=== PATIENT | female | born 1965 | race Caucasian/White ===

== ENCOUNTER → 2021-04-09 02:41 | Outpatient (CLI) | payer MEDICARE, SELFPAY ==
[2021-04-09 18:14] LABS: SARS-CoV-2 RNA PCR Negative
== END ==
PROVIDERS: PCP Family Medicine; Visit Provider Internal Medicine Gastroenterology
DX: Z01.812 Encounter for preprocedural laboratory examination (principal); Z20.822 Contact with and (suspected) exposure to COVID-19
CPT/HCPCS: C9803; U0003; U0005

== ENCOUNTER 2021-04-12 00:54 | Day surgery (SDC) | payer MEDICARE, SELFPAY ==
[2021-04-05 13:34] VITALS: BMI 34.0
[2021-04-12 12:01] VITALS: BP 143/100; PULSE 72; RESP 18; TEMP 36.3; O2SAT 100
[2021-04-12 12:07] LABS: Glucose Point of Care 110 mg/dl (65-105)
[2021-04-12] MEDS: LACTATED RINGERS 1,000 ML 150 ML IV CONT (12:07)
--- NOTE | 2021-04-12 12:46 | WPDANESEPPF ---
Anes - Initial Pre Proc Eval Procedure: Operation Date: 04/12/21 13:30 Proposed Procedures p Esophagogastroduodenoscopy - Danny Hunter MD Date/Time: 04/12/21 12:46 Surgeon: Danny Hunter MD Pre Op Diagnosis: nausea and upper quad pain Patient Data Age: 55 Gender: F Height: 5 ft 4 in Weight: 89 kg Last Vital Signs Temp 97.3 F L 04/12/21 12:01 Pulse 72 04/12/21 12:01 Resp 18 04/12/21 12:01 BP 143/100 H 04/12/21 12:01 Pulse Ox 100 04/12/21 12:01 Allergies Allergy/AdvReac Type Severity Reaction Status Date / Time Sulfa (Sulfonamide Allergy Unknown RASH, Verified 04/12/21 11:59 Antibiotics) NAUSEA ibuprofen Allergy Nausea and Verified 04/12/21 11:59 Vomiting Chocolate Allergy Unknown BAD Uncoded 04/12/21 11:59 MIGRAINES Home Medications Medication Instructions Recorded Confirmed Type atorvastatin 80 mg PO DAILY 04/05/21 04/05/21 History famotidine 40 mg PO DAILY 04/05/21 04/05/21 History hydroxyzine HCl 25 mg PO TID PRN 04/05/21 04/05/21 History lisinopril 2.5 mg PO DAILY 04/05/21 04/05/21 History metformin 1,000 mg PO BID 04/05/21 04/05/21 History propranolol 40 mg PO DAILY 04/05/21 04/05/21 History sertraline 100 mg PO DAILY 04/05/21 04/05/21 History sucralfate 1,000 mg PO QID 04/05/21 04/05/21 History tramadol 50 mg PO Q6H PRN 04/05/21 04/05/21 History Laboratory Tests 04/12/21 12:05 POC Capillary Glucose 110 mg/dl H mg/dl (65-105) Patient hx anesthesia problems: none Family hx anesthesia problems: none PMFSH Past Medical History Medical History (Updated 03/26/21 @ 14:46 by Danny Hunter MD) Nausea Obesity, morbid, BMI 40.0-49.9 Social History Social History Smoking status: Never smoker Living arrangements: with family Spiritual care concerns: No Anes - Eval Final PreProcedure Day of Procedure 04/12/21 12:46 Patient weight: obese Heart: regular rate and rhythm Lungs: clear to auscultation Airway: Mallampati scale class II Neurological: alert and oriented Last oral intake: >/= 8 hours ASA classification: III Emergent: no Anesthetic plan: proceed Anesthesia type and monitoring: general GIVS and standard monitoring Informed Consent: The patient's anesthetic plan and its attendant risks and benefits were discussed with the patient/family/POA. Questions were solicited and answers provided to the satisfaction of the patient/family/POA.
--- NOTE | 2021-04-12 12:59 | WPDHPUPDATE1 ---
History and Physical Update Update Date/Time: 04/12/21 12:59 History and Physical has been reviewed, including an updated exam of the patient. There are NO changes in the patient's condition. Risks, benefits, and alternatives have been discussed and questions answered. Patient agrees to proceed with procedure.
[2021-04-12 13:19] VITALS: BP 144/78; PULSE 73; RESP 21; O2SAT 99
[2021-04-12 13:29] VITALS: BP 146/78; PULSE 81; RESP 14; O2SAT 99
[2021-04-12 13:39] VITALS: BP 142/96; PULSE 76; RESP 22; O2SAT 100
== END 2021-04-12 13:55 | disposition home or self-care (01) ==
PROVIDERS: Visit Provider Internal Medicine Gastroenterology
PROC: 0DJ08ZZ Inspection of Upper Intestinal Tract, Via Natural or Artificial Opening Endoscopic (ICD-10-PCS; CPT 43235; principal; 2021-04-12 13:30)
DX: K29.50 Unspecified chronic gastritis without bleeding (principal); K44.9 Diaphragmatic hernia without obstruction or gangrene; E66.9 Obesity, unspecified; Z68.33 Body mass index [BMI] 33.0-33.9, adult; Z79.84 Long term (current) use of oral hypoglycemic drugs
CPT/HCPCS: 43239; 82948; 88305; 88342; J7120

== ENCOUNTER 2023-01-22 16:00 | Emergency (ER) | payer MEDICARE, SELFPAY ==
--- NOTE | ~2023-01-22 | CT_ITS ---
EXAMINATION: CT abdomen pelvis w con DATE: 01/22/2023 17:39 INDICATION: Epigastric pain with nausea. TECHNIQUE: Computed tomography (CT) of the abdomen and pelvis was performed with 100 cc Omnipaque 350 intravenous contrast. The dose-length product was 1017.60 mGy-cm. Automated exposure control and ite rative reconstruction technique were employed. COMPARISON: None. FINDINGS: There is dependent atelectasis. Cardiomegaly. No significant pleural or pericardial effusio n. Status post cholecystectomy. No significant vascular abnormality. There is mild inguinal lymphaden opathy, likely reactive. Small fat-containing umbilical hernia. There are surgical clips in the lower abdomen and pelvis. There are fluid-filled nondilated small bowel loops throughout the abdomen which may represent ileus or enteritis. No free air or free fluid. No no acute osseous abnormality. There is severe lumbar spondylosis. Mild hepatic steatosis. The spleen, pancreas, adrenal glands are unrema rkable. There is bilateral renal cortical scarring. No hydronephrosis. Status post cholecystectomy. IMPRESSION: 1. Nondilated fluid-filled small bowel loops throughout the abdomen which may represent ileus or ente ritis. Reviewed, dictated and finalized at location A. IMPRESSION: 1. Nondilated fluid-filled small bowel loops throughout the abdomen which may r epresent ileus or enteritis.
[2023-01-22 16:07] VITALS: BP 150/70; PULSE 94; RESP 14; TEMP 36.4; O2SAT 96
--- NOTE | 2023-01-22 16:14 | ED.NAVMDI ---
HPI - Nausea/Vomiting/Diarrhea General Chief complaint: Nausea/Vomiting/Diarrhea Stated complaint: Nausea Time Seen by Provider: 01/22/23 16:08 Source: patient Mode of arrival: ambulatory Limitations: no limitations History of Present Illness HPI Narrative: this is a 57-year-old female with history of diabetes and hypertension has been having off and on abdominal pain for the last month more epigastric in nature with some nausea and few episodes of vomiting. The patient denies any dysuria no shortness of breath no chest pain no fever chills. MD elicited complaint: nausea, vomiting, diarrhea and abdominal pain Onset (ago): month(s) Associated nausea: Yes Associated abdominal pain: Yes Location of pain: epigastric Severity: severe Pain scale (0-10): 10 Quality: aching Related Data Home Medications Medication Instructions Recorded Confirmed atorvastatin 80 mg tablet 80 mg PO DAILY 04/05/21 04/05/21 famotidine 20 mg tablet 40 mg PO DAILY 04/05/21 04/05/21 hydroxyzine HCl 25 mg tablet 25 mg PO TID PRN Itching 04/05/21 04/05/21 lisinopril 2.5 mg tablet 2.5 mg PO DAILY 04/05/21 04/05/21 metformin 500 mg tablet,extended 1,000 mg PO BID 04/05/21 04/05/21 release 24 hr propranolol 40 mg tablet 40 mg PO DAILY 04/05/21 04/05/21 sertraline 100 mg tablet 100 mg PO DAILY 04/05/21 04/05/21 sucralfate 1 gram tablet 1,000 mg PO QID 04/05/21 04/05/21 tramadol 50 mg tablet 50 mg PO Q6H PRN Pain 04/05/21 04/05/21 Allergies Allergy/AdvReac Type Severity Reaction Status Date / Time Sulfa (Sulfonamide Allergy Unknown RASH, Verified 01/22/23 16:12 Antibiotics) NAUSEA ibuprofen Allergy Nausea and Verified 01/22/23 16:12 Vomiting Chocolate Allergy Unknown BAD Uncoded 04/12/21 11:59 MIGRAINES Review of Systems Review of Systems: All systems reviewed & are unremarkable except as noted in HPI and below PMFSH Past Medical History Medical History Nausea Obesity, morbid, BMI 40.0-49.9 Social History Social History Smoking status: Never smoker Living arrangements: with family Spiritual care concerns: No Exam Const: General: healthy appearing Nutritional Appearance: well nourished Orientation/consciousness: patient oriented x3 Limitations: no limitations HENMT: Head: normal to inspection Face/Nose/Sinus: Normal external nose present Face and sinus: normal facial exam Mouth: Yes Normal oral and palatal mucosa present Eyes: Conjunctivae: conjunctivae normal Pupils: Equal, round and reactive pupils present EOM: EOMs intact bilaterally Direct Ophthalmoscopy: no photophobia Chest: Chest palpation & inspection: normal inspection of the chest Resp: Effort & Inspection: normal respiratory effort Cardio: Rate: regular rate Rhythm: regular rhythm GI: GI Palp: Yes Soft to palpation and Yes Tenderness to palpation present (GI) ( Epigastric tenderness) : General: Yes bladder normal to palpation Back/Spine/Pelvis: Back: no CVA tenderness Skin: Rashes: no rashes Wounds: no wounds Neuro: General: patient oriented x3 Cranial nerves: Yes Nystagmus not present Speech: normal speech Gait exam (Neuro): Normal gait present Extrem: General: normal to inspection Psych: Mental Status: mental status grossly normal Affect: normal affect Attitude: cooperative Course Course Emergency Course: patient had EKG performed which shows normal sinus rhythm labs reviewed with patient shows a normal liver function test did have an elevated alk with negative troponins. CT scan of abdomen pelvis performed reviewed with patient, patient did receive a dose of morphine and a dose of IV Protonix. Vital Signs Vital signs: Vital Signs Temperature 36.4 C 01/22/23 16:07 Pulse Rate 94 01/22/23 16:07 Respiratory Rate 14 01/22/23 16:07 Blood Pressure 150/70 H 01/22/23 16:07 Pulse Oximetry 96 01/22/23 1
[2023-01-22 16:15] LABS: Glucose Point of Care 105 mg/dl (65-105)
--- NOTE | 2023-01-22 16:18 | ECG_ITS ---
Measurements Intervals [place] Rate: 72 P: 23 LA: 155 QRS: 37 QRSD: 88 T: 31 QT: 374 QTc: 412 Interpretive Statements SINUS RHYTHM NONSPECIFIC T-WAVE ABNORMALITY- INF/HIGH LAT LEADS BORDERLINE ECG NO PREVIOUS ECG AVAILABLE FOR COMPARISON Electronically Signed On 01-22-2023 21:28:11 CDT by Jose Jha D.O.
[2023-01-22 16:37] LABS: Basophils Absolute Auto 0.06 K/mm3 (0.00-0.10); Basophils Percent Auto 0.7 % (0.0-1.0); Eosinophils Absolute Auto 0.15 K/mm3 (0.02-0.50); Eosinophils Percent Auto 1.7 % (1.0-6.0); Hematocrit 38.6 % (35.0-49.0); Hemoglobin 12.1 g/dL (12.0-15.0); Immature Granulocyte Absolute 0.04 K/mm3 (0.00-0.00); Immature Granulocyte Percent A 0.4 % (0.0-0.0); Mean Corpuscular HGB Conc 31.3 g/dL (32.0-36.0); Mean Corpuscular Hemoglobin 27.3 pg (27.0-31.0); Mean Corpuscular Volume 87.1 fL (78.0-102.0); Mean Platelet Volume 10.4 fl (9.2-11.8); Monocytes Absolute Auto 0.41 K/mm3 (0.10-0.90); Monocytes Percent Auto 4.5 % (2.0-11.0); Neutrophils Absolute Auto 6.4 K/mm3 (1.7-7.2); Neutrophils Percent Auto 70.7 % (50.0-70.0); Platelet Count Result 283 K/mm3 (150-420); Red Blood Count 4.43 M/mm3 (4.20-5.40); Red Cell Distribution Width 13.8 % (11.6-14.4); White Blood Count 9.1 K/mm3 (4.8-10.8)
[2023-01-22] MEDS: ONDANSETRON INJ 4 MG/2 ML VIAL IV PUSH (16:37)
[2023-01-22] MEDS: SODIUM CHLORIDE 0.9% IV 1,000 ML 999 ML IV CONT (16:37)
[2023-01-22 16:38] LABS: Bilirubin Urine Negative (Negative); Blood Urine 1+ (Negative); Color Urine Yellow (Yellow); Glucose Urine UA Negative (Negative); Ketones Urine Negative (Negative); Leukocyte Esterase Ur Trace LEU/UL (Negative); Nitrate Urine Negative (Negative); Protein Urine Trace (Negative); Specific Grav Ur >= 1.030 (1.010-1.020); Urobilinogen Urine 0.2 mg/dL (0.2-1.0)
[2023-01-22] MEDS: MORPHINE SULFATE (*CRX) 4 MG/ML INJ 2 MG IV PUSH (16:38)
[2023-01-22] MEDS: PANTOPRAZOLE SODIUM IV 40 MG VIAL IV PUSH (16:39)
[2023-01-22 16:46] LABS: Add Urine Microscopic? YES; Amorphous Sediment Urine Moderate; Appearance Urine Cloudy (Clear); Bacteria Urine 1+ /hpf; Squamous Epithelial Cell Urine Few /hpf (Few); WBC Urine 0-3 /hpf (0-3)
[2023-01-22 16:53] LABS: Alanine Aminotransferase 34 U/L (14-59); Albumin Level 3.9 g/dL (3.4-5.0); Alkaline Phosphatase 196 U/L (46-116); Anion Gap 13 mmol/L (8-16); Aspartate Amino Transferase 26 U/L (15-37); Bilirubin,Total 1.3 mg/dL (0.00-1.00); Blood Urea Nitrogen 18 mg/dL (7-18); Calcium 9.1 mg/dL (8.5-10.1); Carbon Dioxide 24 mmol/L (21-32); Chloride 102 mmol/L (98-108); Estimated CRCL calculation 57 ml/min; Estimated Glomerular Filt Rate 57; Glucose 118 mg/dL (70-99); Lipase 50 U/L (16-77); Osmolality Calculated 290 mOsm/kg (285-295); Partial Thromboplastin Time 27.3 SEC (23.90-30.70); Potassium 3.5 mmol/L (3.5-5.1); Prothrombin Time 11.4 Seconds (9.50-12.10); Sodium 139 mmol/L (136-145); Total Protein 8.4 g/dL (6.4-8.2)
[2023-01-22 16:57] LABS: CRP < 0.5 mg/dL (0.0-0.9)
[2023-01-22 16:58] LABS: Lactic Acid Reflex 0.9 mmol/L (0.4-2.0)
[2023-01-22 17:14] VITALS: BP 135/70; PULSE 74; RESP 16; TEMP 36.6; O2SAT 99
[2023-01-22 18:12] VITALS: BP 126/76; PULSE 88; RESP 16; TEMP 36.6; O2SAT 98
== END 2023-01-22 18:16 | disposition home or self-care (01) ==
PROVIDERS: Emergency Provider Emergency Medicine
DX: K52.9 Noninfective gastroenteritis and colitis, unspecified (principal); E11.9 Type 2 diabetes mellitus without complications; I10 Essential (primary) hypertension; Z79.84 Long term (current) use of oral hypoglycemic drugs
CPT/HCPCS: 36415; 74177; 80053; 81001; 82948; 83605; 83690; 85025; 85610; 85730; 86140; 93005; 96361; 96374; 96375; 99284; C9113; J2270; J2405; J7030; Q9967

== ENCOUNTER 2023-03-20 10:08 | Outpatient (CLI) | payer MEDICARE, SELFPAY ==
--- NOTE | ~2023-03-20 | US_ITS ---
EXAMINATION: US soft tissue UE RT DATE: 03/20/2023 10:34 INDICATION: Subcutaneous mass at the volar aspect of the right wrist TECHNIQUE: Multiple grayscale and Doppler ultrasound images of the region of concern at the volar asp ect of the right wrist were obtained. COMPARISON: 05/26/2011 FINDINGS: At the site of the palpable abnormality is a volar projecting portion of echogenic and posterior shad owing bone which given the location of scanning as described by the correspondent likely represents the distal pole of the scaphoid. No abnormal masses or fluid collections identified. IMPRESSION: 1. Palpable abnormality of concern appears to correspond to a enriquez projection of a portion of bone which given the described location likely represents the distal pole of the scaphoid. Given significa nt. Given the provided history of interval surgery in the long interval since the prior radiographs, if clinically indicated could consider obtaining repeat radiographs to provide a more current correla tion with the bones and exclude interval development of a heterotopic ossicle or degenerative loose b benigno. No abnormal masses or fluid collections identified. Reviewed, dictated and finalized at location A. IMPRESSION: 1. Palpable abnormality of concern appears to correspond to a enriquez projection of a portion of bone which given the described location likely represents the distal pole of the scaphoid. Given significant. Given the provided history of i nterval surgery in the long interval since the prior radiographs, if clinically indicated could consider obtaining repeat radiographs to provide a more curren t correlation with the bones and exclude interval development of a heterotopic ossicle or degenerative loose body. No abnormal masses or fluid collections alvarado ntified.
== END 2023-03-20 10:09 | disposition home or self-care (01) ==
LOC: CHSIMG 10:09
PROVIDERS: PCP Plastic Surgery; Visit Provider Plastic Surgery
DX: R22.31 Localized swelling, mass and lump, right upper limb (principal)
CPT/HCPCS: 76882

== ENCOUNTER 2023-04-17 10:35 | Outpatient (CLI) | payer MEDICARE, SELFPAY ==
[2023-04-17 11:21] LABS: Alanine Aminotransferase 32 U/L (14-59); Albumin Level 3.6 g/dL (3.4-5.0); Alkaline Phosphatase 169 U/L (46-116); Aspartate Amino Transferase 20 U/L (15-37); Bilirubin Direct 0.2 mg/dL (0-0.2); Bilirubin,Total 1.3 mg/dL (0.00-1.00); Total Protein 7.2 g/dL (6.4-8.2)
== END 2023-04-17 10:36 | disposition home or self-care (01) ==
LOC: CHSLAB 10:39
PROVIDERS: PCP Physician Assistant
DX: R74.8 Abnormal levels of other serum enzymes (principal)
CPT/HCPCS: 36415; 80076

== ENCOUNTER 2023-05-17 15:49 | Emergency (ER) | payer MEDICARE, SELFPAY ==
[2023-05-17 15:52] VITALS: BP 142/76; PULSE 88; RESP 20; TEMP 36.7; O2SAT 99
--- NOTE | 2023-05-17 17:41 | ED.GENADULT ---
HPI - General Adult General Chief complaint: Extremity Problem,Nontraumatic Stated complaint: Leg pain Time Seen by Provider: 05/17/23 17:41 Source: patient Mode of arrival: ambulatory Limitations: no limitations History of Present Illness HPI narrative: patient complains of bilateral copeland pain and calf pain for the past several years. Pain is not changed at all in years she is visiting her mother in the hospital and so stopped the emergency department for evaluation. She said Dr. Nuñez told her that she had lymphedema in 2020. Is worse when she moves around or walks. Does not take any medicine for the pain denies diabetic neuropathy. Denies any trauma . Past medical history Alesia is her primary care provider she saw her on April the Vi did want to do anything about it. She has a history of diabetes migraines hypertension and chronic leg pain . She says she can not take ibuprofen or Tylenol as it hurts her stomach. . Denies any problems eating or drinking voiding or stooling cough sore throat runny nose fever lumps or bumps or swelling rash or itching bleeding or bruising or any other complaints. Related Data Home Medications Medication Instructions Recorded Confirmed lisinopril 2.5 mg tablet 2.5 mg PO DAILY 04/05/21 05/17/23 sertraline 100 mg tablet 100 mg PO DAILY 04/05/21 05/17/23 aripiprazole 20 mg tablet 20 mg PO DAILY 05/17/23 05/17/23 cholecalciferol (vitamin D3) 50 2,000 unit PO DAILY 05/17/23 05/17/23 mcg (2,000 unit) capsule cholestyramine-aspartame 4 gram 1 ea PO TID 05/17/23 05/17/23 oral powder (Cholestyramine Light) cyclobenzaprine 5 mg tablet 5 mg PO BID 05/17/23 05/17/23 ergocalciferol (vitamin D2) 1,250 50,000 unit PO WEEKLY 05/17/23 05/17/23 mcg (50,000 unit) capsule gabapentin 300 mg capsule 300 mg PO TID 05/17/23 05/17/23 glipizide 10 mg tablet, extended 20 mg PO DAILY 05/17/23 05/17/23 release 24 hr glucose 4 gram chewable tablet 4 g PO DAILY PRN low blood sugar 05/17/23 05/17/23 propranolol 120 mg capsule,24 120 mg PO DAILY 05/17/23 05/17/23 hr,extended release sumatriptan succinate 100 mg 100 mg PO DAILY 05/17/23 05/17/23 tablet (Imitrex) Allergies Allergy/AdvReac Type Severity Reaction Status Date / Time Sulfa (Sulfonamide Allergy Unknown RASH, Verified 05/17/23 17:03 Antibiotics) NAUSEA ibuprofen Allergy Nausea and Verified 05/17/23 17:03 Vomiting Chocolate Allergy Unknown BAD Uncoded 05/17/23 17:03 MIGRAINES Review of Systems Review of Systems: All systems reviewed & are unremarkable except as noted in HPI and below PMFSH Past Medical History Medical History Nausea Obesity, morbid, BMI 40.0-49.9 Social History Social History Smoking status: Never smoker Living arrangements: with family Spiritual care concerns: No Exam Narrative: White female no apparent distress.? Head normocephalic, atraumatic.? Eyes conjunctiva pink sclera nonicteric.? Extraocular movements are intact.? Ears externally normal.? Oropharynx is clear with moist mucous membranes without exudates.? Neck is supple nontender no lymphadenopathy.? Back is nontender.? Lungs are clear.? Heart is regular rate and rhythm without murmurs gallops or rubs.? Chest wall is nontender.? Abdomen is soft and nontender no hepatosplenomegaly or masses no CVA tenderness no abdominal bruits.? Extremities no cyanosis clubbing or edema . DP and PT pulses are +2 equal bilateral. There is no calf tenderness or swelling both knees are normal. There is no copeland tenderness either.? Skin is warm and dry without rashes or lesions.? Neurological patient is alert and oriented x4.? Motor and sensory grossly intact.? Gait is normal. Course Vital Signs Vital signs: Vital Signs Temperature 36.7 C 05/17/23 15:52 Pulse Rate 88 05/17/23 15:52 Respiratory Rate 20 05/17/23 15:52 Blood Pre
[2023-05-17 18:17] VITALS: BP 138/68; PULSE 81; RESP 20; TEMP 37; O2SAT 99
[2023-05-17] MEDS: traMADol HCL (*CRX) 50 MG TABLET PO (18:34)
== END 2023-05-17 19:00 | disposition home or self-care (01) ==
LOC: CHSED 18:35
PROVIDERS: Emergency Provider Emergency Medicine; PCP Physician Assistant
DX: M79.662 Pain in left lower leg (principal); M79.661 Pain in right lower leg; G89.29 Other chronic pain; E11.9 Type 2 diabetes mellitus without complications; I10 Essential (primary) hypertension; Z79.899 Other long term (current) drug therapy
CPT/HCPCS: 99283; A9270

== ENCOUNTER 2023-05-21 13:15 | Emergency (ER) | payer MEDICARE, SELFPAY ==
[2023-05-21 13:25] VITALS: BP 146/75; PULSE 71; RESP 20; TEMP 36.6; O2SAT 97
[2023-05-21] MEDS: ONDANSETRON HCL ODT 4 MG TABLET PO (13:55)
[2023-05-21 13:57] LABS: Basophils Absolute Auto 0.04 K/mm3 (0.00-0.10); Basophils Percent Auto 0.7 % (0.0-1.0); Eosinophils Absolute Auto 0.14 K/mm3 (0.02-0.50); Eosinophils Percent Auto 2.4 % (1.0-6.0); Hematocrit 35.8 % (35.0-49.0); Hemoglobin 11.1 g/dL (12.0-15.0); Immature Granulocyte Absolute 0.03 K/mm3 (0.00-0.00); Immature Granulocyte Percent A 0.5 % (0.0-0.0); Lymphocytes Absolute Auto 1.57 K/mm3 (1.10-4.50); Lymphocytes Percent Auto 26.4 % (18.0-42.0); Mean Corpuscular Hemoglobin 28.7 pg (27.0-31.0); Mean Corpuscular Volume 92.5 fL (78.0-102.0); Mean Platelet Volume 10.6 fl (9.2-11.8); Monocytes Absolute Auto 0.24 K/mm3 (0.10-0.90); Neutrophils Absolute Auto 3.9 K/mm3 (1.7-7.2); Platelet Count Result 215 K/mm3 (150-420); Red Blood Count 3.87 M/mm3 (4.20-5.40); Red Cell Distribution Width 14.4 % (11.6-14.4); White Blood Count 5.9 K/mm3 (4.8-10.8)
[2023-05-21 14:11] LABS: Alanine Aminotransferase 23 U/L (14-59); Albumin Level 3.3 g/dL (3.4-5.0); Alkaline Phosphatase 177 U/L (46-116); Anion Gap 9 mmol/L (8-16); Aspartate Amino Transferase 26 U/L (15-37); Bilirubin,Total 0.8 mg/dL (0.00-1.00); Blood Urea Nitrogen 16 mg/dL (7-18); Calcium 8.9 mg/dL (8.5-10.1); Carbon Dioxide 26 mmol/L (21-32); Chloride 105 mmol/L (98-108); Estimated CRCL calculation 64 ml/min; Estimated Glomerular Filt Rate 60; Glucose 107 mg/dL (70-99); Lipase 48 U/L (16-77); Osmolality Calculated 291 mOsm/kg (285-295); Potassium 4.1 mmol/L (3.5-5.1); Sodium 140 mmol/L (136-145); Total Protein 7.2 g/dL (6.4-8.2)
--- NOTE | 2023-05-21 14:31 | ED.ABDPAIN ---
HPI - Abdominal Pain General Chief Complaint: Abdominal Pain Stated Complaint: stomach pain Time Seen by Provider: 05/21/23 13:23 Source: patient Mode of arrival: ambulatory Limitations: no limitations History of Present Illness HPI narrative: This is a 57-year-old female that presents with abdominal pain she states has been going on for the last 3 months did have a CT scan performed which showed that she had a enteritis, currently she states that her abdominal pain has resolved but feels a little nauseated there is no dysuria no fever chills no flank pain no hematuria no chest pain or shortness of breath. MD elicited complaint: abdominal pain Onset (ago): month(s) Pain Consistency: now resolved Location: diffuse Severity: mild Related Data Home Medications Medication Instructions Recorded Confirmed lisinopril 2.5 mg tablet 2.5 mg PO DAILY 04/05/21 05/21/23 sertraline 100 mg tablet 100 mg PO DAILY 04/05/21 05/21/23 aripiprazole 20 mg tablet 20 mg PO DAILY 05/17/23 05/21/23 cholecalciferol (vitamin D3) 50 2,000 unit PO DAILY 05/17/23 05/21/23 mcg (2,000 unit) capsule cholestyramine-aspartame 4 gram 1 ea PO TID 05/17/23 05/21/23 oral powder (Cholestyramine Light) cyclobenzaprine 5 mg tablet 5 mg PO BID 05/17/23 05/21/23 ergocalciferol (vitamin D2) 1,250 50,000 unit PO WEEKLY 05/17/23 05/21/23 mcg (50,000 unit) capsule gabapentin 300 mg capsule 300 mg PO TID 05/17/23 05/21/23 glipizide 10 mg tablet, extended 20 mg PO DAILY 05/17/23 05/21/23 release 24 hr glucose 4 gram chewable tablet 4 g PO DAILY PRN low blood sugar 05/17/23 05/21/23 propranolol 120 mg capsule,24 120 mg PO DAILY 05/17/23 05/21/23 hr,extended release sumatriptan succinate 100 mg 100 mg PO DAILY 05/17/23 05/21/23 tablet (Imitrex) Allergies Allergy/AdvReac Type Severity Reaction Status Date / Time Sulfa (Sulfonamide Allergy Unknown RASH, Verified 05/21/23 13:35 Antibiotics) NAUSEA ibuprofen Allergy Nausea and Verified 05/21/23 13:35 Vomiting Chocolate Allergy Unknown BAD Uncoded 05/21/23 13:35 MIGRAINES Review of Systems Review of Systems: All systems reviewed & are unremarkable except as noted in HPI and below PMFSH Past Medical History Medical History Nausea Obesity, morbid, BMI 40.0-49.9 Social History Social History Smoking status: Never smoker Living arrangements: with family Spiritual care concerns: No Exam Const: General: healthy appearing Nutritional Appearance: well nourished Orientation/consciousness: patient oriented x3 Limitations: no limitations Neck: Neck: normal visual inspection Chest: Chest palpation & inspection: normal inspection of the chest Resp: Effort & Inspection: normal respiratory effort Auscultation: clear to auscultation bilaterally Cardio: Rate: regular rate Rhythm: regular rhythm GI: GI Palp: Yes Soft to palpation Auscultation: normal bowel sounds : General: Yes bladder normal to palpation Urinary Catheter: Urinary Catheter: patent and draining Skin: General skin exam: normal color Rashes: no rashes Wounds: no wounds Neuro: General: patient oriented x3 Extrem: General: normal to inspection Psych: Mental Status: mental status grossly normal Affect: normal affect Course Course Emergency Course: Patient received Zofran which caused her nausea to improve and labs were reviewed with patient advised to follow with primary care physician. Vital Signs Vital signs: Vital Signs Temperature 36.6 C 05/21/23 13:25 Pulse Rate 71 05/21/23 13:25 Respiratory Rate 05/21/23 13:25 Blood Pressure 146/75 H 05/21/23 13:25 Pulse Oximetry 97 05/21/23 13:25 Oxygen Delivery Room Air 05/21/23 13:25 Temperature 36.6 C 05/21/23 13:25 Pulse Rate 71 05/21/23 13:25 Respiratory Rate 20 05/21/23 13:25 Blood Pressure 146/75 H
[2023-05-21 14:52] VITALS: BP 101/89; PULSE 66; RESP 20; TEMP 36.5; O2SAT 98
== END 2023-05-21 14:59 | disposition home or self-care (01) ==
PROVIDERS: Emergency Provider Emergency Medicine; PCP Family Medicine
DX: R11.0 Nausea (principal)
CPT/HCPCS: 36415; 80053; 83690; 85025; 99283; A9270

== ENCOUNTER 2023-06-09 14:11 | Outpatient (CLI) | payer MEDICARE, SELFPAY ==
[2023-06-09 14:47] LABS: Creatinine Urine 106.35 mg/dL (40-278); MALB Creatinine Ratio 12.2 mg/g (0-30); Microalbumin Urine Random < 13.0 mg/L
[2023-06-09 14:49] LABS: Hemoglobin A1C 6.3 % (<5.7)
[2023-06-09 15:01] LABS: Alanine Aminotransferase 27 U/L (14-59); Albumin Level 3.6 g/dL (3.4-5.0); Alkaline Phosphatase 183 U/L (46-116); Anion Gap 11 mmol/L (8-16); Aspartate Amino Transferase < 10 U/L (15-37); Bilirubin,Total 0.8 mg/dL (0.00-1.00); Blood Urea Nitrogen 22 mg/dL (7-18); Calcium 8.8 mg/dL (8.5-10.1); Carbon Dioxide 25 mmol/L (21-32); Chloride 106 mmol/L (98-108); Cholesterol 161 mg/dL (0-200); Estimated Glomerular Filt Rate 57; Glucose 104 mg/dL (70-99); HDL Direct 69 mg/dL (40-60); LDL Cholesterol Calculated 83 mg/dL (<130); Osmolality Calculated 297 mOsm/kg (285-295); Potassium 3.7 mmol/L (3.5-5.1); Sodium 142 mmol/L (136-145); Total Protein 7.3 g/dL (6.4-8.2); Triglycerides 44 mg/dL (0-150)
== END 2023-06-09 14:12 | disposition home or self-care (01) ==
LOC: CHSLAB 14:13
PROVIDERS: PCP Family Medicine; Visit Provider Family Medicine
DX: E11.9 Type 2 diabetes mellitus without complications (principal)
CPT/HCPCS: 36415; 80053; 80061; 82043; 83036

== ENCOUNTER 2023-06-19 13:41 | Outpatient (CLI) | payer MEDICARE, SELFPAY ==
--- NOTE | ~2023-06-19 | MM_ITS ---
EXAMINATION: MM screening [facility] BI w raquel HISTORY: Screening mammogram TECHNIQUE: Craniocaudal and mediolateral oblique 3-D tomosynthesis images were obtained and synthetic 2-D images were generated. CAD analysis was submitted and interpreted. COMPARISON: 04/19/2020, 06/03/2022 BREAST PARENCHYMAL COMPOSITION: The breasts are heterogeneously dense, which may obscure small masses . FINDINGS: Scattered benign-appearing calcifications are present. No suspicious mass, calcification, o r architectural distortion are identified in either breast to suggest malignancy. There has been no s uspicious interval change. IMPRESSION: 1. No mammographic evidence of malignancy. 2. Recommend routine screening mammography in one year. BI-RADS Category 2: Benign finding(s). Reviewed, dictated and finalized at location A.
== END 2023-06-19 13:42 | disposition home or self-care (01) ==
LOC: CHSIMG 13:42
PROVIDERS: PCP Physician Assistant; Visit Provider Physician Assistant
DX: Z12.31 Encounter for screening mammogram for malignant neoplasm of breast (principal)
CPT/HCPCS: 77063; 77067

== ENCOUNTER 2023-06-29 14:19 | Outpatient (CLI) | payer MEDICARE, SELFPAY ==
--- NOTE | ~2023-06-29 | XR_ITS ---
EXAMINATION: XR hand RT min 3V DATE: 06/29/2023 15:07 INDICATION: Right wrist pain TECHNIQUE: Posteroanterior, oblique and lateral views of the right hand were obtained. COMPARISON: 04/14/2023 FINDINGS: Again seen is mild ulnar positive variance. Alignment is otherwise normal. Suture anchors at the dors al aspect of the scaphoid. No fractures. Polyarticular osteoarthritis, mild to moderate severity at t he third metacarpophalangeal, first interphalangeal and at the distal interphalangeal joints and mild at the wrist, triscaphe, first carpometacarpal and remaining metacarpophalangeal and interphalangeal joints. No erosions. Soft tissues are unremarkable. IMPRESSION: 1. 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 No acute osseous abnormality. Reviewed, dictated and finalized at location A. IMPRESSION: 1. 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 No acute os seous abnormality.
== END 2023-06-29 14:20 | disposition home or self-care (01) ==
PROVIDERS: PCP Family Medicine; Visit Provider Plastic Surgery
DX: G56.01 Carpal tunnel syndrome, right upper limb (principal); M19.041 Primary osteoarthritis, right hand
CPT/HCPCS: 73130

== ENCOUNTER 2023-07-11 12:21 | Outpatient (CLI) | payer MEDICARE, SELFPAY ==
--- NOTE | ~2023-07-11 | MR_ITS ---
MRI of the right wrist CLINICAL HISTORY: Neuroma, tenosynovitis TECHNIQUE: Axial proton-density, proton-density fat-sat, and T1 fat-sat images, coronal T1-weighted a nd proton-density fat-sat, and sagittal proton-density and proton-density fat-sat images were perform ed. Following intravenous administration of 19 cc MultiHance gadolinium, T1-weighted fat-sat imaging was performed in the axial, coronal, and sagittal planes. FINDINGS: Focal areas of susceptibility artifact about the scaphoid, which could reflect postoperativ e or posttraumatic change. No acute fracture or dislocation seen. Scapholunate interval is mildly wid ened to 5.5 mm. There is probable tearing of the dorsal band of the scapholunate ligament. Lunotriquetral ligament is intact. Central articular disc of the TFCC is intact. There are mild degen erative changes at the STT articulations. Flexor tendons are intact. There is apparent prior release or laxity of the extensor retinaculum at t he carpal tunnel, with bulging of especially the median nerve superficially. No definite neuroma evid ent. Extensor tendons are intact. IMPRESSION: Suspected tearing of the dorsal band of the scapholunate ligament, with mild widening of the scapholu tracy interval to 5.5 mm. Suspected prior surgery or posttraumatic change involving the scaphoid bone. Correlate with clinical history. No acute fracture seen. Suspected prior release or laxity of the extensor retinacula the carpal tunnel, as detailed above. Reviewed, dictated and finalized at [facility]. IMPRESSION: Suspected tearing of the dorsal band of the scapholunate ligament, with mild wi dening of the scapholunate interval to 5.5 mm. Suspected prior surgery or posttraumatic change involving the scaphoid bone. Co rrelate with clinical history. No acute fracture seen. Suspected prior release or laxity of the extensor retinacula the carpal tunnel, as detailed above.
== END 2023-07-11 12:22 | disposition home or self-care (01) ==
PROVIDERS: PCP Family Medicine; Visit Provider Plastic Surgery
DX: G56.01 Carpal tunnel syndrome, right upper limb (principal); D36.10 Benign neoplasm of peripheral nerves and autonomic nervous system, unspecified
CPT/HCPCS: 73223; A9577

== ENCOUNTER 2023-07-20 13:05 | Outpatient (CLI) | payer MEDICARE, SELFPAY ==
--- NOTE | 2023-07-20 13:14 | ECHO_ITS ---
Patient Info Name: Marisela Blanco Age: 58 years : 1965 Gender: Female Ht: 64 in Wt: 170 lbs BSA: 1.89 m2 HR: 52 bpm BP: 155 / 88 mmHg Heart Rhythm: Sinus Rhythm Technical Quality: Fair Exam Date: 07/20/2023 1:07 PM Exam Location: [facility] Patient Status: Outpatient Admit Date: 07/20/2023 Staff Ordering Physician: Ramon Aviles DO Assistant Corporate Controller: [employer] Attending Provider: Ramon Aviles DO Referring Physician: Stefan JONES; Exam Type: CA echo doppler color flow Study Info Indications - syncope and collaps Complete two-dimensional, color flow and Doppler transthoracic echocardiogram is performed. Summary 1. Complete two-dimensional, color flow and Doppler transthoracic echocardiogram is performed. 2. Left ventricular chamber dimension is normal. 3. Left ventricular systolic function is normal, estimated at 55-60%. 4. The left ventricular diastolic function is grade I diastolic dysfunction. 5. E/e' 10 is mildly elevated. 6. The mitral valve has mildly calcified annulus. 7. There is trace mitral valve regurgitation. 8. There is trace tricuspid valve regurgitation. 9. No pulmonary hypertension, estimated pulmonary arterial systolic pressure is 28 mmHg. 10. There is trace pulmonic regurgitation. Left Ventricle E/e' 10 is mildly elevated. Left ventricular chamber dimension is normal. Left ventricular systolic function is normal, estimated at 55-60%. The left ventricular diastolic function is grade I diastolic dysfunction. Right Ventricle Right ventricular systolic function is normal and with normal TAPSE 3.2 cm. Right ventricular chamber dimension is normal. Left Atria Left atrial chamber dimension is normal. Right Atria Right atrial chamber dimension is normal. Aortic Valve The aortic valve is probable trileaflet. There is no aortic valve stenosis. There is no aortic valve regurgitation. Pulmonic Valve There is trace pulmonic regurgitation. Mitral Valve The mitral valve has mildly calcified annulus. There is no mitral valve stenosis. There is trace mitral valve regurgitation. Tricuspid Valve There is trace tricuspid valve regurgitation. No pulmonary hypertension, estimated pulmonary arterial systolic pressure is 28 mmHg. Pericardium/Pleural There is no pericardial effusion. Inferior Vena Cava Normal inferior vena cava with >50% collapse upon inspiration consistent with normal right atrial pressure, 5 mmHg. Aorta The aortic root size at the sinus of Valsalva is normal. Left Ventricular Outflow Tract Name Value Normal LVOT 2D LVOT Diameter 1.9 cm LVOT Doppler LVOT Peak Velocity 85 cm/s LVOT Peak Gradient 3 mmHg LVOT Mean Gradient 0 mmHg LVOT VTI 22 cm LVOT VTI/AV VTI Ratio 0.9 LVOT Stroke Volume 61 ml Pulmonic Valve Name Value Normal RVOT Doppler
== END 2023-07-20 13:06 | disposition home or self-care (01) ==
LOC: CHSIMG 13:07
PROVIDERS: PCP Family Medicine; Visit Provider Family Medicine
DX: R55 Syncope and collapse (principal)
CPT/HCPCS: 93306

== ENCOUNTER 2023-08-04 13:52 | Outpatient (CLI) | payer MEDICARE, SELFPAY ==
--- NOTE | 2023-08-04 14:30 | NEURO_ITS ---
Impression: # Complains of numbness of hand. # Left ulnar neuropathy across the elbow. # No Carpal Tunnel Syndrome. # Normal needle/EMG exam. Nerve Conduction Studies Anti Sensory Summary Table Stim Site NR Peak (ms) P-T Amp (?V) Site1 Site2 Delta-P (ms) Dist (cm) Emre (m/s) Left Median Anti Sensory (2-3nd Digit) Wrist 2.8 56.5 Wrist 2-3nd Digit 2.8 14.0 50 Wrist 2.9 52.7 Wrist 2-3nd Digit 2.8 14.0 50 Right Median Anti Sensory (2-3nd Digit) Wrist 2.8 44.5 Wrist 2-3nd Digit 2.8 14.0 50 Wrist 3.0 37.0 Wrist 2-3nd Digit 2.8 14.0 50 Left Radial Anti Sensory (Base 1st Digit) Wrist 1.8 29.8 Wrist Base 1st Digit 1.8 0.0 Right Radial Anti Sensory (Base 1st Digit) Wrist 2.2 25.4 Wrist Base 1st Digit 2.2 0.0 Left Ulnar Anti Sensory (5th Digit) Wrist 2.5 37.0 Wrist 5th Digit 2.5 14.0 56 Right Ulnar Anti Sensory (5th Digit) Wrist 2.6 19.1 Wrist 5th Digit 2.6 14.0 54 Motor Summary Table Stim Site NR Onset (ms) O-P Amp (mV) Site1 Site2 Delta-0 (ms) Dist (cm) Emre (m/s) Left Median Motor (Abd Poll Brev) Wrist 2.8 7.9 Elbow Wrist 4.7 26.0 55 Elbow 7.5 11.5 Right Median Motor (Abd Poll Brev) Wrist 3.2 8.1 Elbow Wrist 4.7 26.0 55 Elbow 7.9 7.7 Left Ulnar Motor (Abd Dig Minimi) Wrist 2.4 6.5 A Elbow Wrist 4.5 26.0 58 A Elbow 6.9 5.5 Right Ulnar Motor (Abd Dig Minimi) Wrist 2.4 7.1 A Elbow Wrist 6.0 27.0 45 A Elbow 8.4 5.5 B Elbow Wrist 4.0 18.0 45 B Elbow 6.4 5.7 F Wave Studies NR F-Lat (ms) L-R F-Lat (ms) Left Median (Mrkrs) (Abd Poll Brev) 26.13 0.75 Right Median (Mrkrs) (Abd Poll Brev) 26.88 0.75 Left Ulnar (Mrkrs) (Abd Dig Min) 27.27 1.04 Right Ulnar (Mrkrs) (Abd Dig Min) 26.23 1.04 EMG Side Muscle Nerve Root Ins Act Fibs Amp Dur Recrt Comment Right 1stDorInt Ulnar C8-T1 Nml Nml Nml Nml Nml Right Ext Indicis Radial (Post Int) C7-8 Nml Nml Nml Nml Nml Right Ext Digitorum Radial (Post Int) C7-8 Nml Nml Nml Nml Nml Right BrachioRad Radial C5-6 Nml Nml Nml Nml Nml Right PronatorTeres Median C6-7 Nml Nml Nml Nml Nml Right Abd Poll Brev Median C8-T1 Nml Nml Nml Nml Nml Left 1stDorInt Ulnar C8-T1 Nml Nml Nml Nml Nml Left Ext Indicis Radial (Post Int) C7-8 Nml Nml Nml Nml Nml Left Ext Digitorum Radial (Post Int) C7-8 Nml Nml Nml Nml Nml Left BrachioRad Radial C5-6 Nml Nml Nml Nml Nml Left PronatorTeres Median C6-7 Nml Nml Nml Nml Nml Left Abd Poll Brev Median C8-T1 Nml Nml Nml Nml Nml MTDD
== END 2023-08-04 13:53 | disposition home or self-care (01) ==
LOC: ANHNEURO 13:57
PROVIDERS: PCP Family Medicine; Visit Provider Plastic Surgery
DX: G56.22 Lesion of ulnar nerve, left upper limb (principal)
CPT/HCPCS: 95886; 95911

== ENCOUNTER 2023-08-23 14:00 | Emergency (ER) | payer MEDICARE, SELFPAY ==
[2023-08-23] VITALS (15 sets, daily range): BP systolic 104–122; BP diastolic 65–74; PULSE 42–82; RESP 11–18; TEMP 36.2–36.4; O2SAT 95–97
--- NOTE | 2023-08-23 14:11 | ECG_ITS ---
Measurements Intervals [place] Rate: 84 P: 42 DC: 164 QRS: -4 QRSD: 76 T: 45 QT: 351 QTc: 417 Interpretive Statements SINUS RHYTHM WITH OCCASIONAL PREMATURE VENTRICULAR CONTRACTIONS BASELINE ARTIFACT NONSPECIFIC T-WAVE ABNORMALITY BORDERLINE ECG COMPARED TO ECG 01/22/2023 16:50:13 T-WAVE ABNORMALITY NOW PRESENT Electronically Signed On 08-24-2023 16:35:23 CDT by Vikas Roman M.D.
[2023-08-23 15:16] LABS: Basophils Absolute Auto 0.05 K/mm3 (0.00-0.10); Basophils Percent Auto 0.7 % (0.0-1.0); Eosinophils Absolute Auto 0.32 K/mm3 (0.02-0.50); Eosinophils Percent Auto 4.8 % (1.0-6.0); Hematocrit 37.1 % (35.0-49.0); Hemoglobin 11.5 g/dL (12.0-15.0); Immature Granulocyte Absolute 0.01 K/mm3 (0.00-0.00); Immature Granulocyte Percent A 0.1 % (0.0-0.0); Lymphocytes Percent Auto 23.8 % (18.0-42.0); Mean Corpuscular Hemoglobin 27.8 pg (27.0-31.0); Mean Corpuscular Volume 89.6 fL (78.0-102.0); Mean Platelet Volume 10.6 fl (9.2-11.8); Monocytes Absolute Auto 0.28 K/mm3 (0.10-0.90); Monocytes Percent Auto 4.2 % (2.0-11.0); Neutrophils Absolute Auto 4.5 K/mm3 (1.7-7.2); Neutrophils Percent Auto 66.4 % (50.0-70.0); Platelet Count Result 242 K/mm3 (150-420); Red Blood Count 4.14 M/mm3 (4.20-5.40); Red Cell Distribution Width 13.3 % (11.6-14.4); White Blood Count 6.7 K/mm3 (4.8-10.8)
[2023-08-23 15:38] LABS: Alanine Aminotransferase 40 U/L (14-59); Albumin Level 3.2 g/dL (3.4-5.0); Alkaline Phosphatase 191 U/L (46-116); Anion Gap 9 mmol/L (8-16); Aspartate Amino Transferase 12 U/L (15-37); Blood Urea Nitrogen 14 mg/dL (7-18); Carbon Dioxide 26 mmol/L (21-32); Chloride 104 mmol/L (98-108); Estimated CRCL calculation 63 ml/min; Estimated Glomerular Filt Rate 59; Glucose 172 mg/dL (70-99); NT Pro B Type Natriuretic Pept 68 pg/mL (0-125); Osmolality Calculated 292 mOsm/kg (285-295); Potassium 4.1 mmol/L (3.5-5.1); Sodium 139 mmol/L (136-145); Total Protein 7.2 g/dL (6.4-8.2)
[2023-08-23] MEDS: SODIUM CHLORIDE 0.9% IV 1,000 ML 999 ML IV CONT (15:42)
[2023-08-23] MEDS: ONDANSETRON INJ 4 MG/2 ML VIAL IV PUSH (15:42)
[2023-08-23] MEDS: MECLIZINE HCL 25 MG TABLET PO (15:44)
--- NOTE | 2023-08-23 16:44 | ED.DIZZY ---
HPI - Dizziness General Chief Complaint: Dizziness Stated Complaint: dizziness/not feeling well Time Seen by Provider: 08/23/23 14:06 Source: patient Mode of arrival: ambulatory History of Present Illness HPI Narrative: Patient is a 58-year-old female with significant past medical history that presents today with dizziness. She has had multiple rounds dizziness in the past. She has been seen for this multiple times. She does take multiple medications and she is a diabetic. Sugars were within range today. She did take all her medications today and is on gabapentin muscle relaxant, and on Xanax. This could be the cause of the dizziness. She denies any other symptoms. MD elicited complaint: dizziness Pertinent past history: BPPV Onset (ago): hour(s) Timing: intermittent Severity: mild Description: room spinning and lightheadedness Context: exertion and at rest History of similar symptoms: Yes Exacerbating factors: movement/ambulation and change in body position Relieving factors: nothing Associated symptoms: denies other symptoms Related Data Home Medications Medication Instructions Recorded Confirmed lisinopril 2.5 mg tablet 2.5 mg PO DAILY 04/05/21 08/19/23 sertraline 100 mg tablet 100 mg PO DAILY 04/05/21 08/19/23 aripiprazole 20 mg tablet 20 mg PO DAILY 05/17/23 08/19/23 cholecalciferol (vitamin D3) 50 2,000 unit PO DAILY 05/17/23 08/19/23 mcg (2,000 unit) capsule cyclobenzaprine 5 mg tablet 5 mg PO BID 05/17/23 08/19/23 ergocalciferol (vitamin D2) 1,250 50,000 unit PO WEEKLY 05/17/23 08/19/23 mcg (50,000 unit) capsule gabapentin 300 mg capsule 300 mg PO TID 05/17/23 08/19/23 propranolol 120 mg capsule,24 120 mg PO DAILY 05/17/23 08/19/23 hr,extended release sumatriptan succinate 100 mg 100 mg PO DAILY 05/17/23 08/19/23 tablet (Imitrex) atorvastatin 80 mg tablet 80 mg PO DAILY 06/09/23 08/19/23 famotidine 40 mg tablet 40 mg PO BID 06/09/23 08/19/23 Allergies Allergy/AdvReac Type Severity Reaction Status Date / Time Sulfa (Sulfonamide Allergy Unknown RASH, Verified 08/23/23 15:17 Antibiotics) NAUSEA ibuprofen Allergy Nausea and Verified 08/23/23 15:17 Vomiting Chocolate Allergy Unknown BAD Uncoded 08/19/23 10:02 MIGRAINES Review of Systems Review of Systems: All systems reviewed & are unremarkable except as noted in HPI and below Constitutional: Constitutional: Reports no additional constitutional complaints Eyes: Eyes: Reports no additional eye complaints ENT: Reports system reviewed and no additional complaints, except as documented Cardiovascular: Cardiovascular: Reports no additional cardiovascular complaints Respiratory: Respiratory: Reports no additional respiratory complaints Gastrointestinal: Gastrointestinal: Reports no additional gastrointestinal complaints Genitourinary: Genitourinary: Reports no additional female genitourinary complaints Musculoskeletal: Musculoskeletal: Reports no additional musculoskeletal complaints Integumentary/Breasts: Skin/Breast: Reports system reviewed and no additional complaints, except as docu Neurologic: Reports system reviewed and no additional complaints, except as documented Psychiatric: Psychiatric: Reports no additional psychiatric complaints Endocrine: Endocrine: Reports no additional endocrine complaints [facility] Past Medical History Medical History Nausea Obesity, morbid, BMI 40.0-49.9 Social History Social History (Updated 06/29/23 @ 13:35 by Jenny Malik MA) Smoking status: Never smoker Lack of Transportation: No Lack of Food: Never True Current Housing: I Have Housing Concerned About Future Housing: No Difficulty Paying Gas/Electric Bills: No Difficulty Paying for Meds: No Currently Unemployed: No Education: High School Diploma/GED Difficulty w/ Childcare or Family Care: No Living arrangements: with family Spiritual care co
== END 2023-08-23 17:22 | disposition home or self-care (01) ==
PROVIDERS: Emergency Provider Family Medicine; PCP Family Medicine
DX: H81.10 Benign paroxysmal vertigo, unspecified ear (principal); E11.9 Type 2 diabetes mellitus without complications; Z79.899 Other long term (current) drug therapy
CPT/HCPCS: 36415; 80053; 83880; 85025; 93005; 96361; 96374; 99284; A9270; J2405; J7030

== ENCOUNTER 2023-09-09 10:12 | Outpatient (CLI) | payer MEDICARE, SELFPAY ==
--- NOTE | ~2023-09-09 | CT_ITS ---
EXAMINATION: CT abdomen pelvis wo con DATE: 09/09/2023 14:56 INDICATION: Right abdominal pain TECHNIQUE: Computed tomography (CT) of the abdomen and pelvis was performed without intravenous contr ast. The dose-length product was 1131.33 mGy-cm. Automated exposure control and iterative reconstruct ion technique were employed. COMPARISON: CT dated 01/22/2023 FINDINGS: Surgical clips reidentified in the abdomen and pelvis. Status post cholecystectomy. Lung ba ses unremarkable. No significant pleural or pericardial effusion. Heart size normal. The liver, splee n, pancreas, adrenal glands and kidneys are unremarkable. No lymphadenopathy. No significant vascular abnormality. No lymphadenopathy. Severe lower thoracic and lumbar spondylosis. No abnormal pelvic ma sses or fluid collections. No free air or free fluid. Nonobstructive bowel pattern. IMPRESSION: 1. No acute abdominal abnormality. Reviewed, dictated and finalized at location B.
[2023-09-09 10:33] LABS: Basophils Absolute Auto 0.05 K/mm3 (0.00-0.10); Basophils Percent Auto 0.7 % (0.0-1.0); Eosinophils Absolute Auto 0.33 K/mm3 (0.02-0.50); Eosinophils Percent Auto 4.9 % (1.0-6.0); Hematocrit 41.2 % (35.0-49.0); Hemoglobin 12.9 g/dL (12.0-15.0); Immature Granulocyte Absolute 0.02 K/mm3 (0.00-0.00); Immature Granulocyte Percent A 0.3 % (0.0-0.0); Lymphocytes Absolute Auto 1.24 K/mm3 (1.10-4.50); Lymphocytes Percent Auto 18.4 % (18.0-42.0); Mean Corpuscular HGB Conc 31.3 g/dL (32.0-36.0); Mean Corpuscular Hemoglobin 27.5 pg (27.0-31.0); Mean Corpuscular Volume 87.8 fL (78.0-102.0); Mean Platelet Volume 10.4 fl (9.2-11.8); Monocytes Absolute Auto 0.24 K/mm3 (0.10-0.90); Monocytes Percent Auto 3.6 % (2.0-11.0); Neutrophils Absolute Auto 4.9 K/mm3 (1.7-7.2); Neutrophils Percent Auto 72.1 % (50.0-70.0); Platelet Count Result 245 K/mm3 (150-420); Red Blood Count 4.69 M/mm3 (4.20-5.40); Red Cell Distribution Width 13.4 % (11.6-14.4); White Blood Count 6.7 K/mm3 (4.8-10.8)
[2023-09-09 10:56] LABS: Prothrombin Time 11.4 Seconds (9.50-12.10)
[2023-09-09 10:59] LABS: Alanine Aminotransferase 92 U/L (14-59); Albumin Level 3.7 g/dL (3.4-5.0); Alkaline Phosphatase 277 U/L (46-116); Anion Gap 13 mmol/L (8-16); Aspartate Amino Transferase 55 U/L (15-37); Bilirubin,Total 2.8 mg/dL (0.00-1.00); Blood Urea Nitrogen 21 mg/dL (7-18); CRP 1.2 mg/dL (0.0-0.9); Calcium 9.5 mg/dL (8.5-10.1); Carbon Dioxide 22 mmol/L (21-32); Chloride 103 mmol/L (98-108); Estimated Glomerular Filt Rate 55; Glucose 144 mg/dL (70-99); Lipase 79 U/L (16-77); Osmolality Calculated 292 mOsm/kg (285-295); Potassium 3.9 mmol/L (3.5-5.1); Sodium 138 mmol/L (136-145); Total Protein 7.5 g/dL (6.4-8.2)
== END 2023-09-09 10:13 | disposition home or self-care (01) ==
PROVIDERS: PCP Family Medicine; Visit Provider Family Medicine
DX: R10.9 Unspecified abdominal pain (principal)
CPT/HCPCS: 36415; 74176; 80053; 83690; 85025; 85610; 86140

== ENCOUNTER 2023-09-17 14:24 | Outpatient (CLI) | payer MEDICARE, SELFPAY ==
[2023-09-17 14:42] LABS: Basophils Absolute Auto 0.04 K/mm3 (0.00-0.10); Basophils Percent Auto 0.5 % (0.0-1.0); Eosinophils Absolute Auto 0.33 K/mm3 (0.02-0.50); Eosinophils Percent Auto 4.4 % (1.0-6.0); Hematocrit 40.4 % (35.0-49.0); Hemoglobin 12.1 g/dL (12.0-15.0); Immature Granulocyte Absolute 0.02 K/mm3 (0.00-0.00); Immature Granulocyte Percent A 0.3 % (0.0-0.0); Lymphocytes Absolute Auto 1.85 K/mm3 (1.10-4.50); Lymphocytes Percent Auto 24.9 % (18.0-42.0); Mean Corpuscular Hemoglobin 26.6 pg (27.0-31.0); Mean Corpuscular Volume 88.8 fL (78.0-102.0); Mean Platelet Volume 10.3 fl (9.2-11.8); Monocytes Absolute Auto 0.31 K/mm3 (0.10-0.90); Monocytes Percent Auto 4.2 % (2.0-11.0); Neutrophils Absolute Auto 4.9 K/mm3 (1.7-7.2); Neutrophils Percent Auto 65.7 % (50.0-70.0); Platelet Count Result 222 K/mm3 (150-420); Red Blood Count 4.55 M/mm3 (4.20-5.40); Red Cell Distribution Width 13.5 % (11.6-14.4); White Blood Count 7.4 K/mm3 (4.8-10.8)
[2023-09-17 15:15] LABS: Alanine Aminotransferase 23 U/L (14-59); Albumin Level 3.6 g/dL (3.4-5.0); Alkaline Phosphatase 191 U/L (46-116); Anion Gap 9 mmol/L (8-16); Aspartate Amino Transferase 12 U/L (15-37); Bilirubin,Total 1.2 mg/dL (0.00-1.00); Blood Urea Nitrogen 19 mg/dL (7-18); CRP 0.5 mg/dL (0.0-0.9); Calcium 9.2 mg/dL (8.5-10.1); Carbon Dioxide 28 mmol/L (21-32); Chloride 101 mmol/L (98-108); Cholesterol 187 mg/dL (0-200); Estimated Glomerular Filt Rate 55; Glucose 117 mg/dL (70-99); HDL Direct 66 mg/dL (40-60); LDL Cholesterol Calculated 106 mg/dL (<130); Osmolality Calculated 289 mOsm/kg (285-295); Potassium 4.2 mmol/L (3.5-5.1); Sodium 138 mmol/L (136-145); Total Protein 7.2 g/dL (6.4-8.2); Triglycerides 76 mg/dL (0-150)
[2023-09-17 15:19] LABS: Hemoglobin A1C 6.7 % (<5.7)
== END 2023-09-17 14:25 | disposition home or self-care (01) ==
LOC: CHSLAB 14:25
PROVIDERS: PCP Family Medicine; Visit Provider Family Medicine
DX: E11.9 Type 2 diabetes mellitus without complications (principal); I10 Essential (primary) hypertension; R10.9 Unspecified abdominal pain
CPT/HCPCS: 36415; 80053; 80061; 83036; 85025; 86140

== ENCOUNTER 2023-09-25 08:41 | Outpatient (CLI) | payer MEDICARE, SELFPAY ==
--- NOTE | ~2023-09-25 | DEXA_ITS ---
Bone Density Report Name: JORDYN NOGUEIRA Age: 58 Sex: Female Ethnicity: White Date of : 1965 Indication: postmenopausal; screening for osteoporosis; height loss; hysterectomy; Referring Provider: Ramon Aviles Study: Bone densitometry was performed. Exam Date: September 25, 2023 Accession number: [id number] Bone Density: Region BMD T-score Z-score Classification AP Spine(L1-L4) 1.095 0.4 1.8 Normal Femoral Neck (Left) 0.608 -2.2 -0.9 Osteopenia Total Hip (Left) 0.869 -0.6 0.3 Normal Femoral Neck (Right) 0.663 -1.7 -0.4 Osteopenia Total Hip (Right) 0.839 -0.8 0.1 Normal Femoral Neck Mean 0.635 -1.9 -0.7 Osteopenia Total Hip Mean 0.854 -0.7 0.2 Normal World Health Organization criteria for BMD impression classify patients as: Normal (T-score at or above -1.0), Osteopenia (T-score between -1.0 and -2.5), or Osteoporosis (T-score at or below -2.5). 10-year Fracture Risk(1): Major Osteoporotic Fracture 8.6% Hip Fracture 1.1% Reported Risk Factors: [place] (), Neck BMD=0.608, BMI=39.1 (1) FRAX(R) Version 3.08. Fracture probability calculated for an untreated patient. Fracture probability may be lower if the patient has received treatment. Clinical Information Provided by Patient: Has the following medical conditions: Hysterectomy Patient maximum height was 61 Menopause Age: 47 Onset of menses at age 8 Number of children 0 Impression: The patient has low bone mass, based on the Left Femoral Neck T-score. Discussion: BONE DENSITY IS LOW AT ONE OR MORE SKELETAL SITES. This patient's lowest T-score is low at one or more skeletal sites. It meets the World Health Organization's (WHO) criteria for ?low bone mass? (T-score between -1.0 and -2.5). The patient's 10-year risk of fracture as calculated by FRAX is less than the threshold where pharmacological therapy is recommended by the National Osteoporosis Foundation (NOF). However, all treatment decisions require clinical judgment and consideration of individual patient factors, including patient preferences, comorbidities, previous drug use, risk factors not captured in the FRAX model (e.g., frailty, falls, vitamin D deficiency, increased bone turnover, interval significant decline in bone density) and possible under or overestimation of fracture risk by FRAX. The patient should follow a healthful lifestyle (good nutrition with adequate calcium and vitamin D, and appropriate weight-bearing exercise). Follow-Up: Consider repeating this study in 2 to 3 years to reassess this patient's status, or sooner if there is some new clinical indication. Reported by: Dr. Angel Sinclair on 09/25/2023 9:35:00 AM. Reviewed, dictated and finalized at location A.
== END 2023-09-25 08:42 | disposition home or self-care (01) ==
LOC: CHSIMG 08:43
PROVIDERS: PCP Family Medicine; Visit Provider Family Medicine
DX: Z78.0 Asymptomatic menopausal state (principal); M85.89 Other specified disorders of bone density and structure, multiple sites
CPT/HCPCS: 77080

== ENCOUNTER 2023-10-05 14:20 | Outpatient (CLI) | payer MEDICARE, SELFPAY ==
[2023-10-05 14:42] LABS: Basophils Absolute Auto 0.04 K/mm3 (0.00-0.10); Basophils Percent Auto 0.6 % (0.0-1.0); Eosinophils Absolute Auto 0.27 K/mm3 (0.02-0.50); Hematocrit 37.8 % (35.0-49.0); Hemoglobin 11.4 g/dL (12.0-15.0); Immature Granulocyte Absolute 0.02 K/mm3 (0.00-0.00); Immature Granulocyte Percent A 0.3 % (0.0-0.0); Lymphocytes Absolute Auto 1.61 K/mm3 (1.10-4.50); Lymphocytes Percent Auto 24.1 % (18.0-42.0); Mean Corpuscular HGB Conc 30.2 g/dL (32.0-36.0); Mean Corpuscular Volume 89.4 fL (78.0-102.0); Mean Platelet Volume 10.6 fl (9.2-11.8); Monocytes Absolute Auto 0.28 K/mm3 (0.10-0.90); Monocytes Percent Auto 4.2 % (2.0-11.0); Neutrophils Absolute Auto 4.5 K/mm3 (1.7-7.2); Neutrophils Percent Auto 66.8 % (50.0-70.0); Platelet Count Result 224 K/mm3 (150-420); Red Blood Count 4.23 M/mm3 (4.20-5.40); Red Cell Distribution Width 13.7 % (11.6-14.4); White Blood Count 6.7 K/mm3 (4.8-10.8)
[2023-10-05 15:06] LABS: Appearance Urine Clear (Clear); Bilirubin Urine Negative (Negative); Blood Urine Negative (Negative); Color Urine Light Yellow (Yellow); Glucose Urine UA Negative (Negative); Ketones Urine Negative (Negative); Leukocyte Esterase Ur Negative LEU/UL (Negative); Nitrate Urine Negative (Negative); Protein Urine Negative (Negative); Urobilinogen Urine 0.2 mg/dL (0.2-1.0)
[2023-10-05 15:11] LABS: Add Urine Microscopic? NO
[2023-10-05 15:12] LABS: Lipase 74 U/L (16-77)
[2023-10-05 15:40] LABS: Alanine Aminotransferase 32 U/L (14-59); Albumin Level 3.3 g/dL (3.4-5.0); Alkaline Phosphatase 186 U/L (46-116); Anion Gap 7 mmol/L (8-16); Aspartate Amino Transferase 15 U/L (15-37); Bilirubin,Total 1.1 mg/dL (0.00-1.00); Blood Urea Nitrogen 16 mg/dL (7-18); Carbon Dioxide 30 mmol/L (21-32); Chloride 103 mmol/L (98-108); Estimated Glomerular Filt Rate 49; Free T4 Free Thyroxine 0.75 ng/dL (0.76-1.46); Glucose 112 mg/dL (70-99); Iron 44 ug/dL (50-170); Osmolality Calculated 292 mOsm/kg (285-295); Potassium 4.3 mmol/L (3.5-5.1); Sodium 140 mmol/L (136-145); Thyroid Stimulating Hormone 2.57 uIU/mL (0.36-3.74); Vitamin B12 442 pg/mL (193-986)
[2023-10-09 12:41] LABS: Vitamin D 25 Hydroxy 19 ng/mL (30-100)
== END 2023-10-05 14:21 | disposition home or self-care (01) ==
PROVIDERS: Nurse Practitioner Family; PCP Family Medicine; Visit Provider Family Medicine
DX: D36.10 Benign neoplasm of peripheral nerves and autonomic nervous system, unspecified (principal); Z79.899 Other long term (current) drug therapy; R10.9 Unspecified abdominal pain; R55 Syncope and collapse
CPT/HCPCS: 36415; 80053; 81003; 82306; 82607; 83540; 83690; 83735; 84439; 84443; 85025

== ENCOUNTER 2023-10-13 00:49 | Day surgery (SDC) | payer MEDICARE, SELFPAY ==
[2023-10-07 09:41] VITALS: BMI 40.4
--- NOTE | 2023-10-07 09:46 | PC.NURSE ---
Addendum entered by Melony Spring RN 10/07/23 09:55: PT INSTRUCTED NO FOOD AFTER MIDNIGHT. MAXIMUM 20 OZ OF WATER UNTIL 8 HOURS PRIOR TO SURGERY - NOTHING AFTER 5AM. Original Note: Report to the Outpatient Waiting Room, entrance under the green pavilion located off [facility], at time 1100 on date 10/13/23. Planned Procedure Time: 1300. Time changes happen often and if your time is changed the preop area will call you the afternoon before. - You and your visitor will be asked to self-screen and do not enter if you have any COVID symptoms. - A mask is optional within the hospital at this time. Patients may have clear liquids (water, carbonated beverages, clear teas, apple juice) until 3 hours prior to surgery with a maximum of 20 ounces. - No food from midnight until time of surgery Take the following medications with a SIP of water the morning of surgery: ALPRAZOLAM IF NEEDED, ARIPIPRAZOLE, CYCLOBENZAPRINE, GABAPENTIN, PROPRANOLOL, SERTRALINE DO NOT STOP ANY OF YOUR OTHER PRESCRIPTION MEDICATIONS PRIOR TO SURGERY ?EXCEPT THE FOLLOWING Medications to discontinue per physician: VITAMINS Date to take last dose: 10/09/23 Please no make-up, nail amharic, hairspray, perfume, deodorant, or body powder the day of surgery. No jewelry (including any body piercings) or valuables the day of surgery, leave them at home. Please take a shower or bath the night before, or the morning of, surgery with an antibacterial soap. Wear comfortable, loose fitting clothing. - Jewelry must be removed prior to entering the operating room. Rings and piercings that are not removed may be cut off. - The hospital will not accept responsibility for valuables. - Please leave all valuables, including medications, at home the day of surgery. If you are going home after surgery, a licensed inventory associate and driver must drive you home. - NO public transportation without another adult if you receive anesthesia. - We recommend that an adult stay with you for 24 hours following discharge. - We also recommend that you do not drive, make important decision, drink alcoholic beverages, or take any drugs that were not prescribed by your health care provider for at least 24 hours after your discharge time. Follow any additional instructions given to you from your surgeon. If you or anyone in your household have experienced Covid symptoms in the past week, please notify your surgeon or the nurse liaison at the phone number below for possible testing. Telephone instructions given to MICHELLE NOGUEIRA and asked if any additional questions and then verbalized understanding. Patient advised to call surgeon office or pre surgery nurse liaison [phone] if any additional questions.
--- NOTE | 2023-10-13 07:55 | PM.HPGS ---
History of Present Illness History of Present Illness Consent: Patient seen and examined in pre-operative holding area. No interval change in medical history or symptoms. Patient recalls previous discussion of benefits and alternatives to procedure. Continues to desire to proceed with right ectr poss open and right cubital tunnel release . Reviewed procedure, post-op expectations and risks including but not limited to bleeding, infection, injury to tendon/nerve/vessel, decreased hand function, stiffness, RSD, no change or worsening of symptoms. I discussed the possible use of assistants and their participation in the case. Patient stated understanding and signed the consent form wishing to proceed. Chief complaint: right carp tunn syndr, rt ulnar neuropl at elb Narrative: see above Review of Systems Review of Systems: All systems reviewed & are unremarkable except as noted in HPI and below PMFSH Past Medical History Medical History Nausea Obesity, morbid, BMI 40.0-49.9 Surgical History Surgical History H/O: hysterectomy History of carpal tunnel release of both wrists S/P cubital tunnel release Left Social History Social History Smoking status: Never smoker Alcohol intake: never Substance use: never Substance use type: does not use Lack of Transportation: No Lack of Food: Never True Current Housing: I Have Housing Concerned About Future Housing: No Difficulty Paying Gas/Electric Bills: No Difficulty Paying for Meds: No Currently Unemployed: No Education: High School Diploma/GED Difficulty w/ Childcare or Family Care: No Living arrangements: with family Spiritual care concerns: No Meds Home Medications and Allergies Home Medications Medication Instructions Recorded Confirmed Type lisinopril 2.5 mg tablet 2.5 mg PO DAILY 04/05/21 10/07/23 History sertraline 100 mg tablet 100 mg PO DAILY 04/05/21 10/07/23 History aripiprazole 20 mg tablet 20 mg PO DAILY 05/17/23 10/07/23 History cholecalciferol (vitamin D3) 50 2,000 unit PO DAILY 05/17/23 10/07/23 History mcg (2,000 unit) capsule cyclobenzaprine 5 mg tablet 5 mg PO BID 05/17/23 10/07/23 History ergocalciferol (vitamin D2) 1,250 50,000 unit PO WEEKLY 05/17/23 10/07/23 History mcg (50,000 unit) capsule gabapentin 300 mg capsule 300 mg PO TID 05/17/23 10/07/23 History propranolol 120 mg capsule,24 120 mg PO DAILY 05/17/23 10/07/23 History hr,extended release sumatriptan succinate 100 mg 100 mg PO DAILY PRN Migraine 05/17/23 10/07/23 History tablet (Imitrex) Headache ondansetron 4 mg disintegrating 4 mg PO Q6H PRN nausea and 05/21/23 10/07/23 Rx tablet vomiting #14 tabs atorvastatin 80 mg tablet 80 mg PO HS 06/09/23 10/07/23 History alprazolam 0.5 mg tablet 0.5 mg PO BID PRN anxiety #5 tabs 07/15/23 10/07/23 Rx furosemide 20 mg tablet 20 mg PO QAM #30 tabs 07/24/23 10/07/23 Rx meclizine 50 mg tablet (Antivert) 50 mg PO BID PRN dizziness #30 tabs 08/23/23 10/07/23 Rx dicyclomine 10 mg capsule 10 mg PO TID PRN abdominal pain 09/09/23 10/07/23 Rx #30 caps pantoprazole 40 mg tablet,delayed 40 mg PO QAM 6 weeks #42 tabs 09/09/23 10/07/23 Rx release dulaglutide 1.5 mg/0.5 mL 1.5 mg (0.5 mL) subcut WEEKLY #2 mL 09/17/23 10/07/23 Rx subcutaneous pen injector (Trulicity) cholecalciferol (vitamin D3) 1,250 1,250 mcg PO WEEKLY #12 caps 10/12/23 Rx mcg (50,000 unit) capsule Allergies Allergy/AdvReac Type Severity Reaction Status Date / Time Sulfa (Sulfonamide Allergy Unknown RASH, Verified 10/07/23 09:38 Antibiotics) NAUSEA ibuprofen Allergy Nausea and Verified 10/07/23 09:38 Vomiting Chocolate Allergy Unknown BAD Uncoded 10/07/23 09:38 MIGRAINES Exam Narrative: unchanged from previous Assessment and Plan As
--- NOTE | 2023-10-13 07:56 | W.PM.PROC2 ---
Procedure Note - Detailed Date of Procedure 10/13/23 Pre-op Diagnosis right carpal and cubital tunnel syndrome Post-op Diagnosis Same Procedure Performed right ectr and right cubital tunnel release Surgeon Quan Woodall MD Pneumatic Press Hand hipolito gomez pa-c Anesthesia MAC Description of Procedure INFORMED CONSENT: The patient was seen and examined and marked in the pre-op area.? The patient signed the consent form. PROCEDURE IN DETAIL:The patient taken back to OR on the stretcher in supine position. Time out performed with anesthesia, surgeon and staff agreeing on patient's name site and surgery to be performed SCDs were placed on the lower extremities and inflated. A tourniquet was placed on {right/left} upper extremity and antibiotics given IV After anesthesia administered sedation I injected {10}cc 1%lido with epi and 0.5% marcaine plain at the operative sites The?{right upper extremity}?was prepped and draped in sterile fashion the??{right upper extremity} was? exsanguinated with Esmarch bandage and tourniquet inflated to 250mmHg I made an oblique incision in the {right} volar distal wrist crease along her previous scar through skin and dermis with 15 blade scalpel.? Littler scissors spread down to antebrachial fascia. A small incision was made in antebrachial fascia allowing access to Carpal tunnel. I proceeded with sequential dilation staying in line with the ring finger and hugging the hook of the hamate.? I then used the synovial elevator to free any adhesions from the underside of the transverse carpal ligament. Next I was able to insert the Microaire endoscopic carpal tunnel device with direct visualization of the transverse fibers on the monitor and proceeded with complete segmental retrograde release of the ligament in its entirety.? I irrigated with normal saline and closed with 4-0 monocryl for dermis and subcuticular closure. I next proceeded with making a longitudinal incision between two heads for flexor carpi ulnaris at end of {right} cubital tunnel with 15 blade scalpel.? Littler scissors were used to spread down to FCU fascia.? An incision was made in FCU fascia and ulnar nerve identified exiting cubital tunnel.? I proceeded with complete retrograde release of the cubital tunnel including 7cm proximal for the intermuscular septum.? The nerve appeared healthy with visible vaso nervorum.? There was no subluxation on full elbow range of motion. ? I irrigated with normal saline and closure with 4-0 monocryl for dermis and subcuticular. A dressing of Dermabond, 4x4, maxwell, and a volar wrist and posterior elbow splint was applied for patient safety, security, and comfort and secured with a erum bandages after the tourniquet was let down noting the hand was warm and well perfused. The patient was then awaken from anesthesia and transferred to the recovery room in stable condition.? Complications - none EBL- 1cc Disposition - home in stable conditions Hipolito Gomez PA-C was essential for positioning, retraction, closure and dressing placement G Billing Surgery - Charge Forward: Surgery Billing ([id number] and [id number] and [id number]. same codes for hipolito adding modifier except the 95209 code)
[2023-10-13 10:25] VITALS: BP 137/59; PULSE 75; RESP 16; TEMP 36.2; O2SAT 100; BMI 41.0
[2023-10-13] MEDS: LACTATED RINGERS 1,000 ML 30 ML IV CONT (12:10)
--- NOTE | 2023-10-13 12:12 | WPDANESEPPF ---
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 Patient Data Age: 58 Gender: F Height: 1.52 m Weight: 94 kg Allergies Allergy/AdvReac Type Severity Reaction Status Date / Time Sulfa (Sulfonamide Allergy Unknown RASH, Verified 10/07/23 09:38 Antibiotics) NAUSEA ibuprofen Allergy Nausea and Verified 10/07/23 09:38 Vomiting Chocolate Allergy Unknown BAD Uncoded 10/07/23 09:38 MIGRAINES Home Medications Medication Instructions Recorded Confirmed Type lisinopril 2.5 mg tablet 2.5 mg PO DAILY 04/05/21 10/07/23 History sertraline 100 mg tablet 100 mg PO DAILY 04/05/21 10/07/23 History aripiprazole 20 mg tablet 20 mg PO DAILY 05/17/23 10/07/23 History cholecalciferol (vitamin D3) 50 2,000 unit PO DAILY 05/17/23 10/07/23 History mcg (2,000 unit) capsule cyclobenzaprine 5 mg tablet 5 mg PO BID 05/17/23 10/07/23 History ergocalciferol (vitamin D2) 1,250 50,000 unit PO WEEKLY 05/17/23 10/07/23 History mcg (50,000 unit) capsule gabapentin 300 mg capsule 300 mg PO TID 05/17/23 10/07/23 History propranolol 120 mg capsule,24 120 mg PO DAILY 05/17/23 10/07/23 History hr,extended release sumatriptan succinate 100 mg 100 mg PO DAILY PRN Migraine 05/17/23 10/07/23 History tablet (Imitrex) Headache ondansetron 4 mg disintegrating 4 mg PO Q6H PRN nausea and 05/21/23 10/07/23 Rx tablet vomiting #14 tabs atorvastatin 80 mg tablet 80 mg PO HS 06/09/23 10/07/23 History alprazolam 0.5 mg tablet 0.5 mg PO BID PRN anxiety #5 tabs 07/15/23 10/07/23 Rx furosemide 20 mg tablet 20 mg PO QAM #30 tabs 07/24/23 10/07/23 Rx meclizine 50 mg tablet (Antivert) 50 mg PO BID PRN dizziness #30 tabs 08/23/23 10/07/23 Rx dicyclomine 10 mg capsule 10 mg PO TID PRN abdominal pain 09/09/23 10/07/23 Rx #30 caps pantoprazole 40 mg tablet,delayed 40 mg PO QAM 6 weeks #42 tabs 09/09/23 10/07/23 Rx release dulaglutide 1.5 mg/0.5 mL 1.5 mg (0.5 mL) subcut WEEKLY #2 mL 09/17/23 10/07/23 Rx subcutaneous pen injector (Trulicity) cholecalciferol (vitamin D3) 1,250 1,250 mcg PO WEEKLY #12 caps 10/12/23 Rx mcg (50,000 unit) capsule Patient hx anesthesia problems: none Family hx anesthesia problems: none Results Review: All pre-operative results and documents have been reviewed as part of the pre-operative evaluation. [facility] Past Medical History Medical History Nausea Obesity, morbid, BMI 40.0-49.9 Surgical History Surgical History H/O: hysterectomy History of carpal tunnel release of both wrists S/P cubital tunnel release Left Social History Social History Smoking status: Never smoker Alcohol intake: never Substance use: never Substance use type: does not use Lack of Transportation: No Lack of Food: Never True Current Housing: I Have Housing Concerned About Future Housing: No Difficulty Paying Gas/Electric Bills: No Difficulty Paying for Meds: No Currently Unemployed: No Education: High School Diploma/GED Difficulty w/ Childcare or Family Care: No Living arrangements: with family Spiritual care concerns: No Anes - Eval Final PreProcedure Day of Procedure 10/13/23 12:12 Patient weight: morbidly obese Heart: regular rate and rhythm Lungs: clear to auscultation Airway: Mallampati scale class II Neurological: alert and oriented Last oral intake: >/= 8 hours ASA classification: III Emergent: no Anesthetic plan: proceed Anesthesia type and monitoring: general GIVS and standard monitoring Results Review: All pre-operative res
[2023-10-13 12:27] LABS: Glucose Point of Care 116 mg/dl (65-105)
[2023-10-13] MEDS: ceFAZolin 2 GM/D5W 50 ML 2 GM/50 ML BAG IVPB (12:46)
[2023-10-13] MEDS: BUPivacaine HCL 0.5% 10 ML AMP INFILTRATE (13:05)
[2023-10-13] MEDS: LIDO 1%/EPINEPHRINE 1:100,000 50 ML VIAL 10 ML INFILTRATE (13:05)
[2023-10-13 13:24] VITALS: BP 122/63; PULSE 72; RESP 16; O2SAT 98
[2023-10-13 13:31] LABS: Glucose Point of Care 106 mg/dl (65-105)
[2023-10-13 13:55] VITALS: BP 145/68; PULSE 69; RESP 18
[2023-10-13 14:25] VITALS: BP 133/70; PULSE 71; RESP 16
[2023-10-13 14:55] VITALS: BP 138/66; PULSE 71; RESP 16
== END 2023-10-13 14:59 | disposition home or self-care (01) ==
PROVIDERS: PCP Family Medicine; Visit Provider Plastic Surgery
PROC: 01N54ZZ Release Median Nerve, Percutaneous Endoscopic Approach (ICD-10-PCS; CPT 29848; principal; 2023-10-13 13:00)
DX: G56.01 Carpal tunnel syndrome, right upper limb (principal); G56.21 Lesion of ulnar nerve, right upper limb; E66.01 Morbid (severe) obesity due to excess calories; Z68.41 Body mass index [BMI] 40.0-44.9, adult
CPT/HCPCS: 29848; 64718; 82948; J0690; J2704; J3010; J7120

== ENCOUNTER 2023-10-26 09:28 | Outpatient (CLI) | payer MEDICARE, SELFPAY | END 2023-10-26 09:29 | disposition home or self-care (01) | LOC: CHSAUDIO 09:30 | PROVIDERS: PCP Family Medicine; Visit Provider Family Medicine | DX: H90.3 Sensorineural hearing loss, bilateral (principal) | CPT/HCPCS: 92557; 92567 ==

== ENCOUNTER 2024-02-26 19:21 | Emergency (ER) | payer MEDICARE, SELFPAY ==
--- NOTE | ~2024-02-26 | CT_ITS ---
EXAMINATION: CT abdomen pelvis wo con DATE: 02/26/2024 20:45 INDICATION: Right abdominal pain. Abnormal liver function tests. TECHNIQUE: Computed tomography (CT) of the abdomen and pelvis was performed without intravenous contr ast. Automated exposure control and iterative reconstruction technique were employed. The dose-length product was 1366.01 mGy-cm. COMPARISON: CT abdomen and pelvis 09/09/2023 FINDINGS: The visualized portions of the lung bases demonstrate mild atelectasis and mild chronic lucio g disease. No pleural effusion. The heart size is normal. No pericardial effusion. There are coronary artery calcifications. The liver is normal. There are changes of cholecystectomy. The pancreas, adre nal glands, spleen, and kidneys are normal. Stool distends the rectum. The appendix is not visualized . There are no pathologically enlarged lymph nodes. There is no free intraperitoneal fluid. There is severe thoracic and lumbar spondylosis. There is mild chronic height loss of multiple vertebral melvin s. IMPRESSION: 1. Stool distends the rectum. Reviewed, dictated and finalized at location E.
--- NOTE | 2024-02-26 19:24 | ED.GENADULT ---
HPI - General Adult General Chief complaint: Abdominal Pain Stated complaint: abd pain Time Seen by Provider: 02/26/24 19:23 History of Present Illness HPI narrative: The patient is a 58-year-old woman with history of obesity, GERD, migraine headaches, hypertension, diabetes, and 1 episode of pancreatitis previously. She is status post hysterectomy cholecystectomy (January 2003), carpal tunnel release. She had seen her PCP earlier today for a vaccination when she had no abdominal pain. Since 4:00 p.m. today, the patient has had right upper quadrant right flank discomfort, waxing waning in intensity, intermittent in nature, not radiating elsewhere in the abdomen, associated with some nausea but no vomiting. No urinary symptoms such as urgency frequency dysuria or hematuria. No cough or URI symptoms. No radiation of the pain to the back. No diarrhea or constipation. No hematochezia or melena. No sick contacts. Related Data Allergies Allergy/AdvReac Type Severity Reaction Status Date / Time Sulfa (Sulfonamide Allergy Unknown RASH, Verified 02/26/24 07:31 Antibiotics) NAUSEA ibuprofen Allergy Nausea and Verified 02/26/24 07:31 Vomiting Chocolate Allergy Unknown BAD Uncoded 02/26/24 07:31 MIGRAINES Review of Systems Review of Systems: All systems reviewed & are unremarkable except as noted in HPI and below Constitutional: Constitutional: Denies chills, Denies excessive sweating, Denies fatigue, Denies fever(s), Denies headache(s) and Denies weakness Eyes: Eyes: Denies change in vision and Denies photophobia ENT: Denies dysphagia, Denies dizziness, Denies headache(s), Denies lip swelling, Denies nasal congestion, Denies sore throat and Denies tongue swelling Cardiovascular: Cardiovascular: Denies chest pain, Denies syncope, Denies rapid heart rate and Denies dyspnea Respiratory: Respiratory: Denies cough, Denies dyspnea and Denies wheezing Gastrointestinal: Gastrointestinal: Reports abdominal pain, Denies constipation, Denies dysphagia, Denies diarrhea, Reports nausea and Denies vomiting Genitourinary: Genitourinary: Denies hematuria, Denies urinary frequency, Denies dysuria and Denies urinary urgency Musculoskeletal: Musculoskeletal: Denies back pain, Denies myalgias, Denies arthralgias, Denies joint swelling and Denies numbness Integumentary/Breasts: Skin/Breast: Denies pruritus, Denies erythema and Denies rash Neurologic: Denies confusion, Denies dizziness, Denies syncope, Denies headache(s), Denies focal weakness, Denies numbness and Denies weakness Psychiatric: Psychiatric: Denies anxiety and Denies confusion Endocrine: Endocrine: Denies excessive sweating and Denies fatigue Hematologic/Lymphatic: Hematologic/Lymphatic: Denies easy bleeding and Denies easy bruising Allergic/Immunologic: Allergic/Immunologic: Denies lip swelling, Denies tongue swelling and Denies wheezing PMFSH Past Medical History Medical History Nausea Obesity, morbid, BMI 40.0-49.9 Surgical History Surgical History H/O: hysterectomy History of carpal tunnel release of both wrists S/P cubital tunnel release Left Social History Social History Smoking status: Never smoker Alcohol intake: never Substance use: never Substance use type: does not use Lack of Transportation: No Lack of Food: Never True Current Housing: I Have Housing Concerned About Future Housing: No Difficulty Paying Gas/Electric Bills: No Difficulty Paying for Meds: No Currently Unemployed: No Education: High School Diploma/GED Difficulty w/ Childcare or Family Care: No Living arrangements: with family Spiritual care concerns: No Exam Const: General: healthy appearing, no acute distress, alert and well nourished Nutritional Appearance: well nourished Orientation/con
[2024-02-26 19:45] LABS: Basophils Absolute Auto 0.03 K/mm3 (0.00-0.10); Basophils Percent Auto 0.4 % (0.0-1.0); Eosinophils Absolute Auto 0.21 K/mm3 (0.02-0.50); Eosinophils Percent Auto 2.7 % (1.0-6.0); Hemoglobin 11.2 g/dL (12.0-15.0); Immature Granulocyte Absolute 0.02 K/mm3 (0.00-0.00); Immature Granulocyte Percent A 0.3 % (0.0-0.0); Lymphocytes Absolute Auto 1.76 K/mm3 (1.10-4.50); Lymphocytes Percent Auto 22.7 % (18.0-42.0); Mean Corpuscular HGB Conc 30.3 g/dL (32-36); Mean Corpuscular Hemoglobin 26.9 pg (27.0-31.0); Mean Corpuscular Volume 88.7 fL (78.0-102.0); Mean Platelet Volume 10.1 fl (9.2-11.8); Monocytes Absolute Auto 0.31 K/mm3 (0.10-0.90); Neutrophils Absolute Auto 5.41 K/mm3 (1.70-7.20); Neutrophils Percent Auto 69.9 % (50.0-70.0); Platelet Count Result 209 K/mm3 (150-420); Red Blood Count 4.17 M/mm3 (4.20-5.40); Red Cell Distribution Width 13.9 % (11.6-14.4); White Blood Count 7.7 K/mm3 (4.8-10.8)
[2024-02-26] MEDS: fentaNYL CITRATE INJ (*CRX) 100 MCG/2 ML VIAL 50 MCG IV PUSH (20:00)
[2024-02-26 20:01] LABS: Appearance Urine Clear (Clear); Bilirubin Urine Negative (Negative); Blood Urine Negative (Negative); Color Urine Light Yellow (Yellow); Glucose Urine UA Negative (Negative); Ketones Urine Negative (Negative); Leukocyte Esterase Ur Trace LEU/UL (Negative); Nitrate Urine Negative (Negative); Protein Urine Negative (Negative)
[2024-02-26] MEDS: ONDANSETRON INJ 4 MG/2 ML VIAL IV PUSH (20:01)
[2024-02-26] MEDS: SODIUM CHLORIDE 0.9% IV 1,000 ML 999 ML IV CONT (20:01)
[2024-02-26 20:07] LABS: Add Urine Microscopic? YES; Bacteria Urine 2+ /hpf; RBC Urine 0-2 /hpf (0-2); Squamous Epithelial Cell Urine Moderate /hpf (Few)
[2024-02-26 20:10] LABS: Alanine Aminotransferase 71 U/L (14-59); Albumin Level 3.6 g/dL (3.4-5.0); Alkaline Phosphatase 237 U/L (46-116); Amylase 70 U/L (25-115); Anion Gap 7 mmol/L (4-12); Aspartate Amino Transferase 95 U/L (15-37); Bilirubin,Total 1.8 mg/dL (0.00-1.00); Blood Urea Nitrogen 15 mg/dL (7-18); Calcium 7.7 mg/dL (8.5-10.1); Carbon Dioxide 30 mmol/L (21-32); Chloride 104 mmol/L (98-108); Estimated Glomerular Filt Rate 59; Glucose 135 mg/dL (70-99); Lipase 93 U/L (16-77); Magnesium 1.9 mg/dL (1.8-2.4); Osmolality Calculated 294 mOsm/kg (285-295); Potassium 3.7 mmol/L (3.5-5.1); Sodium 141 mmol/L (136-145); Total Protein 7.4 g/dL (6.4-8.2)
[2024-02-26 20:11] LABS: Amphetamine Screen Urine Negative (Negative); Barbiturate Screen Urine Negative (Negative); Benzodiazepines Screen Urine Negative (Negative); Cannabinoid Screen Urine Negative (Negative); Cocaine Screen Urine Negative (Negative); Methadone Screen Urine Negative (Negative); Opiate Screen Urine Negative (Negative); Phencyclidine Screen Urine Negative (Negative)
[2024-02-26 20:13] LABS: Ethanol < 3 mg/dL (0-6)
[2024-02-26 20:14] VITALS: BP 155/84; PULSE 75; RESP 18; TEMP 36.6; O2SAT 100
[2024-02-26 20:53] VITALS: BP 118/64; PULSE 74; RESP 20; O2SAT 97
[2024-02-26 21:01] LABS: Ammonia 11 umol/L (11-32)
[2024-02-26 21:04] LABS: Partial Thromboplastin Time 29.3 Sec (23.9-30.70); Prothrombin Time 11.1 Seconds (9.50-12.1)
[2024-02-26] MEDS: CALCIUM GLUC 2,000 MG/NS 100ML 2,000 MG/100 ML BAG 100 MG IVPB (21:17)
[2024-02-26 22:35] VITALS: BP 122/79; PULSE 85; RESP 18; TEMP 36.6; O2SAT 97
== END 2024-02-26 22:35 | disposition home or self-care (01) ==
PROVIDERS: Emergency Provider Emergency Medicine; PCP Family Medicine
DX: K59.00 Constipation, unspecified (principal); E83.51 Hypocalcemia; I10 Essential (primary) hypertension; E11.9 Type 2 diabetes mellitus without complications; K21.9 Gastro-esophageal reflux disease without esophagitis; E66.9 Obesity, unspecified; Z68.37 Body mass index [BMI] 37.0-37.9, adult; Z79.85 Long-term (current) use of injectable non-insulin antidiabetic drugs; Z79.899 Other long term (current) drug therapy
CPT/HCPCS: 36415; 74176; 80053; 80307; 81001; 82140; 82150; 83690; 83735; 85025; 85610; 85730; 96361; 96365; 96375; 99284; J0613; J2405; J3010; J7030

== ENCOUNTER 2024-03-03 20:59 | Emergency (ER) | payer MEDICARE, SELFPAY ==
--- NOTE | ~2024-03-03 | XR_ITS ---
EXAMINATION: XR chest 1V portable DATE: 03/03/2024 21:36 INDICATION: Mid chest pain. TECHNIQUE: A single frontal view of the chest was obtained. COMPARISON: CT abdomen and pelvis 02/26/2024 FINDINGS: There is no pneumonia, pleural effusion, or pneumothorax. The heart size is normal. IMPRESSION: 1. No acute cardiopulmonary disease. Reviewed, dictated and finalized at location E.
[2024-03-03 21:02] VITALS: BP 133/67; PULSE 93; RESP 18; TEMP 37.3; O2SAT 98
--- NOTE | 2024-03-03 21:27 | ECG_ITS ---
SEE SCANNED COPY FOR CONFIRMED REPORT MTDD
--- NOTE | 2024-03-03 21:40 | ED.CHESTPAIN ---
HPI - Chest Pain General Chief Complaint: Chest Pain Stated Complaint: chest pain Time Seen by Provider: 03/03/24 21:08 Source: patient and EMS Mode of arrival: EMS Limitations: no limitations History of Present Illness HPI narrative: this is a 58-year-old female that presents with some chest pain for the last few days off and on reproducible with palpation in the chest with no shortness of breath no fever chills or cough or congestion no nausea vomiting no abdominal pain no flank pain no dysuria. Patient's pain started few days ago and over the past few hours had chest pain and called EMS. MD complaint: chest pain Onset (ago): day(s) Timing of current episode: episodic Prior episodes: Yes Onset: during rest Pain location: subxiphoid Pain radiation: none Severity: severe Pain scale (0-10): 10 Quality: aching Exacerbating factors: palpation Treatment prior to arrival: none Risk Factors Coronary artery disease risk factors: diabetes Related Data Allergies Allergy/AdvReac Type Severity Reaction Status Date / Time Sulfa (Sulfonamide Allergy Unknown RASH, Verified 02/26/24 07:31 Antibiotics) NAUSEA ibuprofen Allergy Nausea and Verified 02/26/24 07:31 Vomiting Chocolate Allergy Unknown BAD Uncoded 02/26/24 07:31 MIGRAINES Review of Systems Review of Systems: All systems reviewed & are unremarkable except as noted in HPI and below PMFSH Past Medical History Medical History Nausea Obesity, morbid, BMI 40.0-49.9 Surgical History Surgical History H/O: hysterectomy History of carpal tunnel release of both wrists S/P cubital tunnel release Left Social History Social History Smoking status: Never smoker Alcohol intake: never Substance use: never Substance use type: does not use Lack of Transportation: No Lack of Food: Never True Current Housing: I Have Housing Concerned About Future Housing: No Difficulty Paying Gas/Electric Bills: No Difficulty Paying for Meds: No Currently Unemployed: No Education: High School Diploma/GED Difficulty w/ Childcare or Family Care: No Living arrangements: with family Spiritual care concerns: No Exam Const: General: cooperative, healthy appearing, comfortable and no acute distress HENMT: Face and sinus: normal facial exam Neck: Neck: normal visual inspection, full ROM, no lymphadenopathy and no meningeal signs Chest: Chest palpation & inspection: normal inspection of the chest and other ( Reproducible chest pain with palpation) Resp: Effort & Inspection: normal respiratory effort and able to speak in complete sentences Auscultation: clear to auscultation bilaterally Cardio: Jugular venous distension: no JVD Palpation: normal PMI Rate: regular rate Rhythm: regular rhythm Heart sounds: S1 normal heart sound present and S2 normal heart sound present GI: Inspection: normal to inspection Auscultation: normal bowel sounds Back/Spine/Pelvis: Back: no CVA tenderness Cervical Spine: normal cervical lordosis and cervical ROM normal Thoracic/Lumbar Spine: thoracic and lumbar spine normal to inspection and thoraco-lumbar ROM normal Skin: General skin exam: normal color and no rashes or lesions noted Neuro: General: oriented to person, oriented to place and oriented to time Course Transfer Transfer comments: patient with allergy to ibuprofen received 1g times for reproducible chest pain troponin negative EKG shows no ST or T changes with normal sinus rhythm rest of blood work was unremarkable chest x-ray shows no acute cardiopulmonary abnormalities. Critical Care Time Critical Care Time Critical Care Time: No Discharge Plan Discharge Clinical Impression: Atypical chest pain, Acute costochondritis Patient Disposition: Home, Self-Care Condition: Stable In
[2024-03-03 21:44] LABS: Hematocrit 38.3 % (35.0-49.0); Hemoglobin 11.4 g/dL (12.0-15.0); Mean Corpuscular HGB Conc 29.8 g/dL (32-36); Mean Corpuscular Volume 90.5 fL (78.0-102.0); Mean Platelet Volume 10.5 fl (9.2-11.8); Platelet Count Result 210 K/mm3 (150-420); Red Blood Count 4.23 M/mm3 (4.20-5.40); Red Cell Distribution Width 13.7 % (11.6-14.4)
[2024-03-03 21:50] VITALS: BP 141/65; PULSE 94; RESP 20; O2SAT 95
[2024-03-03 21:56] LABS: Band Neutrophils Percent 0 % (0-6); Basophils Absolute Manual 0.08 K/mm3 (0-0.1); Basophils Percent Manual 1 % (0-1); Eosinophils Absolute Manual 0.16 K/mm3 (0.02-0.50); Eosinophils Percent Manual 2 % (1-6); Lymphocytes Absolute Manual 1.84 K/mm3 (1.1-4.5); Lymphocytes Percent Manual 23 % (18-44); Monocytes Percent Manual 5 % (3-9); Neutrophils Absolute Manual 5.52 K/mm3 (1.7-7.2); Neutrophils Percent Manual 69 % (46-73); Platelet Estimate Adequate (Adequate)
[2024-03-03 21:59] LABS: INR 0.9; Prothrombin Time 10.4 Seconds (9.50-12.1)
[2024-03-03 22:07] LABS: Alanine Aminotransferase 34 U/L (14-59); Albumin Level 3.4 g/dL (3.4-5.0); Alkaline Phosphatase 189 U/L (46-116); Anion Gap 11 mmol/L (4-12); Aspartate Amino Transferase 19 U/L (15-37); Bilirubin,Total 0.6 mg/dL (0.00-1.00); Blood Urea Nitrogen 27 mg/dL (7-18); Calcium 8.5 mg/dL (8.5-10.1); Carbon Dioxide 26 mmol/L (21-32); Chloride 104 mmol/L (98-108); Estimated Glomerular Filt Rate 57; Glucose 187 mg/dL (70-99); Lipase 101 U/L (16-77); NT Pro B Type Natriuretic Pept 26 pg/mL (0-125); Osmolality Calculated 302 mOsm/kg (285-295); Potassium 4.2 mmol/L (3.5-5.1); Sodium 141 mmol/L (136-145); Total Protein 7.6 g/dL (6.4-8.2)
[2024-03-03 22:30] VITALS: BP 130/65; PULSE 96; RESP 19; O2SAT 95
[2024-03-03 22:45] LABS: Troponin I < 4.0 ng/L (0.00-60.4)
[2024-03-03 23:00] VITALS: BP 136/67; PULSE 92; RESP 20; TEMP 36.6; O2SAT 95
[2024-03-03] MEDS: ACETAMINOPHEN 500 MG TABLET 1000 MG PO (23:26)
== END 2024-03-03 23:31 | disposition home or self-care (01) ==
PROVIDERS: Emergency Provider Emergency Medicine; PCP Family Medicine
DX: R07.89 Other chest pain (principal); M94.0 Chondrocostal junction syndrome [Tietze]; E66.01 Morbid (severe) obesity due to excess calories; Z68.42 Body mass index [BMI] 45.0-49.9, adult
CPT/HCPCS: 36415; 71045; 80053; 83690; 83880; 84484; 85025; 85610; 85730; 93005; 99284

== ENCOUNTER 2024-04-18 11:44 | Outpatient (CLI) | payer MEDICARE, SELFPAY ==
--- NOTE | ~2024-04-18 | XR_ITS ---
Left elbow Technique: AP, oblique, and lateral views were obtained. Clinical History: Pain Findings: No acute fracture or dislocation is seen. Osseous alignment is anatomic. Joint spaces are p reserved. There is no displacement of the fat pads, and soft tissues are unremarkable. Impression: Unremarkable radiographs. Reviewed, dictated and finalized at location . Impression: Unremarkable radiographs.
== END 2024-04-18 11:45 | disposition home or self-care (01) ==
PROVIDERS: PCP Family Medicine; Visit Provider Plastic Surgery
DX: M25.522 Pain in left elbow (principal); G56.22 Lesion of ulnar nerve, left upper limb
CPT/HCPCS: 73080

== ENCOUNTER 2024-04-28 09:13 | Outpatient (CLI) | payer MEDICARE, SELFPAY ==
[2024-04-29 22:28] LABS: Vitamin D 25 Hydroxy 28 ng/mL (30-100)
== END 2024-04-28 09:14 | disposition home or self-care (01) ==
LOC: CHSLAB 09:17
PROVIDERS: PCP Family Medicine; Visit Provider Nurse Practitioner Family
DX: G89.29 Other chronic pain (principal); M79.606 Pain in leg, unspecified; Z68.36 Body mass index [BMI] 36.0-36.9, adult; E66.01 Morbid (severe) obesity due to excess calories
CPT/HCPCS: 36415; 82306

== ENCOUNTER 2024-05-29 15:17 | Emergency (ER) | payer MEDICARE, SELFPAY ==
[2024-05-29] VITALS (9 sets, daily range): BP systolic 109–143; BP diastolic 49–91; PULSE 78–95; RESP 16–24; TEMP 36.9; O2SAT 94–100
--- NOTE | ~2024-05-29 | CT_ITS ---
EXAMINATION: CT abd pelvis lumbar wo con DATE: 05/29/2024 17:06 INDICATION: Worsening chronic low back pain TECHNIQUE: Computed tomography (CT) of the abdomen, pelvis and lumbar spine was performed without int ravenous contrast. Automated exposure control and iterative reconstruction technique were employed. T madiha dose-length product was 1216.10 mGy-cm. COMPARISON: 02/26/2024 FINDINGS: Abdomen and pelvis: Lung bases are clear. Heart size is normal. No pericardial or pleural effusion. Cholecystectomy clips the gallbladder fossa. Liver, spleen, pancreas, bilateral adrenal glands and kidneys are normal. The uterus is not identified and has likely been surgically resected with multiple surgical clips in the pelvis which could be related to prior pelvic lymph node dissection bladder is normal. Moderate amou nt stool scattered throughout the colon with 6.5 subcentimeter ball of stool at the rectum. No bowel obstruction. The appendix is not visualized. No pericecal inflammatory change to suggest acute append icitis. No free intraperitoneal gas or fluid. No pathologically enlarged abdominal or pelvic lymphade nopathy. Lumbar spine: 10 degrees upper lumbar levoscoliosis. Sagittal alignment is normal. Vertebral body heights are mario l. No fracture. Severe disc height loss with degenerative endplate changes at T10-T11 through L1-L2 a nd at L4-L5 with moderate disc height loss at L2-L3 and L3-L4. The following disc levels are specific ally discussed: T11-T12: Posterior disc osteophyte complex. There is mild right and moderate left facet joint osteoar thritis. There is mild left and moderate right neural foraminal stenosis. There is mild central canal stenosis. T12-L1: Posterior disc osteophyte complex. There is mild bilateral facet joint osteoarthritis. There is mild left and moderate right neural foraminal stenosis. There is mild central canal stenosis. L1-L2: Posterior disc osteophyte complex There is mild to moderate bilateral facet joint osteoarthrit is. There is moderate bilateral neural foraminal stenosis. There is mild to moderate central canal st enosis. L2-L3: Disc is bulging. There is mild right and moderate left facet joint osteoarthritis. There is mi ld left and moderate right neural foraminal stenosis. There is mild central canal stenosis. L3-L4: Disc is bulging. There is moderate bilateral facet joint osteoarthritis. There is moderate kole ateral neural foraminal stenosis. There is moderate central canal stenosis. L4-L5: Disc is bulging. There is severe bilateral facet joint osteoarthritis. There is moderate bilat eral neural foraminal stenosis. There is moderate central canal stenosis. L5-S1: The disc does not extend beyond the endplate margin. There is moderate bilateral facet joint o steoarthritis. There is mild bilateral neural foraminal stenosis. There is no central canal stenosis. IMPRESSION: 1. Moderate amount of colonic stool with 6.5 cm ball of stool at rectum suggestive of constipation an d fecal impaction. No other acute cardiopulmonary disease. 2. Severe lumbar spondylosis. No acute osseous abnormality. Reviewed, dictated and finalized at location A. IMPRESSION: 1. Moderate amount of colonic stool with 6.5 cm ball of stool at rectum suggest monica of constipation and fecal impaction. No other acute cardiopulmonary disease . 2. Severe lumbar spondylosis. No acute osseous abnormality.
--- NOTE | 2024-05-29 15:22 | ED.BACK ---
HPI - Back Pain/Injury General Chief Complaint: Back Pain/Injury Stated Complaint: back and leg pain Time Seen by Provider: 05/29/24 15:20 Source: patient and EMS Mode of arrival: EMS Limitations: no limitations History of Present Illness HPI Narrative: 58 year old female arrives to the Emergency Department via EMS. Patient complains of sudden onset lower back pain radiating to both legs. Onset an hour prior to arrival. Denies trauma. No prior history of. Denies nausea, vomiting, diarrhea, constipation, urinary tract symptoms. MD elicited complaint: back pain Onset (ago): minute(s) Timing: constant Severity: severe Similar Symptoms Previously: No Quality: sharp Location: lumbar spine Radiation: left upper leg, right upper leg, left leg below the knee and right leg below the knee Exacerbating factors: none Relieving factors: none Related Data Allergies Allergy/AdvReac Type Severity Reaction Status Date / Time Sulfa (Sulfonamide Allergy Unknown RASH, Verified 05/29/24 16:14 Antibiotics) NAUSEA ibuprofen Allergy Nausea and Verified 05/29/24 16:14 Vomiting iohexol AdvReac Nausea and Verified 05/29/24 16:23 [From contrast - CT, X-RAY] Vomiting Chocolate Allergy Unknown BAD Uncoded 05/29/24 16:14 MIGRAINES Review of Systems Review of Systems: All systems reviewed & are unremarkable except as noted in HPI and below Constitutional: Constitutional: Reports as per HPI, Denies chills and Denies fever(s) Eyes: Eyes: Reports as per HPI ENT: Reports system reviewed and no additional complaints, except as documented Cardiovascular: Cardiovascular: Reports as per HPI and Denies chest pain Respiratory: Respiratory: Reports as per HPI, Denies cough and Denies dyspnea Gastrointestinal: Gastrointestinal: Reports as per HPI, Denies abdominal pain, Denies diarrhea, Denies nausea and Denies vomiting Genitourinary: Genitourinary: Reports no additional female genitourinary complaints, Denies nocturia, Denies dysuria and Denies urinary incontinence Musculoskeletal: Musculoskeletal: Reports no additional musculoskeletal complaints and Reports back pain Integumentary/Breasts: Skin/Breast: Reports system reviewed and no additional complaints, except as docu Neurologic: Reports system reviewed and no additional complaints, except as documented, Denies focal weakness and Denies numbness PMFSH Past Medical History Medical History Nausea Obesity, morbid, BMI 40.0-49.9 Surgical History Surgical History H/O: hysterectomy History of carpal tunnel release of both wrists S/P cubital tunnel release Left Social History Social History Smoking status: Never smoker Alcohol intake: never Substance use: never Substance use type: does not use Lack of Transportation: No Lack of Food: Never True Current Housing: I Have Housing Concerned About Future Housing: No Difficulty Paying Gas/Electric Bills: No Difficulty Paying for Meds: No Currently Unemployed: No Education: High School Diploma/GED Difficulty w/ Childcare or Family Care: No Living arrangements: with family Spiritual care concerns: No Exam Const: Nutritional Appearance: obese Orientation/consciousness: patient oriented x3 Limitations: no limitations Other: mild distress HENMT: Head: normal to inspection Ears: external ears normal Face/Nose/Sinus: Normal external nose present Face and sinus: normal facial exam Mouth: Yes Normal oral and palatal mucosa present Eyes: Conjunctivae: conjunctivae normal Pupils: Equal, round and reactive pupils present EOM: EOMs intact bilaterally Direct Ophthalmoscopy: no photophobia Neck: Neck: normal visual inspection Chest: Chest palpation & inspection: normal inspection of the chest Resp: Effort & Inspection: normal re
--- NOTE | 2024-05-29 15:30 | PC.NURSE ---
patient ambulatory to bathroom with steady gait.
--- NOTE | 2024-05-29 15:43 | PC.NURSE ---
patient back in room from bathroom, Registration at bedside.
--- NOTE | 2024-05-29 15:59 | PC.NURSE ---
lab at beside. patient provided warm blanket. Will administer medication when lab is finish.
[2024-05-29] MEDS: ONDANSETRON INJ 4 MG/2 ML VIAL IV PUSH (16:15)
[2024-05-29] MEDS: MORPHINE SULFATE (*CRX) 4 MG/ML INJ IV PUSH ×2 (16:16→18:15)
[2024-05-29 16:22] LABS: Basophils Absolute Auto 0.04 K/mm3 (0.00-0.10); Basophils Percent Auto 0.5 % (0.0-1.0); Eosinophils Absolute Auto 0.16 K/mm3 (0.02-0.50); Hematocrit 38.9 % (35.0-49.0); Hemoglobin 11.8 g/dL (12.0-15.0); Immature Granulocyte Absolute 0.03 K/mm3 (0.00-0.00); Immature Granulocyte Percent A 0.4 % (0.0-0.0); Lymphocytes Absolute Auto 1.72 K/mm3 (1.10-4.50); Lymphocytes Percent Auto 21.6 % (18.0-42.0); Mean Corpuscular HGB Conc 30.3 g/dL (32-36); Mean Corpuscular Hemoglobin 27.1 pg (27.0-31.0); Mean Corpuscular Volume 89.2 fL (78.0-102.0); Mean Platelet Volume 10.8 fl (9.2-11.8); Monocytes Absolute Auto 0.29 K/mm3 (0.10-0.90); Monocytes Percent Auto 3.6 % (2.0-11.0); Neutrophils Absolute Auto 5.73 K/mm3 (1.70-7.20); Neutrophils Percent Auto 71.9 % (50.0-70.0); Platelet Count Result 218 K/mm3 (150-420); Red Blood Count 4.36 M/mm3 (4.20-5.40); Red Cell Distribution Width 13.4 % (11.6-14.4)
--- NOTE | 2024-05-29 16:23 | PC.NURSE ---
Patient updated on plan of care, states she cannot have the iv contrast due to adverse reaction. Patient educated she has been medicated to prevent nausea and vomiting due to other medications administered. she states she does not want to have contrast dye again. ERP is made aware.
[2024-05-29 16:29] LABS: Appearance Urine Clear (Clear); Bilirubin Urine Negative (Negative); Blood Urine Negative (Negative); Color Urine Light Yellow (Yellow); Glucose Urine UA Negative (Negative); Ketones Urine Negative (Negative); Leukocyte Esterase Ur Negative (Negative); Nitrate Urine Negative (Negative); Protein Urine Negative (Negative); Specific Grav Ur 1.025 (1.010-1.020); Urobilinogen Urine 0.2 mg/dL (0.2-1.0); pH Urine 5.5 (5.0-8.0)
[2024-05-29 16:35] LABS: Add Urine Microscopic? NO
[2024-05-29 16:45] LABS: Alanine Aminotransferase 28 U/L (14-59); Albumin Level 3.7 g/dL (3.4-5.0); Alkaline Phosphatase 168 U/L (46-116); Anion Gap 9 mmol/L (4-12); Aspartate Amino Transferase 22 U/L (15-37); Bilirubin,Total 0.8 mg/dL (0.00-1.00); Blood Urea Nitrogen 24 mg/dL (7-18); Calcium 9.4 mg/dL (8.5-10.1); Carbon Dioxide 26 mmol/L (21-32); Chloride 102 mmol/L (98-108); Estimated CRCL calculation 53 ml/min; Estimated Glomerular Filt Rate > 60; Glucose 159 mg/dL (70-99); Osmolality Calculated 291 mOsm/kg (285-295); Potassium 3.9 mmol/L (3.5-5.1); Sodium 137 mmol/L (136-145); Total Protein 7.9 g/dL (6.4-8.2)
== END 2024-05-29 18:53 | disposition home or self-care (01) ==
PROVIDERS: Emergency Provider Emergency Medicine; PCP Family Medicine
DX: K59.00 Constipation, unspecified (principal); M51.36 Other intervertebral disc degeneration, lumbar region
CPT/HCPCS: 36415; 72131; 74176; 80053; 81003; 85025; 96374; 96375; 96376; 99284; J2270; J2405

== ENCOUNTER 2024-06-07 13:23 | Outpatient (RCR) | payer MEDICARE, SELFPAY ==
--- NOTE | 2024-06-07 14:36 | OPREHPOC ---
Outpatient Therapy Plan of Care This is a Multidisciplinary Plan of Care that may contain components documented by all disciplines (PT, OT, and ST.) PT Problem 1 PT Problem #1 Knowledge Deficit PT Goal 1 Goal The patient will be independent in a home exercise program. Target Visit 4 PT Problem 2 PT Problem #2 Pain PT Goal 1 Goal The patient will report no greater than 5/10 low back pain with ADLs. Target Visit 8 PT Problem 3 PT Problem #3 Impaired Functional Mobil PT Goal 1 Goal The patient will demonstrate 20% or less self perceived disability per the Back Index. Target Visit 8 PT Problem 4 PT Problem #4 Impaired Strength PT Goal 1 Goal The patient will demonstrate 4-/5 or greater abdominal, hip abduction, and hip extension strength to support the spine. Target Visit 8
--- NOTE | 2024-06-07 14:36 | PTOPEVAL1 ---
Assessment and note entered by Jenn Ch, PT Evaluation Information Assessment Status Evaluation Other ICD-10 Condition Codes ( M54.41, M54.42, G89.29 PT) Onset 06/03/24 Subjective Information Marisela Blanoc reports she started having lower back pain that started on 05/29/24 and caused her legs to give out. She went to the ER by ambulance and was diagnosed with two bulging discs. She then saw her PCP on 06/03/24 and was told she has 2 bulging discs and arthritis. She was prescribed pain medication when she was at the ER. Her PCP referred her to PT. She is now having lower back pain constantly but reports she is able to perform all her daily activities. She also sees a chiropractor for her back as well. She is having surgery on her left elbow for a nerve on 06/08/24. Reported Pain Level Pain Score 9: Self Report Assessment PT Clinical Summary Marisela Blanco presents with low back pain that started on 05/29/24. She went to the ER and was diagnosed with 2 bulging discs. She has difficulty with prolonged positions but is able to perform daily activities. She objectively demonstrates decreased lumbar AROM, decreased core and hip girdle strength, and decreased functional abilities. She will benefit from skilled PT to address these limitations. Plan of Care Interventions Electrical Stimulation,Hot Pack/Cold Pack,Manual Therapy,Mechanical Traction,Neuro Re-education, Patient/Caregiver Educati,Therapeutic Activities, Therapeutic Exercise PT Services Indicated Yes Treatment Frequency and 2 times a week for 8 visits Duration These treatments will address the objective and functional deficits as defined above. The patient will be advanced safely and appropriately in order for the patient to progress towards his/her prior level of function. Additional exercises will be introduced and as well as a comprehensive home exercise program upon discharge, if needed, ?to ensure carryover of functional gains achieved in the clinic. This treatment plan has been reviewed and agreement upon by the patient.
--- NOTE | 2024-06-29 09:05 | OPREHPOC ---
Outpatient Therapy Plan of Care This is a Multidisciplinary Plan of Care that may contain components documented by all disciplines (PT, OT, and ST.) PT Problem 1 PT Problem #1 Knowledge Deficit PT Goal 1 Goal / Goal Update The patient will be independent in a home exercise program. Target Visit 4 Progress Met PT Problem 2 PT Problem #2 Pain PT Goal 1 Goal / Goal Update The patient will report no greater than 5/10 low back pain with ADLs. Target Visit 8 Progress Met PT Goal 2 Goal / Goal Update 1. improve active R ankle DF to 7 degrees or greater 2. improve active R wrist flex and ext to 55 degrees or better each Target Visit 16 PT Problem 3 PT Problem #3 Impaired Functional Mobil PT Goal 1 Goal / Goal Update The patient will demonstrate 20% or less self perceived disability per the Back Index. Target Visit 8 PT Problem 4 PT Problem #4 Impaired Strength PT Goal 1 Goal / Goal Update The patient will demonstrate 4-/5 or greater abdominal, hip abduction, and hip extension strength to support the spine. Target Visit 8 Progress Partially Met PT Goal 2 Goal / Goal Update 1. improve R ankle strength to 5/5 overall 2. improve R wrist strength to 5/5 overall Target Visit 16 PT Problem 5 PT Problem #5 Impaired Functional Mobil PT Goal 1 Goal / Goal Update 1. patient to return to normal gait mechanics without brace or AD. 2. patient to return to normal daily activities without R wrist wrap. Target Visit 16
--- NOTE | 2024-06-29 09:05 | PTOPREEVAL ---
Assessment and note entered by JT File, PT Evaluation Information Assessment Status Re-evaluation ICD-10 Condition Codes (PT) M25.571 Other ICD-10 Condition Codes ( M54.41, M54.42, G89.29 PT) Onset 06/03/24 Subjective Information patient reports she feels pretty good with respect to the lower back. she reports it feel much better than when she started therapy. however , she reports she fell over the weekend and hurt her R ankle and R wrist. she has no fractures. she is wearing an aircast on the R ankle. she reports she is no longer having pain or issues in the lower back. she reports the R ankle and R wrist are the worst now, and bother her to stand/walk/ lift objects. Reported Pain Level Pain Score 5,5,5,1: Self Report Assessment PT Clinical Summary mrs. grey presents to skilled PT services for her 8th visit for the lower back. she presents today reporting no issues with the back any longer. she has met or partially met all goals for the lower back. however, she has had a fall this past weekend and injured her R ankle and R wrist. she presents with deficits in strength and rom of the both the wrist and ankle, and abnormal gait mechanics due to her R ankle pain. patient would benefit from DC of lumbar spine rehab, but transition to rehab for the R wrist and ankle. Plan of Care Interventions Electrical Stimulation,Hot Pack/Cold Pack,Manual Therapy,Neuro Re-education,Patient/Caregiver Educati,Therapeutic Activities,Therapeutic Exercise PT Services Indicated Yes Treatment Frequency and continue skilled PT 2x weekly for 8 more visits Duration for the R wrist and R ankle. These treatments will address the objective and functional deficits as defined above. The patient will be advanced safely and appropriately in order for the patient to progress towards his/her prior level of function. Additional exercises will be introduced and as well as a comprehensive home exercise program upon discharge, if needed, ?to ensure carryover of functional gains achieved in the clinic. This treatment plan has been reviewed and agreement upon by the patient.
--- NOTE | 2024-07-28 08:52 | OPREHPOC ---
Outpatient Therapy Plan of Care This is a Multidisciplinary Plan of Care that may contain components documented by all disciplines (PT, OT, and ST.) PT Problem 1 PT Problem #1 Knowledge Deficit PT Goal 1 Goal / Goal Update The patient will be independent in a home exercise program. Target Visit 4 Progress Met PT Problem 2 PT Problem #2 Pain PT Goal 1 Goal / Goal Update The patient will report no greater than 5/10 low back pain with ADLs. Target Visit 8 Progress Met PT Goal 2 Goal / Goal Update 1. improve active R ankle DF to 7 degrees or greater 2. improve active R wrist flex and ext to 55 degrees or better each Target Visit 16 Progress Met PT Problem 3 PT Problem #3 Impaired Functional Mobil PT Goal 1 Goal / Goal Update The patient will demonstrate 20% or less self perceived disability per the Back Index. Target Visit 8 PT Problem 4 PT Problem #4 Impaired Strength PT Goal 1 Goal / Goal Update The patient will demonstrate 4-/5 or greater abdominal, hip abduction, and hip extension strength to support the spine. Target Visit 8 Progress Partially Met PT Goal 2 Goal / Goal Update 1. improve R ankle strength to 5/5 overall 2. improve R wrist strength to 5/5 overall Target Visit 16 Progress Met PT Problem 5 PT Problem #5 Impaired Functional Mobil PT Goal 1 Goal / Goal Update 1. patient to return to normal gait mechanics without brace or AD. met 2. patient to return to normal daily activities without R wrist wrap. not met Target Visit 16 Progress Partially Met
--- NOTE | 2024-07-28 08:52 | PTOPDC ---
Assessment and note entered by JT File, PT Evaluation Information Assessment Status Discharge ICD-10 Condition Codes (PT) M25.571 Other ICD-10 Condition Codes ( M54.41, M54.42, G89.29 PT) Onset 06/03/24 Subjective Information patient reports her R foot/ankle is feeling really good lately. she reports the R wrist hand is doing ok. she reports she has discovered recently that she has a ganglion cyst in the R wrist. she reports she is going to have a second opinion/follow up on her R wrist. Reported Pain Level Pain Score 0,0,2,0: Self Report Assessment PT Clinical Summary mrs. grey presents to skilled PT for her 16th skilled PT visit today. she no longer has pain in the lower back, R knee, or R ankle. she no longer requires skilled PT intervention at this time. she will DC skilled PT today, and continue with HEP independent at home. she has met all goals, except for DC'ing use/need of R wrist wrap. Plan of Care PT Services Indicated Yes
== END 2024-07-28 11:42 | disposition home or self-care (01) ==
LOC: CHSPT 13:23
PROVIDERS: Visit Provider Family Medicine
DX: M54.41 Lumbago with sciatica, right side (principal); M54.42 Lumbago with sciatica, left side; G89.29 Other chronic pain
CPT/HCPCS: 97014; 97110; 97161; 97164; 97530; G0283

== ENCOUNTER 2024-06-08 00:39 | Day surgery (SDC) | payer MEDICARE, SELFPAY ==
[2024-06-06 09:04] VITALS: BMI 36.4
--- NOTE | 2024-06-06 09:10 | PC.NURSE ---
Report to the Outpatient Waiting Room, entrance under the green pavilion located off [facility], at time _0915_ on date _[id number]_. Planned Procedure Time: _1115_. Time changes happen often and if your time is changed the preop area will call you the afternoon before. - You and your visitor will be asked to self-screen and do not enter if you have any COVID symptoms. - A mask is optional within the hospital at this time. - No food or drink from midnight until time of surgery Take the following medications with a SIP of water the morning of surgery: ____Propanolol, Sertraline, Ariprizole, Gabapentin and if needed Alprazolam DO NOT STOP ANY OF YOUR OTHER PRESCRIPTION MEDICATIONS PRIOR TO SURGERY ?EXCEPT THE FOLLOWING Medications to discontinue per physician ____None Date to take last dose Please no make-up, nail urdu, hairspray, perfume, deodorant, or body powder the day of surgery. No jewelry (including any body piercings) or valuables the day of surgery, leave them at home. Please take a shower or bath the night before, or the morning of, surgery with an antibacterial soap. Wear comfortable, loose fitting clothing. - Jewelry must be removed prior to entering the operating room. Rings and piercings that are not removed may be cut off. - The hospital will not accept responsibility for valuables. - Please leave all valuables, including medications, at home the day of surgery. If you are going home after surgery, a licensed fleet driver must drive you home. - NO public transportation without another adult if you receive anesthesia. - We recommend that an adult stay with you for 24 hours following discharge. - We also recommend that you do not drive, make important decision, drink alcoholic beverages, or take any drugs that were not prescribed by your health care provider for at least 24 hours after your discharge time. Follow any additional instructions given to you from your surgeon. If you or anyone in your household have experienced Covid symptoms in the past week, please notify your surgeon or the nurse liaison at the phone number below for possible testing. Telephone instructions given to __Marisela___and asked if any additional questions and then verbalized understanding. Patient advised to call surgeon office or pre surgery nurse liaison [phone] if any additional questions.
--- NOTE | 2024-06-08 06:48 | PM.HPGS ---
History of Present Illness History of Present Illness Chief complaint: lesion left ulnar nerve Narrative: Patient seen and examined in pre-operative holding area. No interval change in medical history or symptoms. Patient recalls previous discussion of benefits and alternatives to procedure. Continues to desire to proceed with left cubital tunnel release. Reviewed procedure, post-op expectations and risks including but not limited to bleeding, infection, injury to tendon/nerve/vessel, decreased hand function, stiffness, RSD, no change or worsening of symptoms. I discussed the possible use of assistants and their participation in the case. Patient stated understanding and signed the consent form wishing to proceed. of note, patient has healed scar on left medial elbow and history reveals old cubital tunnel release on left but patient uncertain of any details and not sure about ever having surgery. discussed higher rate of complications with revision cubital tunnel release Review of Systems Review of Systems: All systems reviewed & are unremarkable except as noted in HPI and below PMFSH Past Medical History Medical History (Updated 06/08/24 @ 10:01 by Joshua Loza MD) DMII (diabetes mellitus, type 2) Nausea Obesity, morbid, BMI 40.0-49.9 Surgical History Surgical History H/O: hysterectomy History of carpal tunnel release of both wrists S/P cubital tunnel release Left Social History Social History Smoking status: Never smoker Alcohol intake: never Substance use: never Substance use type: does not use Lack of Transportation: No Lack of Food: Never True Current Housing: I Have Housing Concerned About Future Housing: No Difficulty Paying Gas/Electric Bills: No Difficulty Paying for Meds: No Currently Unemployed: No Education: High School Diploma/GED Difficulty w/ Childcare or Family Care: No Living arrangements: with family Spiritual care concerns: No Meds Home Medications and Allergies Home Medications Medication Instructions Recorded Confirmed Type alprazolam 0.5 mg tablet 0.5 mg PO BID PRN anxiety #5 tabs 07/15/23 06/06/24 Rx furosemide 20 mg tablet 20 mg PO QAM #30 tabs 07/24/23 06/06/24 Rx dulaglutide 1.5 mg/0.5 mL 1.5 mg (0.5 mL) subcut WEEKLY #2 mL 09/17/23 06/06/24 Rx subcutaneous pen injector (Trulicity) propranolol 120 mg capsule,24 120 mg PO DAILY #90 caps 12/02/23 06/06/24 Rx hr,extended release aripiprazole 20 mg tablet 20 mg PO DAILY #30 tabs 01/18/24 06/06/24 Rx gabapentin 300 mg capsule 300 mg PO TID #90 caps 01/18/24 06/06/24 Rx sertraline 100 mg tablet 100 mg PO DAILY #30 tabs 01/18/24 06/06/24 Rx polyethylene glycol 3350 17 17 g PO DAILY #510 grams 02/26/24 06/06/24 Rx gram/dose oral powder (Miralax) meloxicam 15 mg tablet 15 mg PO DAILY #7 tabs 03/09/24 06/06/24 Rx cholecalciferol (vitamin D3) 1,250 1,250 mcg PO WEEKLY #12 caps 05/10/24 06/06/24 Rx mcg (50,000 unit) capsule cyclobenzaprine 10 mg tablet 10 mg PO TID PRN muscle spasm #15 05/29/24 06/06/24 Rx tabs hydrocodone 7.5 mg-acetaminophen 1 tablet PO Q6H PRN pain #20 tabs 05/29/24 06/06/24 Rx 325 mg tablet tramadol 50 mg tablet 50 mg PO Q6H PRN pain #12 tabs 06/08/24 Rx Allergies Allergy/AdvReac Type Severity Reaction Status Date / Time Sulfa (Sulfonamide Allergy Unknown RASH, Verified 06/08/24 09:49 Antibiotics) NAUSEA ibuprofen AdvReac Nausea and Verified 06/08/24 10:04 Vomiting iohexol AdvReac Nausea and Verified 06/08/24 09:49 [From contrast - CT, X-RAY] Vomiting Chocolate Allergy Unknown BAD Uncoded 06/06/24 09:00 MIGRAINES Exam Narrative: unchanged Assessment and Plan Assessment and plan (1) Entrapment of left ulnar nerve at elbow: Code(s): G56.22 - Lesion of ulnar nerve, left upper limb Status: Acute Asse
--- NOTE | 2024-06-08 06:48 | W.PM.PROC2 ---
Procedure Note - Detailed Date of Procedure 06/08/24 Pre-op Diagnosis left cubital tunnel syndrome Post-op Diagnosis Same Procedure Performed left CuTR revision Surgeon Quan Woodall MD Letter Stamping Machine Operator hipolito gomez pa-c Anesthesia MAC Description of Procedure INFORMED CONSENT:The patient was seen and examined and marked in the pre-op area.? The patient signed the consent form. PROCEDURE IN DETAIL: The patient taken back to OR on the stretcher in supine position. Time out performed with anesthesia, surgeon and staff agreeing on patient's name site and surgery to be performed SCDs were placed on the lower extremities and inflated A tourniquet was placed on {left} upper extremity and antibiotics given IV After anesthesia administered sedation I injected {10}cc 1%lido with epi and 0.5% marcaine plain at the operative site The?{left upper extremity}?was prepped and draped in sterile fashion the??{left upper extremity} was??exsanguinated with Esmarch bandage and tourniquet inflated to 250mmHg I next proceeded with making a longitudinal incision between two heads for flexor carpi ulnaris at end of {left} cubital tunnel with 15 blade scalpel.? Littler scissors were used to spread through subq and ulnar nerve was identified encased in scar tissue around the medial epicondyle with distortion of normal anatomy and consistent with likely previous cubital tunnel release..? I proceeded with neurolysis and release of any compressive scar tissue or bands or the nerve including 7cm proximal for the intermuscular septum.? The nerve appeared round and with visible vaso nervorum but very small in appearance.? There was no subluxation on full elbow range of motion. ? I irrigated with normal saline and closure with 3-0 vicryl for dermis and 4-0 monocryl for subcuticular closure. The incision was covered with Dermabond then 4x4s, maxwell, and a posterior elbow splint for patient safety, security and comfort and secured with erum bandages after the tourniquet was let down noting the hand was warm and well perfused.? Patient awaken from anesthesia and transferred to recovery in stable condition Complications - none EBL- 1cc Disposition - home in stable conditions Hipolito Gomez pa-c was essential for positioning, retraction, closure and dressing placement note that since turned out to be a revisiion cubital tunnel release this was more difficult than normal given the amount of scar tissue, neurolysis required and distorted anatomy. [facility] Billing Surgery - Charge Forward: Surgery Billing ([id number], for hipolito)
[2024-06-08] MEDS: LIDO 1%/EPINEPHRINE 1:100,000 20 ML VIAL 10 ML INFILTRATE (08:44)
[2024-06-08 09:01] VITALS: BP 149/86; PULSE 73; RESP 16; TEMP 36.1; O2SAT 100
[2024-06-08] MEDS: LACTATED RINGERS 1,000 ML 30 ML IV CONT (09:20)
[2024-06-08 09:37] LABS: Glucose Point of Care 114 mg/dl (65-105)
[2024-06-08 09:50] VITALS: BMI 35.2
--- NOTE | 2024-06-08 10:01 | WPDANESEPPF ---
Anes - Initial Pre Proc Eval Procedure: Operation Date: 06/08/24 11:15 Proposed Procedures p Left Cubital Tunnel Release - Quan Woodall MD Date/Time: 06/08/24 10:01 Surgeon: Quan Woodall MD Pre Op Diagnosis: lesion left ulnar nerve Patient Data Age: 58 Gender: F Height: 1.63 m Weight: 93.2 kg Last Vital Signs Temp 36.1 C L 06/08/24 09:01 Pulse 73 06/08/24 09:01 Resp 16 06/08/24 09:01 BP 149/86 H 06/08/24 09:01 Pulse Ox 100 06/08/24 09:01 O2 Del Method Room Air 06/08/24 09:01 Allergies Allergy/AdvReac Type Severity Reaction Status Date / Time Sulfa (Sulfonamide Allergy Unknown RASH, Verified 06/08/24 09:49 Antibiotics) NAUSEA ibuprofen Allergy Nausea and Verified 06/08/24 09:49 Vomiting iohexol AdvReac Nausea and Verified 06/08/24 09:49 [From contrast - CT, X-RAY] Vomiting Chocolate Allergy Unknown BAD Uncoded 06/06/24 09:00 MIGRAINES Home Medications Medication Instructions Recorded Confirmed Type alprazolam 0.5 mg tablet 0.5 mg PO BID PRN anxiety #5 tabs 07/15/23 06/06/24 Rx furosemide 20 mg tablet 20 mg PO QAM #30 tabs 07/24/23 06/06/24 Rx dulaglutide 1.5 mg/0.5 mL 1.5 mg (0.5 mL) subcut WEEKLY #2 mL 09/17/23 06/06/24 Rx subcutaneous pen injector (Trulicity) propranolol 120 mg capsule,24 120 mg PO DAILY #90 caps 12/02/23 06/06/24 Rx hr,extended release aripiprazole 20 mg tablet 20 mg PO DAILY #30 tabs 01/18/24 06/06/24 Rx gabapentin 300 mg capsule 300 mg PO TID #90 caps 01/18/24 06/06/24 Rx sertraline 100 mg tablet 100 mg PO DAILY #30 tabs 01/18/24 06/06/24 Rx polyethylene glycol 3350 17 17 g PO DAILY #510 grams 02/26/24 06/06/24 Rx gram/dose oral powder (Miralax) meloxicam 15 mg tablet 15 mg PO DAILY #7 tabs 03/09/24 06/06/24 Rx cholecalciferol (vitamin D3) 1,250 1,250 mcg PO WEEKLY #12 caps 05/10/24 06/06/24 Rx mcg (50,000 unit) capsule cyclobenzaprine 10 mg tablet 10 mg PO TID PRN muscle spasm #15 05/29/24 06/06/24 Rx tabs hydrocodone 7.5 mg-acetaminophen 1 tablet PO Q6H PRN pain #20 tabs 05/29/24 06/06/24 Rx 325 mg tablet tramadol 50 mg tablet 50 mg PO Q6H PRN pain #12 tabs 06/08/24 Rx Laboratory Tests 06/08/24 09:35 POC Capillary Glucose 114 H mg/dl (65-105) Patient hx anesthesia problems: none Family hx anesthesia problems: none Results Review: All pre-operative results and documents have been reviewed as part of the pre-operative evaluation. [facility] Past Medical History Medical History (Updated 06/08/24 @ 10:01 by Joshua Loza MD) DMII (diabetes mellitus, type 2) Nausea Obesity, morbid, BMI 40.0-49.9 Surgical History Surgical History H/O: hysterectomy History of carpal tunnel release of both wrists S/P cubital tunnel release Left Social History Social History Smoking status: Never smoker Alcohol intake: never Substance use: never Substance use type: does not use Lack of Transportation: No Lack of Food: Never True Current Housing: I Have Housing Concerned About Future Housing: No Difficulty Paying Gas/Electric Bills: No Difficulty Paying for Meds: No Currently Unemployed: No Education: High School Diploma/GED Difficulty w/ Childcare or Family Care: No Living arrangements: with family Spiritual care concerns: No Anes - Eval Final PreProcedure Day of Procedure 06/08/24 10:01 Patient weight: obese Heart: regular rate and rhythm Lungs: clear to auscultation Airway: Mallampati scale class II Neurological: alert and oriented Last oral intake: >/= 8 hours ASA classification: III Emergent: no Anesthetic plan: proceed Anesthesia type and monitoring: general GIVS and standard monitoring Results Review: All pre-operative results and documents have been reviewed as part of the pre-operative evaluation. Informed Consent: The
[2024-06-08] MEDS: ceFAZolin 2 GM/D5W 50 ML 2 GM/50 ML BAG IVPB (10:49)
[2024-06-08 11:20] VITALS: BP 96/49; PULSE 74; RESP 20; O2SAT 98
[2024-06-08] MEDS: fentaNYL CITRATE INJ (*CRX) 100 MCG/2 ML VIAL 25 MCG IV PUSH ×2 (11:28→11:35)
[2024-06-08 11:30] LABS: Glucose Point of Care 110 mg/dl (65-105)
[2024-06-08] MEDS: oxyCODONE HCL (*CRX) 5 MG TAB IR PO (11:45)
[2024-06-08 11:50] VITALS: BP 111/55; PULSE 69; RESP 20
[2024-06-08 12:20] VITALS: BP 114/64; PULSE 70; RESP 20
== END 2024-06-08 12:30 | disposition home or self-care (01) ==
PROVIDERS: PCP Family Medicine; Visit Provider Plastic Surgery
PROC: (CPT 64718; principal; 2024-06-08 11:15)
DX: G56.22 Lesion of ulnar nerve, left upper limb (principal); E11.9 Type 2 diabetes mellitus without complications; E66.9 Obesity, unspecified; Z68.35 Body mass index [BMI] 35.0-35.9, adult; Z79.85 Long-term (current) use of injectable non-insulin antidiabetic drugs
CPT/HCPCS: 64718; 82948; A9270; J0690; J2704; J3010; J7120

== ENCOUNTER 2024-06-08 16:49 | Emergency (ER) | payer MEDICARE, SELFPAY ==
--- NOTE | ~2024-06-08 | CT_ITS ---
EXAMINATION: CT brain wo con DATE: 06/08/2024 18:00 INDICATION: Diffuse headache TECHNIQUE: Computed tomography (CT) of the head was performed without intravenous contrast. Sagittal and coronal reconstructions were performed. The mA was adjusted according to patient size. Iterative reconstruction technique was employed. The dose-length product was 529.67 mGy-cm. COMPARISON: None FINDINGS: No acute intracranial hemorrhage, acute infarction or abnormal extra axial fluid collection. There is mild scattered white matter hypoattenuation consistent with chronic small vessel ischemic disease. V entricles are normal and symmetric. No mass/mass effect. The orbits, paranasal sinuses and mastoid ai r cells are normal. IMPRESSION: 1. Normal aging brain. No acute intracranial process. Reviewed, dictated and finalized at location A.
[2024-06-08 16:54] VITALS: BP 124/59; PULSE 65; RESP 20; TEMP 36.3; O2SAT 96
--- NOTE | 2024-06-08 17:05 | ED.HA ---
HPI - Headache General Chief Complaint: Headache Stated Complaint: headache Time Seen by Provider: 06/08/24 17:05 Source: patient Mode of arrival: ambulatory Limitations: no limitations History of Present Illness HPI Narrative: 58-year-old female with a history of hypertension, diabetes, arthritis, cognitive impairment, Migraine had left carpal tunnel release surgery this morning. Postoperatively she was discharged home. She presents to the ED with -- generalized headache. she has a history of migraine headaches. This had particular episode of headache is most severe. The patient did not have any nausea vomiting. Patient has photophobia. No focal neuro deficits. The headache developed acutely after the discharge. MD elicited complaint: headache Pertinent past history: migraines Onset (ago): hour(s) ( 4 hours) Onset description: suddenly Location: generalized Severity: severe Quality & Timing: aching Exacerbating factors: none Relieving factors: nothing Context: occurred at rest Associated symptoms: none Treatments prior to arrival: none Related Data Allergies Allergy/AdvReac Type Severity Reaction Status Date / Time Sulfa (Sulfonamide Allergy Unknown RASH, Verified 06/08/24 17:01 Antibiotics) NAUSEA ibuprofen AdvReac Nausea and Verified 06/08/24 17:01 Vomiting iohexol AdvReac Nausea and Verified 06/08/24 17:01 [From contrast - CT, X-RAY] Vomiting Chocolate Allergy Unknown BAD Uncoded 06/08/24 11:01 MIGRAINES Review of Systems Review of Systems: All systems reviewed & are unremarkable except as noted in HPI and below Constitutional: Constitutional: Reports as per HPI and Reports no additional constitutional complaints Eyes: Eyes: Reports as per HPI and Reports no additional eye complaints ENT: Reports system reviewed and no additional complaints, except as documented and Reports as per HPI Cardiovascular: Cardiovascular: Reports as per HPI and Reports no additional cardiovascular complaints Respiratory: Respiratory: Reports as per HPI and Reports no additional respiratory complaints Gastrointestinal: Gastrointestinal: Reports as per HPI and Reports no additional gastrointestinal complaints Genitourinary: Genitourinary: Reports no additional female genitourinary complaints and Reports as per HPI Musculoskeletal: Musculoskeletal: Reports no additional musculoskeletal complaints and Reports as per HPI Comments: left elbow dressing status post ulnar nerve release surgery Integumentary/Breasts: Skin/Breast: Reports system reviewed and no additional complaints, except as docu and Reports as per HPI Neurologic: Reports system reviewed and no additional complaints, except as documented and Reports as per HPI Psychiatric: Psychiatric: Reports no additional psychiatric complaints and Reports as per HPI Endocrine: Endocrine: Reports no additional endocrine complaints and Reports as per HPI Hematologic/Lymphatic: Hematologic/Lymphatic: Reports no additional hematologic/lymphatic complaints and Reports as per HPI Allergic/Immunologic: Allergic/Immunologic: Reports no additional allergic/immunologic complaints and Reports as per HPI [facility] Past Medical History Medical History (Updated 06/08/24 @ 18:44 by Everton Perkins MD) DMII (diabetes mellitus, type 2) Nausea Obesity, morbid, BMI 40.0-49.9 Surgical History Surgical History H/O: hysterectomy History of carpal tunnel release of both wrists S/P cubital tunnel release Left Social History Social History Smoking status: Never smoker Alcohol intake: never Substance use: never Substance use type: does not use Lack of Transportation: No Lack of Food: Never True Current Housing: I Have Housing Concerned About Future Housing: No Difficulty Paying Gas/Electric Bills: No Difficulty Paying for Meds: No Cur
[2024-06-08] MEDS: HYDROmorphone HCL INJ (*CRX) 2 MG/ML VIAL 0.5 MG IM (17:27)
[2024-06-08] MEDS: ONDANSETRON HCL ODT 4 MG TABLET PO (17:27)
[2024-06-08 17:47] VITALS: BP 133/60; PULSE 86; RESP 16; O2SAT 100
[2024-06-08 18:30] VITALS: BP 118/60; PULSE 68; RESP 16; O2SAT 98
[2024-06-08 18:50] VITALS: TEMP 37
== END 2024-06-08 18:50 | disposition home or self-care (01) ==
PROVIDERS: Emergency Provider Internal Medicine Critical Care Medicine; PCP Family Medicine
DX: R51.9 Headache, unspecified (principal); I10 Essential (primary) hypertension; E11.9 Type 2 diabetes mellitus without complications
CPT/HCPCS: 70450; 96372; 99284; A9270; J1170

== ENCOUNTER 2024-06-12 14:50 | Emergency (ER) | payer MEDICARE, SELFPAY ==
[2024-06-12 14:50] VITALS: BP 129/75; PULSE 70; RESP 20; TEMP 36.6; O2SAT 98
--- NOTE | 2024-06-12 15:15 | ED.WOUNDLAC ---
HPI - Wound/Laceration General Chief Complaint: Wound/Laceration Stated Complaint: wound check Source: patient Mode of arrival: ambulatory Limitations: no limitations History of Present Illness HPI narrative: Patient is a 58-year-old female with a left arm/elbow recent surgery with healing incision that has split and causing slight bleeding today. There are internal sutures only at this time. She has a follow-up planned with the specialist soon. Onset (ago): hour(s) (1) Location: other ( Left elbow) Extremity Location: Left: elbow Place: home Context: other ( postsurgical wound) Associated symptoms: none Treatments prior to arrival: bandage Related Data Allergies Allergy/AdvReac Type Severity Reaction Status Date / Time Sulfa (Sulfonamide Allergy Unknown RASH, Verified 06/08/24 17:01 Antibiotics) NAUSEA ibuprofen AdvReac Nausea and Verified 06/08/24 17:01 Vomiting iohexol AdvReac Nausea and Verified 06/08/24 17:01 [From contrast - CT, X-RAY] Vomiting Chocolate Allergy Unknown BAD Uncoded 06/08/24 11:01 MIGRAINES Review of Systems Review of Systems: All systems reviewed & are unremarkable except as noted in HPI and below Constitutional: Constitutional: Reports no additional constitutional complaints Eyes: Eyes: Reports no additional eye complaints ENT: Reports system reviewed and no additional complaints, except as documented Cardiovascular: Cardiovascular: Reports no additional cardiovascular complaints Respiratory: Respiratory: Reports no additional respiratory complaints Gastrointestinal: Gastrointestinal: Reports no additional gastrointestinal complaints Genitourinary: Genitourinary: Reports no additional female genitourinary complaints Musculoskeletal: Musculoskeletal: Reports no additional musculoskeletal complaints Integumentary/Breasts: Skin/Breast: Reports system reviewed and no additional complaints, except as docu Neurologic: Reports system reviewed and no additional complaints, except as documented Psychiatric: Psychiatric: Reports no additional psychiatric complaints Endocrine: Endocrine: Reports no additional endocrine complaints Hematologic/Lymphatic: Hematologic/Lymphatic: Reports no additional hematologic/lymphatic complaints Allergic/Immunologic: Allergic/Immunologic: Reports no additional allergic/immunologic complaints PMFSH Past Medical History Medical History DMII (diabetes mellitus, type 2) Nausea Obesity, morbid, BMI 40.0-49.9 Surgical History Surgical History H/O: hysterectomy History of carpal tunnel release of both wrists S/P cubital tunnel release Left Social History Social History Smoking status: Never smoker Alcohol intake: never Substance use: never Substance use type: does not use Lack of Transportation: No Lack of Food: Never True Current Housing: I Have Housing Concerned About Future Housing: No Difficulty Paying Gas/Electric Bills: No Difficulty Paying for Meds: No Currently Unemployed: No Education: High School Diploma/GED Difficulty w/ Childcare or Family Care: No Living arrangements: with family Spiritual care concerns: No Exam Const: General: healthy appearing Nutritional Appearance: well nourished Orientation/consciousness: patient oriented x3 HENMT: Head: normal to inspection Ears: external ears normal Face/Nose/Sinus: Normal external nose present Eyes: Conjunctivae: conjunctivae normal Pupils: Equal, round and reactive pupils present EOM: EOMs intact bilaterally Neck: Neck: normal visual inspection Chest: Chest palpation & inspection: normal inspection of the chest Resp: Effort & Inspection: normal respiratory effort and not labored Auscultation: clear to auscultation bilaterally Cardio: Rate: regular rate Rhythm: regul
== END 2024-06-12 15:25 | disposition home or self-care (01) ==
PROVIDERS: Emergency Provider Emergency Medicine; PCP Family Medicine
DX: T81.31XA Disruption of external operation (surgical) wound, not elsewhere classified, initial encounter (principal); E11.9 Type 2 diabetes mellitus without complications
CPT/HCPCS: 99282

== ENCOUNTER 2024-06-24 11:26 | Outpatient (CLI) | payer MEDICARE, SELFPAY ==
--- NOTE | ~2024-06-24 | MM_ITS ---
EXAMINATION: MM screening [facility] BI w raquel HISTORY: Screening TECHNIQUE: Craniocaudal and mediolateral oblique 3-D tomosynthesis images were obtained and synthetic 2-D images were generated. CAD analysis was submitted and interpreted. COMPARISON: Comparison to multiple prior studies sequentially, with oldest reviewed study dated 04/19. BREAST PARENCHYMAL COMPOSITION: Dense: The breasts are heterogeneously dense, which may obscure small masses FINDINGS: The right breast is stable without evidence for malignancy there is a developing cluster of calcifications in the lower outer quadrant of the left breast, middle third. IMPRESSION: 1. Developing cluster of left breast calcifications, lower outer quadrant. 2. Magnification views are recommended. BI-RADS Category 0: Incomplete: Needs additional imaging evaluation. Reviewed, dictated and finalized at location B.
== END 2024-06-24 11:27 | disposition home or self-care (01) ==
LOC: CHSIMG 11:27
PROVIDERS: PCP Family Medicine; Visit Provider Family Medicine
DX: Z12.31 Encounter for screening mammogram for malignant neoplasm of breast (principal); R92.8 Other abnormal and inconclusive findings on diagnostic imaging of breast
CPT/HCPCS: 77063; 77067

== ENCOUNTER 2024-06-25 22:13 | Emergency (ER) | payer MEDICARE, SELFPAY ==
--- NOTE | ~2024-06-25 | XR_ITS ---
EXAMINATION: XR wrist RT min 3V DATE: 06/25/2024 22:46 INDICATION: Right wrist pain post fall TECHNIQUE: Posteroanterior, ulnar deviation, oblique, and lateral views of the right wrist were obtai nasreen. COMPARISON: 07/11/2023 FINDINGS: There is increased scapholunate and lunocapitate angles consistent with dorsal intercalated segment i nstability (DISI) related to scapholunate ligament insufficiency with partial tear evident on prior M RI. No fracture. Mild osteoarthritis at the first carpal metacarpal joints and a few of the visualize d metacarpophalangeal and interphalangeal joints. Suture anchors at the scaphoid. IMPRESSION: 1. No acute osseous abnormality. 2. 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 Reviewed, dictated and finalized at location A. IMPRESSION: 1. No acute osseous abnormality. 2. Scapholunate ligament insufficiency with dorsal intercalated segment instabi lity (DISI).
--- NOTE | ~2024-06-25 | XR_ITS ---
EXAMINATION: XR knee RT 3V DATE: 06/25/2024 22:46 INDICATION: Right knee pain post fall TECHNIQUE: Anteroposterior, oblique and crosstable lateral views of the right knee were obtained COMPARISON: None. FINDINGS: Alignment is normal. No fracture. There is at least moderate joint space narrowing in the medial com partment on the lateral projection. Small marginal osteophytes in all 3 compartments. No joint effusi on/layering lipohemarthrosis. Soft tissues are unremarkable. IMPRESSION: 1. No right knee joint effusion or fracture. 2. Tricompartmental osteoarthritis at the right knee at least moderate severity medial compartment. Reviewed, dictated and finalized at location A.
--- NOTE | ~2024-06-25 | XR_ITS ---
EXAMINATION: XR ankle RT min 3V DATE: 06/25/2024 22:46 INDICATION: Right ankle pain post fall TECHNIQUE: Anteroposterior, oblique and lateral views of the right ankle were obtained. COMPARISON: None. FINDINGS: Alignment is normal. No fracture. Mild polyarticular osteoarthritis at the right ankle and multiple j oints in the mid and hindfoot. Small Achilles and plantar calcaneal spurs. Fixation screws seen on th e lateral projection at the first proximal phalanx. No ankle joint effusion. IMPRESSION: 1. Mild polyarticular osteoarthritis at the right ankle, mid and hindfoot. No acute osseous abnormali ty. Reviewed, dictated and finalized at location A. IMPRESSION: 1. Mild polyarticular osteoarthritis at the right ankle, mid and hindfoot. No a cute osseous abnormality.
[2024-06-25 22:17] VITALS: BP 123/96; PULSE 66; RESP 18; TEMP 35.9; O2SAT 96
[2024-06-25] MEDS: ACETAMINOPHEN 500 MG TABLET 1000 MG PO (22:30)
--- NOTE | 2024-06-25 22:49 | ED.FALL ---
HPI - Fall General Chief Complaint: Fall Stated Complaint: fall Time Seen by Provider: 06/25/24 22:18 History of Present Illness HPI Narrative: 58-year-old obese female with developmental delay and diabetes presents to the emergency department with complaint of a ground level fall at approximately 2130 tonight. Patient is with her fiance who describes the patient sleeping on loose gravel in the parking lot and falling onto her right side. The patient is complaining of right wrist pain, right knee pain, and right ankle pain. She arrives by EMS who report that she was ambulatory on scene prior to their arrival. The patient denies head or neck pain. She denies loss of consciousness. She endorses that it was a mechanical fall. She denies any syncope or near syncope. Patient denies any other injuries in the event aside from those described above. The patient is otherwise in her usual state of health. She is not having any nausea, vomiting, diarrhea, fever, chills. Related Data Allergies Allergy/AdvReac Type Severity Reaction Status Date / Time Sulfa (Sulfonamide Allergy Unknown RASH, Verified 06/25/24 22:25 Antibiotics) NAUSEA ibuprofen AdvReac Nausea and Verified 06/25/24 22:25 Vomiting iohexol AdvReac Nausea and Verified 06/25/24 22:25 [From contrast - CT, X-RAY] Vomiting Chocolate Allergy Unknown BAD Uncoded 06/22/24 15:41 MIGRAINES PMFSH Past Medical History Medical History DMII (diabetes mellitus, type 2) Nausea Obesity, morbid, BMI 40.0-49.9 Surgical History Surgical History H/O: hysterectomy History of carpal tunnel release of both wrists S/P cubital tunnel release Left Social History Social History Smoking status: Never smoker Alcohol intake: never Substance use: never Substance use type: does not use Lack of Transportation: No Lack of Food: Never True Current Housing: I Have Housing Concerned About Future Housing: No Difficulty Paying Gas/Electric Bills: No Difficulty Paying for Meds: No Currently Unemployed: No Education: High School Diploma/GED Difficulty w/ Childcare or Family Care: No Living arrangements: with family Spiritual care concerns: No Exam Narrative: GEN: Awake, alert, and appropriate to situation. Well appearing, well nourished, nontoxic, appears uncomfortable. HEENT: No rhinorrhea noted, mucous membranes moist. No scleral icterus or conjunctival injection. CV: Normal rate, regular rhythm, S1S2 no M/G/R. 2+ distal pulses all extremities. No peripheral edema noted. PULM: Non-labored respiration. Clear to auscultation bilaterally. No wheezes, rales, rhonchi. GI: Abdomen soft, non -tender to palpation. No rigidity, distention or guarding.? NEURO: Normal speech. No lateralizing or focal deficits noted. presentation consistent with mild cognitive delay. exam of right ankle shows mild swelling and diffuse tenderness in the distribution of the ATFL. active plantar flexion is limited by pain. Patient otherwise has active passive of motion. no crepitus or deformity. Exam of right knee shows no obvious abnormalities on inspection. Pain with active and passive range of motion. No crepitus or deformity. Distal pulses and sensation are intact in the extremity exam of right wrist shows no abnormalities on inspection. She has pain with active flexion but range of motion is intact. No crepitus or deformity. Distal pulses and sensation are intact. x-ray right wrist: No fracture dislocation is identified.? There are no other osseous abnormalities seen.? There appear to be orthopedic anchors on the neurovascular bone these were seen on the x-ray 2022 as well. Joint spaces generally appear intact.? There is no soft tissue swelling or evidence of joint effusion. X-ray right k
[2024-06-25 22:56] LABS: Glucose Point of Care 129 mg/dl (65-105)
== END 2024-06-25 23:45 | disposition home or self-care (01) ==
PROVIDERS: Emergency Provider Family Medicine; PCP Family Medicine
DX: S93.401A Sprain of unspecified ligament of right ankle, initial encounter (principal); E11.9 Type 2 diabetes mellitus without complications; W18.30XA Fall on same level, unspecified, initial encounter
CPT/HCPCS: 29515; 73110; 73562; 73610; 82948; 99284; L4350

== ENCOUNTER 2024-07-04 05:00 | Emergency (ER) | payer MEDICARE, SELFPAY ==
[2024-07-04 05:00] VITALS: BP 137/67; PULSE 57; RESP 18; TEMP 36.4; O2SAT 96
[2024-07-04 05:05] VITALS: BP 137/67; PULSE 60; RESP 18; TEMP 36.6; O2SAT 96
--- NOTE | 2024-07-04 05:08 | ED.UPPEXIN ---
HPI - Extremity Injury (Upper) General Chief Complaint: Extremity Injury, Upper Stated Complaint: left arm tingling Time Seen by Provider: 07/04/24 05:07 Source: patient Mode of arrival: ambulatory Limitations: no limitations History of Present Illness HPI narrative: Patient is a 58-year-old female with a left wrist carpal tunnel syndrome. She was in a different ER and they put a splint on using a casting system in the past week. She comes in today with worsening left wrist pain and tingling. She was told eventually she will need surgery on this wrist. MD complaint: injury to: left Onset (ago): hour(s) (3) Other Extremity Injury: Left: wrist Other injuries: none Place: home Severity: moderate Severity scale (1-10): 4 Relieving factors: none Exacerbating factors: other ( new cast placed by other emergency room to the left forearm is causing issues) Context: other ( carpal tunnel syndrome left wrist) Associated symptoms: denies other symptoms Treatments prior to arrival: bandage and splint Related Data Allergies Allergy/AdvReac Type Severity Reaction Status Date / Time Sulfa (Sulfonamide Allergy Unknown RASH, Verified 06/25/24 22:25 Antibiotics) NAUSEA ibuprofen AdvReac Nausea and Verified 06/25/24 22:25 Vomiting iohexol AdvReac Nausea and Verified 06/25/24 22:25 [From contrast - CT, X-RAY] Vomiting Chocolate Allergy Unknown BAD Uncoded 06/22/24 15:41 MIGRAINES Review of Systems Review of Systems: All systems reviewed & are unremarkable except as noted in HPI and below Constitutional: Constitutional: Reports no additional constitutional complaints Eyes: Eyes: Reports no additional eye complaints ENT: Reports system reviewed and no additional complaints, except as documented Cardiovascular: Cardiovascular: Reports no additional cardiovascular complaints Respiratory: Respiratory: Reports no additional respiratory complaints Gastrointestinal: Gastrointestinal: Reports no additional gastrointestinal complaints Genitourinary: Genitourinary: Reports no additional female genitourinary complaints Musculoskeletal: Musculoskeletal: Reports no additional musculoskeletal complaints Integumentary/Breasts: Skin/Breast: Reports system reviewed and no additional complaints, except as docu Neurologic: Reports system reviewed and no additional complaints, except as documented Psychiatric: Psychiatric: Reports no additional psychiatric complaints Endocrine: Endocrine: Reports no additional endocrine complaints Hematologic/Lymphatic: Hematologic/Lymphatic: Reports no additional hematologic/lymphatic complaints Allergic/Immunologic: Allergic/Immunologic: Reports no additional allergic/immunologic complaints PMFSH Past Medical History Medical History DMII (diabetes mellitus, type 2) Nausea Obesity, morbid, BMI 40.0-49.9 Surgical History Surgical History H/O: hysterectomy History of carpal tunnel release of both wrists S/P cubital tunnel release Left Social History Social History Smoking status: Never smoker Alcohol intake: never Substance use: never Substance use type: does not use Lack of Transportation: No Lack of Food: Never True Current Housing: I Have Housing Concerned About Future Housing: No Difficulty Paying Gas/Electric Bills: No Difficulty Paying for Meds: No Currently Unemployed: No Education: High School Diploma/GED Difficulty w/ Childcare or Family Care: No Living arrangements: with family Spiritual care concerns: No Exam Const: General: healthy appearing Nutritional Appearance: well nourished Orientation/consciousness: patient oriented x3 HENMT: Head: normal to inspection Ears: external ears normal Face/Nose/Sinus: Normal external nose present Eyes: Conjunctivae: conjunctivae n
--- NOTE | 2024-07-04 05:34 | PC.NURSE ---
Dr Diaz at the bedside
--- NOTE | 2024-07-04 05:38 | PC.NURSE ---
temporary cast removed from left arm
== END 2024-07-04 05:51 | disposition home or self-care (01) ==
PROVIDERS: Emergency Provider Emergency Medicine; PCP Family Medicine
DX: G56.02 Carpal tunnel syndrome, left upper limb (principal); E11.9 Type 2 diabetes mellitus without complications
CPT/HCPCS: 29125; 99281

== ENCOUNTER 2024-07-14 22:47 | Emergency (ER) | payer MEDICARE, SELFPAY ==
[2024-07-14 22:50] VITALS: BP 148/86; PULSE 59; RESP 20; TEMP 36.3; O2SAT 97
--- NOTE | 2024-07-14 22:53 | ED.UPPEXIN ---
HPI - Extremity Injury (Upper) General Chief Complaint: Extremity Injury, Upper Stated Complaint: right hand pain Time Seen by Provider: 07/14/24 22:53 Source: patient and family Mode of arrival: ambulatory Limitations: no limitations History of Present Illness HPI narrative: this is a 59-year-old female has pain in her right wrist with numbness and tingling into her right 4th and 5th finger no known injury no swelling is tenderness in the wrist area with palpation with a brisk radial pulse on the right with no bruising no swelling. complaint: injury to: right Onset (ago): week(s) Related Data Allergies Allergy/AdvReac Type Severity Reaction Status Date / Time Sulfa (Sulfonamide Allergy Unknown RASH, Verified 07/06/24 12:44 Antibiotics) NAUSEA ibuprofen AdvReac Nausea and Verified 07/06/24 12:44 Vomiting iohexol AdvReac Nausea and Verified 07/06/24 12:44 [From contrast - CT, X-RAY] Vomiting Chocolate Allergy Unknown BAD Uncoded 07/06/24 12:44 MIGRAINES Review of Systems Review of Systems: All systems reviewed & are unremarkable except as noted in HPI and below PMFSH Past Medical History Medical History DMII (diabetes mellitus, type 2) Nausea Obesity, morbid, BMI 40.0-49.9 Surgical History Surgical History H/O: hysterectomy History of carpal tunnel release of both wrists S/P cubital tunnel release Left Social History Social History Smoking status: Never smoker Alcohol intake: never Substance use: never Substance use type: does not use Lack of Transportation: No Lack of Food: Never True Current Housing: I Have Housing Concerned About Future Housing: No Difficulty Paying Gas/Electric Bills: No Difficulty Paying for Meds: No Currently Unemployed: No Education: High School Diploma/GED Difficulty w/ Childcare or Family Care: No Living arrangements: with family Spiritual care concerns: No Exam Const: General: healthy appearing and no acute distress Nutritional Appearance: well nourished Orientation/consciousness: patient oriented x3 Limitations: no limitations Resp: Effort & Inspection: normal respiratory effort Auscultation: clear to auscultation bilaterally Cardio: Rate: regular rate Rhythm: regular rhythm GI: GI Palp: Yes Soft to palpation Skin: General skin exam: normal color Rashes: no rashes Neuro: General: patient oriented x3 and moves all extremities Extrem: Other: Positive tineal and Phalen test on the right Course Course Emergency Course: patient received 60mg IM Toradol Vital Signs Vital signs: Vital Signs Temperature 36.3 C L 07/14/24 22:50 Pulse Rate 59 L 07/14/24 22:50 Respiratory Rate 07/14/24 22:50 Blood Pressure 148/86 H 07/14/24 22:50 Pulse Oximetry 97 07/14/24 22:50 Oxygen Delivery Room Air 07/14/24 22:50 Temperature 36.3 C L 07/14/24 22:50 Pulse Rate 59 L 07/14/24 22:50 Respiratory Rate 07/14/24 22:50 Blood Pressure 148/86 H 07/14/24 22:50 Pulse Oximetry 97 07/14/24 22:50 Oxygen Delivery Room Air 07/14/24 22:50 Critical Care Time Critical Care Time Critical Care Time: No Discharge Plan Discharge Clinical Impression: Carpal tunnel syndrome of right wrist Patient Disposition: Home, Self-Care Condition: Stable Instructions: Antibiotic Form, Carpal Tunnel Syndrome (DC) Additional Instructions: advised to take medicine as prescribed and follow-up with primary within next 2 to 3 days for further evaluation and treatment. Prescriptions: New naproxen 500 mg tablet 500 mg PO BID PRN (Reason: pain) Qty: 14 0RF No Action polyethylene glycol 3350 [Miralax] 17 gram/dose powder 17 g PO DAILY Qty: 510 1RF cyclobenzaprine 10 mg tablet 10 mg PO TID PRN (Reason: mus
[2024-07-14] MEDS: KETOROLAC (*BKC) 60 MG/2 ML VIAL IM (23:10)
== END 2024-07-14 23:34 | disposition home or self-care (01) ==
PROVIDERS: Emergency Provider Emergency Medicine; PCP Family Medicine
DX: G56.01 Carpal tunnel syndrome, right upper limb (principal); E11.9 Type 2 diabetes mellitus without complications
CPT/HCPCS: 96372; 99283; J1885

== ENCOUNTER 2024-07-23 | Emergency (ER) | payer MEDICARE, SELFPAY ==
[2024-07-23 00:03] VITALS: BP 153/60; PULSE 55; RESP 18; TEMP 36.1; O2SAT 98
--- NOTE | 2024-07-23 00:19 | ED.GENADULT ---
HPI - General Adult General Chief complaint: Headache Stated complaint: unspecified Time Seen by Provider: 07/23/24 00:17 Source: patient Mode of arrival: ambulatory Limitations: no limitations History of Present Illness HPI narrative: patient came to the ED complaining of migraine headache, abdominal pain for the last few days. History of cholecystectomy, hysterectomy and appendectomy. And depression /stress. Patient very stressed lately because of getting Patricia for the 1st time in 1 week. Patient been living with her boyfriend for the last 4 months and was told by the cheondoism to get Patricia as soon as possible. Patient very anxious about it. She denies any fever, chills, nausea, vomiting, aggravating or relieving factors. Pain is dull aching all over the abdomen. History of similar symptoms secondary to stress Related Data Allergies Allergy/AdvReac Type Severity Reaction Status Date / Time Sulfa (Sulfonamide Allergy Unknown RASH, Verified 07/22/24 15:11 Antibiotics) NAUSEA ibuprofen AdvReac Nausea and Verified 07/22/24 15:11 Vomiting iohexol AdvReac Nausea and Verified 07/22/24 15:11 [From contrast - CT, X-RAY] Vomiting Chocolate Allergy Unknown BAD Uncoded 07/22/24 15:11 MIGRAINES Review of Systems Review of Systems: All systems reviewed & are unremarkable except as noted in HPI and below PMFSH Past Medical History Medical History DMII (diabetes mellitus, type 2) Nausea Obesity, morbid, BMI 40.0-49.9 Surgical History Surgical History H/O: hysterectomy History of carpal tunnel release of both wrists S/P cubital tunnel release Left Social History Social History Smoking status: Never smoker Alcohol intake: never Substance use: never Substance use type: does not use Lack of Transportation: No Lack of Food: Never True Current Housing: I Have Housing Concerned About Future Housing: No Difficulty Paying Gas/Electric Bills: No Difficulty Paying for Meds: No Currently Unemployed: No Education: High School Diploma/GED Difficulty w/ Childcare or Family Care: No Living arrangements: with family Spiritual care concerns: No Exam Narrative: General appearance: Well-developed, well-nourished Skin: Normal color Head: Normocephalic, nontraumatic Eyes: Clear conjunctiva ENT: Oropharynx normal, ears normal, nose normal Neck: Supple, nontender Chest and respiratory: Airway patent, no respiratory distress, no accessory muscle use Heart: Regular rate/rhythm Abdomen: Soft, nontender, no organomegaly, quiet bowel sounds Vascular: Normal peripheral pulses, normal capillary refill. Musculoskeletal: Normal range of motion, nontender back Neurologic: Alert and oriented ?3, [employer] is normal as tested, no gross motor deficit Course Vital Signs Vital signs: Vital Signs Temperature 36.1 C L 07/23/24 00:03 Pulse Rate 55 L 07/23/24 00:03 Respiratory Rate 18 07/23/24 00:03 Blood Pressure 153/60 H 07/23/24 00:03 Pulse Oximetry 98 07/23/24 00:03 Oxygen Delivery Room Air 07/23/24 00:03 Temperature 36.1 C L 07/23/24 00:03 Pulse Rate 55 L 07/23/24 00:03 Respiratory Rate 18 07/23/24 00:03 Blood Pressure 153/60 H 07/23/24 00:03 Pulse Oximetry 98 07/23/24 00:03 Oxygen Delivery Room Air 07/23/24 00:03 Medical Decision Making [facility] Narrative Medical decision making narrative: patient is known to us with numerous ED visit for different symptoms. No imaging or labs are required at this time Patient's symptoms
[2024-07-23] MEDS: LORazepam (*CRX) 0.5 MG TABLET 1 MG PO (01:01)
[2024-07-23] MEDS: DICYCLOMINE HCL 10 MG CAPSULE 20 MG PO (01:01)
== END 2024-07-23 01:42 | disposition home or self-care (01) ==
PROVIDERS: Emergency Provider Emergency Medicine; PCP Family Medicine
DX: R51.9 Headache, unspecified (principal); R10.9 Unspecified abdominal pain; E11.9 Type 2 diabetes mellitus without complications
CPT/HCPCS: 99283; A9270

== ENCOUNTER 2024-08-02 12:49 | Emergency (ER) | payer MEDICARE, SELFPAY ==
[2024-08-02 12:49] VITALS: BP 113/55; PULSE 67; RESP 18; TEMP 36.8; O2SAT 96
--- NOTE | 2024-08-02 12:59 | ED.GENADULT ---
HPI - General Adult General Chief complaint: Dizziness Stated complaint: DIZZY, WITH NECK PAIN Time Seen by Provider: 08/02/24 12:59 Source: patient and EMS Mode of arrival: ambulatory Limitations: no limitations History of Present Illness HPI narrative: 59 year year old white female Brought by EMS and seen at [facility] yesterday for neck pain and picked up her medicine today but did take it yet. Complains of dizziness or sensation of spinning when she laid down in bed today. Denies any lightheadedness or syncope or near syncope. She says that is sensations gone now. She did take her neck pain baclofen medicine because she forgot to her neck pains much better mild worse when she moves her neck. Denies any problems walking talking seeing or hearing numbness tingling or weakness nausea vomiting cough fever sore throat runny nose rash or itching bleeding or bruising problems voiding or stooling or any other complaints. Related Data Allergies Allergy/AdvReac Type Severity Reaction Status Date / Time Sulfa (Sulfonamide Allergy Unknown RASH, Verified 07/28/24 09:04 Antibiotics) NAUSEA ibuprofen AdvReac Nausea and Verified 07/28/24 09:04 Vomiting iohexol AdvReac Nausea and Verified 07/28/24 09:04 [From contrast - CT, X-RAY] Vomiting Chocolate Allergy Unknown BAD Uncoded 07/28/24 09:04 MIGRAINES Review of Systems Review of Systems: All systems reviewed & are unremarkable except as noted in HPI and below PMFSH Past Medical History Medical History DMII (diabetes mellitus, type 2) Nausea Obesity, morbid, BMI 40.0-49.9 Surgical History Surgical History H/O: hysterectomy History of carpal tunnel release of both wrists S/P cubital tunnel release Left Social History Social History Social History: caffeine-tea Smoking status: Never smoker Alcohol intake: never Substance use: never Substance use type: does not use Lack of Transportation: No Lack of Food: Never True Current Housing: I Have Housing Concerned About Future Housing: No Difficulty Paying Gas/Electric Bills: No Difficulty Paying for Meds: No Currently Unemployed: No Education: High School Diploma/GED Difficulty w/ Childcare or Family Care: No Living arrangements: with family Spiritual care concerns: No Exam Narrative: White female patient with no apparent distress.? Head normocephalic, atraumatic.? Eyes conjunctiva pink sclera nonicteric.? Lateral nystagmus. Extraocular movements are intact.? Ears externally normal.? TMs normal. Hearing is grossly normal. Oropharynx is clear with moist mucous membranes without exudates.? Neck is supple nontender But she has mild pain when she turns her head to left to the right. She has no lymphadenopathy.? Back is nontender.? Lungs are clear.? Heart is regular rate and rhythm without murmurs gallops or rubs.? Chest wall nontender. Abdomen is soft and nontender no hepatosplenomegaly or masses no CVA tenderness no abdominal bruits.? Extremities no cyanosis clubbing or edema.? Skin is warm and dry without rashes or lesions.? Neurological patient is alert and oriented x4.? Motor and sensory grossly intact.? Gait is normal. vital signs are normal. Course Vital Signs Vital signs: Vital Signs Temperature 36.8 C 08/02/24 12:49 Pulse Rate 67 08/02/24 12:49 Respiratory Rate 18 08/02/24 12:49 Blood Pressure 113/55 L 08/02/24 12:49 Pulse Oximetry 96 08/02/24 12:49 Oxygen Delivery Room Air 08/02/24 12:49 Temperature 36.8 C 08/02/24 12:49 Pulse Rate 67 08/02/24 12:49 Respiratory Rate 18 08/02/24 12:49 Blood Pressure 113/55 L 08/02/24 12:49 Pulse Oximetry 96 08/02/24 12:49 Oxygen Delivery Room Air 08/02/24 12:49 Medical Decision Making [facility] Narrative Medical de
--- NOTE | 2024-08-02 13:01 | PC.NURSE ---
dr izaguirre at the bedside
[2024-08-02] MEDS: MECLIZINE HCL 25 MG TABLET PO (13:18)
--- NOTE | 2024-08-02 13:21 | PC.NURSE ---
patient is sitting up talking with registration. moves head around. does not complain of dizziness. answers all questions appropriately.
--- NOTE | 2024-08-02 13:28 | PC.NURSE ---
patient calling her to come and pick her up
--- NOTE | 2024-08-02 13:40 | PC.NURSE ---
patient sitting on the bed going through personal items. moving head left and right. looking at staff. denies any dizziness. 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 no balance issues. ambulated out of the department without issues
== END 2024-08-02 13:43 | disposition home or self-care (01) ==
PROVIDERS: Emergency Provider Emergency Medicine; PCP Family Medicine
DX: H81.10 Benign paroxysmal vertigo, unspecified ear (principal); E11.9 Type 2 diabetes mellitus without complications
CPT/HCPCS: 99283; A9270

== ENCOUNTER 2024-08-03 14:35 | Outpatient (CLI) | payer MEDICARE, SELFPAY ==
[2024-08-03 14:50] LABS: Basophils Absolute Auto 0.04 K/mm3 (0.00-0.10); Basophils Percent Auto 0.5 % (0.0-1.0); Eosinophils Absolute Auto 0.16 K/mm3 (0.02-0.50); Eosinophils Percent Auto 2.2 % (1.0-6.0); Hematocrit 38.1 % (35.0-49.0); Hemoglobin 11.7 g/dL (12.0-15.0); Immature Granulocyte Absolute 0.04 K/mm3 (0.00-0.00); Immature Granulocyte Percent A 0.5 % (0.0-0.0); Lymphocytes Absolute Auto 1.57 K/mm3 (1.10-4.50); Lymphocytes Percent Auto 21.5 % (18.0-42.0); Mean Corpuscular HGB Conc 30.7 g/dL (32-36); Mean Corpuscular Hemoglobin 27.7 pg (27.0-31.0); Mean Corpuscular Volume 90.3 fL (78.0-102.0); Mean Platelet Volume 10.5 fl (9.2-11.8); Monocytes Absolute Auto 0.27 K/mm3 (0.10-0.90); Monocytes Percent Auto 3.7 % (2.0-11.0); Neutrophils Absolute Auto 5.23 K/mm3 (1.70-7.20); Neutrophils Percent Auto 71.6 % (50.0-70.0); Platelet Count Result 188 K/mm3 (150-420); Red Blood Count 4.22 M/mm3 (4.20-5.40); Red Cell Distribution Width 14.5 % (11.6-14.4); White Blood Count 7.3 K/mm3 (4.8-10.8)
[2024-08-03 15:02] LABS: Hemoglobin A1C 6.6 % (<5.7)
[2024-08-03 15:52] LABS: Alanine Aminotransferase 24 U/L (14-59); Albumin Level 3.5 g/dL (3.4-5.0); Alkaline Phosphatase 156 U/L (46-116); Anion Gap 8 mmol/L (4-12); Aspartate Amino Transferase 16 U/L (15-37); Bilirubin,Total 1.1 mg/dL (0.00-1.00); Blood Urea Nitrogen 25 mg/dL (7-18); Carbon Dioxide 27 mmol/L (21-32); Chloride 105 mmol/L (98-108); Estimated Glomerular Filt Rate 59; Glucose 114 mg/dL (70-99); Iron 36 ug/dL (50-170); Osmolality Calculated 295 mOsm/kg (285-295); Potassium 4.6 mmol/L (3.5-5.1); Sodium 140 mmol/L (136-145); Thyroid Stimulating Hormone 1.87 uIU/mL (0.36-3.74); Total Protein 7.1 g/dL (6.4-8.2)
[2024-08-05 08:04] LABS: Vitamin D 25 Hydroxy 37 ng/mL (30-100)
== END 2024-08-03 14:36 | disposition home or self-care (01) ==
LOC: CHSLAB 14:37
PROVIDERS: PCP Family Medicine; Visit Provider Nurse Practitioner Family
DX: E11.9 Type 2 diabetes mellitus without complications (principal); E61.1 Iron deficiency; R53.83 Other fatigue; E55.9 Vitamin D deficiency, unspecified; Z79.899 Other long term (current) drug therapy
CPT/HCPCS: 36415; 80053; 82306; 83036; 83540; 84443; 85025

== ENCOUNTER 2024-08-04 08:37 | Outpatient (CLI) | payer MEDICARE, SELFPAY ==
--- NOTE | ~2024-08-04 | MR_ITS ---
EXAMINATION: MR wrist RT wo con DATE: 08/04/2024 10:15 INDICATION: Right wrist pain. Ganglion cyst. TECHNIQUE: Magnetic resonance imaging (MRI) of the right wrist was performed without intravenous cont rast. Sequences performed include axial PD-weighted FSE and PD-weighted FS FSE, coronal PD-weighted F S FSE and T1-weighted SE, and sagittal PD-weighted FS FSE and PD-weighted FSE. COMPARISON: None FINDINGS: Intrinsic ligaments: The lunotriquetral ligament is normal. There is diffuse amorphous increased signal at the scapholunat e ligament consistent with at least partial tear with no homogeneous fluid signal intensity tear defe ct appreciated. Triangular fibrocartilage complex (TFCC): There is increased signal at the radial side of the central fibrocartilaginous disc of the triangular fibrocartilage complex consistent with tear. The foveal and ulnar styloid attachments as well as the dorsal and and volar radioulnar ligaments are normal. The ulnar triquetral ligament is normal. The e xtensor carpi ulnaris tendon sheath is normal. Extensor wrist: Extensor tendons of the wrist are normal. No tenosynovitis. Flexor wrist: The flexor tendons of the wrist are normal. Postoperative change of prior carpal tunnel release with mild outward bulging of the normal-appearing median nerve, surrounding fat and coming vessels at the site of the defect in the aponeurosis. There is a relative paucity of covering subcutaneous fat at th e site of the release. Guyon's canal: Guyon's canal including the ulnar nerve and artery are normal. Bones/other: There is dorsal rotatory subluxation of the scaphoid relative to the axis of the capitate with corres ponding increased scapholunate and lunocapitate angles on prior radiograph consistent with dorsal int ercalated segment instability (DISI) and also consistent with at least partial tear of the scapholuna te ligament. There is mild ulnar positive variance on the prior radiograph with mild cystic change at the ulnar side of the proximal lunate which along with the intervening tear of the femoral cartilagi nous disc of the triangular fibrocartilage complex which be consistent with ulnocarpal impaction. The re is prominent metallic magnetic field artifact associated with a couple suture anchors at the dorsa l aspect of the mid scaphoid related to indeterminate prior procedure. There is additional mild subar ticular cystic change at the proximal pole of the scaphoid at the junction of the articular surface o f the wrist and scapholunate articulations. Otherwise normal bone marrow signal. No fracture. IMPRESSION: 1. At least partial tear of the scapholunate ligament with secondary dorsal intercalated segment inst ability (DISI). 2. Mild ulnar positive variance with cystic change the ulnar side of the proximal lunate and interven ing tear of the central fibrocartilaginous disc of the triangular fibrocartilage complex consistent w ith ulnocarpal impaction. 3. Postoperative change of prior carpal tunnel release with normal appearance to the median nerve. 4. Suture anchors at the dorsal aspect of the scaphoid waist 4 indeterminate fixation. Correlate with surgical history. Reviewed, dictated and finalized at location A. IMPRESSION: 1. At least partial tear of the scapholunate ligament with secondary dorsal int ercalated segment instability (DISI). 2. Mild ulnar positive variance with cystic change the ulnar side of the proxim al lunate and intervening tear of the central fibrocartilaginous disc of the tr iangular fibrocartilage complex consistent with ulnocarpal impaction. 3. Postoperative change of prior carpal tunnel release with normal appearance t o the median nerve. 4. Suture anchors at the dorsal aspect of the scaphoid waist 4 indeterminate fi xation. Correl
== END 2024-08-04 08:38 | disposition home or self-care (01) ==
LOC: CHSIMG 08:39
PROVIDERS: PCP Family Medicine; Visit Provider Physician Assistant Surgical
DX: M67.431 Ganglion, right wrist (principal); S63.591A Other specified sprain of right wrist, initial encounter; Z98.890 Other specified postprocedural states
CPT/HCPCS: 73221

== ENCOUNTER 2024-08-06 12:08 | Emergency (ER) | payer MEDICARE, SELFPAY ==
[2024-08-06 12:08] VITALS: BP 143/75; PULSE 68; RESP 16; TEMP 36.4; O2SAT 98
--- NOTE | 2024-08-06 12:14 | ED.NAVMDI ---
HPI - Nausea/Vomiting/Diarrhea General Chief complaint: Nausea/Vomiting/Diarrhea Stated complaint: sick to stomache Time Seen by Provider: 08/06/24 12:09 Source: patient and family Mode of arrival: ambulatory Limitations: no limitations History of Present Illness HPI Narrative: This is a 59-year-old female that presents with her in with 1 episode of vomiting after she had breakfast there is currently no nausea vomiting no abdominal pain no diarrhea constipation no fever chills. MD elicited complaint: nausea and vomiting Onset (ago): hour(s) Related Data Allergies Allergy/AdvReac Type Severity Reaction Status Date / Time Sulfa (Sulfonamide Allergy Unknown RASH, Verified 08/03/24 14:04 Antibiotics) NAUSEA ibuprofen AdvReac Nausea and Verified 08/03/24 14:04 Vomiting iohexol AdvReac Nausea and Verified 08/03/24 14:04 [From contrast - CT, X-RAY] Vomiting Chocolate Allergy Unknown BAD Uncoded 08/03/24 14:04 MIGRAINES Review of Systems Review of Systems: All systems reviewed & are unremarkable except as noted in HPI and below PMFSH Past Medical History Medical History DMII (diabetes mellitus, type 2) Nausea Obesity, morbid, BMI 40.0-49.9 Surgical History Surgical History H/O: hysterectomy History of carpal tunnel release of both wrists S/P cubital tunnel release Left Social History Social History Social History: caffeine-tea Smoking status: Never smoker Alcohol intake: never Substance use: never Substance use type: does not use Lack of Transportation: No Lack of Food: Never True Current Housing: I Have Housing Concerned About Future Housing: No Difficulty Paying Gas/Electric Bills: No Difficulty Paying for Meds: No Currently Unemployed: No Education: High School Diploma/GED Difficulty w/ Childcare or Family Care: No Living arrangements: with family Spiritual care concerns: No Exam Const: General: healthy appearing Nutritional Appearance: well nourished Orientation/consciousness: patient oriented x3 Limitations: no limitations Neck: Neck: normal visual inspection, no lymphadenopathy and no meningeal signs Chest: Chest palpation & inspection: normal inspection of the chest Resp: Effort & Inspection: normal respiratory effort Auscultation: clear to auscultation bilaterally Cardio: Rate: regular rate Rhythm: regular rhythm GI: GI Palp: Yes Soft to palpation Auscultation: normal bowel sounds Urinary Catheter: Urinary Catheter: patent and draining Back/Spine/Pelvis: Back: no CVA tenderness Skin: General skin exam: normal color Rashes: no rashes Neuro: General: patient oriented x3, moves all extremities and no meningeal signs Course Course Emergency Course: Patient received a dose of p.o. Zofran symptoms have resolved and will send Zofran to her local pharmacy. Vital Signs Vital signs: Vital Signs Temperature 36.4 C L 08/06/24 12:08 Pulse Rate 68 08/06/24 12:08 Respiratory Rate 16 08/06/24 12:08 Blood Pressure 143/75 H 08/06/24 12:08 Pulse Oximetry 98 08/06/24 12:08 Oxygen Delivery Room Air 08/06/24 12:08 Temperature 36.4 C L 08/06/24 12:08 Pulse Rate 68 08/06/24 12:08 Respiratory Rate 16 08/06/24 12:08 Blood Pressure 143/75 H 08/06/24 12:08 Pulse Oximetry 98 08/06/24 12:08 Oxygen Delivery Room Air 08/06/24 12:08 Critical Care Time Critical Care Time Critical Care Time: No Discharge Plan Discharge Clinical Impression: Nausea & vomiting Patient Disposition: Home, Self-Care Condition: Stable Instructions: Antibiotic Form, Acute Nausea and Vomiting (ED) Additional Instructions: take medication as prescribed drink plenty of fluids and follow with primary within the next 3 to 4 days for further evaluatio
[2024-08-06] MEDS: ONDANSETRON HCL ODT 4 MG TABLET PO (12:20)
== END 2024-08-06 12:50 | disposition home or self-care (01) ==
LOC: CHSED 12:24
PROVIDERS: Emergency Provider Emergency Medicine; PCP Family Medicine
DX: R11.2 Nausea with vomiting, unspecified (principal); E11.9 Type 2 diabetes mellitus without complications
CPT/HCPCS: 99283; A9270

== ENCOUNTER 2024-08-07 12:34 | Emergency (ER) | payer MEDICARE, SELFPAY ==
--- NOTE | ~2024-08-07 | XR_ITS ---
XR lumbar spine 2-3V 08/07/2024 13:03 Indication: Low back pain Procedure: 3 views lumbar spine Comparison: No prior studies for comparison. Findings: There is disc narrowing and endplate hypertrophy at all lumbar levels. There is multilevel facet hypertrophy most advanced in the L4-5 and L5-S1 levels. No acute fracture or traumatic malalign ment. There is levocurvature of the thoracolumbar spine centered at L1. There are surgical clips over lying the spine on the AP view. Impression: 1: Severe lumbar spondylosis with levoscoliosis. Reviewed, dictated and finalized at location B. Impression: 1: Severe lumbar spondylosis with levoscoliosis.
[2024-08-07 12:40] VITALS: BP 155/78; PULSE 75; RESP 18; TEMP 36.5; O2SAT 96
--- NOTE | 2024-08-07 12:49 | ED.BACK ---
HPI - Back Pain/Injury General Chief Complaint: Back Pain/Injury Stated Complaint: back pain Time Seen by Provider: 08/07/24 12:40 Source: patient Mode of arrival: ambulatory Limitations: no limitations History of Present Illness HPI Narrative: Patient is a 59-year-old female with lower back pain on the right and some numbness on the right lower extremity. No saddle anesthesia or urine loss. No bowel changes. This started this morning. No definite injury. MD elicited complaint: back pain Pertinent past history: prior back pain Onset (ago): day(s) (1) Timing: constant Severity: moderate Pain scale (0-10): 5 Similar Symptoms Previously: Yes Quality: sharp and tingling Location: lumbar spine Radiation: right leg below the knee Exacerbating factors: movement Relieving factors: immobilization Context: other ( No specific event or trauma) Associated symptoms: denies other symptoms Treatments prior to arrival: NSAIDS Work related injury: No Related Data Allergies Allergy/AdvReac Type Severity Reaction Status Date / Time Sulfa (Sulfonamide Allergy Unknown RASH, Verified 08/07/24 12:52 Antibiotics) NAUSEA ibuprofen AdvReac Nausea and Verified 08/07/24 12:52 Vomiting iohexol AdvReac Nausea and Verified 08/07/24 12:52 [From contrast - CT, X-RAY] Vomiting Chocolate Allergy Unknown BAD Uncoded 08/07/24 12:52 MIGRAINES Review of Systems Review of Systems: All systems reviewed & are unremarkable except as noted in HPI and below Constitutional: Constitutional: Reports no additional constitutional complaints Eyes: Eyes: Reports no additional eye complaints ENT: Reports system reviewed and no additional complaints, except as documented Cardiovascular: Cardiovascular: Reports no additional cardiovascular complaints Respiratory: Respiratory: Reports no additional respiratory complaints Gastrointestinal: Gastrointestinal: Reports no additional gastrointestinal complaints Genitourinary: Genitourinary: Reports no additional female genitourinary complaints Musculoskeletal: Musculoskeletal: Reports no additional musculoskeletal complaints Integumentary/Breasts: Skin/Breast: Reports system reviewed and no additional complaints, except as docu Neurologic: Reports system reviewed and no additional complaints, except as documented Psychiatric: Psychiatric: Reports no additional psychiatric complaints Endocrine: Endocrine: Reports no additional endocrine complaints Hematologic/Lymphatic: Hematologic/Lymphatic: Reports no additional hematologic/lymphatic complaints Allergic/Immunologic: Allergic/Immunologic: Reports no additional allergic/immunologic complaints PMFSH Past Medical History Medical History DMII (diabetes mellitus, type 2) Nausea Obesity, morbid, BMI 40.0-49.9 Surgical History Surgical History H/O: hysterectomy History of carpal tunnel release of both wrists S/P cubital tunnel release Left Social History Social History Social History: caffeine-tea Smoking status: Never smoker Alcohol intake: never Substance use: never Substance use type: does not use Lack of Transportation: No Lack of Food: Never True Current Housing: I Have Housing Concerned About Future Housing: No Difficulty Paying Gas/Electric Bills: No Difficulty Paying for Meds: No Currently Unemployed: No Education: High School Diploma/GED Difficulty w/ Childcare or Family Care: No Living arrangements: with family Spiritual care concerns: No Exam Const: General: healthy appearing Nutritional Appearance: well nourished Orientation/consciousness: patient oriented x3 HENMT: Head: normal to inspection Ears: external ears normal Face/Nose/Sinus: Normal external nose present Eyes: Conjunctivae: conjunctivae normal Pupils: Equa
[2024-08-07 12:55] LABS: Add Urine Microscopic? NO; Appearance Urine Clear (Clear); Bilirubin Urine Negative (Negative); Blood Urine Negative (Negative); Color Urine Light Yellow (Yellow); Glucose Urine UA Negative (Negative); Ketones Urine Negative (Negative); Leukocyte Esterase Ur Negative LEU/UL (Negative); Nitrate Urine Negative (Negative); Protein Urine Negative (Negative); Specific Grav Ur >= 1.030 (1.010-1.020); Urobilinogen Urine 0.2 mg/dL (0.2-1.0); pH Urine 5.5 (5.0-8.0)
[2024-08-07] MEDS: predniSONE 20 MG TABLET 40 MG PO (13:25)
[2024-08-07] MEDS: CYCLOBENZAPRINE HCL 5 MG TABLET PO (13:25)
== END 2024-08-07 13:36 | disposition home or self-care (01) ==
LOC: CHSED 13:15
PROVIDERS: Emergency Provider Emergency Medicine; PCP Family Medicine
DX: M54.41 Lumbago with sciatica, right side (principal); E11.9 Type 2 diabetes mellitus without complications
CPT/HCPCS: 72100; 81003; 99283; A9270; J7512

== ENCOUNTER 2024-08-09 08:48 | Outpatient (CLI) | payer MEDICARE, SELFPAY ==
--- NOTE | ~2024-08-09 | MM_ITS ---
EXAMINATION: MM diagnostic ronan LT w raquel HISTORY: Follow-up left breast calcifications TECHNIQUE: Additional 3-D tomosynthesis images of the left breast were performed and synthetic 2-D im ages were generated. CAD analysis was submitted and interpreted. COMPARISON: Comparison to multiple prior studies sequentially, with oldest reviewed study dated 06/19. BREAST PARENCHYMAL COMPOSITION: Dense: The breasts are heterogeneously dense, which may obscure small masses FINDINGS: There are a cluster of calcifications in the lower outer quadrant of the left breast, middl e third which have a pleomorphic appearance. There are no suspicious masses or architectural distorti on. IMPRESSION: 1. Clustered pleomorphic calcifications lower outer quadrant of the left breast, middle third. 2. Stereotactic left breast biopsy recommended. BI-RADS category 4, suspicious findings. Reviewed, dictated and finalized at location B. IMPRESSION: 1. Clustered pleomorphic calcifications lower outer quadrant of the left breast , middle third. 2. Stereotactic left breast biopsy recommended. BI-RADS category 4, suspicious findings.
== END 2024-08-09 08:49 | disposition home or self-care (01) ==
PROVIDERS: PCP Family Medicine; Visit Provider Nurse Practitioner Family
DX: R92.8 Other abnormal and inconclusive findings on diagnostic imaging of breast (principal)
CPT/HCPCS: 77061; 77065; G0279

== ENCOUNTER 2024-08-20 09:07 | Emergency (ER) | payer MEDICARE, SELFPAY ==
[2024-08-20 09:12] VITALS: BP 144/109; PULSE 63; RESP 20; TEMP 36.7; O2SAT 95
--- NOTE | 2024-08-20 09:17 | ED.HA ---
HPI - Headache General Chief Complaint: Headache Stated Complaint: headache Time Seen by Provider: 08/20/24 09:07 Source: patient, family and EMS Mode of arrival: EMS Limitations: no limitations History of Present Illness HPI Narrative: This is a 59-year-old female, with history of migraines and diabetes, brought in by EMS from home for headache and reported seizure-like activity. EMS reports on arrival, the patient was alert and oriented x3 at her baseline mentation ( EMS is familiar with the patient). no seizure-like activity was witnessed by them. The patient's vital signs within limits with a fingerstick glucose in the 130s. She was given 15 mg Toradol and transported here. The patient states she woke at 07:00 with a headache, rated 9/10 described is throbbing, consistent with her previous migraines. She states she took her migraine medication ([]) and went back to sleep. She states she woke to her having called EMS. The patient denies tongue biting, urinary or bowel incontinence and has no other complaints at this time. Related Data Home Medications Medication Instructions Recorded Confirmed baclofen 10 mg tablet 10 mg PO TID 08/20/24 08/20/24 sumatriptan succinate 100 mg tablet See Rx Instructions .Route .COMPLEX 08/20/24 08/20/24 Allergies Allergy/AdvReac Type Severity Reaction Status Date / Time Sulfa (Sulfonamide Allergy Unknown RASH, Verified 08/20/24 09:17 Antibiotics) NAUSEA ibuprofen AdvReac Nausea and Verified 08/20/24 09:17 Vomiting iohexol AdvReac Nausea and Verified 08/20/24 09:17 [From contrast - CT, X-RAY] Vomiting Chocolate Allergy Unknown BAD Uncoded 08/20/24 09:17 MIGRAINES Review of Systems Review of Systems: All systems reviewed & are unremarkable except as noted in HPI and below PMFSH Past Medical History Medical History DMII (diabetes mellitus, type 2) Nausea Obesity, morbid, BMI 40.0-49.9 Surgical History Surgical History H/O: hysterectomy History of carpal tunnel release of both wrists S/P cubital tunnel release Left Social History Social History Social History: caffeine-tea Smoking status: Never smoker Alcohol intake: never Substance use: never Substance use type: does not use Lack of Transportation: No Lack of Food: Never True Current Housing: I Have Housing Concerned About Future Housing: No Difficulty Paying Gas/Electric Bills: No Difficulty Paying for Meds: No Currently Unemployed: No Education: High School Diploma/GED Difficulty w/ Childcare or Family Care: No Living arrangements: with family Spiritual care concerns: No Exam Narrative: GENERAL: Well-developed, well-nourished, in mild distress due to pain. Appears to be mildly developmentally delayed HEAD: Normocephalic, atraumatic. EYES: PERRLA and EOMI. ENT: Nares clear, no rhinorrhea or epistaxis. Mucous membranes moist. Oropharynx without tonsillar hypertrophy exudate or other lesions. No noted injury concerning for tongue biting CHEST: Clear to auscultation. No respiratory distress. No wheezes rales or rhonchi HEART: Regular rate and rhythm. No murmur heard. Normal peripheral pulses. ABDOMEN: Soft, nontender, nondistended, normal active bowel sounds. EXTREMITIES: Normal range of motion. No edema. SKIN: Warm, dry, no rash. NEURO: Alert and oriented x3. No focal deficit. Moving all 4 limbs spontaneously PSYCH: Normal mood and affect. Course Course Emergency Course: 09:18 - The patient's , now at bedside and states she took her home medication for migraines approximately 07:00. 5 minutes prior to calling EMS, he noted the patient was shaking in bed. She was able to carry on conversation despite the shaking. He denies any known urinary incontinence or tongue biting. 10:0
[2024-08-20] MEDS: KETOROLAC 15 MG/ML VIAL (*BKC) IV PUSH (09:21)
[2024-08-20] MEDS: diphenhydrAMINE HCl INJ 50 MG/ML VIAL 25 MG IV PUSH (09:24)
[2024-08-20] MEDS: PROCHLORPERAZINE EDISYLATE 10 MG/2 ML VIAL IV PUSH (09:26)
[2024-08-20 09:30] VITALS: BP 116/72; PULSE 65; RESP 17; O2SAT 93
[2024-08-20 09:45] LABS: Alanine Aminotransferase 15 U/L (14-59); Albumin Level 3.4 g/dL (3.4-5.0); Alkaline Phosphatase 141 U/L (46-116); Anion Gap 6 mmol/L (4-12); Aspartate Amino Transferase 12 U/L (15-37); Bilirubin,Total 1.8 mg/dL (0.00-1.00); Blood Urea Nitrogen 19 mg/dL (7-18); Calcium 8.8 mg/dL (8.5-10.1); Carbon Dioxide 28 mmol/L (21-32); Chloride 106 mmol/L (98-108); Creatine Kinase 86 U/L (26-192); Estimated CRCL calculation 59 ml/min; Estimated Glomerular Filt Rate 57; Glucose 125 mg/dL (70-99); Osmolality Calculated 293 mOsm/kg (285-295); Potassium 3.5 mmol/L (3.5-5.1); Sodium 140 mmol/L (136-145)
[2024-08-20 10:05] VITALS: BP 103/67; PULSE 61; RESP 17; O2SAT 93
[2024-08-20 10:38] VITALS: BP 101/47; PULSE 67; RESP 16; TEMP 36.7; O2SAT 93
== END 2024-08-20 10:38 | disposition home or self-care (01) ==
PROVIDERS: Emergency Provider Preventive Medicine Aerospace Medicine
DX: G43.909 Migraine, unspecified, not intractable, without status migrainosus (principal); E11.9 Type 2 diabetes mellitus without complications; Z79.899 Other long term (current) drug therapy
CPT/HCPCS: 36415; 80053; 82550; 96374; 96375; 99284; J0780; J1200; J1885

== ENCOUNTER 2024-08-29 04:57 | Emergency (ER) | payer MEDICARE, SELFPAY ==
[2024-08-29] VITALS (54 sets, daily range): BP systolic 99–159; BP diastolic 50–126; PULSE 39–100; RESP 9–21; TEMP 36.2–36.7; O2SAT 92–99
--- NOTE | ~2024-08-29 | CT_ITS ---
Noncontrast CT scan of the lumbar spine CLINICAL HISTORY: Back pain radiating to lower extremities TECHNIQUE: Axial noncontrast imaging of the lumbar spine was performed. Sagittal and coronal reformat adrianna images were constructed. Dose reduction technique was used on this scan by utilizing automated ex posure control and iterative reconstruction technique. The dose-length product (DLP) was 1140.50 mGy- cm. FINDINGS: There is no fracture or subluxation of lumbar spine. Vertebral bodies maintain normal heigh t and alignment. At L1-L2, there is severe degenerative disc narrowing. There is mild disc bulge and mild to moderate facet arthropathy. There is probable mild central canal stenosis. There is probable moderate bilatera l neural foraminal narrowing. At L2-L3, there is advanced degenerative disc narrowing. Disc bulge and facet arthropathy result in m ild central canal stenosis. There is moderate to advanced right neural foraminal narrowing, and moder ate left neural foraminal narrowing. At L3-L4 or, there is moderate degenerative disc narrowing. Disc bulge and advanced as a result in pr obable moderate spinal canal stenosis/thecal sac compression. There is advanced bilateral neural fora danielle narrowing. At L4-L5, there is severe degenerative disc narrowing. Disc bulge and advanced facet arthropathy are present. There is probable mild central canal stenosis. There is severe bilateral neural foraminal co mpromise, right worse than left. At L5-S1, there is mild disc bulge and mild facet arthropathy. No connor central canal stenosis. There is moderate right neural foraminal narrowing. Left neural foramen preserved. Paravertebral soft tissues are unremarkable. Impression: No acute fracture or subluxation. Severe degenerative spondylosis throughout the lumbar spine, as detailed above. Reviewed, dictated and finalized at location . Impression: No acute fracture or subluxation. Severe degenerative spondylosis throughout the lumbar spine, as detailed above.
--- NOTE | 2024-08-29 05:16 | ED.GENADULT ---
HPI - General Adult General Chief complaint: Back Pain/Injury <Ramon Aviles DO - Last Filed: 08/29/24 07:01> Stated complaint: numbness in both feet <Ramon Aviles DO - Last Filed: 08/29/24 07:01> Time Seen by Provider: 08/29/24 05:09 <Ramon Aviles DO - Last Filed: 08/29/24 07:01> History of Present Illness HPI narrative: Marisela is a 59F with a PMH of JENNIFER, DMII, carpal tunnel syndrome, GERD, HTN, possible developmental delay and obesity that is well known to the ED that presented to the ED via EMS with low back pain that radiates to both legs and that her legs are numb. It was reported that she walked to the bathroom by herself but she states she is unable to ambulate here. No urinary or bowel symptoms reported. No trauma reported. <Ramon Aviles DO - Last Filed: 08/29/24 07:01> Related Data Home medications: Home Medications Medication Instructions Recorded Confirmed baclofen 10 mg tablet 10 mg PO TID 08/20/24 08/29/24 sumatriptan succinate 100 mg tablet See Rx Instructions .Route .COMPLEX 08/20/24 08/29/24 <Ramon Aviles DO - Last Filed: 08/29/24 07:01> Allergies/adverse reactions: Allergies Allergy/AdvReac Type Severity Reaction Status Date / Time Sulfa (Sulfonamide Allergy Unknown RASH, Verified 08/20/24 09:17 Antibiotics) NAUSEA ibuprofen AdvReac Nausea and Verified 08/20/24 09:17 Vomiting iohexol AdvReac Nausea and Verified 08/20/24 09:17 [From contrast - CT, X-RAY] Vomiting Chocolate Allergy Unknown BAD Uncoded 08/20/24 09:17 MIGRAINES <Ramon Aviles DO - Last Filed: 08/29/24 07:01> Review of Systems Review of Systems: All systems reviewed & are unremarkable except as noted in HPI and below <Ramon Aviles DO - Last Filed: 08/29/24 07:01> PMFSH Past Medical History Medical History: Medical History DMII (diabetes mellitus, type 2) Nausea Obesity, morbid, BMI 40.0-49.9 <Ramon Aviles DO - Last Filed: 08/29/24 07:01> Surgical History Surgical History: Surgical History H/O: hysterectomy History of carpal tunnel release of both wrists S/P cubital tunnel release Left <Ramon Aviles DO - Last Filed: 08/29/24 07:01> Social History Social History: Social History Social History: caffeine-tea Smoking status: Never smoker Alcohol intake: never Substance use: never Substance use type: does not use Lack of Transportation: No Lack of Food: Never True Current Housing: I Have Housing Concerned About Future Housing: No Difficulty Paying Gas/Electric Bills: No Difficulty Paying for Meds: No Currently Unemployed: No Education: High School Diploma/GED Difficulty w/ Childcare or Family Care: No Living arrangements: with family Spiritual care concerns: No <Ramon Aviles DO - Last Filed: 08/29/24 07:01> Exam Const: General: cooperative, healthy appearing, comfortable, no acute distress, well developed, alert, awake and Physically active <Ramon Aviles DO - Last Filed: 08/29/24 07:01> Orientation/consciousness: oriented to person, oriented to place and oriented to time <Ramon Aviles DO - Last Filed: 08/29/24 07:01> HENMT: Head: normal to inspection, normocephalic and atraumatic <Ramon Aviles DO - Last Filed: 08/29/24 07:01> Ears: hearing grossly normal bilaterally and external ears normal <Ramon Aviles DO - Last Filed: 08/29/24 07:01> Face/Nose/Sinus: Normal external nose present <Ramon Aviles DO - Last Filed: 08/29/24 07:01> Eyes: General: appearance normal, both eyes and all related structures <Ramon Aviles DO - Last Filed: 08/29/24 07:01> Periorbital: periorbital findings normal <Ramon Aviles, DO - Last Filed: 08/29/24 07:01> Sclera: sclerae n
[2024-08-29 05:41] LABS: Basophils Absolute Auto 0.03 K/mm3 (0.00-0.10); Basophils Percent Auto 0.5 % (0.0-1.0); Eosinophils Percent Auto 3.4 % (1.0-6.0); Hematocrit 35.6 % (35.0-49.0); Hemoglobin 11.1 g/dL (12.0-15.0); Immature Granulocyte Absolute 0.02 K/mm3 (0.00-0.00); Immature Granulocyte Percent A 0.3 % (0.0-0.0); Lymphocytes Absolute Auto 1.94 K/mm3 (1.10-4.50); Lymphocytes Percent Auto 33.1 % (18.0-42.0); Mean Corpuscular HGB Conc 31.2 g/dL (32-36); Mean Corpuscular Volume 89.9 fL (78.0-102.0); Mean Platelet Volume 10.6 fl (9.2-11.8); Monocytes Absolute Auto 0.27 K/mm3 (0.10-0.90); Monocytes Percent Auto 4.6 % (2.0-11.0); Neutrophils Percent Auto 58.1 % (50.0-70.0); Platelet Count Result 170 K/mm3 (150-420); Red Blood Count 3.96 M/mm3 (4.20-5.40); Red Cell Distribution Width 13.7 % (11.6-14.4); White Blood Count 5.9 K/mm3 (4.8-10.8)
--- NOTE | 2024-08-29 05:44 | PC.NURSE ---
When preparing to administer morphine pt noted to be asleep HR bradycardic with rate 39-42 sinus on monitor BP 108/56 MAP 67. ERP aware and will decrease dose of Morphine to 2mg IVP and obtain 12-lead ECG.
--- NOTE | 2024-08-29 05:44 | ECG_ITS ---
Test Date: 2024-08-29 05:55:37 Measurements Intervals [place] Rate: 40 P: 29 AK: 175 QRS: -6 QRSD: 90 T: 84 QT: 400 QTc: 326 Interpretive Statements MARKED SINUS BRADYCARDIA WITH OCCASIONAL SUPRAVENTRICULAR PREMATURE COMPLEXES LOW QRS VOLTAGE IN PRECORDIAL LEADS [QRS DEFLECTION < 1.0 mV IN CHEST LEADS] NONSPECIFIC T-WAVE ABNORMALITY CRITICAL TEST RESULT ABNORMAL ECG No previous ECG available for comparison Electronically Signed On 08-29-2024 10:50:58 CDT by Niko Greene M.D.
[2024-08-29 05:54] LABS: Alanine Aminotransferase 20 U/L (14-59); Albumin Level 3.3 g/dL (3.4-5.0); Alkaline Phosphatase 128 U/L (46-116); Anion Gap 10 mmol/L (4-12); Aspartate Amino Transferase 10 U/L (15-37); Bilirubin,Total 1.5 mg/dL (0.00-1.00); Blood Urea Nitrogen 20 mg/dL (7-18); Calcium 8.8 mg/dL (8.5-10.1); Carbon Dioxide 25 mmol/L (21-32); Chloride 105 mmol/L (98-108); Estimated CRCL calculation 62 ml/min; Estimated Glomerular Filt Rate > 60; Glucose 120 mg/dL (70-99); Osmolality Calculated 293 mOsm/kg (285-295); Potassium 3.8 mmol/L (3.5-5.1); Sodium 140 mmol/L (136-145); Total Protein 7.3 g/dL (6.4-8.2)
[2024-08-29] MEDS: MORPHINE SULFATE (*CRX) 2 MG/ML INJ IV PUSH (05:55)
[2024-08-29 06:23] LABS: Magnesium 2.2 mg/dL (1.8-2.4); NT Pro B Type Natriuretic Pept 62 pg/mL (0-125); Troponin I < 4.0 ng/L (0.00-60.4)
--- NOTE | 2024-08-29 07:02 | PC.NURSE ---
Call back to [facility] and spoke to Emelyn about wanting to update on pt condition. Told it is change of shift and they are locating hospitalist and he will call back. Informed Dr Aviles and Dr Perkins about call back when available.
--- NOTE | 2024-08-29 07:04 | PC.NURSE ---
Report to BRAYDON Craft at this time who assumes care at this time.
[2024-08-29] MEDS: dexAMETHasone SOD PHOS INJ 10 MG/ML 1 ML VIAL IV PUSH (07:29)
== END 2024-08-29 11:05 | disposition short-term general hospital (02) ==
PROVIDERS: Family Medicine; Emergency Provider Internal Medicine Critical Care Medicine; PCP Nurse Practitioner Family
DX: G95.20 Unspecified cord compression (principal); E11.9 Type 2 diabetes mellitus without complications; I10 Essential (primary) hypertension; Z79.899 Other long term (current) drug therapy
CPT/HCPCS: 36415; 72131; 80053; 83735; 83880; 84484; 85025; 93005; 96374; 96375; 99285; J1100; J2270

== ENCOUNTER 2024-09-03 06:52 | Emergency (ER) | payer MEDICARE, SELFPAY ==
[2024-09-03 06:54] VITALS: BP 112/73; PULSE 55; RESP 18; TEMP 36.5; O2SAT 96
--- NOTE | 2024-09-03 07:26 | ED.NAVMDI ---
HPI - Nausea/Vomiting/Diarrhea General Chief complaint: Nausea/Vomiting/Diarrhea Stated complaint: n/v/d Source: patient and family Mode of arrival: ambulatory Limitations: no limitations History of Present Illness HPI Narrative: 59-year-old female presents with 2 episodes of vomiting 1 yesterday and 1 earlier this morning watery with no fever chills no abdominal pain no chest pain or shortness of breath. MD elicited complaint: nausea and vomiting Onset (ago): hour(s) Description of vomiting: watery Associated nausea: Yes Associated abdominal pain: No Pain consistency: now resolved Severity: mild Related Data Home Medications Medication Instructions Recorded Confirmed baclofen 10 mg tablet 10 mg PO TID 08/20/24 09/03/24 sumatriptan succinate 100 mg tablet See Rx Instructions .Route .COMPLEX 08/20/24 09/03/24 aripiprazole 15 mg tablet 15 mg PO DAILY 09/02/24 09/03/24 cyclobenzaprine 5 mg tablet 5 mg PO BID PRN Muscle Pain 09/02/24 09/03/24 hydrocodone 5 mg-acetaminophen 325 PRN Pain 09/02/24 09/03/24 mg tablet prednisone 20 mg tablet 20 mg PO DAILY 09/02/24 09/03/24 Allergies Allergy/AdvReac Type Severity Reaction Status Date / Time Sulfa (Sulfonamide Allergy Unknown RASH, Verified 09/03/24 07:04 Antibiotics) NAUSEA ibuprofen AdvReac Nausea and Verified 09/03/24 07:04 Vomiting iohexol AdvReac Nausea and Verified 09/03/24 07:04 [From contrast - CT, X-RAY] Vomiting Chocolate Allergy Unknown BAD Uncoded 09/03/24 07:04 MIGRAINES Review of Systems Review of Systems: All systems reviewed & are unremarkable except as noted in HPI and below PMFSH Past Medical History Medical History DMII (diabetes mellitus, type 2) Nausea Obesity, morbid, BMI 40.0-49.9 Surgical History Surgical History H/O: hysterectomy History of carpal tunnel release of both wrists S/P cubital tunnel release Left Social History Social History Social History: caffeine-tea Smoking status: Never smoker Alcohol intake: never Substance use: never Substance use type: does not use Lack of Transportation: No Lack of Food: Never True Current Housing: I Have Housing Concerned About Future Housing: No Difficulty Paying Gas/Electric Bills: No Difficulty Paying for Meds: No Currently Unemployed: No Education: High School Diploma/GED Difficulty w/ Childcare or Family Care: No Living arrangements: with family Spiritual care concerns: No Exam Const: General: healthy appearing HENMT: Head: normal to inspection Eyes: Conjunctivae: conjunctivae normal Chest: Chest palpation & inspection: normal inspection of the chest Resp: Effort & Inspection: normal respiratory effort Auscultation: clear to auscultation bilaterally Cardio: Rate: regular rate Rhythm: regular rhythm GI: GI Palp: Yes Soft to palpation Auscultation: normal bowel sounds Urinary Catheter: Urinary Catheter: patent and draining Skin: General skin exam: normal color Rashes: no rashes Neuro: General: patient oriented x3 and moves all extremities Extrem: General: normal to inspection and no clubbing, cyanosis or edema Course Course Emergency Course: After reviewed the patient's medication advised to discontinue naproxen that she takes along with prednisone that she got for short course this off was told to the patient and her that can irritate her stomach. Patient received a dose of p.o. Protonix as well as ODT Zofran Vital Signs Vital signs: Vital Signs Temperature 36.5 C 09/03/24 06:54 Pulse Rate 55 L 09/03/24 06:54 Respiratory Rate 18 09/03/24 06:54 Blood Pressure 112/73 09/03/24 06:54 Pulse Oximetry 96 09/03/24 06:54 Oxygen Delivery Room Air 09/03/24 06:54 Temperature 36.5 C 09/03/24 06:54 Pulse Rate 55 L 09/03/24 06:54 Respiratory Rate 18 09/03/24 06:54 Blood Pressure 112/73 09/03/24 06:54 Pulse Oximetry 96 09/03/24 06:54 Oxygen Delivery Room Air 09/03/24 06:54 Critical Care Time Critical Care Time Critical Care Time: No Discharge Plan Discharge Clinical Impression: GERD (gastroesophageal reflux disease) Qualifiers: Esophagitis presence: esophagitis presence not specified Qualified Code(s): K21.9 - Gastro-esophageal reflux disease without esophagitis Nausea & vomiting Qualifiers: Vomiting type: unspecified Qualified Code(s): R11.2 - Nausea with vomiting, unspecified Patient Disposition: Home, Self-Care Condition: Stable Instructions: Antibiotic Form, GERD (Gastroesophageal Reflux Disease) (ED), Acute Nausea and Vomiting (ED) Additional Instructions: advised patient to discontinue naproxen and prednisone take Protonix and Zofran as prescribed and follow with primary within 1 week for further evaluation and treatment. Prescriptions: New pantoprazole [Protonix] 40 mg tablet,delayed release (DR/EC) 40 mg PO QAM 28 Days Qty: 28 0RF ondansetron 4 mg tablet,disintegrating 4 mg PO Q6H PRN (Reason: nausea and vomiting) Qty: 14 0RF No Action ondansetron 4 mg tablet,disintegrating 4 mg PO Q6H PRN (Reason: nausea and vomiting) Qty: 14 0RF sumatriptan succinate 100 mg tablet See Rx Instructions .ROUTE .COMPLEX Rx Instructions: TAKE 1 TABLET AT HEADACHE ONSET. MAY REPEAT 1 TABLET IN 2 HOURS. MAXIMUM 3 TABLETS IN 24 HOURS. baclofen 10 mg tablet 10 mg PO TID naproxen 500 mg tablet 500 mg PO BID PRN (Reason: pain) Qty: 14 0RF meclizine 25 mg tablet 25 mg PO TID PRN (Reason: dizziness) Qty: 30 0RF meloxicam 15 mg tablet 15 mg PO DAILY PRN (Reason: pain (scale score 7-10)) Qty: 30 0RF Rx Instructions: take with food, no other NSAIDs. Tylenol is fine to take. hydrocodone-acetaminophen 5-325 mg tablet PRN (Reason: Pain) cyclobenzaprine 5 mg tablet 5 mg PO BID PRN (Reason: Muscle Pain) aripiprazole 15 mg tablet 15 mg PO DAILY prednisone 20 mg tablet 20 mg PO DAILY propranolol 80 mg capsule,extended release 24hr 80 mg PO DAILY Qty: 30 1RF sertraline 100 mg tablet 100 mg PO DAILY Qty: 30 0RF Follow-up/Referrals: Damian Sullivan APRN [Primary Care Provider] - Time of Disposition: 07:32
[2024-09-03] MEDS: ONDANSETRON HCL ODT 4 MG TABLET PO (07:29)
[2024-09-03] MEDS: PANTOPRAZOLE 40 MG TABLET PO (07:29)
[2024-09-03 07:55] VITALS: BP 122/65; PULSE 58; RESP 17; TEMP 36.7; O2SAT 97
== END 2024-09-03 07:55 | disposition home or self-care (01) ==
LOC: CHSED 07:31
PROVIDERS: Emergency Provider Emergency Medicine; PCP Nurse Practitioner Family
DX: K21.9 Gastro-esophageal reflux disease without esophagitis (principal); R11.2 Nausea with vomiting, unspecified; E11.9 Type 2 diabetes mellitus without complications; Z79.899 Other long term (current) drug therapy; Z79.891 Long term (current) use of opiate analgesic
CPT/HCPCS: 99283; A9270

== ENCOUNTER 2024-09-12 06:26 | Emergency (ER) | payer MEDICARE, SELFPAY ==
--- NOTE | ~2024-09-12 | XR_ITS ---
Clinical Indication: Shortness of breath PA and lateral views of the chest: Comparison: 03/03/2024 Findings: The lungs are clear, without evidence of focal consolidation or pleural effusion. Cardiome diastinal silhouette is within normal limits. Bones and soft tissues are unremarkable. Impression: Normal chest. Reviewed, dictated and finalized at location . OR ACCOUNTING MANAGER Impression: Normal chest.
--- NOTE | 2024-09-12 06:27 | ED.SOB ---
HPI - SOB/Dyspnea General Chief Complaint: Shortness of Breath/Dyspnea Stated Complaint: SOB Time Seen by Provider: 09/12/24 06:27 Source: patient and family Mode of arrival: ambulatory Limitations: no limitations History of Present Illness HPI Narrative: patient is 59-year-old female known to the ER for recurrent visits. She is having shortness of breath since she woke up 20 minutes ago. She does have recurrent shortness of breath and this is not a new complaint. No chest pain. No other complaints. She is slightly anxious at this time. MD elicited complaint: shortness of breath Pertinent past history: other ( Currently in outpatient workup for shortness of breath) Onset (ago): minute(s) (30) Context: anxiety and other ( patient awoke with some shortness of breath this morning) Timing: intermittent Severity: mild Exacerbating factors: nothing Relieving factors: nothing Known history of: other ( recurrent shortness of breath) Associated symptoms: denies other symptoms Treatment prior to arrival: none Related Data Home oxygen amount: none Home Medications Medication Instructions Recorded Confirmed baclofen 10 mg tablet 10 mg PO TID 08/20/24 09/03/24 sumatriptan succinate 100 mg tablet See Rx Instructions .Route .COMPLEX 08/20/24 09/03/24 aripiprazole 15 mg tablet 15 mg PO DAILY 09/02/24 09/03/24 cyclobenzaprine 5 mg tablet 5 mg PO BID PRN Muscle Pain 09/02/24 09/03/24 hydrocodone 5 mg-acetaminophen 325 PRN Pain 09/02/24 09/03/24 mg tablet prednisone 20 mg tablet 20 mg PO DAILY 09/02/24 09/03/24 Allergies Allergy/AdvReac Type Severity Reaction Status Date / Time Sulfa (Sulfonamide Allergy Unknown RASH, Verified 09/05/24 10:20 Antibiotics) NAUSEA ibuprofen AdvReac Nausea and Verified 09/05/24 10:20 Vomiting iohexol AdvReac Nausea and Verified 09/05/24 10:20 [From contrast - CT, X-RAY] Vomiting Chocolate Allergy Unknown BAD Uncoded 09/05/24 10:20 MIGRAINES Review of Systems Review of Systems: All systems reviewed & are unremarkable except as noted in HPI and below Constitutional: Constitutional: Reports no additional constitutional complaints Eyes: Eyes: Reports no additional eye complaints ENT: Reports system reviewed and no additional complaints, except as documented Cardiovascular: Cardiovascular: Reports no additional cardiovascular complaints Respiratory: Respiratory: Reports no additional respiratory complaints Gastrointestinal: Gastrointestinal: Reports no additional gastrointestinal complaints Genitourinary: Genitourinary: Reports no additional female genitourinary complaints Musculoskeletal: Musculoskeletal: Reports no additional musculoskeletal complaints Integumentary/Breasts: Skin/Breast: Reports system reviewed and no additional complaints, except as docu Neurologic: Reports system reviewed and no additional complaints, except as documented Psychiatric: Psychiatric: Reports no additional psychiatric complaints Endocrine: Endocrine: Reports no additional endocrine complaints Hematologic/Lymphatic: Hematologic/Lymphatic: Reports no additional hematologic/lymphatic complaints Allergic/Immunologic: Allergic/Immunologic: Reports no additional allergic/immunologic complaints PMFSH Past Medical History Medical History DMII (diabetes mellitus, type 2) Nausea Obesity, morbid, BMI 40.0-49.9 Surgical History Surgical History H/O: hysterectomy History of carpal tunnel release of both wrists S/P cubital tunnel release Left Social History Social History Social History: caffeine-tea Smoking status: Never smoker Alcohol intake: never Substance use: never Substance use type: does not use Lack of Transportation: No Lack of Food: Never True Current Housing: I Have Housing Concerned About Future Housing: No Difficulty Paying Gas/Electric Bills: No Difficulty Paying for Meds: No Currently Unemployed: No Education: High School Diploma/GED Difficulty w/ Childcare or Family Care: No Living arrangements: with family Spiritual care concerns: No Exam Const: General: healthy appearing Nutritional Appearance: well nourished Orientation/consciousness: patient oriented x3 Limitations: no limitations HENMT: Head: normal to inspection Ears: external ears normal Face/Nose/Sinus: Normal external nose present Eyes: Conjunctivae: conjunctivae normal Pupils: Equal, round and reactive pupils present EOM: EOMs intact bilaterally Neck: Neck: normal visual inspection Chest: Chest palpation & inspection: normal inspection of the chest Resp: Effort & Inspection: normal respiratory effort and not labored Auscultation: clear to auscultation bilaterally and no crackles Cardio: Rate: regular rate Rhythm: regular rhythm Heart sounds: no murmurs GI: Inspection: non-distended GI Palp: Yes Soft to palpation and No Tenderness to palpation present (GI) Auscultation: normal bowel sounds : General: Yes bladder normal to palpation Back/Spine/Pelvis: Back: no CVA tenderness Skin: General skin exam: normal color Rashes: no rashes Wounds: no wounds Neuro: General: patient oriented x3 Cranial nerves: Yes Nystagmus not present Speech: normal speech Gait exam (Neuro): Normal gait present Extrem: General: normal to inspection Psych: Mental Status: mental status grossly normal Course Vital Signs Vital signs: Vital Signs Temperature 36.1 C L 09/12/24 06:31 Pulse Rate 60 09/12/24 06:31 Respiratory Rate 20 09/12/24 06:31 Blood Pressure 140/63 09/12/24 06:31 Pulse Oximetry 98 09/12/24 06:31 Oxygen Delivery Room Air 09/12/24 06:31 Temperature 36.1 C L 09/12/24 06:31 Pulse Rate 63 09/12/24 06:44 Respiratory Rate 20 09/12/24 06:44 Blood Pressure 130/61 09/12/24 06:44 Pulse Oximetry 97 09/12/24 06:44 Oxygen Delivery Room Air 09/12/24 06:44 MDM - SOB/Dyspnea MDM Narrative Medical decision making narrative: patient is a 59-year-old female with some nonspecific shortness of breath this morning. We will do a chest x-ray at this time. Vital signs are stable. She has been up walking around and even walk to the hospital without difficulty. She has outpatient workup at this time for recurrent shortness of breath. Chest x-rays negative for acute process. Imaging Data Attestation: I personally reviewed and interpreted this imaging study as follows: Radiologist's impression: Chest x-ray is negative for acute process Discharge Plan Discharge Clinical Impression: Shortness of breath Patient Disposition: Home, Self-Care Condition: Stable Instructions: Dyspnea (ED) Prescriptions: No Action ondansetron 4 mg tablet,disintegrating 4 mg PO Q6H PRN (Reason: nausea and vomiting) Qty: 14 0RF sumatriptan succinate 100 mg tablet See Rx Instructions .ROUTE .COMPLEX Rx Instructions: TAKE 1 TABLET AT HEADACHE ONSET. MAY REPEAT 1 TABLET IN 2 HOURS. MAXIMUM 3 TABLETS IN 24 HOURS. baclofen 10 mg tablet 10 mg PO TID pantoprazole [Protonix] 40 mg tablet,delayed release (DR/EC) 40 mg PO QAM 28 Days Qty: 28 0RF ondansetron 4 mg tablet,disintegrating 4 mg PO Q6H PRN (Reason: nausea and vomiting) Qty: 14 0RF naproxen 500 mg tablet 500 mg PO BID PRN (Reason: pain) Qty: 14 0RF meclizine 25 mg tablet 25 mg PO TID PRN (Reason: dizziness) Qty: 30 0RF meloxicam 15 mg tablet 15 mg PO DAILY PRN (Reason: pain (scale score 7-10)) Qty: 30 0RF Rx Instructions: take with food, no other NSAIDs. Tylenol is fine to take. hydrocodone-acetaminophen 5-325 mg tablet PRN (Reason: Pain) cyclobenzaprine 5 mg tablet 5 mg PO BID PRN (Reason: Muscle Pain) aripiprazole 15 mg tablet 15 mg PO DAILY prednisone 20 mg tablet 20 mg PO DAILY propranolol 80 mg capsule,extended release 24hr 80 mg PO DAILY Qty: 30 1RF sertraline 100 mg tablet 100 mg PO DAILY Qty: 30 0RF Follow-up/Referrals: Dmaian Sullivan APRN [Primary Care Provider] - Time of Disposition: 07:10
[2024-09-12 06:31] VITALS: BP 140/63; PULSE 60; RESP 20; TEMP 36.1; O2SAT 98
[2024-09-12 06:44] VITALS: BP 130/61; PULSE 63; RESP 20; O2SAT 97
[2024-09-12 07:13] VITALS: BP 103/70; PULSE 63; RESP 20; O2SAT 95
== END 2024-09-12 07:13 | disposition home or self-care (01) ==
PROVIDERS: Emergency Provider Emergency Medicine; PCP Nurse Practitioner Family
DX: R06.02 Shortness of breath (principal)
CPT/HCPCS: 71046; 99283

== ENCOUNTER 2024-09-16 12:37 | Outpatient (CLI) | payer MEDICARE, SELFPAY ==
--- NOTE | 2024-09-16 12:55 | ECG_ITS ---
Test Date: 2024-09-16 13:05:24 Measurements Intervals [place] Rate: 43 P: 66 NC: 169 QRS: 45 QRSD: 93 T: 85 QT: 477 QTc: 406 Interpretive Statements SINUS BRADYCARDIA INCOMPLETE RIGHT BUNDLE BRANCH BLOCK NONSPECIFIC T-WAVE ABNORMALITY- LAT/HIGH LAT LEADS ABNORMAL ECG HEART RATE HAS INCREASED Electronically Signed On 09-16-2024 13:08:27 MANAGER SWITCH by Jose Jha D.O.
== END 2024-09-16 12:38 | disposition home or self-care (01) ==
LOC: CHSCARD 12:43
PROVIDERS: PCP Family Medicine; Visit Provider Family Medicine
DX: R00.1 Bradycardia, unspecified (principal); I45.19 Other right bundle-branch block; R94.31 Abnormal electrocardiogram [ECG] [EKG]
CPT/HCPCS: 93005

== ENCOUNTER 2024-09-28 11:07 | Outpatient (CLI) | payer MEDICARE, SELFPAY ==
--- NOTE | 2024-09-30 13:17 | WPDHOLTEREM ---
Holter/Event Monitor Holter/Event Monitor Date of procedure: 09/28/24 Holter/Event Procedure: 48 Hr Holter Monitor Indications: Bradycardia Conclusion: 1. 48 hour holter monitor on 09/28/24. 2. Predominant rhythm is sinus rhythm. HR range 48-140 bpm; average HR 73 bpm. HR at 48 bpm was at 03:22. 3. There are 15 premature supraventricular complexes. There is 1 episode of atrial tachycardia at 125 bpm lasting 7 beats at 06:53. 4. There are 419 premature ventricular complexes, 1 ventricular couplet, 4 ventricular bigeminy. No ventricular tachycardia. 5. No sinoatrial or atrioventricular blocks. No significant pauses greater than 2 seconds. 6. No symptoms available for correlation.
== END 2024-09-28 11:08 | disposition home or self-care (01) ==
PROVIDERS: PCP Nurse Practitioner Family; Visit Provider Nurse Practitioner Family
DX: R00.1 Bradycardia, unspecified (principal)
CPT/HCPCS: 93225; 93226

== ENCOUNTER 2024-10-13 08:55 | Outpatient (CLI) | payer MEDICARE, SELFPAY ==
--- NOTE | ~2024-10-13 | MM_ITS ---
MM post biopsy invasive LT, MM stereotactic specimen LT, MM stereotactic bx LT INDICATION: Abnormal calcifications in the left breast. Stereotactic core biopsy is requested evalua te for malignancy.] BREAST PARENCHYMAL COMPOSITION: Dense: The breasts are heterogeneously dense, which may obscure small masses TECHNIQUE AND FINDINGS: The risks and potential benefits of the procedure were discussed with the patient and written informe d consent was obtained. The patient was placed in the prone position clustered at the table with the left breast in compression, and the area of interest was localized and targeted utilizing digital im aging with stereotaxis. After sterile preparation of the skin, 1% lidocaine was utilized for local anesthesia at the skin pun cture site and 1% lidocaine with epinephrine was utilized for deeper local anesthesia/is about the bi opsy site. A 9G Eviva vacuum assisted biopsy needle was advanced to the level of the calcification o f interest utilizing stereotactic guidance and a total of 12 tissue core biopsies were obtained. A specimen radiograph demonstrates that the calcifications of interest are included within the tissue cores. A tissue marker clip was then placed at the biopsy site. The needle was removed and hemosta sis was achieved. The patient tolerated the procedure well and there is no evidence of significant i mmediate complication. The patient was given verbal as well as written postprocedural instructions p rior to discharge from the department. Tissue cores were submitted to surgical pathology for histolo gic analysis. A 2-view left unilateral digital mammogram was obtained post procedure and this demonstrates that the tissue marker clip is in expected position. IMPRESSION: 1. Successful stereotactic biopsy of calcifications in the lower outer quadrant of the left breast w ith post procedure mammogram for marker placement. Please refer to pathology report for histologic a nalysis. Reviewed, dictated and finalized at location B. F OPERATOR IMPRESSION: 1. Successful stereotactic biopsy of calcifications in the lower outer quadran t of the left breast with post procedure mammogram for marker placement. Pleas e refer to pathology report for histologic analysis. IMPRESSION: 1. Successful stereotactic biopsy of calcifications in the lower outer quadran t of the left breast with post procedure mammogram for marker placement. Vania hart refer to pathology report for histologic analysis.
== END 2024-10-13 08:56 | disposition home or self-care (01) ==
PROVIDERS: PCP Nurse Practitioner Family; Visit Provider Family Medicine
DX: R92.8 Other abnormal and inconclusive findings on diagnostic imaging of breast (principal); D24.2 Benign neoplasm of left breast
CPT/HCPCS: 19081; 88305

== ENCOUNTER 2024-10-18 13:20 | Emergency (ER) | payer MEDICARE, SELFPAY ==
--- NOTE | ~2024-10-18 | CT_ITS ---
CT lumbar spine wo con Ordering provider: Naren Gann MD History: 59 years Female with . LBP - acute radiates down RT leg, NKI . Comparison: None. Technique: CT lumbar spine without contrast. Automated exposure control and iterative reconstruction technique were employed. The dose-length product was 1140.50 mGy-cm. FINDINGS: VERTEBRAE: Normal height and alignment. No subluxation or visible acute fracture. Degenerative change s of the spine. DISC SPACES: Narrowing of the disc T11-T12, T12-L1, L1-L2, L2-L3, and L4-L5. Multilevel facet joint d isease. Bilateral sacroiliitis. T12-L1: No stenosis. L1-L2: No stenosis. Osteophyte formation with diffuse disc bulge. Mild narrowing of the foramina. No definite root compression. L2-L3: No stenosis. Diffuse disc bulge with narrowing of the foramina. The right nerve root compress ion. L3-L4: Mild spinal canal stenosis secondary to broad based disc bulge, facet arthropathy, and ligamen patricia flavum hypertrophy. mild narrowing of the foramina. L4-L5: Mild spinal canal stenosis secondary to broad based disc bulge, facet arthropathy, and ligame ntum flavum hypertrophy. Bilateral narrowing of the foramina with nerve root compression L5-S1: No stenosis. Mild diffuse disc bulge. PARASPINOUS SOFT TISSUES: Mild atheromatous disease of the abdominal aorta. IMPRESSION: Multilevel degenerative disc disease with variable degrees of stenoses and neural impingement. No acute osseous abnormality. Reviewed, dictated and finalized at location A. ATRIC OPHTHALMOLOGIST IMPRESSION: Multilevel degenerative disc disease with variable degrees of stenoses and neur al impingement. No acute osseous abnormality.
[2024-10-18 13:48] VITALS: BP 134/78; PULSE 94; RESP 18; TEMP 36.6; O2SAT 96
--- NOTE | 2024-10-18 15:06 | ED_ITS ---
HPI - Back Pain/Injury General Chief Complaint: Back Pain/Injury Stated Complaint: back pain Source: patient Mode of arrival: ambulatory Limitations: no limitations History of Present Illness HPI Narrative: 59 year old female presents to the Emergency Department complaining of low back pain. Patient has chronic low back pain. States the pain was radiating to right leg and she had some numbness to leg. Has improved. Patient walked into department. Denies any trauma. MD elicited complaint: back pain Pertinent past history: prior back pain Timing: constant Similar Symptoms Previously: Yes Location: lumbar spine Radiation: right upper leg Exacerbating factors: movement Relieving factors: other (positional) Associated symptoms: denies other symptoms Related Data Home Medications ?Medication ?Instructions ?Recorded ?Confirmed ?Last Taken ?Type sumatriptan succinate 100 mg tablet See Rx Instructions .Route .COMPLEX 08/20/24 10/03/24 Unknown History cyclobenzaprine 5 mg tablet 5 mg PO BID PRN Muscle Pain 09/02/24 10/03/24 Unknown History Allergies Allergy/AdvReac Type Severity Reaction Status Date / Time Sulfa (Sulfonamide Allergy Unknown RASH, Verified 10/03/24 09:35 Antibiotics) NAUSEA ibuprofen AdvReac Nausea and Verified 10/03/24 09:35 Vomiting iohexol (From contrast - CT, AdvReac Nausea and Verified 10/03/24 09:35 X-RAY) Vomiting Chocolate Allergy Unknown BAD Uncoded 10/03/24 09:35 MIGRAINES Review of Systems Review of Systems: All systems reviewed & are unremarkable except as noted in HPI and below Constitutional: Constitutional: Reports as per HPI, Denies chills and Denies fever(s) Eyes: Eyes: Reports as per HPI ENT: Reports system reviewed and no additional complaints, except as documented Cardiovascular: Cardiovascular: Reports as per HPI and Denies chest pain Respiratory: Respiratory: Reports as per HPI and Denies dyspnea Gastrointestinal: Gastrointestinal: Reports as per HPI, Denies abdominal pain, Denies diarrhea, Denies nausea and Denies vomiting Genitourinary: Genitourinary: Reports no additional female genitourinary complaints, Denies hematuria, Denies nocturia, Denies dysuria and Denies urinary incontinence Musculoskeletal: Musculoskeletal: Reports no additional musculoskeletal complaints Integumentary/Breasts: Skin/Breast: Reports system reviewed and no additional complaints, except as docu Neurologic: Reports system reviewed and no additional complaints, except as documented, Denies focal weakness, Reports numbness and Denies weakness Psychiatric: Psychiatric: Reports no additional psychiatric complaints Endocrine: Endocrine: Reports no additional endocrine complaints Hematologic/Lymphatic: Hematologic/Lymphatic: Reports no additional hematologic/lymphatic complaints [facility]LY [facility] Past Medical History Medical History DMII (diabetes mellitus, type 2) Nausea Obesity, morbid, BMI 40.0-49.9 Surgical History Surgical History H/O: hysterectomy S/P cubital tunnel release Left History of carpal tunnel release of both wrists Social History Social History Social History: caffeine-tea Smoking status: Never smoker Alcohol intake: never Substance use: never Substance use type: does not use Lack of Transportation: No Lack of Food: Never True Current Housing: I Have Housing Concerned About Future Housing: No Difficulty Paying Gas/Electric Bills: No Difficulty Paying for Meds: No Currently Unemployed: No Education: High School Diploma/GED Difficulty w/ Childcare or Family Care: No Living arrangements: with family Spiritual care concerns: No Exam Const: General: healthy appearing and no acute distress Nutritional Appearance: obese Orientation/consciousness: patient oriented x3 Limitations: no limitations HENMT: Head: normal to inspection Ears: external ears normal Face/Nose/Sinus: Normal external nose present Face and sinus: normal facial exam Eyes: Pupils: Equal, round and reactive pupils present EOM: EOMs intact bilaterally Direct Ophthalmoscopy: no photophobia Neck: Neck: normal visual inspection Chest: Chest palpation & inspection: normal inspection of the chest Resp: Effort & Inspection: normal respiratory effort Cardio: Rate: regular rate GI: Inspection: non-distended GI Palp: Yes Soft to palpation and No Tenderness to palpation present (GI) : General: Yes bladder normal to palpation Back/Spine/Pelvis: Back: no CVA tenderness Skin: General skin exam: normal color Rashes: no rashes Neuro: General: patient oriented x3, moves all extremities and no focal motor deficits Cranial nerves: Yes Nystagmus not present Speech: normal speech Gait exam (Neuro): Normal gait present Extrem: General: normal to inspection and no clubbing, cyanosis or edema Course Course Emergency Course: 59 y/o female presents to the ED c/o low back pain [chronic]. states had some radiation to right leg with some associated numbness. Improved now. PE: no acute findings CT L-spine: multi level degenerative disease. No acute findings Instructions Vital Signs Vital signs: Vital Signs Temperature 36.6 C 10/18/24 13:48 Pulse Rate 94 10/18/24 13:48 Respiratory Rate 18 10/18/24 13:48 Blood Pressure 134/78 10/18/24 13:48 Pulse Oximetry 96 10/18/24 13:48 Oxygen Delivery Room Air 10/18/24 13:48 Temperature 36.6 C 10/18/24 13:48 Pulse Rate 94 10/18/24 13:48 Respiratory Rate 18 10/18/24 13:48 Blood Pressure 134/78 10/18/24 13:48 Pulse Oximetry 96 10/18/24 13:48 Oxygen Delivery Room Air 10/18/24 13:48 Discharge Plan Discharge Clinical Impression: Low back pain, Chronic back pain, Degenerative disc disease, lumbar Patient Disposition: Home, Self-Care Condition: Stable Instructions: Lumbar Radiculopathy (ED), Back Pain (ED) Additional Instructions: Rest back Moist heat Continue home medications Follow up Primary Care Physician Patient Language: Lithuanian Prescriptions: No Action sumatriptan succinate 100 mg tablet See Rx Instructions .ROUTE .COMPLEX Rx Instructions: TAKE 1 TABLET AT HEADACHE ONSET. MAY REPEAT 1 TABLET IN 2 HOURS. MAXIMUM 3 TABLETS IN 24 HOURS. ondansetron 4 mg tablet,disintegrating 4 mg PO Q6H PRN (Reason: nausea and vomiting) Qty: 14 0RF meclizine 25 mg tablet 25 mg PO TID PRN (Reason: dizziness) Qty: 30 0RF Trulicity 0.75 mg/0.5 mL pen injector 0.75 mg subcut WEEKLY Qty: 2 0RF cyclobenzaprine 5 mg tablet 5 mg PO BID PRN (Reason: Muscle Pain) aripiprazole 15 mg tablet 15 mg PO DAILY Qty: 30 1RF sertraline 100 mg tablet 100 mg PO DAILY Qty: 30 1RF pantoprazole [Protonix] 40 mg tablet,delayed release (DR/EC) 40 mg PO QAM 28 Days Qty: 28 0RF Follow-up/Referrals: Ramon Aviles DO [Primary Care Provider] - Time of Disposition: 15:22
== END 2024-10-18 15:30 | disposition home or self-care (01) ==
PROVIDERS: Emergency Provider Emergency Medicine; PCP Family Medicine
DX: M54.50 Low back pain, unspecified (principal); G89.29 Other chronic pain; M51.369 Other intervertebral disc degeneration, lumbar region without mention of lumbar back pain or lower extremity pain; E11.9 Type 2 diabetes mellitus without complications
CPT/HCPCS: 72131; 99284

== ENCOUNTER 2024-11-17 09:58 | Outpatient (CLI) | payer MEDICARE, SELFPAY ==
[2024-11-17 10:33] LABS: Basophils Absolute Auto 0.03 K/mm3 (0.00-0.10); Basophils Percent Auto 0.4 % (0.0-1.0); Eosinophils Absolute Auto 0.02 K/mm3 (0.02-0.50); Eosinophils Percent Auto 0.3 % (1.0-6.0); Hematocrit 38.5 % (35.0-49.0); Immature Granulocyte Absolute 0.03 K/mm3 (0.00-0.00); Immature Granulocyte Percent A 0.4 % (0.0-0.0); Lymphocytes Absolute Auto 1.14 K/mm3 (1.10-4.50); Lymphocytes Percent Auto 16.6 % (18.0-42.0); Mean Corpuscular HGB Conc 31.2 g/dL (32-36); Mean Corpuscular Hemoglobin 27.8 pg (27.0-31.0); Mean Corpuscular Volume 89.1 fL (78.0-102.0); Mean Platelet Volume 10.1 fl (9.2-11.8); Monocytes Absolute Auto 0.26 K/mm3 (0.10-0.90); Monocytes Percent Auto 3.8 % (2.0-11.0); Neutrophils Percent Auto 78.5 % (50.0-70.0); Platelet Count Result 174 K/mm3 (150-420); Red Blood Count 4.32 M/mm3 (4.20-5.40); Red Cell Distribution Width 13.2 % (11.6-14.4); White Blood Count 6.9 K/mm3 (4.8-10.8)
[2024-11-17 10:52] LABS: Hemoglobin A1C 6.4 % (<5.7)
[2024-11-17 12:02] LABS: Alanine Aminotransferase 32 U/L (14-59); Albumin Level 3.7 g/dL (3.4-5.0); Alkaline Phosphatase 115 U/L (46-116); Anion Gap 9 mmol/L (4-12); Aspartate Amino Transferase 16 U/L (15-37); Bilirubin,Total 0.7 mg/dL (0.00-1.00); Blood Urea Nitrogen 22 mg/dL (7-18); Calcium 8.8 mg/dL (8.5-10.1); Carbon Dioxide 27 mmol/L (21-32); Chloride 105 mmol/L (98-108); Cholesterol 195 mg/dL (0-200); Estimated Glomerular Filt Rate > 60; Glucose 165 mg/dL (70-99); HDL Direct 73 mg/dL (40-60); Iron 62 ug/dL (50-170); LDL Cholesterol Calculated 110 mg/dL (<130); Osmolality Calculated 299 mOsm/kg (285-295); Potassium 4.1 mmol/L (3.5-5.1); Sodium 141 mmol/L (136-145); Total Protein 6.7 g/dL (6.4-8.2); Triglycerides 61 mg/dL (0-150); Vitamin B12 670 pg/mL (193-986)
[2024-11-18 06:58] LABS: Vitamin D 25 Hydroxy 27 ng/mL (30-100)
== END 2024-11-17 09:59 | disposition home or self-care (01) ==
LOC: CHSLAB 09:59
PROVIDERS: PCP Nurse Practitioner Family; Visit Provider Nurse Practitioner Family
DX: I10 Essential (primary) hypertension (principal); E11.9 Type 2 diabetes mellitus without complications; D64.9 Anemia, unspecified; E61.1 Iron deficiency; E53.8 Deficiency of other specified B group vitamins; Z79.899 Other long term (current) drug therapy; Z13.6 Encounter for screening for cardiovascular disorders
CPT/HCPCS: 36415; 80053; 80061; 82306; 82607; 83036; 83540; 85025

== ENCOUNTER 2024-12-03 16:30 | Emergency (ER) | payer MEDICARE, SELFPAY ==
[2024-12-03 16:32] VITALS: BP 121/82; PULSE 97; RESP 20; TEMP 36.9; O2SAT 94
[2024-12-03 16:33] VITALS: BP 121/82; PULSE 103; RESP 18; TEMP 37.4; O2SAT 93
--- OUTSIDE RECORDS SUMMARY | 2024-12-03 16:33 | XMS_ITS | Clinical Summary ---
Author Organization Unknown Care Team Providers Care Filter Tank Tender Helper Name Role Phone DAVID MUNOZ DO Unavailable Unavailable [place] PHYSICAL THERAPIST, MARYCARMEN Unavailabl e Unavailable WILSON MANAGER LINUX, BRAXTON Unavail able Unavailable [facility]AT[facility] REGISTERED NURSE, DAYA Unavailable Unavailable Payers Payer Name Policy Type Policy Number Effective Date Expira tion Date MEDICARE [facility] - [facility] [id number] Problems Condition Name Condition Details Condition Category Status Onset Date Resolution Date Last Treatment Date Treating Clinician Comments OTHER CHRONIC PAIN Active 11-09 00:00: 00 LOW BACK PAIN, UNSPECIFIED Active 11-09 00:00: 00 TYPE 2 DIABETES MELLITUS WITHOUT COMPLICATION S Active 11-09 00:00: 00 ESSENTIAL (PRIMARY) HYPERTENSION Active 11-09 00:00: 00 HYPERLIPIDEM IA, UNSPECIFIED Active 11-09 00:00: 00 ANXIETY DISORDER, UNSPECIFIED Active 11-09 00:00: 00 DEPRESSION, UNSPECIFIED Active 11-09 00:00: 00 OBSTRUCTIVE SLEEP APNEA (ADULT) (PEDIATRIC) Active 11-09 00:00: 00 GASTRO-ESOPH AGEAL REFLUX DISEASE WITHOUT ESOPHAGITIS Active 11-09 00:00: 00 SPONDYLOSIS W/O MYELOPATHY OR RADICULOPATH Y, LUMBAR REGION Active 2023-11 0 00:00: 00 PARESTHESIA OF SKIN Active 11-09 00:00: 00 UNSP LACK OF EXPECTED NORMAL PHYSIOL DEV IN CHILDHOOD Active 11-09 00:00: 00 UNSPECIFIED URINARY INCONTINENCE Active 11-09 00:00: 00 LNG TRM (CRNT) USE INJECTABLE NON-INSULIN ANTIDIABETIC DRUGS Active 11-09 00:00: 00 OTHER CARE HOME (CURRENT) DRUG THERAPY Active 11-09 00:00: 00 ACQUIRED ABSENCE OF BOTH CERVIX AND UTERUS Active 11-09 00:00: 00 ACQUIRED ABSENCE OF OTHER SPECIFIED PARTS OF DIGESTIVE TRACT Active 11-09 00:00: 00 DEPENDENCE ON OTHER ENABLING MACHINES AND DEVICES Active 11-09 00:00: 00 HISTORY OF FALLING Active 11-09 00:00: 00 Allergies, Adverse Reactions, Alerts Allergy Name Allergy Type Status Severity Reaction(s) Onset Date Inactive Date Treating Clinician Comments IBUPROFEN Propensity to adverse reactions Active 2023-11 08:51: 30 CHOCOLATE Propensity to adverse reactions Active 2023-11 08:50: 57 SULFA (SULFONAMIDE S) Propensity to adverse reactions Active 2023-11 08:51: 38 IODINATED DIAGNOSTIC AGENTS Propensity to adverse reactions Active 2023-11 08:51: 14 Medications Ordered Medication Name Filled Medication Name Start Date Stop Date Current Medication? Ordering Clinician Indication Dosage Frequency Signature (SIG) Comments Components aripiprazol e 15 mg tablet 2023-11 00:00: 00 Yes [id number] MEMORY 1 tablet ONCE DAILY 1 tablet ONCE DAILY (route: oral) Med Classific ation: Central Nervous System Agents baclofen 10 mg tablet 2023-11 00:00: 00 Yes [id number] MUSCLE SPASM 1 tablet TWICE DAILY 1 tablet TWICE DAILY (route: oral) Med Classific ation: Locomotor System cyclobenzap rine 5 mg tablet 2023-11 00:00: 00 Yes [id number] MUSCLE SPASMS 1 tablet TWICE DAILY 1 tablet TWICE DAILY (route: oral) Med Classific ation: Locomotor System hydrocodone 5 mg-acetamin ophen 325 mg tablet 2023-11 00:00: 00 Yes [id number] BACK PAIN 1 tablet EVERY 4 HOURS 1 tablet EVERY 4 HOURS (route: oral) Med Classific ation: Analgesic , Anti-infl ammatory or Antipyret ic meclizine 25 mg tablet 2023-11 00:00: 00 Yes [id number] DIZZINESS 1 tablet 3 TIMES DAILY 1 tablet 3 TIMES DAILY (route: oral) Med Classific ation: Gastroint estinal Therapy Agents meloxicam 15 mg tablet 2023-11 00:00: 00 Yes [id number] MUSCLE SPASMS 1 tablet DAILY 1 tablet DAILY (route: oral) Med Classific ation: Analgesic , Anti-infl ammatory or Antipyret ic naproxen 500 mg tablet 2023-11 00:00: 00 09-06 23:59 :00 No [id number] BACK PAIN 1 tablet TWICE DAILY 1 tablet TWICE DAILY (route: oral) Med Classific ation: Analgesic , Anti-infl ammatory or Antipyret ic ondansetron HCl 4 mg tablet 2023-11 00:00: 00 Yes [id number] NAUSEA 1 tablet EVERY 6 HOURS 1 tablet EVERY 6 HOURS (route: oral) Med Classific ation: Gastroint estinal Therapy Agents prednisone 1 mg tablet 2023-11 00:00: 00 09-11 23:59 :00 No [id number] BACK PAIN/ CORD COMPRESSION 0.5 tablet ONCE DAILY 0.5 tablet ONCE DAILY (route: oral) Med Classific ation: Endocrine prednisone 20 mg tablet 2023-11 00:00: 00 09-04 23:59 :00 No [id number] BACK PAIN/ CORD COMPRESSION 3 tablet ONCE DAILY 3 tablet ONCE DAILY (route: oral) Med Classific ation: Endocrine prednisone 20 mg tablet 2023-11 00:00: 00 09-06 23:59 :00 No [id number] BACK PAIN/ CORD COMPRESSION 2 tablet ONCE DAILY 2 tablet ONCE DAILY (route: oral) Med Classific ation: Endocrine prednisone 20 mg tablet 2023-11 00:00: 00 09-08 23:59 :00 No [id number] BACK PAIN/ CORD COMPRESSION 1 tablet ONCE DAILY 1 tablet ONCE DAILY (route: oral) Med Classific ation: Endocrine propranolol ER 120 mg capsule,24 hr,extended release 2023-11 00:00: 00 09-02 23:59 :00 No [id number] HYPERTENSIO N 1 capsule ONCE DAILY 1 capsule ONCE DAILY (route: oral) Med Classific ation: Cardiovas cular Therapy Agents sertraline 100 mg tablet 2023-11 0 00:00: 00 Yes [id number] ANXIETY 1 tablet ONCE DAILY 1 tablet ONCE DAILY (route: oral) Med Classific ation: Central Nervous System Agents sumatriptan 100 mg tablet 2023-11 00:00: 00 Yes [id number] HEADACHE 1 tablet TWICE DAILY 1 tablet TWICE DAILY (route: oral) Med Classific ation: Central Nervous System Agents pantoprazol e 40 mg tablet,logan yed release 2023-11 00:00: 00 Yes [id number] GERD 1 tablet ONCE DAILY 1 tablet ONCE DAILY (route: oral) Med Classific ation: Gastroint estinal Therapy Agents Trulicity 0.75 mg/0.5 mL subcutaneou s pen injector 2023-11 00:00: 00 Yes [id number] DIABETES MELLITUS 1 mL WEEKLY 1 mL WEEKLY (route: subcutaneo us) Med Classific ation: Endocrine Immunizations Ordered Immunization Name Filled Immunization Name Date Status Comments Refusal Reason INFLUENZA, TIV (INACTIVATED) 2024-08-30 00:00:00 Vital Signs Vital Name Observation Time Observation Value Commen ts Temperature 2024-12-02 13:48:00.000 97.2 [degF] Temperature 2024-11-17 11:36:00.000 98.3 [degF] Temperature 2024-11-03 12:26:00.000 97.5 [degF] Pulse 2024-12-02 13:48:00.000 69 /min Pulse 2024-11-17 11:36:00.000 60 /min Pulse 2024-11-03 12:26:00.000 60 /min O2 Saturation (%) 2024-12-02 13:48:00.000 95 % O2 Saturation (%) 2024-11-17 11:36:00.000 98 % O2 Saturation (%) 2024-11-03 12:26:00.000 96 % Respirations 2024-12-02 13:48:00.000 16 /min Respirations 2024-11-17 11:36:00.000 18 /min Respirations 2024-11-03 12:26:00.000 18 /min Systolic Blood Pressure 2024-12-02 13:48:00.000 118 mm [Hg] Systolic Blood Pressure 2024-11-17 11:36:00.000 110 mm [Hg] Systolic Blood Pressure 2024-11-03 12:26:00.000 110 mm [Hg] Diastolic Blood Pressure 2024-12-02 13:48:00.000 82 mm [Hg] Diastolic Blood Pressure 2024-11-17 11:36:00.000 62 mm [Hg] Diastolic Blood Pressure 2024-11-03 12:26:00.000 66 mm [Hg] Plan of Treatment Planned Activity Planned Date Details Comments Future Scheduled Test [facility] NURSE WILL INSTRUCT PATIENT/CAREGIVER ON TYPE 2 DIABETES DISEASE PROCESS, HOW TO CREATE A DIABETIC TOOLKIT TO MANAGE INVENTORY OF SUPPLIES, HOW TO PLAN FOR A SICK-DAY, AND WARNING SIGNS WHEN THE PATIENT EXPERIENCES LOW BLOOD SUGAR. [code = HOME HEALTH NURSE WILL INSTRUCT PATIENT/CAREGIVER ON TYPE 2 DIABETES DISEASE PROCESS, HOW TO CREATE A DIABETIC TOOLKIT TO MANAGE INVENTORY OF SUPPLIES, HOW TO PLAN FOR A SICK-DAY, AND WARNING SIGNS WHEN THE PATIENT EXPERIENCES LOW BLOOD SUGAR.] Future Scheduled Test SKILLED NU RSE TO INSTRUCT PATIENT/CAREGIVER ON WHAT IS HYPERTENSION, HOW TO CHECK HIS/HER BLOOD PRESSURE, AND STRATEGIES TO USE TO CONTROL BLOOD PRESSURE SUCH MONITORING BP, MANAGING BLOOD GLUCOSE RESULTS TO AN ACCEPTABLE RANGE, MONITORING WEIGHTS, ENGAGING IN PHYSICAL ACTIVITY AIMING FOR 150 MINUTES SPREAD THROUGHOUT THE WEEK. [code = SKILLED NURSE TO INSTRUCT PATIENT/CAREGIVER ON WHAT IS HYPERTENSION, HOW TO CHECK HIS/HER BLOOD PRESSURE, AND STRATEGIES TO USE TO CONTROL BLOOD PRESSURE SUCH MONITORING BP, MANAGING BLOOD GLUCOSE RESULTS TO AN ACCEPTABLE RANGE, MONITORING WEIGHTS, ENGAGING IN PHYSICAL ACTIVITY AIMING FOR 150 MINUTES SPREAD THROUGHOUT THE WEEK.] Future Scheduled Test [facility] NURSE WILL INSTRUCT AND VERIFY APPROPRIATE STEPS ON HOW THE PATIENT CHECKS OWN BLOOD GLUCOSE AND IMPORTANCE TO TRACK BLOOD RESULTS ON A DAILY LOG OR NOTEBOOK TO MONITOR TRENDS. PATIENT/CAREGIVER OR HOME HEALTH RN WILL PERFORM BLOOD GLUCOSE CHECKS. BLOOD GLUCOSE MONITORING WILL OCCUR DAILY. [code = HOME HEALTH NURSE WILL INSTRUCT AND VERIFY APPROPRIATE STEPS ON HOW THE PATIENT CHECKS OWN BLOOD GLUCOSE AND IMPORTANCE TO TRACK BLOOD RESULTS ON A DAILY LOG OR NOTEBOOK TO MONITOR TRENDS. PATIENT/CAREGIVER OR HOME HEALTH RN WILL PERFORM BLOOD GLUCOSE CHECKS. BLOOD GLUCOSE MONITORING WILL OCCUR DAILY.] Future Scheduled Test SKILLED NU RSE TO ASSESS PATIENT WITH ANXIETY DISORDER AND TEACH SYMPTOMS OF ANXIETY. [code = SKILLED NURSE TO ASSESS PATIENT WITH ANXIETY DISORDER AND TEACH SYMPTOMS OF ANXIETY.] Future Scheduled Test SKILLED NU RSE TO OBSERVE AND ASSESS PATIENT WITH GENERALIZED DEPRESSION AND TEACH DEPRESSIVE SYMPTOMS. [code = SKILLED NURSE TO OBSERVE AND ASSESS PATIENT WITH GENERALIZED DEPRESSION AND TEACH DEPRESSIVE SYMPTOMS.] Future Scheduled Test EACH ORDER ED IN-HOME OR TELEHEALTH VISIT, THE SKILLED NURSE WILL CONDUCT A COMPREHENSIVE ASSESSMENT INCLUDING VITAL SIGNS, PAIN, SAFETY, MENTAL/COGNITIVE/PSYCHOSOCIAL STATUS, MED MANAGEMENT, NUTRITION, SKIN INTEGRITY, PRESSURE ULCER PREVENTION, AND PATIENT/CAREGIVER ABILITY TO SUPPORT ORDERED CARE. SKILLED NURSE WILL INSTRUCT ON DISEASE PROCESS, MED MGMT., FALL PREVENTION AND SAFETY, INFECTION CONTROL AND PREVENTION, WARNING SIGNS, ADDRESS RESULTS OUTSIDE OF ORDERED PARAMETERS LISTED ON CARE PLAN, AND COORDINATE DISCHARGE WITH THE TREATING PROVIDER. MAY ACCEPT ORDERS FROM THE FOLLOWING PROVIDER(S) WHO WILL BE CONSULTING ON THE CERTIFIED CARE PLAN: DR DANIAL MUNOZ-PCP, ANA PEREYRA TRASH COLLECTOR SUPERVISOR-PCP, DR JOSE MULLER-PLASTIC SSURGERY AND ANYONE COVERING IN THEIR ABSENCE. [code = EACH ORDERED IN-HOME OR TELEHEALTH VISIT, THE SKILLED NURSE WILL CONDUCT A COMPREHENSIVE ASSESSMENT INCLUDING VITAL SIGNS, PAIN, SAFETY, MENTAL/COGNITIVE/PSYCHOSOCIAL STATUS, MED MANAGEMENT, NUTRITION, SKIN INTEGRITY, PRESSURE ULCER PREVENTION, AND PATIENT/CAREGIVER ABILITY TO SUPPORT ORDERED CARE. SKILLED NURSE WILL INSTRUCT ON DISEASE PROCESS, MED MGMT., FALL PREVENTION AND SAFETY, INFECTION CONTROL AND PREVENTION, WARNING SIGNS, ADDRESS RESULTS OUTSIDE OF ORDERED PARAMETERS LISTED ON CARE PLAN, AND COORDINATE DISCHARGE WITH THE TREATING PROVIDER. MAY ACCEPT ORDERS FROM THE FOLLOWING PROVIDER(S) WHO WILL BE CONSULTING ON THE CERTIFIED CARE PLAN: DR DANIAL MUNOZ-PCP, ANA PEREYRA TRASH COLLECTOR SUPERVISOR-PCP, DR JOSE MULLER-PLASTIC SSURGERY AND ANYONE COVERING IN THEIR ABSENCE.] Future Scheduled Test [facility] TIFYING PHYSICIAN, ASSOCIATED PHYSICIAN, NPP OR PA WITHIN THE SAME GROUP MAY APPROVE AND SIGN THE ORDER (ON ANY PAGE) ATTESTING THAT THE COMPREHENSIVE OUTCOME ASSESSMENTS, EVALUATIONS, AND HOME HEALTH CERTIFICATION PLANS SUPPORT HOMEBOUND STATUS. HOME HEALTH WEB-PORTAL DOCUMENTATION ACCESSED BY THE PHYSICIAN MUST BE INCORPORATED INTO THE MEDICAL RECORD TO CORROBORATE THE PHYSICIAN, NPP, OR PAS F2F ENCOUNTER TO SUPPORT ELIGIBILITY FOR HOME HEALTH SERVICES. [code = THE CERTIFYING PHYSICIAN, ASSOCIATED PHYSICIAN, NPP OR PA WITHIN THE SAME GROUP MAY APPROVE AND SIGN THE ORDER (ON ANY PAGE) ATTESTING THAT THE COMPREHENSIVE OUTCOME ASSESSMENTS, EVALUATIONS, AND HOME HEALTH CERTIFICATION PLANS SUPPORT HOMEBOUND STATUS. HOME HEALTH WEB-PORTAL DOCUMENTATION ACCESSED BY THE PHYSICIAN MUST BE INCORPORATED INTO THE MEDICAL RECORD TO CORROBORATE THE PHYSICIAN, NPP, OR PAS F2F ENCOUNTER TO SUPPORT ELIGIBILITY FOR HOME HEALTH SERVICES.] Goal 2024-10-27 Patient Goal - S OC 09/01/24: TO STAY OUT OF THE HOSPITAL Goal Patient Goal - S OC 09/01/24: TO STAY OUT OF THE HOSPITAL RECERT 10/27/20: TO STAY OUT OF THE ER Goal Provider Goal - PATIENT/CAREGIVER WILL VERBALIZE UNDERSTANDING OF TYPE 2 DIABETES AND THE IMPORTANCE OF MANAGING THE BLOOD SUGAR WITHIN THE EXPECTED RANGE. PATIENT/CAREGIVER WILL ESTABLISH A DIABETIC TOOLKIT AND A SICK-DAY PLAN TO PREPARE FOR POTENTIAL CHANGES WITH BLOOD SUGARS RANGES. PATIENT/CAREGIVER WILL VERBALIZE WARNING SIGNS OF LOW BLOOD SUGAR AND WHAT ACTIONS TO TAKE. Goal Provider Goal - PATIENT/CAREGIVER WILL INDEPENDENTLY DEMONSTRATE HOW TO CHECK HIS/HER OWN BP AND VERBALIZE WHAT STRATEGIES CAN ASSIST TO CONTROL BLOOD PRESSURE. Goal Provider Goal - PATIENT/CAREGIVER WILL DEMONSTRATE PROPER TECHNIQUE WHEN CHECKING OWN BLOOD GLUCOSE, DEMONSTRATES ADHERES TO WRITING DOWN RESULTS USING A LOGBOOK, FOLLOWS THE PRESCRIBED FREQUENCY OF BLOOD SUGAR CHECKS PRIOR TO DISCHARGING FROM HOME HEALTH SERVICES. Goal Provider Goal - PATIENT/CAREGIVER WILL VERBALIZE UNDERSTANDING OF THE CONTRIBUTING FACTORS AND SYMPTOMS OF ANXIETY. Goal Provider Goal - PATIENT/CAREGIVER WILL VERBALIZE UNDERSTANDING OF THE CONTRIBUTING FACTORS AND SYMPTOMS OF DEPRESSION. Goal Provider Goal - PATIENT WILL BE FREE OF FALLS AND HOSPITALIZATIONS THROUGHOUT EPISODE OF CARE. PATIENT/CAREGIVER WILL UNDERSTAND AND ADHERE TO ORDERED DIET. PATIENT/CAREGIVER WILL INDEPENDENTLY MANAGE MEDICATIONS, UNDERSTAND ANY CHANGES, SIDE EFFECTS TO REPORT BY EOE. PATIENT WILL BE FREE OF INFECTION AND UNDERSTAND MEASURES OF PREVENTION. PATIENT/CAREGIVER WILL COLLABORATE WITH SKILLED NURSE TO DEVELOP POC AT SOC AND ON AN ONGOING BASIS UPDATES ARE NEEDED. UNDERSTAND PROGRESS MADE/DISCHARGE PLANNING. ADDITIONAL ORDERS WILL BE RECEIVED FROM ALTERNATE PHYSICIANS IN A TIMELY MANNER. Goal Provider Goal - A PLAN OF CARE WILL BE ESTABLISHED THAT MEETS ALL PATIENT'S HALF-WAY NEEDS AND COUNTER SIGNED BY PHYSICIAN. Progress Notes Progress Notes <paragraph>[Visit Date: 2024 by DAYA DALAL REGISTERED NURSE]:</paragraph><paragraph>PTNT BEING BEEN FOR CHRONIC PAIN PTNT SITTING ON COUCH UPON ARRIVAL. PTNTS SPOUSE PRESENT DURING VISIT. PTNT REPORTS HAVING APPT WITH BEATRIZ TRASH COLLECTOR SUPERVISOR AND NO CHANGES WERE MADE. PTNT WILL SEE HAND DR ON 12/27 AGAIN TO FIND A SOLUTION FOR HAND PAIN. PTNT RATES PAIN LEVEL 8 TODAY BUT DENIES TAKING ANY PAIN MEDICATION FOR THE PAIN. THIS RN EXPLAINED THAT PRESCRIPTION PAIN MEDICATION WOULD HELP WITH PAIN AND BRING HER PAIN DOWN TO A MANAGABLE LEVEL. PTNT SAID OH I CAN TAKE THOSE? PTNT THEN SAID SHE WOULD LIKE TO TAKE CYCLOBENZAPRINE FOR PAIN RIGHT NOW. PTNT ALSO STATES THAT SHE NEEDED THIS RN TO DO HER INSULIN INJECTION SHE HAS NOT DONE IN HERSELF BEFORE. PTNT ALSO STATES THAT AT LAST SN VISIT SHE FORGOT TO ASK [facility] TO DO HER INJECTION SO SHE HAS NOT HAD IT IN OVER A MONTH. THIS RN EDUCATION PTNT/CV ON INSULIN PRESCRIPTION AND TO COMPLETE THIS WEEKLY ORDERED. THIS RN SHOWED SPOUSE HOW TO COMPLETE INJECTION ORDERED. PTNTS SPOUSE FEELS COMFORTABLE DOING IT NEXT WEEK AND EVERY WEEK FOLLOWING. THIS RN EDUCATED ON HYPOGLYCEMIA AND SIGNS/SYMPTOMS TO REPORT TO PCP/WHEN TO CALL 911 ALONG WITH PAIN MEDICATION SIDE EFFECTS.</paragraph> Encounters Start Date/Time End Date/Time Encounter Type Admission Type Attending Clinicians Care Facility Care Department Encounter ID Discharge Date Discharge Status Discharge Condition Discharge Reason Percent Goals Met 2024-09-01 00:00:00 2024-12-29 00:00:00 Outpatient RECERTIFIC ATION DAYA DALAL [facility] [id number] 5.56
--- OUTSIDE RECORDS SUMMARY | 2024-12-03 16:33 | XMS_ITS | Clinical Summary ---
Author Organization Unknown Care Team Providers Care Railroad Dispatcher Name Role Phone DAVID MUNOZ DO Unavailable Unavailable [place] PHYSICAL THERAPIST, MARYCARMEN Unavailabl e Unavailable [place]IL[place] DIGITAL CAMERA TECHNICIAN, BRAXTON Unavail able Unavailable KATLIN REGISTERED NURSE, DAYA Unavailable Unavailable Payers Payer Name Policy Type Policy Number Effective Date Expira tion Date MEDICARE [facility] - [facility] [id number] Problems Condition Name Condition Details Condition Category [...] ANTIDIABETIC DRUGS Active 11-09 00:00: 00 OTHER HALF-WAY (CURRENT) DRUG THERAPY Active 11-09 00:00: 00 [...] 15 mg tablet 2023-11 00:00: 00 Yes [id number] MEMORY 1 tablet ONCE DAILY 1 tablet ONCE DAILY (route: oral) Med Classific ation: Central Nervous System Agents baclofen 10 mg tablet 2023-11 00:00: 00 Yes [id number] MUSCLE SPASM 1 tablet TWICE DAILY 1 tablet TWICE DAILY (route: oral) Med Classific ation: Locomotor System cyclobenzap rine 5 mg tablet 2023-11 00:00: 00 Yes [id number] MUSCLE SPASMS 1 tablet TWICE DAILY 1 tablet TWICE DAILY (route: oral) Med Classific ation: Locomotor System hydrocodone 5 mg-acetamin ophen 325 mg tablet 2023-11 00:00: 00 Yes [id number] BACK PAIN 1 tablet EVERY 4 HOURS 1 tablet EVERY 4 HOURS (route: oral) Med Classific ation: Analgesic , Anti-infl ammatory or Antipyret ic meclizine 25 mg tablet 2023-11 00:00: 00 Yes [id number] DIZZINESS 1 tablet 3 TIMES DAILY 1 tablet 3 TIMES DAILY (route: oral) Med Classific ation: Gastroint estinal Therapy Agents meloxicam 15 mg tablet 2023-11 00:00: 00 Yes [id number] MUSCLE SPASMS 1 tablet DAILY 1 tablet DAILY (route: oral) Med Classific ation: Analgesic , Anti-infl ammatory or Antipyret ic naproxen 500 mg tablet 2023-11 00:00: 00 09-06 23:59 :00 No [id number] BACK PAIN 1 tablet TWICE DAILY 1 tablet TWICE DAILY (route: oral) Med Classific ation: Analgesic , Anti-infl ammatory or Antipyret ic ondansetron HCl 4 mg tablet 2023-11 00:00: 00 Yes [id number] NAUSEA 1 tablet EVERY 6 HOURS 1 tablet EVERY 6 HOURS (route: oral) Med Classific ation: Gastroint estinal Therapy Agents prednisone 1 mg tablet 2023-11 00:00: 00 09-11 23:59 :00 No [id number] BACK PAIN/ CORD COMPRESSION 0.5 tablet ONCE DAILY 0.5 tablet ONCE DAILY (route: oral) Med Classific ation: Endocrine prednisone 20 mg tablet 2023-11 00:00: 00 09-04 23:59 :00 No [id number] BACK PAIN/ CORD COMPRESSION 3 tablet ONCE DAILY 3 tablet ONCE DAILY (route: oral) Med Classific ation: Endocrine prednisone 20 mg tablet 2023-11 00:00: 00 09-06 23:59 :00 No [id number] BACK PAIN/ CORD COMPRESSION 2 tablet ONCE DAILY 2 tablet ONCE DAILY (route: oral) Med Classific ation: Endocrine prednisone 20 mg tablet 2023-11 00:00: 00 09-08 23:59 :00 No [id number] BACK PAIN/ CORD COMPRESSION 1 tablet ONCE DAILY 1 tablet ONCE DAILY (route: oral) Med Classific ation: Endocrine propranolol ER 120 mg capsule,24 hr,extended release 2023-11 00:00: 00 09-02 23:59 :00 No [id number] HYPERTENSIO N 1 capsule ONCE DAILY 1 capsule ONCE DAILY (route: oral) Med Classific ation: Cardiovas cular Therapy Agents sertraline 100 mg tablet 2023-11 0 00:00: 00 Yes [id number] ANXIETY 1 tablet ONCE DAILY 1 tablet ONCE DAILY (route: oral) Med Classific ation: Central Nervous System Agents sumatriptan 100 mg tablet 2023-11 00:00: 00 Yes [id number] HEADACHE 1 tablet TWICE DAILY 1 tablet TWICE DAILY (route: oral) Med Classific ation: Central Nervous System Agents pantoprazol e 40 mg tablet,logan yed release 2023-11 00:00: 00 Yes [id number] GERD 1 tablet ONCE DAILY 1 tablet ONCE DAILY (route: oral) Med Classific ation: Gastroint estinal Therapy Agents Trulicity 0.75 mg/0.5 mL subcutaneou s pen injector 2023-11 00:00: 00 Yes [id number] DIABETES MELLITUS 1 mL WEEKLY 1 mL [...] Planned Date Details Comments Future Scheduled Test [facility] NURSE WILL INSTRUCT PATIENT/CAREGIVER ON TYPE 2 [...] THROUGHOUT THE WEEK.] Future Scheduled Test [facility] NURSE WILL INSTRUCT AND VERIFY APPROPRIATE STEPS [...] CARE PLAN: DR DANIAL MUNOZ-PCP, ANA PEREYRA SAMPLE TESTER-PCP, DR JOSE MULLER-PLASTIC SSURGERY AND ANYONE COVERING [...] CARE PLAN: DR DANIAL MUNOZ-PCP, ANA PEREYRA SAMPLE TESTER-PCP, DR JOSE MULLER-PLASTIC SSURGERY AND ANYONE COVERING IN THEIR ABSENCE.] Future Scheduled Test [facility] TIFYING PHYSICIAN, ASSOCIATED PHYSICIAN, NPP OR PA [...] WILL BE ESTABLISHED THAT MEETS ALL PATIENT'S INTERMEDIATE NEEDS AND COUNTER SIGNED BY PHYSICIAN. Progress Notes Progress Notes <paragraph>[Visit Date: 2024 by DAYA DALAL REGISTERED NURSE]:</paragraph><paragraph>PTNT BEING BEEN FOR CHRONIC PAIN PTNT SITTING ON COUCH UPON ARRIVAL. PTNTS SPOUSE PRESENT DURING VISIT. PTNT REPORTS HAVING APPT WITH BEATRIZ SAMPLE TESTER AND NO CHANGES WERE MADE. PTNT WILL [...] 2024-12-29 00:00:00 Outpatient RECERTIFIC ATION DAYA DALAL [facility] [id number] 5.56
--- OUTSIDE RECORDS SUMMARY | 2024-12-03 16:33 | XMS_ITS | Data Portability ---
Author Organization [facility], [address] [place] [address] Neurology ([place]) Address [address] [place] [id number] Assessment Encounter Date Assessment Date Assessment LastModified by Organization Details LastModified Time 06/23/2024 06/23/2024 The patient has migraine headaches. Those are under good control. We will continue propranolol ER 120 mg daily. We will continue sumatriptan as her abortive medication. She will follow up in six months, but she will call if she has any problems in the meantime. HOLDEN [email or web address] Not available 06/23/2024 12:41:16 Plan of Treatment Reminders Order Date Submit Date Provider Last Modified By Organization Details Last Modified Time Details Appointments None recorded. Lab None recorded. Referral None recorded. Procedures None recorded. Surgeries None recorded. Imaging None recorded. Medication Orders propranolol ER 120 mg capsule,24 hr,extended release 2023 [facility], [address] [place] [address], [id number], 4 09:41:46 sumatriptan 100 mg tablet 2023 [facility], [address] [place] [address], [id number], 4 09:41:46 Patient TargetsNo targets recorded. Patient InstructionsNo instructions recorded. Reason for Referral None Reported. Results Created Date Observation Date Name Description Value Unit Range Abnormal Flag Note LastModifiedBy Organization Detail LastModifiedTime 06/23/20 24 12/30/2022 imagi ng/di agnos tic resul t No observ ation record ed. Not Available 06/23/2024 21:30:22 Result Notes None recorded. Problems Name Problem SNOMED Code Status Onset Date Resolution Date Notes Provider Name and Address Organization Details Recorded Time Migraine with aura 1841089 Active 024 Shari Perez MD [address] [place] [address], [phone] , [facility] 06/23/2024 09:33:31 Problem Notes None recorded. Procedures Surgical History None recorded. Imaging Results Imaging Date Name Status LastModified by Organiz ation Details LastModified Time 12/30/2022 imaging/diag nostic result completed Information not available 06/23/2024 21:30:22 Procedure Notes None recorded. Medical Equipment None Reported. Allergies Allergen ID Allergen Name Allergen Category Reaction Reaction Severity Criticality Documentation Date Start Date Code Code System Note Provider Name and Address Organization Details Recorded Time [id number] metformin hydrochlo ride medicatio n diarrhea Not available Not available 12/09/20232021 78582 3 RxNorm React ion: Diarr hea; Not Available Not Available Not Available [id number] 2824e Substance with sulfonami de structure and antibacte rial mechanism of action (substanc e) medicatio n Not available Not available Not available 12/07/20232012 69162 8003 SNOMED Not Available Not Available Not Available [id number] 2824e cocoa brito allergeni c extract food,medi cation Not available Not available Not available 12/07/20232008 17876 1 RxNorm Comme nt: Stephane late ; Not Available Not Available Not Available Medications Name Sig Start Date Stop Date Status Note LastModified by Organization Details LastModified Time cyclobenzapr ine 10 mg tablet TAKE 1 TABLET BY MOUTH THREE TIMES A DAY NEEDED FOR MUSCLE SPASMS active Not Available Not Available No t Available triamcinolon e acetonide 0.5 % topical cream APPLY TOPICALLY TWICE DAILY active Not Available Not Available Not Available sumatriptan 100 mg tablet Take 1 tab at headache onset. May repeat 1 tab in 2 hours. Max 3 tabs per 24 hours. 2023 active Not Available Not Available Not Avai lable meloxicam 15 mg tablet TAKE 1 TABLET BY MOUTH DAILY active Not Available Not Available Not Available sertraline 100 mg tablet TAKE 1 TABLET BY MOUTH DAILY active Not Available Not Available Not Available tramadol 50 mg tablet TAKE 1 TABLET BY MOUTH EVERY 6 HOURS NEEDED FOR PAIN. DO NOT TAKE WITH CYCLOBENZAP RINE active Not Available Not Available No t Available alprazolam 0.5 mg tablet TAKE 1 TABLET BY MOUTH TWO TIMES A DAY NEEDED FOR ANXIETY active Not Available Not Available Not Available meclizine 25 mg tablet Take 1 tablet (25 mg total) by mouth 3 (three) times daily as needed active Not Available Not Available No t Available hydrocodone 7.5 mg-acetamino phen 325 mg tablet TAKE 1 TABLET BY MOUTH EVERY 6 HOURS NEEDED FOR PAIN active Not Available Not Available No t Available pantoprazole 40 mg tablet,delay ed release TAKE 1 TABLET BY MOUTH DAILY IN THE MORNING FOR 6 WEEKS active Not Available Not Available No t Available ferrous sulfate 325 mg (65 mg iron) tablet TAKE 1 TABLET BY MOUTH DAILY active Not Available Not Available Not Available gabapentin 300 mg capsule TAKE 1 CAPSULE BY MOUTH THREE TIMES A DAY active Not Available Not Available Not Available furosemide 20 mg tablet TAKE 1 TABLET BY MOUTH EVERY MORNING active Not Available Not Available No t Available propranolol ER 120 mg capsule,24 hr,extended release Take 1 capsule every day by oral route. 2023 active Not Available Not Available Not Avai lable polyethylene glycol 3350 17 gram/dose oral powder MIX 17 GRAMS IN 8oz. OF LIQUID AND DRINK DAILY active Not Available Not Available Not Available ondansetron 4 mg disintegrati ng tablet DISSOLVE ONE TABLET ON TONGUE EVERY 6 HOURS NEEDED FOR NAUSEA AND FOR VOMITING active Not Available Not Available No t Available lisinopril 2.5 mg tablet take 1 tablet by oral route every day active Not Available Not Available No t Available dicyclomine 10 mg capsule TAKE 1 TABLET BY MOUTH THREE TIMES A DAY NEEDED FOR ABDOMINAL PAIN active Not Available Not Available No t Available aripiprazole 20 mg tablet TAKE 1 TABLET BY MOUTH DAILY IN THE EVENING active Not Available Not Available No t Available Nyamyc 100,000 unit/gram topical powder apply by topical route 2 times every day to the affected area(s) active Not Available Not Available No t Available cholecalcife rol (vitamin D3) 1,250 mcg (50,000 unit) capsule TAKE 1 CAPSULE BY MOUTH weekly active Not Available Not Available No t Available cholecalcife rol (vitamin D3) 50 mcg (2,000 unit) capsule TAKE 1 CAPSULE BY MOUTH DAILY active Not Available Not Available Not Available Trulicity 1.5 mg/0.5 mL subcutaneous pen injector inject 1.5 mg (0.5 ML (OR CC)) subcutaneou sly weekly] active Not Available Not Available Not Available Trulicity 0.75 mg/0.5 mL subcutaneous pen injector INJECT 0.5 ML (OR CC) (1 PEN) ONCE WEEKLY active Not Available Not Available Not Available Vitals Date Recorded Heart rate Provider Name an d Address Organization Details Last Updated DateTime 06/23/2024 63 /min [facility] 06/23/2024 09:17:13 Date Recorded Systolic blood pressure Diastolic blood pressure Provider Name and Address Organization Details Last Updated DateTime 06/23/2024 146 mm[Hg] 82 mm[Hg] Adalid Carey [facility] IELD [facility] 06/23/2024 09:17:07 Social History None recorded. Functional Status None recorded. Mental Status None recorded. Family History Nothing Reported. Medical History No medical history recorded. Gynecological HistoryNo gynecological history recorded. Obstetrics History GPAL:G 0 P 0 0 0 0 Past Encounters Encounter ID Performer Location Encounter Start Date Encounter Closed Date Diagnosis/Indication Diagnosis SNOMED-CT Code Diagnosis ICD10 Code Diagnosis Note [id number] Shari Perez MD [facility] Specialty Neurology ([place]) [address] [place] [address] 06/23/2024 09:08:28 06/27/2024 11:59:02 Migraine with aura 2243845 G43.109 Health Concerns Section Related Observation LastModified by Organization Detai ls LastModified Time None Recorded Concern Status LastModified by Organization Details LastModified Time None Recorded Advance Directives Directive None Recorded Payers None recorded. Notes Date Note Type Note Provider Name and Address Organization Details Recorded Time 06/23/2024 text/html The patient is a 58 -year-old female who returns today for followup of her migraine headaches. She was last seen in October. She is accompanied today by her fianc??. She has migraines about once per month. She states that her headaches are not as bad. She takes propranolol 120 mg daily. She denies any side effects to the medication. She takes sumatriptan as her abortive medication. She went to the emergency room on May 29 for back pain. She was diagnosed with bulging discs. That has improved. She also had a left ulnar nerve transposition surgery. She is still having arm pain from the surgery. She was given tramadol for the pain.HOLDEN Perez MD [address] [place] [address], [phone], [facility] 06/28/2024 17:42:10 OBGyn Episode No OBEpisode recorded.
--- OUTSIDE RECORDS SUMMARY | 2024-12-03 16:33 | XMS_ITS | Referral Summary ---
Author Organization [facility] Address [address] [place] [address] Care Team Providers Care Wafer Slicer Name Role Phone Ramon Aviles DO Primary Care Provider Allergies Active Allergy Reactions Criticality Noted Date Comments Iodinated Contrast Media Nausea only Low 07/17/2024 Sulfa Hives Medium 07/17/2024 Medications traMADoL (ULTRAM) 50 mg tabletIndicati ons:Ganglion cyst of wrist, right,Right wrist sprain, subsequent encounter Take 1 tablet (50 mg total) by mouth every 8 (eight) hours as needed for pain P.r.n. pain not relieved by naproxen alone. Take 500 mg to 650 mg of acetaminophen with each dose. Take with food. Collaborating physician Lonnie Jackson MD 15 tablet 4 Active naproxen (NAPROSYN) 500 mg tabletIndicati ons:Ganglion cyst of wrist, right,Right wrist sprain, subsequent encounter Take 1 tablet (500 mg total) by mouth 2 (two) times a day with meals P.r.n. pain and swelling. Collaborating physician Lonnie Jackson MD 20 tablet 4 Active Active Problems Problem Noted Date Diagnosed Date Ganglion cyst of wrist, right 07/17/2024 Right wrist sprain, subsequent encounter 024 Resolved Problems Problem Noted Date Diagnosed Date Resolved Date Left wrist sprain, initial encounter 07/17/2024 07/17/2024 Social History Tobacco Use Types Packs/Day Years Used Date Smoking Tobacco: Never Smokeless Tobacco: Never Tobacco Cessation:Counseling Given: Not Answered Alcohol Use Standard Drinks/Week Comments Not Currently 0 (1 standard drink = 0.6 oz pur e alcohol) Personal Safety Answer Date Recorded Have you ever been in or are you currently in a harmful physical or emotional relationship or is someone making you feel afraid or unsafe? 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 Gender Identity Not on file Sexual Orientation Not on file Last Filed Vital Signs Vital Sign Reading Time Taken Comments Blood Pressure 132/95 08/21/2024 1:36 PM CDT Pulse 87 08/21/2024 1:36 PM CDT Temperature 36.6 ??C (97.8 ??F) 08/21/2024 1:36 PM CD T Respiratory Rate 16 08/21/2024 1:36 PM CDT Oxygen Saturation 97% 08/21/2024 1:36 PM CDT Inhaled Oxygen Concentration - - Weight 94.3 kg (208 lb) 08/21/2024 1:36 PM CDT Height 162.6 cm (5' 4 ) 08/21/2024 1:36 PM CDT Body Mass Index 35.7 08/21/2024 1:36 PM CDT Plan of Treatment Not on file Insurance MEDICARE [facility] Care Teams Wafer Slicer Relationship Specialty Start Date End Date Ramon Aviles DO [address] [place] [address] PCP - General Family Medicine 07/17/24
--- OUTSIDE RECORDS SUMMARY | 2024-12-03 16:33 | XMS_ITS | Clinical Summary ---
Author Organization [facility] Address Formerly [facility] [place] [address] [place] [address] Care Team Providers Care Fire Supervisor Name Role Phone Ramon Aviles DO Unavailable [phone] Amandeep Akhtar MD Unavailable Ramon Aviles DO Primary Care Provider [phone] Allergies Active Allergy Reactions Criticality Noted Date Comments Chocolate Headache High 05/18/2017 Chocolate Headache 08/29/2024 Iodine GI Upset 07/16/2024 Iodine Nausea and Vomiting 08/29/2024 Ibuprofen GI Upset Medium 05/20/2019 Ibuprofen GI Upset 08/29/2024 Sulfa Antibiotics Rash Low 05/18/2017 Sulfa Antibiotics Hives 08/29/2024 Medications Ascorbic Acid (VITAMIN C) 100 MG tablet Take 1 tablet (100 mg total) by mouth daily. Active acetaminophen CR 650 MG Tab CR 8 hr tablet Take 1 tablet (650 mg total) by mouth every 8 (eight) hours as needed. Active cholestyramine 4 G packet Take 1 packet (4 g total) by mouth 2 (two) times daily with meals. Active omeprazole 20 MG capsule Take 1 capsule (20 mg total) by mouth daily. Active TRUE METRIX BLOOD GLUCOSE TEST test strip use to test TWO TIMES A DAY 5 9 Active famotidine 40 MG tablet Take 1 tablet (40 mg total) by mouth daily. 3 9 Active SUMAtriptan 100 MG tablet TAKE 1 TABLET AT FIRST SIGN OF MIGRAINE, MAY REPEAT 1 TABLET IN 2 HOURS IF NEEDED, NO MORE THAN 3 TABLETS TOTAL 5 9 Active sertraline 100 MG tablet Take 1 tablet (100 mg total) by mouth daily. 0 Active triamcinolone 0.1 % cream Apply topically 2 (two) times daily. 30 g 1 Active ondansetron 4 MG disintegrating tablet Take 1 tablet (4 mg total) by mouth every 8 (eight) hours as needed for Nausea. 20 tablet 1 Active traMADol (ULTRAM) 50 MG tabletIndications: Acute Pain < 7 Day Supply Indications: Acute Pain < 7 Day Supply 1-2 every 6 hours as needed for pain 20 tablet 2 Active ARIPiprazole (ABILIFY) 15 MG tablet Take 20 mg by mouth daily. 2 Active meclizine (ANTIVERT) 25 MG tablet Take 1 tablet (25 mg total) by mouth 3 (three) times daily as needed. 15 tablet 4 Active propranolol LA (INDERAL LA) 120 MG 24 hr capsule Take 60 mg by mouth daily. Active Dulaglutide (TRULICITY SC) Activ e diclofenac sodium (VOLTAREN) 1 % gel Apply 2 g topically 4 (four) times daily. 2 g 4 Active cyclobenzaprine (FLEXERIL) 5 MG tablet Take 1 tablet (5 mg total) by mouth 3 (three) times daily as needed for Muscle Spasms. Active Active Problems Problem Noted Date Diagnosed Date Cord compression ([facility]) 08/29/2024 Trochanteric bursitis of right hip 09/03/2021 Plantar fasciitis of left foot 02/12/2021 Chronic pain of right wrist 12/03/2020 Mass of right wrist 12/03/2020 Numbness and tingling in right hand 09/21/2019 Chronic pain of left wrist 09/11/2019 Aftercare following surgery 07/15/2019 Trigger thumb of right hand 07/15/2019 Carpal tunnel syndrome on left 07/15/2019 Ganglion cyst of volar aspect of right wrist 10/2019 Lymphedema 02/22/2019 Leg edema 02/22/2019 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 06/09/2017 Pain in both lower extremities 06/09/2017 Encounters Date Type Department Care Team Description 09/25/2024 5:52 PM GLOVE PAIRER - 09/25/2024 10:35 PM GLOVE PAIRER [facility] [address] [place] [address] Hitesh Horton, DO Chest Pain Discharge Disposition: Home or Self Care (Routine Discharge) 09/25/2024 Travel from Last 3 Months Immunizations Name Administration Dates Next Due Fluzone (IIV3, Trivalent, 0.5 ML Prefilled Syrin ge) 08/30/2024 Family History Medical History Relation Comments Diabetes Father Heart Attack Father CA Father Stroke Father Cancer Maternal Grandfather No Known Problems Maternal Grandmother No Known Problems Mother Diabetes Paternal Grandfather Heart Paternal Grandfather No Known Problems Paternal Grandmother Diabetes Sister 1 Hypothyroidism Sister 1 No Known Problems Sister 2 Diabetes Sister 3 Thyroid Sister 3 Relation Status Comments Father Maternal Grandfather Maternal Grandmother Mother Alive Paternal Grandfather Paternal Grandmother Sister 1 Alive Sister 2 Alive Sister 3 Alive Social History Tobacco Use Types Packs/Day Years Used Date Smoking Tobacco: Never Smokeless Tobacco: Never Tobacco Cessation:Counseling Given: Not Answered Alcohol Use Standard Drinks/Week Comments Never 0 (1 standard drink = 0.6 oz pur e alcohol) [facility] Utilities Answer Date Recorded In the past 12 months has e [employer], gas, oil, or water [employer] threatened to shut off services in your home? No 08/29/2024 Humiliation, Afraid, Rape, and Kick questionnair e Answer Date Recorded Within the last year, have y ou been afraid of your partner or ex-partner? No 08/29/2024 Within the last year, have y ou been humiliated or emotionally abused in other ways by your partner or ex-partner? No Within the last year, have y ou been kicked, hit, slapped, or otherwise physically hurt by your partner or ex-partner? No 08/29/2024 Within the last year, have y ou been raped or forced to have any kind of sexual activity by your partner or ex-partner? No 08/29/2024 Overall Financial Resource Strain (CARDIA) Answe r Date Recorded How hard is it for you to pa y for the very basics like food, housing, medical care, and heating? Not very hard 08/29/2024 Hunger Vital Sign Answer Date Recorded Within the past 12 months, y ou worried that your food would run out before you got the money to buy more. Never true 08/29/20 24 Within the past 12 months, t he food you bought just didn't last and you didn't have money to get more. Never true 08/29/2024 PRAPARE - Transportation Answer Date Re corded In the past 12 months, has l ack of transportation kept you from medical appointments or from getting medications? Patient unable to answer 08/29/2024 In the past 12 months, has l ack of transportation kept you from meetings, work, or from getting things needed for daily living? No 08/29/2024 Housing Stability Vital Sign Answer Finn e Recorded In the last 12 months, was t here a time when you were not able to pay the mortgage or rent on time? No 08/29/2024 In the past 12 months, how m any times have you moved where you were living? 1 08/29/2024 At any time in the past 12 m [facility], were you homeless or living in a long-term (including now)? No 08/29/2024 Comments No Sex and Gender Information Value Date Recorded Sex Assigned at Female 02/19/2020 11:43 PM CDT Legal Sex Female 10:08 PM GLOVE PAIRER Gender Identity Female 02/19/2020 11:43 PM CDT Sexual Orientation Not on file Occupation Industry Job Start Date Job End Date unemployed Not on file Not on file Not on file Last Filed Vital Signs Vital Sign Reading Time Taken Comments Blood Pressure 119/63 09/25/2024 10:00 PM GLOVE PAIRER Pulse 51 09/25/2024 10:00 PM GLOVE PAIRER Temperature 36.6 ??C (97.8 ??F) 09/25/2024 10:[address] Respiratory Rate 11 09/25/2024 10:00 PM GLOVE PAIRER Oxygen Saturation 94% 09/25/2024 10:00 PM GLOVE PAIRER Inhaled Oxygen Concentration - - Weight 92.3 kg (203 lb 6 oz) 09/25/2024 5:53 PM GLOVE PAIRER Height 165.1 cm (5' 5 ) 09/25/2024 5:53 PM GLOVE PAIRER Body Mass Index 33.84 09/25/2024 5:53 PM GLOVE PAIRER Plan of Treatment Health Maintenance Due Date Last Done Comments Colorectal Cancer Screening Colonoscopy (10 Years) 1964 Annual Physical 1967 Hepatitis C 1982 DTaP, Tdap and Td Vaccines ( 1 - Tdap) 1983 Mammogram Screening 2004 Zoster Vaccines (1 of 2) 2014 COVID-19 Vaccine (3 - 2023-2 5 season) 2024 03/21/2021, 02/12/2021 RSV Immunization or 60+ Years (1 - 1-dose 75+ series) 2039 Pneumococcal Vaccine: Pediatrics (0 to 5 Years) and At-Risk Patients (6 to 64 Years) Aged Out 02/26/2024 No longer eligible b ased on patient's age to complete this topic Influenza Adult Completed 08/30/2024, 11/08/2020 Meningococcal Vaccine Aged Out No ecdrick ernesto eligible based on patient's age to complete this topic RSV Immunizations Under 20 Months Aged Out No longer eligible b ased on patient's age to complete this topic Procedures Procedure Name Priority Date/Time Associated Diagnosis Comments TROPONIN, QUANT STAT 09/25/2024 8:11 PM GLOVE PAIRER XR CHEST PA+LAT STAT 09/25/2024 6:42 PM GLOVE PAIRER TROPONIN, QUANT STAT 09/25/2024 6:25 PM GLOVE PAIRER COMPREHENSIVE METABOLIC PANEL STAT 09/25/2024 6:25 PM GLOVE PAIRER CBC W/DIFF AUTOMATED STAT 09/25/2024 6:25 PM GLOVE PAIRER ECG 12-LEAD Routine 09/25/2024 5:49 PM GLOVE PAIRER from Last 3 Months Results * TROPONIN, QUANT (09/25/2024 8:11 PM GLOVE PAIRER) Only the most recent of2 resultswithin the time period is included. TROPONIN I HIGH SENSITIVITY <4 0 - 51 ng/L 09/25/2024 8:35 PM GLOVE PAIRER [facility] 09/25/2024 8:11 PM GLOVE PAIRER us Hitesh Horton DO LABORATORY Final Result [facility] [address] [place] [address], * XR CHEST PA+LAT (09/25/2024 6:42 PM GLOVE PAIRER) Anatomical Region Laterality Modality Chest Radiographic Ela ging 09/25/2024 6:43 PM GLOVE PAIRER Impressions 09/25/2024 6:44 PM GLOVE PAIRER IMPRESSION: Prominence of the pulmonary vascular pattern which may be seen with pulmonary vascular congestion in the appropriate clinical setting. Ordered By: HITESH HORTON Interpreted By: Azael Hurst MD, 09/25/2024 6:43 PM Narrative 09/25/2024 6:44 PM GLOVE PAIRER [address] [place] [address] Examination: XR CHEST PA+LAT, 09/25/2024 6:42 PM. Technique: Upright PA and lateral radiographs of the chest Clinical history: Chest pain Comparison: Chest radiograph 08/25/2024 Findings: There are multiple leads overlying the chest. Mild cardiomegaly. Prominence the pulmonary vascular pattern. No focal pulmonary consolidation. Linear opacity at the left lung base that may be seen with atelectasis. No pleural effusion. No pneumothorax. The thoracic vertebral body heights are preserved. Cholecystectomy. Procedure Note Azael Hurst MD - 09/25/[address] [place] [address] Examination: XR CHEST PA+LAT, 09/25/2024 6:42 PM. Technique: Upright PA and lateral radiographs of the chest Clinical history: Chest pain Comparison: Chest radiograph 08/25/2024 Findings: There are multiple leads overlying the chest. Mild cardiomegaly.Prominence the pulmonary vascular pattern. No focal pulmonaryconsolidation. Linear opacity at the left lung base that may be seen withatelectasis. No pleural effusion. No pneumothorax. The thoracic vertebralbody heights are preserved. Cholecystectomy. IMPRESSION: Prominence of the pulmonary vascular pattern which may be seen withpulmonary vascular congestion in the appropriate clinical setting. Ordered By: HITESH HORTON Interpreted By: Azael Hurst MD, 09/25/2024 6:43 PM us Hitesh Horton DO GENERAL IMAGING Final Result * (ABNORMAL) COMPREHENSIVE METABOLIC PANEL (09/25/2024 6:25 PM GLOVE PAIRER) SODIUM S/P/B 143 136 - 145 MMOL/L 09/25/2024 6:50 PM GLOVE PAIRER [facility] POTASSIUM S/P/B 4.0 3.5 - 5.1 MMOL/L 09/25/2024 6:50 PM GLOVE PAIRER [facility] CHLORIDE S/P/B 107 98 - 107 MMOL/L 09/25/2024 6:50 PM [facility] CO2 27.7 21.0 - 32.0 MMOL/L 09/25/2024 6:50 PM [facility] GLUCOSE 131(H) 70 - 99 MG/DL 09/25/2024 6:50 PM [facility] Comment: FASTING GLUCOSE 100 TO 125 MG/DL IS CONSISTENT WITH IMPAIRED FASTING GLUCOSE. FASTING GLUCOSE >125 MG/DL IS CONSISTENT WITH DIABETES. RANDOM GLUCOSE >200 MG/DL WITH HYPERGLYCEMIC SYMPTOMS IS CONSISTENT WITH DIABETES. PER ADA GUIDELINES BUN 15 6 - 24 MG/DL 09/25/2024 6:50 PM GLOVE PAIRER [facility] CREATININE S/P/B 1.03(H) 0.55 - 1.02 MG/DL 09/25/2024 6:50 PM GLOVE PAIRER [facility] CALCIUM S/P/B 8.6 8.4 - 10.5 MG/DL 09/25/2024 6:50 PM GLOVE PAIRER [facility] BILIRUBIN TOTAL S/P/B 1.2(H) 0.2 - 1.0 MG/DL 09/25/2024 6:50 PM [facility] Comment: THIS ASSAY IS NOT RECOMMENDED FOR PATIENTS UNDERGOING TREATMENT WITH ELTROMBOPAG DUE TO THE POTENTIAL FOR FALSELY ELEVATED RESULTS. ALKALINE PHOSPHATASE S/P/B 131(H) 46 - 118 U/L 09/25/2024 6:50 PM GLOVE PAIRER [facility] AST 20 15 - 37 U/L 09/25/2024 6:50 PM GLOVE PAIRER [facility] ALT 26 14 - 59 U/L 09/25/2024 6:50 PM [facility] TOTAL PROTEIN S/P/B 7.0 6.4 - 8.2 G/DL 09/25/2024 6:50 PM [facility] ALBUMIN S/P/B 3.3(L) 3.4 - 5.0 G/DL 09/25/2024 6:50 PM [facility] ANION GAP 8.3 5.0 - 15.0 MMOL/L 09/25/2024 6:50 PM [facility] OSMOLALITY (CALC) 299 MOSM/KG 024 6:50 PM [facility] Comment:REFERENCE RANGE NOT ESTABLISHED GFR ESTIMATE 62(L) >89 ML/MIN/1. 73 M2 09/25/2024 6:50 PM [facility] GFR NOTES GFR REFERENCE S: 09/25/2024 6:50 PM [facility] Comment: THE ESTIMATED GFR IS CALCULATED USING THE 2020 CKD-EPI EQUATION. THE FOLLOWING CATEGORIES FOR GRADING RENAL FUNCTION ARE RECOMMENDED BY THE INTERNATIONAL SOCIETY OF NEPHROLOGY (KDIGO 2012 CLINICAL PRACTICE GUIDELINE). G1,NORMAL OR HIGH: >89 ml/min/1.73 m2 G2,MILDLY DECREASED: 60-89 ml/min/1.73 m2 G3A,MILDLY TO MODERATELY DECREASED: 45-59 ml/min/1.73 m2 G3B,MODERATELY TO SEVERELY DECREASED: 30-44 ml/min/1.73 m2 G4,SEVERELY DECREASED: 15-29 ml/min/1.73 m2 G5,KIDNEY FAILURE: <15 ml/min/1.73 m2 09/25/2024 6:25 PM GLOVE PAIRER Hitesh Marshall Sol [facility] LABORATORY Final Result [facility] [address] [place] [address], * (ABNORMAL) CBC W/DIFF AUTOMATED (09/25/2024 6:25 PM GLOVE PAIRER) WBC 6.47 4.00 - 10.80 x10'3/uL 09/25/2024 6:34 PM GLOVE PAIRER [facility] RBC 4.12 4.10 - 5.40 x10'6/uL 09/25/2024 6:34 PM GLOVE PAIRER [facility] HGB 11.6(L) 12.0 - 16.0 G/DL 09/25/2024 6:34 PM GLOVE PAIRER [facility] HCT 37.6 36.0 - 47.0 % 09/25/2024 6:34 PM GLOVE PAIRER [facility] MCV 91.3 78.0 - 100.0 FL 09/25/2024 6:34 PM GLOVE PAIRER [facility] MCH 28.2 27.0 - 31.0 PG 09/25/2024 6:34 PM GLOVE PAIRER [facility] MCHC 30.9(L) 33.0 - 36.0 G/DL 09/25/2024 6:34 PM GLOVE PAIRER [facility] RDW 13.8 11.5 - 14.5 % 09/25/2024 6:34 PM GLOVE PAIRER [facility] PLT 185 150 - 350 x10'3/uL 09/25/2024 6:34 PM GLOVE PAIRER [facility] MPV 10.6(H) 7.4 - 10.4 FL 09/25/2024 6:34 PM GLOVE PAIRER [facility] CBC COMMENT NORMAL REFERENCE RANGE NOT ESTABLISHED FOR THE PROPORTIONAL LEUKOCYTE DIFFERENTIAL. 09/25/2024 6:34 PM GLOVE PAIRER [facility] NEUTROPHILS % 61.9 % 09/25/2024 6:34 PM GLOVE PAIRER [facility] LYMPHOCYTES % 28.1 % 09/25/2024 6:34 PM GLOVE PAIRER [facility] MONOCYTES % 6.3 % 09/25/2024 6:34 PM GLOVE PAIRER [facility] EOSINOPHILS % 2.9 % 09/25/2024 6:34 PM GLOVE PAIRER [facility] BASOPHILS % 0.5 % 09/25/2024 6:34 PM GLOVE PAIRER [facility] IMMATURE GRANS % 0.3 % 09/25/20 6:34 PM GLOVE PAIRER [facility] NRBC % 0.0 % 09/25/2024 6:34 PM GLOVE PAIRER [facility] ABS. NEUTROPHILS 4.00 1.60 - 8.30 x10'3/uL 09/25/2024 6:34 PM GLOVE PAIRER [facility] ABS. LYMPHOCYTES 1.82 0.80 - 4.70 x10'3/uL 09/25/2024 6:34 PM GLOVE PAIRER [facility] ABS. MONOCYTES 0.41 0.00 - 1.50 x10'3/uL 09/25/2024 6:34 PM GLOVE PAIRER [facility] ABS. EOSINOPHILS 0.19 0.00 - 0.40 x10'3/uL 09/25/2024 6:34 PM GLOVE PAIRER [facility] ABS. BASOPHILS 0.03 0.00 - 0.20 x10'3/uL 09/25/2024 6:34 PM GLOVE PAIRER [facility] ABS. IMMATURE GRANULOCYTES 0.02 0.00 - 0.03 x10'3/uL 09/25/2024 6:34 PM GLOVE PAIRER [facility] ABS. NUCLEATED RBC'S 0.00 0.00 - 0.01 x10'3/uL 09/25/2024 6:34 PM GLOVE PAIRER [facility] 09/25/2024 6:25 PM GLOVE PAIRER us Hitesh Horton DO LABORATORY Final Result [facility] [address] [place] [address], * ECG 12 lead (09/25/2024 5:49 PM GLOVE PAIRER) 09/25/2024 5:49 PM GLOVE PAIRER Narrative [facility] [place] [facility] - 09/25/2024 5:59 PM GLOVE PAIRER ? [facility] ?[address] [place], [place] ??[address] ? Test Date: ?2024-09-25 Pat Name: ? MARISELA CHRIS ?Department: ?? 3 ? Room: ? Gender: ? Female ? Contact Center Consultant: ?? : ?1965 ? Requested By: HITESH HORTON Order Number: [id number] ? Reading MD: ?? Keenan Cali ? Measurements Intervals ?Williamson ? Rate: ? 50 ? P: ?58 LA: ? 177 ?QRS: ?40 QRSD: ? 88 ? T: ?-25 QT: ? 443 ? QTc: ?407 ? Interpretive Statements SINUS BRADYCARDIA NONSPECIFIC T-WAVE ABNORMALITY E PAIRER Procedure Note Keenan Cali MD - 09/25/[address] [place] [address] Test Date: 2024-09-25 Pat Name: MARISELA CHRIS Department: 3 Room: Gender: Female Contact Center Consultant: : 1965 Requested By: HITESH HORTON Order Number: [id number] Chris MD: Keenan Cali Measurements Intervals Williamson Rate: 50 P: 58 LA: 177 QRS: 40 QRSD: 88 T: -25 QT: 443 QTc: 407 Interpretive Statements SINUS BRADYCARDIA NONSPECIFIC T-WAVE ABNORMALITY E PAIRER us Hitesh Horton DO ECG ORDERABLES Final Result [facility] from Last 3 Months Insurance MEDICARE MEDICARE Advance Directives * Full Code (Latest Code Status on File) Date Activated Date Inactivated Comments 08/29/2024 1:21 PM 08/30/2024 3:52 PM Care Teams Fire Supervisor Relationship Specialty Start Date End Date Ramon Aviles DO [address] [place] [address] PCP - General FAMILY PRACTICE 09/25/24 Ramon Aviles DO [address] [place] [address] FAMILY PRACTICE 08/29/24 Amandeep Akhtar MD [address] [place] [address] CARDIOVASCULAR DISEASE 05/18/17
--- OUTSIDE RECORDS SUMMARY | 2024-12-03 16:33 | XMS_ITS | Clinical Summary ---
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 Gender Identity Not on file Sexual Orientation Not on file Obstetrics History Last Filed Vital Signs Vital Sign Reading [...] 08/21/2024 1:36 PM CDT Plan of Treatment Health Maintenance Due Date Last Done Comments Breast Cancer Screening-Mammogram 1965 Cervical Cancer Screening 1964 Colon Cancer Screening-Colonoscopy 1964 Depression Screening 1964 Hepatitis C Screening 1964 DTaP/Tdap/Td Vaccine (1 - Tdap) 1975 Hepatitis B Screening 1982 Regular Well Visit/Exam 18-64 1982 Zoster Vaccine (1 of 2) 2014 Influenza Vaccine (#1) 2024 11/08/2020 Pneumococcal vaccine <65 Aged Out 02/26/2024 No longer eligible based on patient's age to complete this topic Insurance MEDICARE [facility] Care Teams Tube Molder Fiberglass Relationship Specialty Start Date End Date Ramon Aviles DO [address] [place] [address] PCP - General Family Medicine 07/17/24
--- OUTSIDE RECORDS SUMMARY | 2024-12-03 16:33 | XMS_ITS ---
Author Organization [facility] Address [address] [place], [place] [id number] Care Team Providers Care Deputy Sheriff Lieutenant Name Role Phone LeeDelmis carrollsh Unavailable Unavailable DEIDRE ANDRES Unavailable [phone] Allergies Allergen (clinical drug ingredient) Drug/Non Drug Allergy documented on EMR Reaction Allergy Type Onset Date Status famotidine / ibuprofen Ibuprofen-Famotidine Unknown Drug A llergy Active Substance with sulfonamide structure and antibacterial mechanism of action (substance) Sulfa Antibiotics Unknown Drug Allergy Active REASON FOR VISIT Wants nails removed Encounters Encounter Location Date Provider Diagnosis [facility] [address] [place], [place] [id number] 01/21/2024 ANDRES JIANG Other hammer toe(s) (acquired), right foot M20.41 ; Tinea unguium B35.1 ; Other hammer toe(s) (acquired), left foot M20.42 ; Pain in right toe(s) M79.674 ; Pain in left toe(s) M79.675 ; Unspecified atherosclerosis of pamunkey arteries of extremities, bilateral legs I70.203 and Acquired keratosis [keratoderma] palmaris et plantaris L85.1 Assessments Encounter Date Diagnosis (ICD Code) Assessment Notes Treatment Notes Treatment Clinical Notes Section Notes 01/21/2024 Other hammer toe(s) (acquired), right foot (ICD-10 - M20.41) The patient was educated regarding how to mechanically stabilize their deformity. The patient was given education about shoe recommendations specific for the condition. The patient was educated about custom orthotics and how appropriate shoes and orthotics can prevent further worsening of the deformity. The patient was educated about how bad shoe habits can worsen the condition. NSAIDS, P.T., injections and other conservative treatments were discussed. Both surgical and non surgical treatments were discussed, but conservative options were emphasized. 01/21/2024 Tinea unguium (ICD-10 - B35.1) Aseptic debridement of elongated thickened nails x 10 using sterile nippers, nails were debrided in length and thickness by 30% utilizing a nail nipper without incident. The patient was educated regarding all treatment options that include topical and oral antifungal treatments. I discussed the options of taking a sample of the nail to confirm diagnosis. Nail clippings were not sent for pathology analysis. The patient was educated why and how the fungal infection evolved in their feet and the patient was given information regarding how to prevent further infection. The patient was told to keep feet dry and change socks. The patient was told to be careful with old shoes and excessive sweating. The patient was educated regarding both OTC and prescription treatments. 01/21/2024 Other hammer toe(s) (acquired), left foot (ICD-10 - M20.42) 01/21/2024 Pain in right toe(s) (ICD-10 - M79.674) 01/21/2024 Pain in left toe(s) (ICD-10 - M79.675) 01/21/2024 Unspecified atherosclerosis of pamunkey arteries of extremities, bilateral legs (ICD-10 - I70.203) Patient educated on risks and aggravating factors of PVD, including conservative treatment options such as a diet and exercise regimen to aid in slowing progression of vascular disease 01/21/2024 Acquired keratosis [keratoderma] palmaris et plantaris (ICD-10 - L85.1) Pre-ulcerative keratoderma debrided sharply down to the level of healthy tissue using a 15 blade. After removal of overlying extensive hyperkeratosis, healthy tissue was noted and care was taken to assure that no undermining or probing was present. It should be noted that no probing was noted and no infection or drainage was noted. Plan Of Treatment Treatment Notes Assessment Notes Other hammer toe(s) (acquired), right fo ot The patient was educated regarding how to mechanically stabilize their deformity. The patient was given education about shoe recommendations specific for the condition. The patient was educated about custom orthotics and how appropriate shoes and orthotics can prevent further worsening of the deformity. The patient was educated about how bad shoe habits can worsen the condition. NSAIDS, P.T., injections and other conservative treatments were discussed. Both surgical and non surgical treatments were discussed, but conservative options were emphasized. Tinea unguium Aseptic debridement of elongated thickened nails x 10 using sterile nippers, nails were debrided in length and thickness by 30% utilizing a nail nipper without incident. The patient was educated regarding all treatment options that include topical and oral antifungal treatments. I discussed the options of taking a sample of the nail to confirm diagnosis. Nail clippings were not sent for pathology analysis. The patient was educated why and how the fungal infection evolved in their feet and the patient was given information regarding how to prevent further infection. The patient was told to keep feet dry and change socks. The patient was told to be careful with old shoes and excessive sweating. The patient was educated regarding both OTC and prescription treatments. Unspecified atherosclerosis of pamunkey arteries of extremities, bilateral legs Patient educated on risks and aggravating factors of PVD, including conservative treatment options such as a diet and exercise regimen to aid in slowing progression of vascular disease Acquired keratosis [keratode rma] palmaris et plantaris Pre-ulcerative keratoderma debrided sharply down to the level of healthy tissue using a 15 blade. After removal of overlying extensive hyperkeratosis, healthy tissue was noted and care was taken to assure that no undermining or probing was present. It should be noted that no probing was noted and no infection or drainage was noted. Next Appt Details Follow Up: 3 Months, Reason: Progress Notes * NISHANT NOGUEIRAOB:1965 ([age] yo F)Acc No.[id number]:01/21/2024 Progress Notes Patient:?JORDYN NOGUEIRA Provider:CHARLIE JIANG :1965???Age:58 Y???Sex:Female D ate:01/21/2024 Address:[address] [place] [address] Subjective: * Chief Complaints: * ???1. Wants nails removed. * HPI: ???HPI:?New Complaint? Patient presents to clinic with chief complaint of painful elongated thickened toenails as well painful calluses. Patient denies any constitutional symptoms at this time. Denies any recent trauma to the foot or ankle. Patient states their toenails have been especially painful in certain shoe gear and they would like to have them trimmed down as they are unable to care for them on their own. Patient states they also have noticed calluses building up on the bottom of their feet that recently have been starting to give them pain. States they would like to have the callus lesions trimmed down as they are unable to care for them on their own. Denies any other pedal complaints at this time.??.? * ROS:?General / Constitutional:?Patient denies?weakness.?Respiratory:?Patient denies?chronic cough, shortness of breath, sputum production.?Cardiovascular:?Patient denies?chest pain, history of NM, irregular heartbeat.?Musculoskeletal:?Patient complains of?hammertoes.?Peripheral Vascular:?Patient denies?blanching of skin, cold extremities, decreased sensation in extremities.?Skin:?Patient complains of?fungal nails, nail changes, calluses and corns.?Neurologic:?Patient denies?dizziness, gait abnormality, headache.? * Medical History:? * Allergies:?Sulfa Antibiotics , Ibuprofen-Famotidine. Objective: * Examination: ???Physical Examination: ???Vascular: Dorsalis Pedis pulse noted at 1/4 right foot and 1/4 left foot and Posterior Tibial pulse noted at 1/4 right foot and 1/4 left foot, Capillary refill times noted to be less than three seconds x ten, Temperature gradient noted to be warm to cool to bilateral foot, pedal hair present to bilateral foot and no varicosities are noted ?Dermatologic: there are no open lesions, no signs of active clinical infection, no erythema noted, no ecchymoses, nails are elongated thickened and dystrophic with subungual debris x ten, hyperkeratotic lesion noted sub first metatarsal head bilateral foot ?Musculoskeletal: there is pain to palpation onto nail plate x ten, no calf pain noted bilaterally, arch height noted at 2/5 non-weight bearing bilaterally, first metatarsophalangeal joint range of motion 30 deg non-weight bearing bilaterally, pain to palpation hyperkeratotic lesion sub first metatarsal head bilateral foot, flexible fifth digit hammer toe deformity is noted to bilateral foot reducible with kelikian push up test ?Neurology: protective sensation intact to light touch bilateral digits one through five, vibratory sensation intact to first metatarsophalangeal joint bilaterally. Assessment: * Assessment: 1.?Tinea unguium - B35.1 (Pr imary)?2.?Other hammer toe(s) (acquired), right foot - M20.41?3.?Other hammer toe(s) (acquired), left foot - M20.42?4.?Pain in right toe(s) - M79.674?5.?Pain in left toe(s) - M79.675?6.?Unspecified atherosclerosis of pamunkey arteries of extremities, bilateral legs - I70.203?7.?Acquired keratosis [keratoderma] palmaris et plantaris - L85.1? Plan: * Treatment: 2.?Other hammer toe(s) (acqu ired), right foot? Notes: The patient was educated regarding how to mechanically stabilize their deformity. The patient was given education about shoe recommendations specific for the condition. The patient was educated about custom orthotics and how appropriate shoes and orthotics can prevent further worsening of the deformity. The patient was educated about how bad shoe habits can worsen the condition. NSAIDS, P.T., injections and other conservative treatments were discussed. Both surgical and non surgical treatments were discussed, but conservative options were emphasized. ?? 3.?Unspecified atheroscleros is of pamunkey arteries of extremities, bilateral legs? Notes: Patient educated on risks and aggravating factors of PVD, including conservative treatment options such as a diet and exercise regimen to aid in slowing progression of vascular disease ?? 4.?Acquired keratosis [kerat oderma] palmaris et plantaris? Notes: Pre-ulcerative keratoderma debrided sharply down to the level of healthy tissue using a 15 blade. After removal of overlying extensive hyperkeratosis, healthy tissue was noted and care was taken to assure that no undermining or probing was present. It should be noted that no probing was noted and no infection or drainage was noted. ?? * Procedure Codes:?16084 TRIM SKIN LESIONS, 2 TO 4, Modifiers: Q8 , 55407 DEBRIDE NAIL, 6 OR MORE, Modifiers: 59 , Q8 * Follow Up:?3 Months * Billing Information: * Visit Code:? 42796 Office Visit, New Pt., Level 3. Modifiers: 25 * Procedure Codes:? 29401 TRIM SKIN LESIONS, 2 TO 4. Modifiers: Q8 98742 DEBRIDE NAIL, 6 OR MORE. Modifiers: 59, Q8 * Sign off status: Completed true * Provider:CHARLIE JIANG Date:?01/21/2024 Generated for Michael castillo/Na/Porfirio on:?12/03/2024 04:33 PM PHD INTERNSHIP
--- OUTSIDE RECORDS SUMMARY | 2024-12-03 16:34 | XMS_ITS | Encounter Summary ---
Author Organization [facility] Address [address] [place] [address]. [place] [address] [place] [address] Care Team Providers Care Waste Management Engineer Name Role Phone Rosario Valentin MD Primary Care Provider [phone] Rosario Valentin MD Primary Care Provider [phone] None, Provider Primary Care Provider Onelia Coffey MD Primary Care Provider [phone] Evens Meehan MD Primary Care Provider [phone] Ramon Aviles DO Primary Care Provider [phone] None, Provider Primary Care Provider Ramon Wilhelm DO Unavailable [phone] Amandeep Akhtar MD Unavailable Ramon Aviles DO Primary Care Provider [phone] Encounter Details Date Type Department Care Team (Late st Contact Info) Description 04/16/2019 Abstract SFL CONVERSION [address] [place] [address] , Generic Conversion, Social History Tobacco Use Types Packs/Day Years Used Date Smoking Tobacco: Never Smokeless Tobacco: Never Alcohol Use Standard Drinks/Week Comments No 0 (1 standard drink = 0.6 oz pur e alcohol) Comments Unknown Sex and Gender Information Value Date Recorded Sex Assigned at Female 02/19/2020 11:43 PM CDT Legal Sex Female 10:08 PM COMPUTER NETWORK SPECIALIST Gender Identity Female 02/19/2020 11:43 PM CDT Sexual Orientation Not on file Occupation Industry Job Start Date Job End Date unemployed Not on file Not on file Not on file documented as of this encounter Plan of Treatment Not on file documented as of this encounter Visit Diagnoses Not on filedocumented in this encounter Additional Health Concerns Infection Onset Date Last Indicated Resolved Time 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 11/23/2018 05/30/2019 4:32 PM CDT COVID-19 Rule Out 09/21/2021 09/21/2021 09/21/2021 12:32 PM COMPUTER NETWORK SPECIALIST COVID-19 Rule Out 08/25/2024 08/25/2024 08/25/2024 10:09 AM CDT documented as of this encounter Care Teams Waste Management Engineer Relationship Specialty Start Date End Date Rosario Valentin MD [address] [place] [phone] PCP - General FAMILY PRACTICE 10/05/17 02/19/20 Rosario Valentin MD [address] [place] [phone] PCP - General FAMILY PRACTICE 02/20/20 05/28/21 Jenaro Forbes MD PCP - General 06/14/21 10/15/21 [place] [address] [place] [address] PCP - General INTERNAL MEDICINE 10/16/21 12/29/22 Evens Meehan MD [address] [place] [phone] PCP - General FAMILY PRACTICE 12/30/22 01/18/24 Ramon Aviles DO [address] [place] [address] PCP - General FAMILY PRACTICE 01/19/24 08/28/24 None, Jenaro, PCP - General UNKNOWN PHYSICIAN SPECIALTY 08/29/24 1 11/24/23 Ramon Aviles DO [address] [place] [address] PCP - General FAMILY PRACTICE 09/25/24 Ramon Aviles DO [address] [place] [address] FAMILY PRACTICE 08/29/24 Amandeep Akhtar MD [address] [place] [address] CARDIOVASCULAR DISEASE 05/18/17 documented as of this encounter
--- OUTSIDE RECORDS SUMMARY | 2024-12-03 16:34 | XMS_ITS ---
Author Organization [facility] Address [address] [place], [place] [id number] Care Team Providers Care Waste Water Operator Name Role Phone Ramon Aviles Unavailable Unavailable ANDRES JIANG Unavailable [phone] REASON FOR VISIT *General care Encounters Encounter Location Date Provider Diagnosis [address] [id number] 03/24/2024 ANDRES JIANG Plan Of Treatment No Information Progress Notes * NISHANT NOGUEIRAOB:1965 ([age] yo F)Acc No.[id number]:03/24/2024 Patient:?JORDYN NOGUEIRA Provider:CHARLIE JIANG :1965???Age:58 Y???Sex:Female D ate:03/24/2024 Address:[address] [place], [place] [phone] Subjective: * Chief Complaints: * ???1. *General care. * Medical History:? Objective: * Vitals:? Assessment: Plan: * Treatment: * Billing Information: * Visit Code:? * Procedure Codes:? * Electronic signature of ANIRUDH JIANG DPM on 12/03/2024 at 04:33 PM PROVISIONING SPECIALIST Sign off status: Pending * Provider:CHARLIE JIANG Date:?03/24/2024 Generated for Michael castillo/Na/Porfirio on:?12/03/2024 04:33 PM PROVISIONING SPECIALIST
--- OUTSIDE RECORDS SUMMARY | 2024-12-03 16:34 | XMS_ITS | Patient Health Record ---
Author Organization [facility] Address [address] [place], [place] [id number] Care Team Providers Care All Around Gear Machine Operator Name Role Phone Ramon Aviles Unavailable Unavailable ANDRES JIANG Unavailable [phone] Allergies Allergen (clinical drug ingredient) Drug/Non Drug Allergy documented on EMR Reaction Allergy Type Onset Date Status famotidine / ibuprofen Ibuprofen-Famotidine Unknown Drug A llergy Active Substance with sulfonamide structure and antibacterial mechanism of action (substance) Sulfa Antibiotics Unknown Drug Allergy Active Reason For Referral No Information Encounters Encounter Location Date Provider Diagnosis [facility] [address] [place], [place] [id number] 01/21/2024 ANDRES JIANG Other hammer toe(s) (acquired), right foot M20.41 ; Tinea unguium B35.1 ; Other hammer toe(s) (acquired), left foot M20.42 ; Pain in right toe(s) M79.674 ; Pain in left toe(s) M79.675 ; Unspecified atherosclerosis of [place] mountain arteries of extremities, bilateral legs I70.203 and [...] (ICD-10 - M79.675) 01/21/2024 Unspecified atherosclerosis of [place] mountain arteries of extremities, bilateral legs (ICD-10 - [...] or drainage was noted. Plan Of Treatment No Information Insurance Providers Payer Name Payer Address Payer Phone Subscriber Number Group Number Insured Name Patient Relationship to Insured Coverage Start Date Coverage End Date Medicare Part B [place] [address] [place] [phone] [id number] JORDYN NOGUEIRA Self - patient is the insured [facility] ([facility]) ATTN CLAIMS [address] [place] [address] [id number] JORDYN NOGUEIRA Self - patient is the insured
--- NOTE | 2024-12-03 17:13 | ED.HA ---
HPI - Headache General Chief Complaint: Headache Stated Complaint: headache Source: patient and family Mode of arrival: EMS Limitations: no limitations History of Present Illness HPI Narrative: this is a 59-year-old female presents via EMS with a typical migraine-type headache, right-sided throbbing with currently no nausea vomiting no neurological deficits no fever chills no neck pain it has stiffness no chest pain no abdominal pain no flank pain no dysuria. MD elicited complaint: headache and migraine Onset (ago): hour(s) Severity: moderate Pain scale (0-10): 6 Quality & Timing: throbbing Related Data Home Medications ?Medication ?Instructions ?Recorded ?Confirmed ?Last Taken ?Type sumatriptan succinate 100 mg tablet See Rx Instructions .Route .COMPLEX 08/20/24 11/17/24 Unknown History cyclobenzaprine 5 mg tablet 5 mg PO BID PRN Muscle Pain 09/02/24 11/17/24 Unknown History Allergies Allergy/AdvReac Type Severity Reaction Status Date / Time Sulfa (Sulfonamide Allergy Unknown RASH, Verified 11/17/24 09:35 Antibiotics) NAUSEA ibuprofen AdvReac Nausea and Verified 11/17/24 09:35 Vomiting iohexol (From contrast - CT, AdvReac Nausea and Verified 11/17/24 09:35 X-RAY) Vomiting Chocolate Allergy Unknown BAD Uncoded 11/17/24 09:35 MIGRAINES Review of Systems Review of Systems: All systems reviewed & are unremarkable except as noted in HPI and below PMFSH Past Medical History Medical History DMII (diabetes mellitus, type 2) Nausea Obesity, morbid, BMI 40.0-49.9 Surgical History Surgical History H/O: hysterectomy S/P cubital tunnel release Left History of carpal tunnel release of both wrists Social History Social History Social History: caffeine-tea Smoking status: Never smoker Alcohol intake: never Substance use: never Substance use type: does not use Lack of Transportation: No Lack of Food: Never True Current Housing: I Have Housing Concerned About Future Housing: No Difficulty Paying Gas/Electric Bills: No Difficulty Paying for Meds: No Currently Unemployed: No Education: High School Diploma/GED Difficulty w/ Childcare or Family Care: No Living arrangements: with family Spiritual care concerns: No Exam Const: General: healthy appearing and no acute distress Nutritional Appearance: well nourished Orientation/consciousness: patient oriented x3 Limitations: no limitations HENMT: Head: normal to inspection Eyes: Conjunctivae: conjunctivae normal Pupils: Equal, round and reactive pupils present Neck: Neck: normal visual inspection, no lymphadenopathy and no meningeal signs Chest: Chest palpation & inspection: normal inspection of the chest Resp: Effort & Inspection: normal respiratory effort Auscultation: clear to auscultation bilaterally Cardio: Rate: regular rate Rhythm: regular rhythm GI: GI Palp: Yes Soft to palpation Auscultation: normal bowel sounds : General: Yes bladder normal to palpation Skin: General skin exam: normal color Rashes: no rashes Wounds: no wounds Neuro: General: patient oriented x3, moves all extremities, no meningeal signs and no focal motor deficits Course Course Emergency Course: IM Toradol was administered patient after reassessment had improved headache. Vital Signs Vital signs: Vital Signs Temperature 36.9 C 12/03/24 16:32 Pulse Rate 97 12/03/24 16:32 Respiratory Rate 20 12/03/24 16:32 Blood Pressure 121/82 12/03/24 16:32 Pulse Oximetry 94 12/03/24 16:32 Oxygen Delivery Room Air 12/03/24 16:32 Temperature 37.4 C 12/03/24 16:33 Pulse Rate 103 H 12/03/24 16:33 Respiratory Rate 18 12/03/24 16:33 Blood Pressure 121/82 12/03/24 16:33 Pulse Oximetry 93 12/03/24 16:33 Oxygen Delivery Room Air 12/03/24 16:33 Critical Care Time Critical Care Time Critical Care Time: No Discharge Plan Discharge Clinical Impression: Migraine Qualifiers: Migraine type: unspecified Status migrainosus presence: without status migrainosus Intractability: not intractable Qualified Code(s): G43.909 - Migraine, unspecified, not intractable, without status migrainosus Patient Disposition: Home, Self-Care Condition: Stable Instructions: Antibiotic Form, Migraine Headache (ED) Additional Instructions: advised take Tylenol extra-strength as needed and take medication as prescribed and follow-up with primary for further evaluation and treatment. Patient Language: Australian Prescriptions: New tramadol 50 mg tablet 50 mg PO Q6H PRN (Reason: pain) Qty: 14 0RF No Action sumatriptan succinate 100 mg tablet See Rx Instructions .ROUTE .COMPLEX Rx Instructions: TAKE 1 TABLET AT HEADACHE ONSET. MAY REPEAT 1 TABLET IN 2 HOURS. MAXIMUM 3 TABLETS IN 24 HOURS. ondansetron 4 mg tablet,disintegrating 4 mg PO Q6H PRN (Reason: nausea and vomiting) Qty: 14 0RF meclizine 25 mg tablet 25 mg PO TID PRN (Reason: dizziness) Qty: 30 0RF Trulicity 0.75 mg/0.5 mL pen injector 0.75 mg subcut WEEKLY Qty: 2 0RF cyclobenzaprine 5 mg tablet 5 mg PO BID PRN (Reason: Muscle Pain) aripiprazole 15 mg tablet See Rx Instructions .ROUTE .COMPLEX Qty: 30 10RF Dose Instruction: TAKE 1 TABLET(S) BY MOUTH 1 TIMES PER DAY *NEW PRESCRIPTION REQUEST* Rx Instructions: TAKE 1 TABLET(S) BY MOUTH 1 TIMES PER DAY *NEW PRESCRIPTION REQUEST* sertraline 100 mg tablet See Rx Instructions .ROUTE .COMPLEX Qty: 30 10RF Dose Instruction: TAKE 1 TABLET BY MOUTH DAILY *NEW PRESCRIPTION REQUEST* Rx Instructions: TAKE 1 TABLET BY MOUTH DAILY *NEW PRESCRIPTION REQUEST* cholecalciferol (vitamin D3) 50 mcg (2,000 unit) capsule 50 mcg PO DAILY Qty: 30 2RF pantoprazole 40 mg tablet,delayed release (DR/EC) See Rx Instructions .ROUTE .COMPLEX Qty: 30 0RF Dose Instruction: TAKE ONE TABLET BY MOUTH EVERY MORNING Rx Instructions: TAKE ONE TABLET BY MOUTH EVERY MORNING Follow-up/Referrals: Ramon Aviles DO [Primary Care Provider] - Time of Disposition: 17:17
--- OUTSIDE RECORDS SUMMARY | 2024-12-03 17:16 | XMS_ITS | Clinical Summary ---
Author Organization [facility] Address [address] [place] [address] Care Team Providers Care Manager Area Name Role Phone Ramon Aviles DO Primary [...] on file Legal Sex Female 8:56 PM ERGONOMIST Gender Identity Not on file Sexual Orientation [...] complete this topic Insurance MEDICARE [facility] Care Teams Manager Area Relationship Specialty Start Date End Date Ramon Aviles DO [address] [place] [address] PCP - General Family Medicine 07/17/24
--- OUTSIDE RECORDS SUMMARY | 2024-12-03 17:16 | XMS_ITS | Clinical Summary ---
Author Organization Unknown Care Team Providers Care Supervisor Tank Cleaning Name Role Phone DAVID MUNOZ DO Unavailable Unavailable ARMONA PHYSICAL THERAPIST, MARYCARMEN Unavailabl e Unavailable WILSON SOUND CUTTER, BRAXTON Unavail able Unavailable KATLIN REGISTERED NURSE, DAYA Unavailable Unavailable Payers Payer Name Policy Type Policy Number Effective Date Expira tion Date MEDICARE [place] - [facility] [id number] Problems Condition Name Condition Details Condition Category [...] ANTIDIABETIC DRUGS Active 11-09 00:00: 00 OTHER LONG-TERM (CURRENT) DRUG THERAPY Active 11-09 00:00: 00 [...] 15 mg tablet 2023-11 00:00: 00 Yes [id number] MEMORY 1 tablet ONCE DAILY 1 tablet ONCE DAILY (route: oral) Med Classific ation: Central Nervous System Agents baclofen 10 mg tablet 2023-11 00:00: 00 Yes [id number] MUSCLE SPASM 1 tablet TWICE DAILY 1 tablet TWICE DAILY (route: oral) Med Classific ation: Locomotor System cyclobenzap rine 5 mg tablet 2023-11 00:00: 00 Yes [id number] MUSCLE SPASMS 1 tablet TWICE DAILY 1 tablet TWICE DAILY (route: oral) Med Classific ation: Locomotor System hydrocodone 5 mg-acetamin ophen 325 mg tablet 2023-11 00:00: 00 Yes [id number] BACK PAIN 1 tablet EVERY 4 HOURS 1 tablet EVERY 4 HOURS (route: oral) Med Classific ation: Analgesic , Anti-infl ammatory or Antipyret ic meclizine 25 mg tablet 2023-11 00:00: 00 Yes [id number] DIZZINESS 1 tablet 3 TIMES DAILY 1 tablet 3 TIMES DAILY (route: oral) Med Classific ation: Gastroint estinal Therapy Agents meloxicam 15 mg tablet 2023-11 00:00: 00 Yes [id number] MUSCLE SPASMS 1 tablet DAILY 1 tablet DAILY (route: oral) Med Classific ation: Analgesic , Anti-infl ammatory or Antipyret ic naproxen 500 mg tablet 2023-11 00:00: 00 09-06 23:59 :00 No [id number] BACK PAIN 1 tablet TWICE DAILY 1 tablet TWICE DAILY (route: oral) Med Classific ation: Analgesic , Anti-infl ammatory or Antipyret ic ondansetron HCl 4 mg tablet 2023-11 00:00: 00 Yes [id number] NAUSEA 1 tablet EVERY 6 HOURS 1 tablet EVERY 6 HOURS (route: oral) Med Classific ation: Gastroint estinal Therapy Agents prednisone 1 mg tablet 2023-11 00:00: 00 09-11 23:59 :00 No [id number] BACK PAIN/ CORD COMPRESSION 0.5 tablet ONCE DAILY 0.5 tablet ONCE DAILY (route: oral) Med Classific ation: Endocrine prednisone 20 mg tablet 2023-11 00:00: 00 09-04 23:59 :00 No [id number] BACK PAIN/ CORD COMPRESSION 3 tablet ONCE DAILY 3 tablet ONCE DAILY (route: oral) Med Classific ation: Endocrine prednisone 20 mg tablet 2023-11 00:00: 00 09-06 23:59 :00 No [id number] BACK PAIN/ CORD COMPRESSION 2 tablet ONCE DAILY 2 tablet ONCE DAILY (route: oral) Med Classific ation: Endocrine prednisone 20 mg tablet 2023-11 00:00: 00 09-08 23:59 :00 No [id number] BACK PAIN/ CORD COMPRESSION 1 tablet ONCE DAILY 1 tablet ONCE DAILY (route: oral) Med Classific ation: Endocrine propranolol ER 120 mg capsule,24 hr,extended release 2023-11 00:00: 00 09-02 23:59 :00 No [id number] HYPERTENSIO N 1 capsule ONCE DAILY 1 capsule ONCE DAILY (route: oral) Med Classific ation: Cardiovas cular Therapy Agents sertraline 100 mg tablet 2023-11 0 00:00: 00 Yes [id number] ANXIETY 1 tablet ONCE DAILY 1 tablet ONCE DAILY (route: oral) Med Classific ation: Central Nervous System Agents sumatriptan 100 mg tablet 2023-11 00:00: 00 Yes [id number] HEADACHE 1 tablet TWICE DAILY 1 tablet TWICE DAILY (route: oral) Med Classific ation: Central Nervous System Agents pantoprazol e 40 mg tablet,logan yed release 2023-11 00:00: 00 Yes [id number] GERD 1 tablet ONCE DAILY 1 tablet ONCE DAILY (route: oral) Med Classific ation: Gastroint estinal Therapy Agents Trulicity 0.75 mg/0.5 mL subcutaneou s pen injector 2023-11 00:00: 00 Yes [id number] DIABETES MELLITUS 1 mL WEEKLY 1 mL [...] Planned Date Details Comments Future Scheduled Test [facility] NURSE WILL INSTRUCT PATIENT/CAREGIVER ON TYPE 2 [...] THROUGHOUT THE WEEK.] Future Scheduled Test HOME [facility] NURSE WILL INSTRUCT AND VERIFY APPROPRIATE [...] CARE PLAN: DR DANIAL MUNOZ-PCP, ANA PEREYRA NATIONAL ACCOUNT DIRECTOR-PCP, DR JOSE MULLER-PLASTIC SSURGERY AND ANYONE COVERING [...] CARE PLAN: DR DANIAL MUNOZ-PCP, ANA PEREYRA NATIONAL ACCOUNT DIRECTOR-PCP, DR JOSE MULLER-PLASTIC SSURGERY AND ANYONE COVERING IN THEIR ABSENCE.] Future Scheduled Test [facility] TIFYING PHYSICIAN, ASSOCIATED PHYSICIAN, NPP OR [...] WILL BE ESTABLISHED THAT MEETS ALL PATIENT'S RETIREMENT NEEDS AND COUNTER SIGNED BY PHYSICIAN. Progress Notes Progress Notes <paragraph>[Visit Date: 2024 by DAYA DALAL REGISTERED NURSE]:</paragraph><paragraph>PTNT BEING BEEN FOR CHRONIC PAIN PTNT SITTING ON COUCH UPON ARRIVAL. PTNTS SPOUSE PRESENT DURING VISIT. PTNT REPORTS HAVING APPT WITH BEATRIZ NATIONAL ACCOUNT DIRECTOR AND NO CHANGES WERE MADE. PTNT WILL [...] 2024-09-01 00:00:00 2024-12-29 00:00:00 Outpatient RECERTIFIC ATION ADYA DALAL [facility] [id number] 5.56
--- OUTSIDE RECORDS SUMMARY | 2024-12-03 17:16 | XMS_ITS | Referral Summary ---
Author Organization [facility] Address [address] [place] [address] Care Team Providers Care Loss Control Representative Name Role Phone Ramon Aviles DO Primary [...] on file Legal Sex Female 8:56 PM RAIL SETTER Gender Identity Not on file Sexual Orientation [...] of Treatment Not on file Insurance MEDICARE [facility] Care Teams Loss Control Representative Relationship Specialty Start Date End Date Ramon Aviles DO [address] [place] [address] PCP - General Family Medicine 07/17/24
--- OUTSIDE RECORDS SUMMARY | 2024-12-03 17:16 | XMS_ITS | Clinical Summary ---
Author Organization Unknown Care Team Providers Care Rn Integrated Name Role Phone DAVID MUNOZ DO Unavailable Unavailable DONNELLY PHYSICAL THERAPIST, MARYCARMEN Unavailabl e Unavailable WILSON CERTIFIED REGISTERED NURSE PRACTITIONER, BRAXTON Unavail able Unavailable KATLIN REGISTERED NURSE, DAYA Unavailable Unavailable Payers Payer Name Policy Type Policy Number Effective Date Expira tion Date MEDICARE [facility] - [facility] [id number] Problems Condition Name Condition Details Condition Category [...] ANTIDIABETIC DRUGS Active 11-09 00:00: 00 OTHER [facility]DC (CURRENT) DRUG THERAPY Active 11-09 00:00: 00 [...] 15 mg tablet 2023-11 00:00: 00 Yes [id number] MEMORY 1 tablet ONCE DAILY 1 tablet ONCE DAILY (route: oral) Med Classific ation: Central Nervous System Agents baclofen 10 mg tablet 2023-11 00:00: 00 Yes [id number] MUSCLE SPASM 1 tablet TWICE DAILY 1 tablet TWICE DAILY (route: oral) Med Classific ation: Locomotor System cyclobenzap rine 5 mg tablet 2023-11 00:00: 00 Yes [id number] MUSCLE SPASMS 1 tablet TWICE DAILY 1 tablet TWICE DAILY (route: oral) Med Classific ation: Locomotor System hydrocodone 5 mg-acetamin ophen 325 mg tablet 2023-11 00:00: 00 Yes [id number] BACK PAIN 1 tablet EVERY 4 HOURS 1 tablet EVERY 4 HOURS (route: oral) Med Classific ation: Analgesic , Anti-infl ammatory or Antipyret ic meclizine 25 mg tablet 2023-11 00:00: 00 Yes [id number] DIZZINESS 1 tablet 3 TIMES DAILY 1 tablet 3 TIMES DAILY (route: oral) Med Classific ation: Gastroint estinal Therapy Agents meloxicam 15 mg tablet 2023-11 00:00: 00 Yes [id number] MUSCLE SPASMS 1 tablet DAILY 1 tablet DAILY (route: oral) Med Classific ation: Analgesic , Anti-infl ammatory or Antipyret ic naproxen 500 mg tablet 2023-11 00:00: 00 09-06 23:59 :00 No [id number] BACK PAIN 1 tablet TWICE DAILY 1 tablet TWICE DAILY (route: oral) Med Classific ation: Analgesic , Anti-infl ammatory or Antipyret ic ondansetron HCl 4 mg tablet 2023-11 00:00: 00 Yes [id number] NAUSEA 1 tablet EVERY 6 HOURS 1 tablet EVERY 6 HOURS (route: oral) Med Classific ation: Gastroint estinal Therapy Agents prednisone 1 mg tablet 2023-11 00:00: 00 09-11 23:59 :00 No [id number] BACK PAIN/ CORD COMPRESSION 0.5 tablet ONCE DAILY 0.5 tablet ONCE DAILY (route: oral) Med Classific ation: Endocrine prednisone 20 mg tablet 2023-11 00:00: 00 09-04 23:59 :00 No [id number] BACK PAIN/ CORD COMPRESSION 3 tablet ONCE DAILY 3 tablet ONCE DAILY (route: oral) Med Classific ation: Endocrine prednisone 20 mg tablet 2023-11 00:00: 00 09-06 23:59 :00 No [id number] BACK PAIN/ CORD COMPRESSION 2 tablet ONCE DAILY 2 tablet ONCE DAILY (route: oral) Med Classific ation: Endocrine prednisone 20 mg tablet 2023-11 00:00: 00 09-08 23:59 :00 No [id number] BACK PAIN/ CORD COMPRESSION 1 tablet ONCE DAILY 1 tablet ONCE DAILY (route: oral) Med Classific ation: Endocrine propranolol ER 120 mg capsule,24 hr,extended release 2023-11 00:00: 00 09-02 23:59 :00 No [id number] HYPERTENSIO N 1 capsule ONCE DAILY 1 capsule ONCE DAILY (route: oral) Med Classific ation: Cardiovas cular Therapy Agents sertraline 100 mg tablet 2023-11 0 00:00: 00 Yes [id number] ANXIETY 1 tablet ONCE DAILY 1 tablet ONCE DAILY (route: oral) Med Classific ation: Central Nervous System Agents sumatriptan 100 mg tablet 2023-11 00:00: 00 Yes [id number] HEADACHE 1 tablet TWICE DAILY 1 tablet TWICE DAILY (route: oral) Med Classific ation: Central Nervous System Agents pantoprazol e 40 mg tablet,logan yed release 2023-11 00:00: 00 Yes [id number] GERD 1 tablet ONCE DAILY 1 tablet ONCE DAILY (route: oral) Med Classific ation: Gastroint estinal Therapy Agents Trulicity 0.75 mg/0.5 mL subcutaneou s pen injector 2023-11 00:00: 00 Yes [id number] DIABETES MELLITUS 1 mL WEEKLY 1 mL [...] Planned Date Details Comments Future Scheduled Test [facility] NURSE WILL INSTRUCT PATIENT/CAREGIVER ON TYPE [...] THROUGHOUT THE WEEK.] Future Scheduled Test HOME [facility] NURSE WILL INSTRUCT AND VERIFY [...] CARE PLAN: DR DANIAL MUNOZ-PCP, ANA PEREYRA PSYCHIATRIC REGISTERED NURSE-PCP, DR JOSE MULLER-PLASTIC SSURGERY AND ANYONE COVERING [...] CARE PLAN: DR DANIAL MUNOZ-PCP, ANA PEREYRA PSYCHIATRIC REGISTERED NURSE-PCP, DR JOSE MULLER-PLASTIC SSURGERY AND ANYONE COVERING IN THEIR ABSENCE.] Future Scheduled Test [facility] TIFYING PHYSICIAN, ASSOCIATED PHYSICIAN, NPP OR [...] WILL BE ESTABLISHED THAT MEETS ALL PATIENT'S LONG-TERM NEEDS AND COUNTER SIGNED BY PHYSICIAN. Progress Notes Progress Notes <paragraph>[Visit Date: 2024 by DAYA DALAL REGISTERED NURSE]:</paragraph><paragraph>PTNT BEING BEEN FOR CHRONIC PAIN PTNT SITTING ON COUCH UPON ARRIVAL. PTNTS SPOUSE PRESENT DURING VISIT. PTNT REPORTS HAVING APPT WITH BEATRIZ PSYCHIATRIC REGISTERED NURSE AND NO CHANGES WERE MADE. PTNT WILL [...] 2024-12-29 00:00:00 Outpatient RECERTIFIC ATION DAYA DALAL [facility] [id number] 5.56
--- OUTSIDE RECORDS SUMMARY | 2024-12-03 17:16 | XMS_ITS | Encounter Summary ---
Author Organization [facility] Address [address] [place] [address]. [place] [address] [place] [address] Care Team Providers Care Theatre Program Director Name Role Phone Rosario Valentin MD Primary Care Provider [phone] Rosario Valentin MD Primary Care Provider [phone] None, Provider Primary Care Provider Onelia Coffey MD Primary Care Provider [phone] Evens Meehan MD Primary Care Provider [phone] Ramon Aviles DO Primary Care Provider [phone] None, Provider Primary Care Provider Ramon Wilhelm DO Unavailable [phone] Amandeep Akhtar MD Unavailable Ramon Aviles DO Primary Care Provider [phone] Encounter Details Date Type Department Care Team (Late st Contact Info) Description 04/16/2019 Abstract SFL CONVERSION [address] [place] [address] , Generic Conversion, Social History Tobacco Use Types Packs/Day Years Used Date Smoking Tobacco: Never Smokeless Tobacco: Never Alcohol Use Standard Drinks/Week Comments No 0 (1 standard drink = 0.6 oz pur e alcohol) Comments Unknown Sex and Gender Information Value Date Recorded Sex Assigned at Female 02/19/2020 11:43 PM CDT Legal Sex Female 10:08 PM CLASSIFICATION CLERK Gender Identity Female 02/19/2020 11:43 PM CDT [...] Rule Out 09/21/2021 09/21/2021 09/21/2021 12:32 PM CLASSIFICATION CLERK COVID-19 Rule Out 08/25/2024 08/25/2024 08/25/2024 10:09 AM CDT documented as of this encounter Care Teams Theatre Program Director Relationship Specialty Start Date End Date Rosario Valentin MD [address] [place] [phone] PCP - General FAMILY PRACTICE 10/05/17 02/19/20 Rosario Valentin MD [address] [place] [phone] PCP - General FAMILY PRACTICE 02/20/20 05/28/21 Jenaro Forbes MD PCP - General 06/14/21 10/15/21 [place] [address] [place] [address] PCP - General INTERNAL MEDICINE 10/16/21 12/29/22 Evens Meehan MD [address] [place] [id number] PCP - General FAMILY PRACTICE 12/30/22 01/18/24 Ramon Aviles DO [address] [place] [address] PCP - General FAMILY PRACTICE 01/19/24 08/28/24 None, Jenaro, PCP - General UNKNOWN PHYSICIAN SPECIALTY 08/29/24 1 11/24/23 Ramon Aviles DO [address] [place] [address] PCP - General FAMILY PRACTICE 09/25/24 Ramon Aviles DO [address] [place] [address] FAMILY PRACTICE 08/29/24 Amandeep Akhtar MD [address] [place] [address] CARDIOVASCULAR DISEASE 05/18/17 documented as of this encounter
--- OUTSIDE RECORDS SUMMARY | 2024-12-03 17:16 | XMS_ITS | Clinical Summary ---
Author Organization [facility] Address [facility] [place] [address] [place] [address] Care Team Providers Care Towel Inspector Name Role Phone Ramon Aviles DO Unavailable [phone] Amandeep Akhtar MD Unavailable Ramon Aviles DO Primary Care Provider Allergies [...] Problem Noted Date Diagnosed Date Cord compression ([facility]) 08/29/2024 Trochanteric bursitis of right hip 09/03/2021 [...] Department Care Team Description 09/25/2024 5:[address] SCIENTIST - 09/25/2024 10:[address] SCIENTIST Emergency [facility] [address] [place] [address] Hitesh Horton, DO Chest Pain Discharge Disposition: Home or Self Care (Routine Discharge) 09/25/2024 Travel from Last 3 Months Immunizations Name Administration Dates Next Due Fluzone (IIV3, Trivalent, 0.5 ML Prefilled Syrin ge) 08/30/2024 Family History Medical History Relation Comments Diabetes Father Heart Attack Father NC Father Stroke Father Cancer Maternal Grandfather No [...] drink = 0.6 oz pur e alcohol) [facility] Utilities Answer Date Recorded In the past 12 months has e [employer], gas, oil, or water [employer] threatened to shut off services in your [...] any time in the past [address] [facility] [place], were you homeless or living in a fdc (including now)? No 08/29/2024 Comments No Sex and Gender Information Value Date Recorded Sex Assigned at Female 02/19/2020 11:43 PM CDT Legal Sex Female 10:[address] SCIENTIST Gender Identity Female 02/19/2020 11:43 PM CDT Sexual Orientation Not on file Occupation Industry Job Start Date Job End Date unemployed Not on file Not on file Not on file Last Filed Vital Signs Vital Sign Reading Time Taken Comments Blood Pressure 119/63 09/25/2024 10:[address] SCIENTIST Pulse 51 09/25/2024 10:[address] SCIENTIST Temperature 36.6 ??C (97.8 ??F) 09/25/2024 10:[address] Respiratory Rate 11 09/25/2024 10:[address] SCIENTIST Oxygen Saturation 94% 09/25/2024 10:[address] SCIENTIST Inhaled Oxygen Concentration - - Weight 92.3 kg (203 lb 6 oz) 09/25/2024 5:[address] SCIENTIST Height 165.1 cm (5' 5 ) 09/25/2024 5:[address] SCIENTIST Body Mass Index 33.84 09/25/2024 5:[address] SCIENTIST Plan of Treatment Health Maintenance Due Date [...] 08/30/2024, 11/08/2020 Meningococcal Vaccine Aged Out No cedrick ernesto eligible based on patient's age to complete this topic RSV Immunizations Under 20 Months Aged Out No longer eligible b ased on patient's age to complete this topic Procedures Procedure Name Priority Date/Time Associated Diagnosis Comments TROPONIN, QUANT STAT 09/25/2024 8:[address] SCIENTIST XR CHEST PA+LAT STAT 09/25/2024 6:[address] SCIENTIST TROPONIN, QUANT STAT 09/25/2024 6:[address] SCIENTIST COMPREHENSIVE METABOLIC PANEL STAT 09/25/2024 6:[address] SCIENTIST CBC W/DIFF AUTOMATED STAT 09/25/2024 6:[address] SCIENTIST ECG 12-LEAD Routine 09/25/2024 5:[address] SCIENTIST from Last 3 Months Results * TROPONIN, QUANT (09/25/2024 8:[address] SCIENTIST) Only the most recent of2 resultswithin the time period is included. TROPONIN I HIGH SENSITIVITY <4 0 - 51 ng/L 09/25/2024 8:[address] SCIENTIST [facility] 09/25/2024 8:[address] SCIENTIST us Hitesh Horton DO LABORATORY Final Result [facility] [address] [place] [address], * XR CHEST PA+LAT (09/25/2024 6:[address] SCIENTIST) Anatomical Region Laterality Modality Chest Radiographic Ela ging 09/25/2024 6:[address] SCIENTIST Impressions 09/25/2024 6:[address] SCIENTIST IMPRESSION: Prominence of the pulmonary vascular pattern which may be seen with pulmonary vascular congestion in the appropriate clinical setting. Ordered By: HITESH HORTON Interpreted By: Azael Hurst MD, 09/25/2024 6:43 PM Narrative 09/25/2024 6:[address] SCIENTIST [address] [place] [address] Examination: XR CHEST PA+LAT, 09/25/2024 6:42 PM. [...] Procedure Note Azael Hurst MD - 09/25/[address] [place] [address] Examination: XR CHEST PA+LAT, 09/25/2024 6:42 PM. [...] (ABNORMAL) COMPREHENSIVE METABOLIC PANEL (09/25/2024 6:[address] SCIENTIST) SODIUM S/P/B 143 136 - 145 MMOL/L 09/25/2024 6:[address] SCIENTIST [facility] POTASSIUM S/P/B 4.0 3.5 - 5.1 MMOL/L 09/25/2024 6:[address] SCIENTIST [facility] CHLORIDE S/P/B 107 98 - 107 MMOL/L 09/25/2024 6:50 PM [facility] CO2 27.7 21.0 - 32.0 MMOL/L 09/25/2024 6:50 PM [facility] GLUCOSE 131(H) 70 - 99 MG/DL 09/25/2024 6:50 PM [facility] Comment: FASTING GLUCOSE 100 TO 125 MG/DL IS CONSISTENT WITH IMPAIRED FASTING GLUCOSE. FASTING GLUCOSE >125 MG/DL IS CONSISTENT WITH DIABETES. RANDOM GLUCOSE >200 MG/DL WITH HYPERGLYCEMIC SYMPTOMS IS CONSISTENT WITH DIABETES. PER ADA GUIDELINES BUN 15 6 - 24 MG/DL 09/25/2024 6:[address] SCIENTIST [facility] CREATININE S/P/B 1.03(H) 0.55 - 1.02 MG/DL 09/25/2024 6:[address] SCIENTIST [facility] CALCIUM S/P/B 8.6 8.4 - 10.5 MG/DL 09/25/2024 6:[address] SCIENTIST [facility] BILIRUBIN TOTAL S/P/B 1.2(H) 0.2 - 1.0 MG/DL 09/25/2024 6:50 PM [facility] Comment: THIS ASSAY IS NOT RECOMMENDED FOR PATIENTS UNDERGOING TREATMENT WITH ELTROMBOPAG DUE TO THE POTENTIAL FOR FALSELY ELEVATED RESULTS. ALKALINE PHOSPHATASE S/P/B 131(H) 46 - 118 U/L 09/25/2024 6:[address] SCIENTIST [facility] AST 20 15 - 37 U/L 09/25/2024 6:[address] SCIENTIST [facility] ALT 26 14 - 59 U/L 09/25/2024 6:50 PM [facility] TOTAL PROTEIN S/P/B 7.0 6.4 - 8.2 G/DL 09/25/2024 6:50 PM [facility] ALBUMIN S/P/B 3.3(L) 3.4 - 5.0 G/DL 09/25/2024 6:50 PM [facility] ANION GAP 8.3 5.0 - 15.0 MMOL/L 09/25/2024 6:50 PM [facility] OSMOLALITY (CALC) 299 MOSM/KG 024 6:50 PM [facility] Comment:REFERENCE RANGE NOT ESTABLISHED GFR ESTIMATE 62(L) >89 ML/MIN/1. 73 M2 09/25/2024 6:50 PM [facility] GFR NOTES GFR REFERENCE S: 09/25/2024 6:50 PM [facility] Comment: THE ESTIMATED GFR IS CALCULATED [...] FAILURE: <15 ml/min/1.73 m2 09/25/2024 6:[address] SCIENTIST Hitesh Marshall Sol [facility] LABORATORY Final Result [facility] [address] [place] [address], * (ABNORMAL) CBC W/DIFF AUTOMATED (09/25/2024 6:[address] SCIENTIST) WBC 6.47 4.00 - 10.80 x10'3/uL 09/25/2024 6:[address] SCIENTIST [facility] RBC 4.12 4.10 - 5.40 x10'6/uL 09/25/2024 6:[address] SCIENTIST [facility] HGB 11.6(L) 12.0 - 16.0 G/DL 09/25/2024 6:[address] SCIENTIST [facility] HCT 37.6 36.0 - 47.0 % 09/25/2024 6:[address] SCIENTIST [facility] MCV 91.3 78.0 - 100.0 FL 09/25/2024 6:[address] SCIENTIST [facility] MCH 28.2 27.0 - 31.0 PG 09/25/2024 6:[address] SCIENTIST [facility] MCHC 30.9(L) 33.0 - 36.0 G/DL 09/25/2024 6:[address] SCIENTIST [facility] RDW 13.8 11.5 - 14.5 % 09/25/2024 6:[address] SCIENTIST [facility] PLT 185 150 - 350 x10'3/uL 09/25/2024 6:[address] SCIENTIST [facility] MPV 10.6(H) 7.4 - 10.4 FL 09/25/2024 6:[address] SCIENTIST [facility] CBC COMMENT NORMAL REFERENCE RANGE NOT ESTABLISHED FOR THE PROPORTIONAL LEUKOCYTE DIFFERENTIAL. 09/25/2024 6:[address] SCIENTIST [facility] NEUTROPHILS % 61.9 % 09/25/2024 6:[address] SCIENTIST [facility] LYMPHOCYTES % 28.1 % 09/25/2024 6:[address] SCIENTIST [facility] MONOCYTES % 6.3 % 09/25/2024 6:[address] SCIENTIST [facility] EOSINOPHILS % 2.9 % 09/25/2024 6:[address] SCIENTIST [facility] BASOPHILS % 0.5 % 09/25/2024 6:[address] SCIENTIST [facility] IMMATURE GRANS % 0.3 % 09/25/20 6:[address] SCIENTIST [facility] NRBC % 0.0 % 09/25/2024 6:[address] SCIENTIST [facility] ABS. NEUTROPHILS 4.00 1.60 - 8.30 x10'3/uL 09/25/2024 6:[address] SCIENTIST [facility] ABS. LYMPHOCYTES 1.82 0.80 - 4.70 x10'3/uL 09/25/2024 6:[address] SCIENTIST [facility] ABS. MONOCYTES 0.41 0.00 - 1.50 x10'3/uL 09/25/2024 6:[address] SCIENTIST [facility] ABS. EOSINOPHILS 0.19 0.00 - 0.40 x10'3/uL 09/25/2024 6:[address] SCIENTIST [facility] ABS. BASOPHILS 0.03 0.00 - 0.20 x10'3/uL 09/25/2024 6:[address] SCIENTIST [facility] ABS. IMMATURE GRANULOCYTES 0.02 0.00 - 0.03 x10'3/uL 09/25/2024 6:[address] SCIENTIST [facility] ABS. NUCLEATED RBC'S 0.00 0.00 - 0.01 x10'3/uL 09/25/2024 6:[address] SCIENTIST [facility] 09/25/2024 6:[address] SCIENTIST us Hitesh Horton DO LABORATORY Final Result [facility] [address] [place] [address], * ECG 12 lead (09/25/2024 5:[address] SCIENTIST) 09/25/2024 5:[address] SCIENTIST Narrative [facility] [place] [facility] - 09/25/2024 5:[address] SCIENTIST ? [facility] ?[address] [place], [place] ??[address] ? Test Date: ?2024-09-25 Pat Name: ? MARISELA CHRIS ?Department: ?? 3 ? Room: ? Gender: ? Female ? Electric Spot Welder: ?? : ?1965 ? Requested By: HITESH HORTON Order Number: [id number] ? Reading MD: ?? Keenan Cali ? Measurements Intervals ?Empire ? Rate: ? 50 ? P: ?58 ID: ? [id number] ?QRS: ?40 QRSD: ? 88 ? T: ?-25 QT: ? 443 ? QTc: ?407 ? Interpretive Statements SINUS BRADYCARDIA NONSPECIFIC T-WAVE ABNORMALITY SCIENTIST Procedure Note Keenan Cali MD - 09/25/[address] [place] [address] Test Date: 2024-09-25 Pat Name: MARISELA CHRIS Department: 3 Room: Gender: Female Electric Spot Welder: : 1965 Requested By: HITESH HORTON Order Number: [id number] Chris MD: Keenan Cali Measurements Intervals Empire Rate: 50 P: 58 ID: [id number] QRS: 40 QRSD: 88 T: -25 QT: 443 QTc: 407 Interpretive Statements SINUS BRADYCARDIA NONSPECIFIC T-WAVE ABNORMALITY SCIENTIST us Hitesh Horton DO ECG ORDERABLES Final Result [facility] RAD from Last 3 Months Insurance MEDICARE MEDICARE Advance Directives * Full Code (Latest Code Status on File) Date Activated Date Inactivated Comments 08/29/2024 1:21 PM 08/30/2024 3:52 PM Care Teams Towel Inspector Relationship Specialty Start Date End Date Ramon Aviles DO [address] [place] [address] PCP - General FAMILY PRACTICE 09/25/24 Ramon Aviles DO [address] [place] [address] FAMILY PRACTICE 08/29/24 Amandeep Akhtar MD [address] [place] [address] CARDIOVASCULAR DISEASE 05/18/17
[2024-12-03] MEDS: KETOROLAC 30 MG/ML VIAL (*BKC) IM (17:26)
[2024-12-03] MEDS: ONDANSETRON HCL ODT 4 MG TABLET PO (17:26)
[2024-12-03 17:29] VITALS: BP 127/80; PULSE 101; RESP 18; TEMP 36.9; O2SAT 94
== END 2024-12-03 17:35 | disposition home or self-care (01) ==
PROVIDERS: Emergency Provider Emergency Medicine; PCP Family Medicine
DX: G43.909 Migraine, unspecified, not intractable, without status migrainosus (principal); E11.9 Type 2 diabetes mellitus without complications
CPT/HCPCS: 96372; 99283; A9270; J1885

== ENCOUNTER 2024-12-16 10:22 | Outpatient (NON) | payer MEDICARE, SELFPAY ==
--- OUTSIDE RECORDS SUMMARY | 2024-12-16 11:14 | XMS_ITS | Clinical Summary ---
Author Organization Unknown Care Team Providers Care Dental Assistant Name Role Phone DAVID MUNOZ DO Unavailable Unavailable SEDGWICK PHYSICAL THERAPIST, MARYCARMEN Unavailabl e Unavailable WILSON OPEN DIE INSPECTOR, BRAXTON Unavail able Unavailable KATLIN REGISTERED NURSE, DAYA Unavailable Unavailable Payers Payer Name Policy Type Policy Number Effective Date Expira tion Date MEDICARE [facility] [id number] Problems Condition Name Condition Details Condition Category [...] ANTIDIABETIC DRUGS Active 11-09 00:00: 00 OTHER SENIOR CARE (CURRENT) DRUG THERAPY Active 11-09 00:00: 00 [...] 15 mg tablet 2023-11 00:00: 00 Yes [id number] MEMORY 1 tablet ONCE DAILY 1 tablet ONCE DAILY (route: oral) Med Classific ation: Central Nervous System Agents baclofen 10 mg tablet 2023-11 00:00: 00 Yes [id number] MUSCLE SPASM 1 tablet TWICE DAILY 1 tablet TWICE DAILY (route: oral) Med Classific ation: Locomotor System cyclobenzap rine 5 mg tablet 2023-11 00:00: 00 Yes [id number] MUSCLE SPASMS 1 tablet TWICE DAILY 1 tablet TWICE DAILY (route: oral) Med Classific ation: Locomotor System hydrocodone 5 mg-acetamin ophen 325 mg tablet 2023-11 00:00: 00 Yes [id number] BACK PAIN 1 tablet EVERY 4 HOURS 1 tablet EVERY 4 HOURS (route: oral) Med Classific ation: Analgesic , Anti-infl ammatory or Antipyret ic meclizine 25 mg tablet 2023-11 00:00: 00 Yes [id number] DIZZINESS 1 tablet 3 TIMES DAILY 1 tablet 3 TIMES DAILY (route: oral) Med Classific ation: Gastroint estinal Therapy Agents meloxicam 15 mg tablet 2023-11 00:00: 00 Yes [id number] MUSCLE SPASMS 1 tablet DAILY 1 tablet DAILY (route: oral) Med Classific ation: Analgesic , Anti-infl ammatory or Antipyret ic naproxen 500 mg tablet 2023-11 00:00: 00 09-06 23:59 :00 No [id number] BACK PAIN 1 tablet TWICE DAILY 1 tablet TWICE DAILY (route: oral) Med Classific ation: Analgesic , Anti-infl ammatory or Antipyret ic ondansetron HCl 4 mg tablet 2023-11 00:00: 00 Yes [id number] NAUSEA 1 tablet EVERY 6 HOURS 1 tablet EVERY 6 HOURS (route: oral) Med Classific ation: Gastroint estinal Therapy Agents prednisone 1 mg tablet 2023-11 00:00: 00 09-11 23:59 :00 No [id number] BACK PAIN/ CORD COMPRESSION 0.5 tablet ONCE DAILY 0.5 tablet ONCE DAILY (route: oral) Med Classific ation: Endocrine prednisone 20 mg tablet 2023-11 00:00: 00 09-04 23:59 :00 No [id number] BACK PAIN/ CORD COMPRESSION 3 tablet ONCE DAILY 3 tablet ONCE DAILY (route: oral) Med Classific ation: Endocrine prednisone 20 mg tablet 2023-11 00:00: 00 09-06 23:59 :00 No [id number] BACK PAIN/ CORD COMPRESSION 2 tablet ONCE DAILY 2 tablet ONCE DAILY (route: oral) Med Classific ation: Endocrine prednisone 20 mg tablet 2023-11 00:00: 00 09-08 23:59 :00 No [id number] BACK PAIN/ CORD COMPRESSION 1 tablet ONCE DAILY 1 tablet ONCE DAILY (route: oral) Med Classific ation: Endocrine propranolol ER 120 mg capsule,24 hr,extended release 2023-11 00:00: 00 09-02 23:59 :00 No [id number] HYPERTENSIO N 1 capsule ONCE DAILY 1 capsule ONCE DAILY (route: oral) Med Classific ation: Cardiovas cular Therapy Agents sertraline 100 mg tablet 2023-11 0 00:00: 00 Yes [id number] ANXIETY 1 tablet ONCE DAILY 1 tablet ONCE DAILY (route: oral) Med Classific ation: Central Nervous System Agents sumatriptan 100 mg tablet 2023-11 00:00: 00 Yes [id number] HEADACHE 1 tablet TWICE DAILY 1 tablet TWICE DAILY (route: oral) Med Classific ation: Central Nervous System Agents pantoprazol e 40 mg tablet,logan yed release 2023-11 00:00: 00 Yes [id number] GERD 1 tablet ONCE DAILY 1 tablet ONCE DAILY (route: oral) Med Classific ation: Gastroint estinal Therapy Agents Trulicity 0.75 mg/0.5 mL subcutaneou s pen injector 2023-11 00:00: 00 Yes [id number] DIABETES MELLITUS 1 mL WEEKLY 1 mL [...] Planned Date Details Comments Future Scheduled Test [facility] NURSE WILL INSTRUCT PATIENT/CAREGIVER ON TYPE [...] THROUGHOUT THE WEEK.] Future Scheduled Test [facility] NURSE WILL INSTRUCT AND VERIFY APPROPRIATE STEPS [...] CARE PLAN: DR DANIAL MUNOZ-PCP, ANA PEREYRA LEAD CASTER HELPER-PCP, DR JOSE MULLER-PLASTIC SSURGERY AND ANYONE COVERING [...] CARE PLAN: DR DANIAL MUNOZ-PCP, ANA PEREYRA LEAD CASTER HELPER-PCP, DR JOSE MULLER-PLASTIC SSURGERY AND ANYONE COVERING IN THEIR ABSENCE.] Future Scheduled Test [facility] TIFYING PHYSICIAN, ASSOCIATED PHYSICIAN, NPP OR PA [...] WILL BE ESTABLISHED THAT MEETS ALL PATIENT'S ASSISTED NEEDS AND COUNTER SIGNED BY PHYSICIAN. Encounters Start Date/Time End Date/Time Encounter Type Admission Type Attending Clinicians Care Facility Care Department Encounter ID Discharge Date Discharge Status Discharge Condition Discharge Reason Percent Goals Met 2024-09-01 00:00:00 2024-12-29 00:00:00 [facility] [id number] 5.56
--- OUTSIDE RECORDS SUMMARY | 2024-12-16 11:14 | XMS_ITS ---
Author Organization [facility] Address [address] [place], [place] [id number] Care Team Providers Care Blocking Machine Operator Name Role Phone Ramon Aviles Unavailable Unavailable ANDRES JIANG Unavailable [phone] REASON FOR VISIT *General care Encounters Encounter Location Date Provider Diagnosis [address] [id number] 03/24/2024 ANDRES JIANG Plan Of Treatment No Information Progress Notes * NISHANT NOGUEIRAOB:1965 ([age] yo F)Acc No.[id number]:03/24/2024 Patient: JORDYN MILES Provider: Cass JIANG :1965 A ge:58 Y S ex:Female Date:03/24/2024 Address:[address] [place], [place] [id number] Subjective: * Chief Complaints: * 1 . *General care. * Medical History: Objective: * Vitals: Assessment: Plan: * Treatment: * Billing Information: * Visit Code: * Procedure Codes: * Electronic signature of ANIRUDH JIANG DPM on 12/16/2024 at 11:13 AM BOWLING TEACHER Sign off status: Pending * Provider: Cass JIANG Date: 0 03/24/2024 Generated for Michael castillo/Na/Porfirio on: 0 12/16/2024 11:13 AM BOWLING TEACHER
--- OUTSIDE RECORDS SUMMARY | 2024-12-16 11:14 | XMS_ITS | Clinical Summary ---
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
--- OUTSIDE RECORDS SUMMARY | 2024-12-16 11:14 | XMS_ITS | Patient Health Record ---
Author Organization [facility] Address [address] [place], [place] [phone] Care Team Providers Care World Travel Counselor Name Role Phone Ramon Aviles Unavailable Unavailable ANDRES JIANG Unavailable [phone] Allergies Allergen (clinical drug ingredient) Drug/Non Drug Allergy documented on EMR Reaction Allergy Type Onset Date Status famotidine / ibuprofen Ibuprofen-Famotidine Unknown Drug A llergy Active Substance with sulfonamide structure and antibacterial mechanism of action (substance) Sulfa Antibiotics Unknown Drug Allergy Active Reason For Referral No Information Encounters Encounter Location Date Provider Diagnosis [facility] [address] [place], [place] [id number] 01/21/2024 ANDRES JIANG Other hammer toe(s) (acquired), right foot M20.41 ; Tinea unguium B35.1 ; Other hammer toe(s) (acquired), left foot M20.42 ; Pain in right toe(s) M79.674 ; Pain in left toe(s) M79.675 ; Unspecified atherosclerosis of [place] arteries of extremities, bilateral legs I70.203 and [...] (ICD-10 - M79.675) 01/21/2024 Unspecified atherosclerosis of [place] arteries of extremities, bilateral legs (ICD-10 - [...] Date Coverage End Date Medicare Part B [place] [address] [place] [id number] JORDYN NOGUEIRA Self - patient is the insured [facility] ([facility]) ATTN CLAIMS [address] [place] [address] [id number] JORDYN NOGUEIRA Self - patient is the insured
--- OUTSIDE RECORDS SUMMARY | 2024-12-16 11:14 | XMS_ITS | Referral Summary ---
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
--- OUTSIDE RECORDS SUMMARY | 2024-12-16 11:14 | XMS_ITS | Data Portability ---
Author Organization [facility], [address] [place] [address] Neurology ([place]) Address [address] [place] [phone] Assessment Encounter Date Assessment Date Assessment LastModified by Organization Details LastModified Time 06/23/2024 06/23/2024 The patient has migraine headaches. Those are under good control. We will continue propranolol ER 120 mg daily. We will continue sumatriptan as her abortive medication. She will follow up in six months, but she will call if she has any problems in the meantime. HOLDEN piedra Not available 06/23/2024 12:41:16 Plan of Treatment Reminders Order Date Submit Date Provider Last Modified By Organization Details Last Modified Time Details Appointments Establish ed Patient 15.EST 2024 01:00P M Dr. Shari Perez Not available Not available Not available Lab None recorded. Referral None recorded. Procedures None recorded. Surgeries None recorded. Imaging None recorded. Medication Orders propranol ol ER 120 mg capsule,2 4 hr,extend ed release 2023 [facility] [address], [address], 06/23/2024 09:41:46 sumatript an 100 mg tablet 2023 024 [facility], [address] [place] [address], [address], 06/23/2024 09:41:46 Patient TargetsNo targets recorded. Patient InstructionsNo [...] Organization Details Recorded Time Migraine with aura 3134052 Active 024 Shari Perez MD [address] [place] [address], [phone] , [facility] 06/23/2024 09:33:31 Problem Notes None recorded. Procedures [...] Name and Address Organization Details Recorded Time 1904008 metformin hydrochlo ride medicatio n diarrhea Not available Not available 12/09/20232021 01957 3 RxNorm React ion: Diarr hea; Not Available Not Available Not Available 979422 Substance with sulfonami de structure and antibacte rial mechanism of action (substanc e) medicatio n Not available Not available Not available 12/07/20232012 78933 8003 SNOMED Not Available Not Available Not Available 983735 cocoa brito allergeni c extract food,medi cation Not available Not available Not available 12/07/20232008 91170 1 RxNorm Comme nt: Stephane late ; [...] hours. Max 3 tabs per 24 hours. 08/15/ 2024 active Not Available Not Available Not Avai [...] Not Available Vitals Date Recorded Heart rate Systolic blood pressure Diastolic blood pressure Provider Name and Address Organization Details Last Updated DateTime 06/23/2024 63 /min 146 mm[Hg] 82 mm[Hg] [facility] 06/23/2024 09:17:07 Social History None recorded. Functional Status None recorded. Mental Status None recorded. Family History Nothing Reported. Medical History No medical history recorded. Gynecological HistoryNo gynecological history recorded. Obstetrics History GPAL:G 0 P 0 0 0 0 Past Encounters Encounter ID Performer Location Encounter Start Date Encounter Closed Date Diagnosis/Indication Diagnosis SNOMED-CT Code Diagnosis ICD10 Code Diagnosis Note [id number] Shari Perez MD [facility] Specialty Neurology ([place]) [address] [place] [address] 06/23/2024 09:08:28 06/27/2024 11:59:02 Migraine with aura 4150465 G43.109 Health Concerns Section Related Observation LastModified [...] October. She is accompanied today by her fianc . She has migraines about once per month. [...] for the pain.HOLDEN Perez MD [address] [place] [address], [phone], [facility] 06/28/2024 17:42:10 OBGyn Episode No OBEpisode recorded.
--- OUTSIDE RECORDS SUMMARY | 2024-12-16 11:14 | XMS_ITS | Clinical Summary ---
Author Organization Unknown Care Team Providers Care Prop Cutter Name Role Phone DAVID MUNOZ DO Unavailable Unavailable FARGO PHYSICAL THERAPIST, MARYCARMEN Unavailabl e Unavailable WILSON CAPONIZER, BRAXTON Unavail able Unavailable KATLIN REGISTERED NURSE, DAYA Unavailable Unavailable Payers Payer Name Policy Type Policy Number Effective Date Expira tion Date MEDICARE [facility] [id number] Problems Condition Name Condition Details Condition Category [...] ANTIDIABETIC DRUGS Active 11-09 00:00: 00 OTHER PRISON (CURRENT) DRUG THERAPY Active 11-09 00:00: 00 [...] 15 mg tablet 2023-11 00:00: 00 Yes [id number] MEMORY 1 tablet ONCE DAILY 1 tablet ONCE DAILY (route: oral) Med Classific ation: Central Nervous System Agents baclofen 10 mg tablet 2023-11 00:00: 00 Yes [id number] MUSCLE SPASM 1 tablet TWICE DAILY 1 tablet TWICE DAILY (route: oral) Med Classific ation: Locomotor System cyclobenzap rine 5 mg tablet 2023-11 00:00: 00 Yes [id number] MUSCLE SPASMS 1 tablet TWICE DAILY 1 tablet TWICE DAILY (route: oral) Med Classific ation: Locomotor System hydrocodone 5 mg-acetamin ophen 325 mg tablet 2023-11 00:00: 00 Yes [id number] BACK PAIN 1 tablet EVERY 4 HOURS 1 tablet EVERY 4 HOURS (route: oral) Med Classific ation: Analgesic , Anti-infl ammatory or Antipyret ic meclizine 25 mg tablet 2023-11 00:00: 00 Yes [id number] DIZZINESS 1 tablet 3 TIMES DAILY 1 tablet 3 TIMES DAILY (route: oral) Med Classific ation: Gastroint estinal Therapy Agents meloxicam 15 mg tablet 2023-11 00:00: 00 Yes [id number] MUSCLE SPASMS 1 tablet DAILY 1 tablet DAILY (route: oral) Med Classific ation: Analgesic , Anti-infl ammatory or Antipyret ic naproxen 500 mg tablet 2023-11 00:00: 00 09-06 23:59 :00 No [id number] BACK PAIN 1 tablet TWICE DAILY 1 tablet TWICE DAILY (route: oral) Med Classific ation: Analgesic , Anti-infl ammatory or Antipyret ic ondansetron HCl 4 mg tablet 2023-11 00:00: 00 Yes [id number] NAUSEA 1 tablet EVERY 6 HOURS 1 tablet EVERY 6 HOURS (route: oral) Med Classific ation: Gastroint estinal Therapy Agents prednisone 1 mg tablet 2023-11 00:00: 00 09-11 23:59 :00 No [id number] BACK PAIN/ CORD COMPRESSION 0.5 tablet ONCE DAILY 0.5 tablet ONCE DAILY (route: oral) Med Classific ation: Endocrine prednisone 20 mg tablet 2023-11 00:00: 00 09-04 23:59 :00 No [id number] BACK PAIN/ CORD COMPRESSION 3 tablet ONCE DAILY 3 tablet ONCE DAILY (route: oral) Med Classific ation: Endocrine prednisone 20 mg tablet 2023-11 00:00: 00 09-06 23:59 :00 No [id number] BACK PAIN/ CORD COMPRESSION 2 tablet ONCE DAILY 2 tablet ONCE DAILY (route: oral) Med Classific ation: Endocrine prednisone 20 mg tablet 2023-11 00:00: 00 09-08 23:59 :00 No [id number] BACK PAIN/ CORD COMPRESSION 1 tablet ONCE DAILY 1 tablet ONCE DAILY (route: oral) Med Classific ation: Endocrine propranolol ER 120 mg capsule,24 hr,extended release 2023-11 00:00: 00 09-02 23:59 :00 No [id number] HYPERTENSIO N 1 capsule ONCE DAILY 1 capsule ONCE DAILY (route: oral) Med Classific ation: Cardiovas cular Therapy Agents sertraline 100 mg tablet 2023-11 0 00:00: 00 Yes [id number] ANXIETY 1 tablet ONCE DAILY 1 tablet ONCE DAILY (route: oral) Med Classific ation: Central Nervous System Agents sumatriptan 100 mg tablet 2023-11 00:00: 00 Yes [id number] HEADACHE 1 tablet TWICE DAILY 1 tablet TWICE DAILY (route: oral) Med Classific ation: Central Nervous System Agents pantoprazol e 40 mg tablet,logan yed release 2023-11 00:00: 00 Yes [id number] GERD 1 tablet ONCE DAILY 1 tablet ONCE DAILY (route: oral) Med Classific ation: Gastroint estinal Therapy Agents Trulicity 0.75 mg/0.5 mL subcutaneou s pen injector 2023-11 00:00: 00 Yes [id number] DIABETES MELLITUS 1 mL WEEKLY 1 mL [...] Planned Date Details Comments Future Scheduled Test [facility] NURSE WILL INSTRUCT PATIENT/CAREGIVER ON [...] THROUGHOUT THE WEEK.] Future Scheduled Test [facility] NURSE WILL INSTRUCT AND VERIFY APPROPRIATE [...] CARE PLAN: DR DANIAL MUNOZ-PCP, ANA PEREYRA REGULATORY COMPLIANCE ENGINEER-PCP, DR JOSE MULLER-PLASTIC SSURGERY AND ANYONE COVERING [...] CARE PLAN: DR DANIAL MUNOZ-PCP, ANA PEREYRA REGULATORY COMPLIANCE ENGINEER-PCP, DR JOSE MULLER-PLASTIC SSURGERY AND ANYONE COVERING IN THEIR ABSENCE.] Future Scheduled Test [facility] TIFYING PHYSICIAN, ASSOCIATED PHYSICIAN, NPP OR [...] HALF-WAY NEEDS AND COUNTER SIGNED BY PHYSICIAN. Encounters Start Date/Time End Date/Time Encounter Type Admission Type Attending Clinicians Care Facility Care Department Encounter ID Discharge Date Discharge Status Discharge Condition Discharge Reason Percent Goals Met 2024-09-01 00:00:00 2024-12-29 00:00:00 [facility] [id number] 5.56
--- OUTSIDE RECORDS SUMMARY | 2024-12-16 11:14 | XMS_ITS ---
Author Organization [facility] Address [address] [place], [place] [phone] Care Team Providers Care Home Theater Experience Expert Name Role Phone LeeDelmis carrollsh Unavailable Unavailable DEIDRE ANDRES Unavailable [phone] Allergies Allergen (clinical drug ingredient) Drug/Non Drug Allergy documented on EMR Reaction Allergy Type Onset Date Status famotidine / ibuprofen Ibuprofen-Famotidine Unknown Drug A llergy Active Substance with sulfonamide structure and antibacterial mechanism of action (substance) Sulfa Antibiotics Unknown Drug Allergy Active REASON FOR VISIT Wants nails removed Encounters Encounter Location Date Provider Diagnosis [facility] [address] [place] [phone] 01/21/2024 ANDRES JIANG Other hammer toe(s) (acquired), right foot M20.41 ; Tinea unguium B35.1 ; Other hammer toe(s) (acquired), left foot M20.42 ; Pain in right toe(s) M79.674 ; Pain in left toe(s) M79.675 ; Unspecified atherosclerosis of [place] arteries of extremities, bilateral legs I70.203 and [...] (ICD-10 - M79.675) 01/21/2024 Unspecified atherosclerosis of [place] arteries of extremities, bilateral legs (ICD-10 - [...] OTC and prescription treatments. Unspecified atherosclerosis of [place] arteries of extremities, bilateral legs Patient educated [...] * NISHANT NOGUEIRAOB:1965 ([age] yo F)Acc No.[id number]:01/21/2024 Progress Notes Patient: JORDYN MILES Provider: Cass JIANG :1965 A ge:58 Y S ex:Female Date:01/21/2024 Address:[address] [place] [address] Subjective: * Chief Complaints: * 1 . Wants nails removed. * HPI: H PI: New Complaint P atient presents to clinic with chief complaint of [...] Denies any other pedal complaints at this time. . * ROS: G eneral / Constitutional: Patient denies w eakness. R espiratory: Patient denies c hronic cough, shortness of breath, sputum production. C ardiovascular: Patient denies c hest pain, history of HI, irregular heartbeat. M usculoskeletal: Patient complains of h ammertoes. P eripheral Vascular: Patient denies b lanching of skin, cold extremities, decreased sensation in extremities. S kin: Patient complains of f ungal nails, nail changes, calluses and corns. N eurologic: Patient denies d izziness, gait abnormality, headache. * Medical History: * Allergies: S ulfa Antibiotics, Ibuprofen-Famotidine. Objective: * Examination: P hysical Examination: V ascular: Dorsalis Pedis pulse noted at 1/4 right foot and 1/4 left foot and Posterior Tibial pulse noted at 1/4 right foot and 1/4 left foot, Capillary refill times noted to be less than three seconds x ten, Temperature gradient noted to be warm to cool to bilateral foot, pedal hair present to bilateral foot and no varicosities are noted Dermatologic: there are no open lesions, no signs of active clinical infection, no erythema noted, no ecchymoses, nails are elongated thickened and dystrophic with subungual debris x ten, hyperkeratotic lesion noted sub first metatarsal head bilateral foot Musculoskeletal: there is pain to palpation onto nail plate x ten, no calf pain noted bilaterally, arch height noted at 2/5 non-weight bearing bilaterally, first metatarsophalangeal joint range of motion 30 deg non-weight bearing bilaterally, pain to palpation hyperkeratotic lesion sub first metatarsal head bilateral foot, flexible fifth digit hammer toe deformity is noted to bilateral foot reducible with kelikian push up test Neurology: protective sensation intact to light touch bilateral digits one through five, vibratory sensation intact to first metatarsophalangeal joint bilaterally. Assessment: * Assessment: 1. T inea unguium - B35.1 (Primary) 2 . O ther hammer toe(s) (acquired), right foot - M20.41 3 . O ther hammer toe(s) (acquired), left foot - M20.42 4 . P ain in right toe(s) - M79.674 5 . P ain in left toe(s) - M79.675 6 . U nspecified atherosclerosis of [place] arteries of extremities, bilateral legs - I70.203 7 . A cquired keratosis [keratoderma] palmaris et plantaris - L85.1 Plan: * Treatment: 2. O ther hammer toe(s) (acquired), right foot Notes: The patient was educated regarding how [...] were discussed, but conservative options were emphasized. 3. U nspecified atherosclerosis of [place] arteries of extremities, bilateral legs Notes: Patient educated on risks and aggravating factors of PVD, including conservative treatment options such as a diet and exercise regimen to aid in slowing progression of vascular disease ? 4. A cquired keratosis [keratoderma] palmaris et plantaris Notes: Pre-ulcerative keratoderma debrided sharply down to the level of healthy tissue using a 15 blade. After removal of overlying extensive hyperkeratosis, healthy tissue was noted and care was taken to assure that no undermining or probing was present. It should be noted that no probing was noted and no infection or drainage was noted. * Procedure Codes: 1 1056 TRIM SKIN LESIONS, 2 TO 4, Modifiers: Q8 , 53202 DEBRIDE NAIL, 6 OR MORE, Modifiers: 59 , Q8 * Follow Up: 3 Months * Billing Information: * Visit Code: 14818 Office Visit, New Pt., Level 3. Modifiers: 25 * Procedure Codes: 93451 TRIM SKIN LESIONS, 2 TO 4. Modifiers: Q8 99031 DEBRIDE NAIL, 6 OR MORE. Modifiers: 59, Q8 * Sign off status: Completed true * Provider: Cass JIANG Date: 0 01/21/2024 Generated for Michael castillo/Na/Porfirio on: 0 12/16/2024 11:13 AM HAM MARKER
[2024-12-16 11:21] LABS: Hemoglobin A1C 6.3 % (<5.7)
[2024-12-16 11:26] LABS: Anion Gap 10 mmol/L (4-12); Blood Urea Nitrogen 14 mg/dL (7-18); Calcium 8.8 mg/dL (8.5-10.1); Carbon Dioxide 29 mmol/L (21-32); Chloride 106 mmol/L (98-108); Estimated Glomerular Filt Rate > 60; Glucose 118 mg/dL (70-99); Osmolality Calculated 301 mOsm/kg (285-295); Potassium 3.7 mmol/L (3.5-5.1); Sodium 145 mmol/L (136-145)
== END 2024-12-16 10:23 | disposition home or self-care (01) ==
LOC: CHSLAB 10:29
PROVIDERS: Visit Provider Family Medicine
DX: E11.9 Type 2 diabetes mellitus without complications (principal)
CPT/HCPCS: 36415; 80048; 83036

== ENCOUNTER 2024-12-18 10:25 | Emergency (ER) | payer MEDICARE, SELFPAY ==
--- OUTSIDE RECORDS SUMMARY | 2024-12-18 10:28 | XMS_ITS | Clinical Summary ---
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
--- OUTSIDE RECORDS SUMMARY | 2024-12-18 10:28 | XMS_ITS ---
Author Organization [facility] Address [address] [place], [place] [address] Care Team Providers Care Bat Carrier Name Role Phone LeeDelmis carrollsh Unavailable Unavailable DEIDRE ANDRES Unavailable [phone] Allergies Allergen (clinical drug ingredient) Drug/Non Drug Allergy documented on EMR Reaction Allergy Type Onset Date Status famotidine / ibuprofen Ibuprofen-Famotidine Unknown Drug A llergy Active Substance with sulfonamide structure and antibacterial mechanism of action (substance) Sulfa Antibiotics Unknown Drug Allergy Active REASON FOR VISIT Wants nails removed Encounters Encounter Location Date Provider Diagnosis [facility] [address], [place] [address] 01/21/2024 ANDRES JIANG Other hammer toe(s) (acquired), right foot M20.41 ; Tinea unguium B35.1 ; Other hammer toe(s) (acquired), left foot M20.42 ; Pain in right toe(s) M79.674 ; Pain in left toe(s) M79.675 ; Unspecified atherosclerosis of emmon[place] arteries of extremities, bilateral legs I70.203 and [...] (ICD-10 - M79.675) 01/21/2024 Unspecified atherosclerosis of [place]mon[place] arteries of extremities, bilateral legs (ICD-10 - [...] OTC and prescription treatments. Unspecified atherosclerosis of emmon[place] arteries of extremities, bilateral legs Patient educated [...] * NISHANT NOGUEIRAOB:1965 ([age] yo F)Acc No.[id number]:01/21/2024 Progress Notes Patient: JORDYN MILES Provider: Cass JIANG :1965 A ge:58 Y S ex:Female Date:01/21/2024 Address:[address] [place] [address] Subjective: * Chief Complaints: * 1 . [...] Patient denies c hest pain, history of [place], irregular heartbeat. M usculoskeletal: Patient complains of [...] M79.675 6 . U nspecified atherosclerosis of emmon[place] arteries of extremities, bilateral legs - I70.203 [...] were emphasized. 3. U nspecified atherosclerosis of emmon[place] arteries of extremities, bilateral legs Notes: Patient [...] LESIONS, 2 TO 4, Modifiers: Q8 , 51845 DEBRIDE NAIL, 6 OR MORE, Modifiers: 59 , Q8 * Follow Up: 3 Months * Billing Information: * Visit Code: 00819 Office Visit, New Pt., Level 3. Modifiers: 25 * Procedure Codes: 41607 TRIM SKIN LESIONS, 2 TO 4. Modifiers: Q8 43988 DEBRIDE NAIL, 6 OR MORE. Modifiers: 59, Q8 * Sign off status: Completed true * Provider: Cass JIANG Date: 0 01/21/2024 Generated for Michael castillo/Na/Porfirio on: 0 12/18/2024 10:27 AM HOME COMFORT ADVISOR
--- OUTSIDE RECORDS SUMMARY | 2024-12-18 10:28 | XMS_ITS | Referral Summary ---
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
--- OUTSIDE RECORDS SUMMARY | 2024-12-18 10:28 | XMS_ITS | Patient Health Record ---
Author Organization [facility] Address [address] [place], [place] [address] Care Team Providers Care Cash Grain Grower Name Role Phone Ramon Aviles Unavailable Unavailable ANDRES JIANG Unavailable [phone] Allergies Allergen (clinical drug ingredient) Drug/Non Drug Allergy documented on EMR Reaction Allergy Type Onset Date Status famotidine / ibuprofen Ibuprofen-Famotidine Unknown Drug A llergy Active Substance with sulfonamide structure and antibacterial mechanism of action (substance) Sulfa Antibiotics Unknown Drug Allergy Active Reason For Referral No Information Encounters Encounter Location Date Provider Diagnosis [facility] [address] [place], [place] [id number] 01/21/2024 ANDRES JIANG Other hammer toe(s) (acquired), right foot M20.41 ; Tinea unguium B35.1 ; Other hammer toe(s) (acquired), left foot M20.42 ; Pain in right toe(s) M79.674 ; Pain in left toe(s) M79.675 ; Unspecified atherosclerosis of [place] arteries of extremities, bilateral legs I70.203 and [...] (ICD-10 - M79.675) 01/21/2024 Unspecified atherosclerosis of [place] arteries of extremities, bilateral legs (ICD-10 - [...] Date Coverage End Date Medicare Part B [place] [address] [place] [id number] JORDYN NOGUEIRA Self - patient is the insured [facility] ([facility]) ATTN CLAIMS [address] [place] [address] [id number] JORDYN NOGUEIRA Self - patient is the insured
--- OUTSIDE RECORDS SUMMARY | 2024-12-18 10:28 | XMS_ITS ---
Author Organization [facility] Address [address] [place], [place] [address] Care Team Providers Care Oracle Scm Consultant Name Role Phone Ramon Aviles Unavailable Unavailable ANDRES JIANG Unavailable [phone] REASON FOR VISIT *General care Encounters Encounter Location Date Provider Diagnosis [address] [id number] 03/24/2024 ANDRES JIANG Plan Of Treatment No Information Progress Notes * NISHANT NOGUEIRAOB:1965 ([age] yo F)Acc No.[id number]:03/24/2024 Patient: JORDYN MILES Provider: Cass JIANG :1965 A ge:58 Y S ex:Female Date:03/24/2024 Address:[address] [place], [place] [id number] Subjective: * Chief Complaints: * 1 . *General care. * Medical History: Objective: * Vitals: Assessment: Plan: * Treatment: * Billing Information: * Visit Code: * Procedure Codes: * Electronic signature of ANIRUDH JIANG DPM on 12/18/2024 at 10:28 AM SKEIN STRAIGHTENER Sign off status: Pending * Provider: Cass JIANG Date: 0 03/24/2024 Generated for Michael castillo/Na/Porfirio on: 0 12/18/2024 10:28 AM SKEIN STRAIGHTENER
--- OUTSIDE RECORDS SUMMARY | 2024-12-18 10:28 | XMS_ITS | Clinical Summary ---
Author Organization [facility] Address [facility] [place] [address] Care Team Providers Care Arts And Crafts Instructor Name Role Phone Ramon Aviles DO Unavailable [phone] Amandeep Akhtar MD Unavailable Ramon Aviles DO Primary Care Provider [phone] Allergies Active Allergy Reactions Criticality Noted Date [...] Problem Noted Date Diagnosed Date Cord compression ([facility]) 08/29/2024 Trochanteric bursitis of right [...] Department Care Team Description 09/25/2024 5:52 PM CAR ESCORT - 09/25/2024 10:35 PM [facility] Emergency [facility] [address] [place] [address] Hitesh Horton DO Chest Pain Discharge Disposition: Home or Self Care (Routine Discharge) 09/25/2024 Travel from Last 3 Months Immunizations Name Administration Dates Next Due Fluzone (IIV3, Trivalent, 0.5 ML Prefilled Syrin ge) 08/30/2024 Family History Medical History Relation Comments Diabetes Father Heart Attack Father [place] Father Stroke Father Cancer Maternal Grandfather No [...] drink = 0.6 oz pur e alcohol) [facility] Utilities Answer Date Recorded In the past 12 months has e electric, gas, oil, or water [employer] threatened to shut off services in your [...] any time in the past 12 m [facility], were you homeless or living in a group home (including now)? No 08/29/2024 Comments No Sex and Gender Information Value Date Recorded Sex Assigned at Female 02/19/2020 11:43 PM CDT Legal Sex Female 10:08 PM CAR ESCORT Gender Identity Female 02/19/2020 11:43 PM CDT Sexual Orientation Not on file Occupation Industry Job Start Date Job End Date unemployed Not on file Not on file Not on file Last Filed Vital Signs Vital Sign Reading Time Taken Comments Blood Pressure 119/63 09/25/2024 10:00 PM CAR ESCORT Pulse 51 09/25/2024 10:00 PM CAR ESCORT Temperature 36.6 C (97.8 F) 09/25/2024 10:00 PM CAR ESCORT Respiratory Rate 11 09/25/2024 10:00 PM CAR ESCORT Oxygen Saturation 94% 09/25/2024 10:00 PM CAR ESCORT Inhaled Oxygen Concentration - - Weight 92.3 kg (203 lb 6 oz) 09/25/2024 5:53 PM CAR ESCORT Height 165.1 cm (5' 5 ) 09/25/2024 5:53 PM CAR ESCORT Body Mass Index 33.84 09/25/2024 5:53 PM CAR ESCORT Plan of Treatment Health Maintenance Due Date [...] topic Influenza Adult Completed 08/30/2024, 11/08/2020 Meningococcal B Vaccine Aged Out No l onger eligible based on patient's age to complete this topic Meningococcal Vaccine Aged Out No cedrick ernesto eligible based on patient's age to complete this topic RSV Immunizations Under 20 Months Aged Out No longer eligible b ased on patient's age to complete this topic Procedures Procedure Name Priority Date/Time Associated Diagnosis Comments TROPONIN, QUANT STAT 09/25/2024 8:11 PM CAR ESCORT XR CHEST PA+LAT STAT 09/25/2024 6:42 PM CAR ESCORT TROPONIN, QUANT STAT 09/25/2024 6:25 PM CAR ESCORT COMPREHENSIVE METABOLIC PANEL STAT 09/25/2024 6:25 PM CAR ESCORT CBC W/DIFF AUTOMATED STAT 09/25/2024 6:25 PM CAR ESCORT ECG 12-LEAD Routine 09/25/2024 5:49 PM CAR ESCORT from Last 3 Months Results * TROPONIN, QUANT (09/25/2024 8:11 PM CAR ESCORT) Only the most recent of2 resultswithin the time period is included. TROPONIN I HIGH SENSITIVITY <4 0 - 51 ng/L 09/25/2024 8:35 PM CAR ESCORT [facility] 09/25/2024 8:11 PM CAR ESCORT Hitesh Horton DO LABORATORY Final Result [facility] [address] [place] [address], [place] [phone] * XR CHEST PA+LAT (09/25/2024 6:42 PM CAR ESCORT) Anatomical Region Laterality Modality Chest Radiographic Ela ging 09/25/2024 6:43 PM CAR ESCORT Impressions 09/25/2024 6:44 PM CAR ESCORT IMPRESSION: Prominence of the pulmonary vascular pattern which may be seen with pulmonary vascular congestion in the appropriate clinical setting. Ordered By: HITESH HORTON Interpreted By: Azael Hurst MD, 09/25/2024 6:43 PM Narrative 09/25/2024 6:44 PM CAR ESCORT [address] [place] [address] Examination: XR CHEST PA+LAT, 09/25/2024 6:42 PM. [...] Procedure Note Azael Hurst MD - 09/25/[address] [place] [address] Examination: XR CHEST PA+LAT, 09/25/2024 6:42 PM. [...] (ABNORMAL) COMPREHENSIVE METABOLIC PANEL (09/25/2024 6:25 PM CAR ESCORT) SODIUM S/P/B 143 136 - 145 MMOL/L 09/25/2024 6:50 PM CAR ESCORT [facility] POTASSIUM S/P/B 4.0 3.5 - 5.1 MMOL/L 09/25/2024 6:50 PM CAR ESCORT [facility] CHLORIDE S/P/B 107 98 - 107 MMOL/L 09/25/2024 6:50 PM [facility] CO2 27.7 21.0 - 32.0 MMOL/L 09/25/2024 6:50 PM [facility] GLUCOSE 131(H) 70 - 99 MG/DL 09/25/2024 6:50 PM [facility] Comment: FASTING GLUCOSE 100 TO 125 MG/DL IS CONSISTENT WITH IMPAIRED FASTING GLUCOSE. FASTING GLUCOSE >125 MG/DL IS CONSISTENT WITH DIABETES. RANDOM GLUCOSE >200 MG/DL WITH HYPERGLYCEMIC SYMPTOMS IS CONSISTENT WITH DIABETES. PER ADA GUIDELINES BUN 15 6 - 24 MG/DL 09/25/2024 6:50 PM CAR ESCORT [facility] CREATININE S/P/B 1.03(H) 0.55 - 1.02 MG/DL 09/25/2024 6:50 PM [facility] CALCIUM S/P/B 8.6 8.4 - 10.5 MG/DL 09/25/2024 6:50 PM [facility] BILIRUBIN TOTAL S/P/B 1.2(H) 0.2 - 1.0 MG/DL 09/25/2024 6:50 PM [facility] Comment: THIS ASSAY IS NOT RECOMMENDED FOR PATIENTS UNDERGOING TREATMENT WITH ELTROMBOPAG DUE TO THE POTENTIAL FOR FALSELY ELEVATED RESULTS. ALKALINE PHOSPHATASE S/P/B 131(H) 46 - 118 U/L 09/25/2024 6:50 PM [facility] AST 20 15 - 37 U/L 09/25/2024 6:50 PM [facility] ALT 26 14 - 59 U/L 09/25/2024 6:50 PM [facility] TOTAL PROTEIN S/P/B 7.0 6.4 - 8.2 G/DL 09/25/2024 6:50 PM [facility] ALBUMIN S/P/B 3.3(L) 3.4 - 5.0 G/DL 09/25/2024 6:50 PM [facility] ANION GAP 8.3 5.0 - 15.0 MMOL/L 09/25/2024 6:50 PM [facility] OSMOLALITY (CALC) 299 MOSM/KG 024 6:50 PM [facility] Comment:REFERENCE RANGE NOT ESTABLISHED GFR ESTIMATE 62(L) >89 ML/MIN/1. 73 M2 09/25/2024 6:50 PM [facility] GFR NOTES GFR REFERENCE S: 09/25/2024 6:50 PM [facility] Comment: THE ESTIMATED GFR IS [...] FAILURE: <15 ml/min/1.73 m2 09/25/2024 6:25 PM CAR ESCORT us Hitesh Marshall Mossmaluisaiah LABORATORY Final Result [facility] [address] [place] [address], * (ABNORMAL) CBC W/DIFF AUTOMATED (09/25/2024 6:25 PM CAR ESCORT) WBC 6.47 4.00 - 10.80 x10'3/uL 09/25/2024 6:34 PM CAR ESCORT [facility] RBC 4.12 4.10 - 5.40 x10'6/uL 09/25/2024 6:34 PM CAR ESCORT [facility] HGB 11.6(L) 12.0 - 16.0 G/DL 09/25/2024 6:34 PM CAR ESCORT [facility] HCT 37.6 36.0 - 47.0 % 09/25/2024 6:34 PM CAR ESCORT [facility] MCV 91.3 78.0 - 100.0 FL 09/25/2024 6:34 PM CAR ESCORT [facility] MCH 28.2 27.0 - 31.0 PG 09/25/2024 6:34 PM CAR ESCORT [facility] MCHC 30.9(L) 33.0 - 36.0 G/DL 09/25/2024 6:34 PM CAR ESCORT [facility] RDW 13.8 11.5 - 14.5 % 09/25/2024 6:34 PM CAR ESCORT [facility] PLT 185 150 - 350 x10'3/uL 09/25/2024 6:34 PM CAR ESCORT [facility] MPV 10.6(H) 7.4 - 10.4 FL 09/25/2024 6:34 PM CAR ESCORT [facility] CBC COMMENT NORMAL REFERENCE RANGE NOT ESTABLISHED FOR THE PROPORTIONAL LEUKOCYTE DIFFERENTIAL. 09/25/2024 6:34 PM CAR ESCORT [facility] NEUTROPHILS % 61.9 % 09/25/2024 6:34 PM CAR ESCORT [facility] LYMPHOCYTES % 28.1 % 09/25/2024 6:34 PM CAR ESCORT [facility] MONOCYTES % 6.3 % 09/25/2024 6:34 PM CAR ESCORT [facility] EOSINOPHILS % 2.9 % 09/25/2024 6:34 PM CAR ESCORT [facility] BASOPHILS % 0.5 % 09/25/2024 6:34 PM CAR ESCORT [facility] IMMATURE GRANS % 0.3 % 09/25/20 6:34 PM CAR ESCORT [facility] NRBC % 0.0 % 09/25/2024 6:34 PM CAR ESCORT [facility] ABS. NEUTROPHILS 4.00 1.60 - 8.30 x10'3/uL 09/25/2024 6:34 PM CAR ESCORT [facility] ABS. LYMPHOCYTES 1.82 0.80 - 4.70 x10'3/uL 09/25/2024 6:34 PM CAR ESCORT [facility] ABS. MONOCYTES 0.41 0.00 - 1.50 x10'3/uL 09/25/2024 6:34 PM CAR ESCORT [facility] ABS. EOSINOPHILS 0.19 0.00 - 0.40 x10'3/uL 09/25/2024 6:34 PM CAR ESCORT [facility] ABS. BASOPHILS 0.03 0.00 - 0.20 x10'3/uL 09/25/2024 6:34 PM CAR ESCORT [facility] ABS. IMMATURE GRANULOCYTES 0.02 0.00 - 0.03 x10'3/uL 09/25/2024 6:34 PM CAR ESCORT [facility] ABS. NUCLEATED RBC'S 0.00 0.00 - 0.01 x10'3/uL 09/25/2024 6:34 PM CAR ESCORT [facility] 09/25/2024 6:25 PM CAR ESCORT us Hitesh Horton DO LABORATORY Final Result [facility] [address] [place] [address], * ECG 12 lead (09/25/2024 5:49 PM CAR ESCORT) 09/25/2024 5:49 PM CAR ESCORT Narrative [facility] [place] [facility] - 09/25/2024 5:59 PM CAR ESCORT [address] [place] [address] Test Date: 2024-09-25 Pat Name: MARISELA Department: 3 Room: Gender: Female Flight Crew Ordnanceman: : 1965 Requested By: HITESH HORTON Order Number: [id number] Reading MD: Keenan Cali Measurements Intervals [place] Rate: 50 P: 58 VA: 177 QRS: 40 QRSD: 88 T: -25 QT: 443 QTc: 407 Interpretive Statements SINUS BRADYCARDIA NONSPECIFIC T-WAVE ABNORMALITY ESCORT Procedure Note Keenan Cali MD - 09/25/[address] [place] [address] Test Date: 2024-09-25 Pat Name: MARISELA CHRIS Department: 3 Room: Gender: Female Flight Crew Ordnanceman: : 1965 Requested By: HITESH HORTON Order Number: [id number] Reading ERICA Cali Measurements Intervals [place] Rate: 50 P: 58 VA: 177 QRS: 40 QRSD: 88 T: -25 QT: 443 QTc: 407 Interpretive Statements SINUS BRADYCARDIA NONSPECIFIC T-WAVE ABNORMALITY ESCORT us Hitesh Horton DO ECG ORDERABLES Final Result [facility] from Last 3 Months Insurance MEDICARE MEDICARE Advance Directives * Full Code (Latest Code Status on File) Date Activated Date Inactivated Comments 08/29/2024 1:21 PM 08/30/2024 3:52 PM Care Teams Arts And Crafts Instructor Relationship Specialty Start Date End Date Ramon Aviles DO [address] [place] [address] PCP - General FAMILY PRACTICE 09/25/24 Ramon Aviles DO [address] [place] [address] FAMILY PRACTICE 08/29/24 Amandeep Akhtar MD [address] [place] [address] CARDIOVASCULAR DISEASE 05/18/17
--- OUTSIDE RECORDS SUMMARY | 2024-12-18 10:28 | XMS_ITS | Data Portability ---
Author Organization [facility], [address] [place] [address] Neurology (ND) Address [address] [place] [id number] Assessment Encounter Date Assessment Date Assessment LastModified [...] mg capsule,2 4 hr,extend ed release 2023 [facility] [address], [address], 06/23/2024 09:41:46 sumatript an 100 mg tablet 2023 024 [facility], [address] [place] [address], [address], 06/23/2024 09:41:46 Patient TargetsNo targets recorded. Patient [...] Organization Details Recorded Time Migraine with aura 2644912 Active 024 Shari Perez MD [address] [place] [address], [phone] , [facility] 06/23/2024 09:33:31 Problem Notes None recorded. [...] Name and Address Organization Details Recorded Time 9377431 metformin hydrochlo ride medicatio n diarrhea Not available Not available 12/09/20232021 67490 3 RxNorm React ion: Diarr hea; Not Available Not Available Not Available 287037 Substance with sulfonami de structure and antibacte rial mechanism of action (substanc e) medicatio n Not available Not available Not available 12/07/20232012 18870 8003 SNOMED Not Available Not Available Not Available 498551 cocoa brito allergeni c extract food,medi cation Not available Not available Not available 12/07/20232008 24923 1 RxNorm Comme nt: Stephane late ; [...] 06/23/2024 63 /min 146 mm[Hg] 82 mm[Hg] [facility] 06/23/2024 09:17:07 Social History None recorded. Functional Status None recorded. Mental Status None recorded. Family History Nothing Reported. Medical History No medical history recorded. Gynecological HistoryNo gynecological history recorded. Obstetrics History GPAL:G 0 P 0 0 0 0 Past Encounters Encounter ID Performer Location Encounter Start Date Encounter Closed Date Diagnosis/Indication Diagnosis SNOMED-CT Code Diagnosis ICD10 Code Diagnosis Note [id number] Shari Perez MD [facility] Specialty Neurology ([place]) [address] [place] [address] 06/23/2024 09:08:28 06/27/2024 11:59:02 Migraine with aura 3334283 G43.109 Health Concerns Section Related Observation LastModified [...] for the pain.HOLDEN Perez MD [address] [place] [address], [phone], [facility] 06/28/2024 17:42:10 OBGyn Episode No OBEpisode recorded.
--- OUTSIDE RECORDS SUMMARY | 2024-12-18 10:28 | XMS_ITS | Encounter Summary ---
Author Organization [facility] Address [address] [place] [address] Care Team Providers Care Staffing Account Manager Name Role Phone Rosario Valentin MD Primary Care Provider [phone] Rosario Valentin MD Primary Care Provider [phone] None, Provider Primary Care Provider Onelia Coffey MD Primary Care Provider [phone] Evens Meehan MD Primary Care Provider [phone] Ramon Aviles DO Primary Care Provider [phone] None, Provider Primary Care Provider Ramon Wilhelm DO Unavailable [phone] Amandeep Akhtar MD Unavailable Ramon Aviels DO Primary Care Provider [phone] Encounter Details Date Type Department Care Team (Late st Contact Info) Description 04/16/2019 Abstract [facility] CONVERSION [address] [place] [address] , Generic Conversion, Social History Tobacco Use Types Packs/Day Years Used Date Smoking Tobacco: Never Smokeless Tobacco: Never Alcohol Use Standard Drinks/Week Comments No 0 (1 standard drink = 0.6 oz pur e alcohol) Comments Unknown Sex and Gender Information Value Date Recorded Sex Assigned at Female 02/19/2020 11:43 PM CDT Legal Sex Female 10:08 PM QUILLER OPERATOR Gender Identity Female 02/19/2020 11:43 PM CDT [...] Rule Out 09/21/2021 09/21/2021 09/21/2021 12:32 PM QUILLER OPERATOR COVID-19 Rule Out 08/25/2024 08/25/2024 08/25/2024 10:09 AM CDT documented as of this encounter Care Teams Staffing Account Manager Relationship Specialty Start Date End Date Rosario Valentin MD [address] [place] [phone] PCP - General FAMILY PRACTICE 10/05/17 02/19/20 Rosario Valentin MD [address] [place] [address] PCP - General FAMILY PRACTICE 02/20/20 05/28/21 None, MD Jenaro PCP - General 06/14/21 10/15/21 [place] [address] [place] [address] PCP - General INTERNAL MEDICINE 10/16/21 12/29/22 Evens Meehan MD [address] [place] [address] PCP - General FAMILY PRACTICE 12/30/22 01/18/24 Ramon Aviles DO [address] [place] [address] PCP - General FAMILY PRACTICE 01/19/24 08/28/24 None, MD Jenaro PCP - General UNKNOWN PHYSICIAN SPECIALTY 08/29/24 1 11/24/23 Ramon Aviles DO [address] [place] [address] PCP - General FAMILY PRACTICE 09/25/24 Ramon Aviles DO [address] [place] [address] FAMILY PRACTICE 08/29/24 Amandeep Akhtar MD [address] [place] [address] CARDIOVASCULAR DISEASE 05/18/17 documented as of this encounter
[2024-12-18 10:29] VITALS: BP 154/81; PULSE 78; RESP 18; TEMP 36.4; O2SAT 97
--- NOTE | 2024-12-18 10:34 | PC.NURSE ---
COVID PCR obtained and taken to lab
--- NOTE | 2024-12-18 10:40 | ED.GENADULT ---
HPI - General Adult General Chief complaint: Upper Respiratory Infection Stated complaint: upper respiratory Time Seen by Provider: 12/18/24 10:26 History of Present Illness HPI narrative: Marisela is a 59F with a PMH of anemia, DMII, obesity and hypertension that presented to the ED with a horse voice for a couple days as well as cough, fatigue and aches. Related Data Home Medications ?Medication ?Instructions ?Recorded ?Confirmed ?Last Taken ?Type sumatriptan succinate 100 mg tablet See Rx Instructions .Route .COMPLEX 08/20/24 11/17/24 Unknown History cyclobenzaprine 5 mg tablet 5 mg PO BID PRN Muscle Pain 09/02/24 11/17/24 Unknown History Allergies Allergy/AdvReac Type Severity Reaction Status Date / Time Sulfa (Sulfonamide Allergy Unknown RASH, Verified 11/17/24 09:35 Antibiotics) NAUSEA ibuprofen AdvReac Nausea and Verified 11/17/24 09:35 Vomiting iohexol (From contrast - CT, AdvReac Nausea and Verified 11/17/24 09:35 X-RAY) Vomiting Chocolate Allergy Unknown BAD Uncoded 11/17/24 09:35 MIGRAINES Review of Systems Review of Systems: All systems reviewed & are unremarkable except as noted in HPI and below PMFSH Past Medical History Medical History DMII (diabetes mellitus, type 2) Nausea Obesity, morbid, BMI 40.0-49.9 Surgical History Surgical History H/O: hysterectomy S/P cubital tunnel release Left History of carpal tunnel release of both wrists Social History Social History Social History: caffeine-tea Smoking status: Never smoker Alcohol intake: never Substance use: never Substance use type: does not use Lack of Transportation: No Lack of Food: Never True Current Housing: I Have Housing Concerned About Future Housing: No Difficulty Paying Gas/Electric Bills: No Difficulty Paying for Meds: No Currently Unemployed: No Education: High School Diploma/GED Difficulty w/ Childcare or Family Care: No Living arrangements: with family Spiritual care concerns: No Exam Const: General: cooperative, healthy appearing, comfortable, no acute distress, well developed, alert, awake and Physically active Orientation/consciousness: oriented to person, oriented to place and oriented to time HENMT: Head: normal to inspection, normocephalic and atraumatic Ears: hearing grossly normal bilaterally and external ears normal Face/Nose/Sinus: Normal external nose present Eyes: General: appearance normal, both eyes and all related structures Periorbital: periorbital findings normal Sclera: sclerae normal Pupils: Equal, round and reactive pupils present Neck: Neck: normal visual inspection Chest: Chest palpation & inspection: normal inspection of the chest Resp: Effort & Inspection: normal respiratory effort, able to speak in complete sentences and no respiratory distress Auscultation: clear to auscultation bilaterally Cardio: Jugular venous distension: no JVD Rate: regular rate Rhythm: regular rhythm GI: Inspection: normal to inspection GI Palp: Yes Soft to palpation Auscultation: normal bowel sounds Skin: General skin exam: normal color and no rashes or lesions noted Neuro: General: oriented to person, oriented to place and oriented to time Cranial nerves: Yes Equal, round and reactive pupils present Extrem: General: normal to inspection Course Course Emergency Course: ordered viral testing. Viral testing and strep PCR negative. Vital Signs Vital signs: Vital Signs Temperature 97.5 F L 12/18/24 10:29 Pulse Rate 78 12/18/24 10:29 Respiratory Rate 18 12/18/24 10:29 Blood Pressure 154/81 H 12/18/24 10:29 Pulse Oximetry 97 12/18/24 10:29 Oxygen Delivery Room Air 12/18/24 10:29 Temperature 97.6 F 12/18/24 12:27 Pulse Rate 64 12/18/24 12:27 Respiratory Rate 18 12/18/24 12:27 Blood Pressure 135/78 12/18/24 12:27 Pulse Oximetry 95 12/18/24 12:27 Oxygen Delivery Room Air 12/18/24 12:27 Medical Decision Making Vital Signs Vital Signs: Vital Signs Temperature 97.5 F L 12/18/24 10:29 Pulse Rate 78 12/18/24 10:29 Respiratory Rate 18 12/18/24 10:29 Blood Pressure 154/81 H 12/18/24 10:29 Pulse Oximetry 97 12/18/24 10:29 Oxygen Delivery Room Air 12/18/24 10:29 Temperature 97.6 F 12/18/24 12:27 Pulse Rate 64 12/18/24 12:27 Respiratory Rate 18 12/18/24 12:27 Blood Pressure 135/78 12/18/24 12:27 Pulse Oximetry 95 12/18/24 12:27 Oxygen Delivery Room Air 12/18/24 12:27 Lab Data Labs: Lab Results 12/18/24 12/18/24 Range/Units 10:47 11:30 Influenza A (RT-PCR) Negative (Negative) Influenza B (RT-PCR) Negative (Negative) RSV (RT-PCR) Negative (Negative) SARS-CoV-2 RNA (RT-PCR) Negative (Negative) Group A Strep (PCR) Not detected (Negative) Discharge Plan Discharge Clinical Impression: Laryngitis Patient Disposition: Home, Self-Care Condition: Stable Instructions: Antibiotic Form Patient Language: Tristanian Prescriptions: No Action sumatriptan succinate 100 mg tablet See Rx Instructions .ROUTE .COMPLEX Rx Instructions: TAKE 1 TABLET AT HEADACHE ONSET. MAY REPEAT 1 TABLET IN 2 HOURS. MAXIMUM 3 TABLETS IN 24 HOURS. ondansetron 4 mg tablet,disintegrating 4 mg PO Q6H PRN (Reason: nausea and vomiting) Qty: 14 0RF tramadol 50 mg tablet 50 mg PO Q6H PRN (Reason: pain) Qty: 14 0RF meclizine 25 mg tablet 25 mg PO TID PRN (Reason: dizziness) Qty: 30 0RF Trulicity 0.75 mg/0.5 mL pen injector 0.75 mg subcut WEEKLY Qty: 2 0RF cyclobenzaprine 5 mg tablet 5 mg PO BID PRN (Reason: Muscle Pain) aripiprazole 15 mg tablet See Rx Instructions .ROUTE .COMPLEX Qty: 30 10RF Dose Instruction: TAKE 1 TABLET(S) BY MOUTH 1 TIMES PER DAY *NEW PRESCRIPTION REQUEST* Rx Instructions: TAKE 1 TABLET(S) BY MOUTH 1 TIMES PER DAY *NEW PRESCRIPTION REQUEST* sertraline 100 mg tablet See Rx Instructions .ROUTE .COMPLEX Qty: 30 10RF Dose Instruction: TAKE 1 TABLET BY MOUTH DAILY *NEW PRESCRIPTION REQUEST* Rx Instructions: TAKE 1 TABLET BY MOUTH DAILY *NEW PRESCRIPTION REQUEST* cholecalciferol (vitamin D3) 50 mcg (2,000 unit) capsule 50 mcg PO DAILY Qty: 30 2RF pantoprazole 40 mg tablet,delayed release (DR/EC) See Rx Instructions .ROUTE .COMPLEX Qty: 30 0RF Dose Instruction: TAKE ONE TABLET BY MOUTH EVERY MORNING Rx Instructions: TAKE ONE TABLET BY MOUTH EVERY MORNING Follow-up/Referrals: Ramon Aviles, [Primary Care Provider] -
--- OUTSIDE RECORDS SUMMARY | 2024-12-18 10:58 | XMS_ITS | Encounter Summary ---
Author Organization [facility] Address [address] [place] [address] Care Team Providers Care Engine Lathe Tender Name Role Phone Rosario Valentin MD Primary Care Provider [phone] Rosario Valentin MD Primary Care Provider [phone] None, Provider Primary Care Provider Onelia Coffey MD Primary Care Provider [phone] Evens Meehan MD Primary Care Provider [phone] Ramon Aviles DO Primary Care Provider [phone] None, Provider Primary Care Provider Ramon Wilhelm DO Unavailable [phone] Amandeep Akhtar MD Unavailable Ramon Aviles DO Primary Care Provider [phone] Encounter Details Date Type Department Care Team (Late st Contact Info) Description 04/16/2019 Abstract SFL CONVERSION [address] [place] [address] , Generic Conversion, Social History Tobacco Use Types Packs/Day Years Used Date Smoking Tobacco: Never Smokeless Tobacco: Never Alcohol Use Standard Drinks/Week Comments No 0 (1 standard drink = 0.6 oz pur e alcohol) Comments Unknown Sex and Gender Information Value Date Recorded Sex Assigned at Female 02/19/2020 11:43 PM CDT Legal Sex Female 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 Gender Identity Female 02/19/2020 11:43 PM CDT [...] Rule Out 09/21/2021 09/21/2021 09/21/2021 12:32 PM BUSINESS BANKING SALES ASSISTANT COVID-19 Rule Out 08/25/2024 08/25/2024 08/25/2024 10:09 AM CDT documented as of this encounter Care Teams Engine Lathe Tender Relationship Specialty Start Date End Date Rosario Valentin MD [address] [place] [id number] PCP - General FAMILY PRACTICE 10/05/17 02/19/20 Rosario Valentin MD [address] [place] [address] PCP - General FAMILY PRACTICE 02/20/20 05/28/21 None, MD Jenaro PCP - General 06/14/21 10/15/21 [place] [address] [place] [address] PCP - General INTERNAL MEDICINE 10/16/21 12/29/22 Evens Meehan MD [address] [place] [address] PCP - General FAMILY PRACTICE 12/30/22 01/18/24 Ramon Aviles DO [address] [place] [address] PCP - General FAMILY PRACTICE 01/19/24 08/28/24 None, MD Jenaro PCP - General UNKNOWN PHYSICIAN SPECIALTY 08/29/24 1 11/24/23 Raomn Aviles DO [address] [place] [address] PCP - General FAMILY PRACTICE 09/25/24 Ramon Aviles DO [address] [place] [address] FAMILY PRACTICE 08/29/24 Amandeep Akhtar MD [address] [place] [address] CARDIOVASCULAR DISEASE 05/18/17 documented as of this encounter
--- OUTSIDE RECORDS SUMMARY | 2024-12-18 10:58 | XMS_ITS | Clinical Summary ---
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
--- OUTSIDE RECORDS SUMMARY | 2024-12-18 10:58 | XMS_ITS | Referral Summary ---
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
--- OUTSIDE RECORDS SUMMARY | 2024-12-18 10:58 | XMS_ITS | Clinical Summary ---
Author Organization [facility] Address [facility] [place] [address] Care Team Providers Care Geophysical Computer Name Role Phone Ramon Aviles DO Unavailable [phone] Amandeep Akhtar MD Unavailable Ramon Aviles DO Primary Care Provider [phone] Allergies Active Allergy Reactions Criticality Noted Date [...] Problem Noted Date Diagnosed Date Cord compression ([facility]) 08/29/2024 Trochanteric bursitis of right [...] Department Care Team Description 09/25/2024 5:52 PM MISSILE TECHNICIAN - 09/25/2024 10:35 PM [facility] Emergency [facility] [address] [place] [address] Hitesh Horton DO Chest Pain Discharge Disposition: Home or Self Care (Routine Discharge) 09/25/2024 Travel from Last 3 Months Immunizations Name Administration Dates Next Due Fluzone (IIV3, Trivalent, 0.5 ML Prefilled Syrin ge) 08/30/2024 Family History Medical History Relation Comments Diabetes Father Heart Attack Father [place] Father Stroke Father Cancer Maternal Grandfather No [...] drink = 0.6 oz pur e alcohol) [facility] Utilities Answer Date Recorded In the past 12 months has e electric, gas, oil, or water [employer] threatened to shut off services in your [...] any time in the past 12 [facility], were you homeless or living in a jail (including now)? No 08/29/2024 Comments No Sex and Gender Information Value Date Recorded Sex Assigned at Female 02/19/2020 11:43 PM CDT Legal Sex Female 10:08 PM MISSILE TECHNICIAN Gender Identity Female 02/19/2020 11:43 PM CDT Sexual Orientation Not on file Occupation Industry Job Start Date Job End Date unemployed Not on file Not on file Not on file Last Filed Vital Signs Vital Sign Reading Time Taken Comments Blood Pressure 119/63 09/25/2024 10:00 PM MISSILE TECHNICIAN Pulse 51 09/25/2024 10:00 PM MISSILE TECHNICIAN Temperature 36.6 C (97.8 F) 09/25/2024 10:00 PM MISSILE TECHNICIAN Respiratory Rate 11 09/25/2024 10:00 PM MISSILE TECHNICIAN Oxygen Saturation 94% 09/25/2024 10:00 PM MISSILE TECHNICIAN Inhaled Oxygen Concentration - - Weight 92.3 kg (203 lb 6 oz) 09/25/2024 5:53 PM MISSILE TECHNICIAN Height 165.1 cm (5' 5 ) 09/25/2024 5:53 PM MISSILE TECHNICIAN Body Mass Index 33.84 09/25/2024 5:53 PM MISSILE TECHNICIAN Plan of Treatment Health Maintenance Due Date [...] Comments TROPONIN, QUANT STAT 09/25/2024 8:11 PM MISSILE TECHNICIAN XR CHEST PA+LAT STAT 09/25/2024 6:42 PM MISSILE TECHNICIAN TROPONIN, QUANT STAT 09/25/2024 6:25 PM MISSILE TECHNICIAN COMPREHENSIVE METABOLIC PANEL STAT 09/25/2024 6:25 PM MISSILE TECHNICIAN CBC W/DIFF AUTOMATED STAT 09/25/2024 6:25 PM MISSILE TECHNICIAN ECG 12-LEAD Routine 09/25/2024 5:49 PM MISSILE TECHNICIAN from Last 3 Months Results * TROPONIN, QUANT (09/25/2024 8:11 PM MISSILE TECHNICIAN) Only the most recent of2 resultswithin the time period is included. TROPONIN I HIGH SENSITIVITY <4 0 - 51 ng/L 09/25/2024 8:35 PM MISSILE TECHNICIAN [facility] 09/25/2024 8:11 PM MISSILE TECHNICIAN Hitesh Horton DO LABORATORY Final Result [facility] [address] [place] [address], [place] [phone] * XR CHEST PA+LAT (09/25/2024 6:42 PM MISSILE TECHNICIAN) Anatomical Region Laterality Modality Chest Radiographic Ela ging 09/25/2024 6:43 PM MISSILE TECHNICIAN Impressions 09/25/2024 6:44 PM MISSILE TECHNICIAN IMPRESSION: Prominence of the pulmonary vascular pattern which may be seen with pulmonary vascular congestion in the appropriate clinical setting. Ordered By: HITESH HORTON Interpreted By: Azael Hurst MD, 09/25/2024 6:43 PM Narrative 09/25/2024 6:44 PM MISSILE TECHNICIAN [address] [place] [address] Examination: XR CHEST PA+LAT, 09/25/2024 6:42 PM. [...] Procedure Note Azael Hurst MD - 09/25/[address] [place] [address] Examination: XR CHEST PA+LAT, 09/25/2024 6:42 PM. [...] (ABNORMAL) COMPREHENSIVE METABOLIC PANEL (09/25/2024 6:25 PM MISSILE TECHNICIAN) SODIUM S/P/B 143 136 - 145 MMOL/L 09/25/2024 6:50 PM MISSILE TECHNICIAN [facility] POTASSIUM S/P/B 4.0 3.5 - 5.1 MMOL/L 09/25/2024 6:50 PM MISSILE TECHNICIAN [facility] CHLORIDE S/P/B 107 98 - 107 MMOL/L 09/25/2024 6:50 PM [facility] CO2 27.7 21.0 - 32.0 MMOL/L 09/25/2024 6:50 PM [facility] GLUCOSE 131(H) 70 - 99 MG/DL 09/25/2024 6:50 PM [facility] Comment: FASTING GLUCOSE 100 TO 125 MG/DL IS CONSISTENT WITH IMPAIRED FASTING GLUCOSE. FASTING GLUCOSE >125 MG/DL IS CONSISTENT WITH DIABETES. RANDOM GLUCOSE >200 MG/DL WITH HYPERGLYCEMIC SYMPTOMS IS CONSISTENT WITH DIABETES. PER ADA GUIDELINES BUN 15 6 - 24 MG/DL 09/25/2024 6:50 PM MISSILE TECHNICIAN [facility] CREATININE S/P/B 1.03(H) 0.55 - 1.02 MG/DL 09/25/2024 6:50 PM [facility] CALCIUM S/P/B 8.6 8.4 - 10.5 MG/DL 09/25/2024 6:50 PM [facility] BILIRUBIN TOTAL S/P/B 1.2(H) 0.2 - 1.0 MG/DL 09/25/2024 6:50 PM [facility] Comment: THIS ASSAY IS NOT RECOMMENDED FOR PATIENTS UNDERGOING TREATMENT WITH ELTROMBOPAG DUE TO THE POTENTIAL FOR FALSELY ELEVATED RESULTS. ALKALINE PHOSPHATASE S/P/B 131(H) 46 - 118 U/L 09/25/2024 6:50 PM [facility] AST 20 15 - 37 U/L 09/25/2024 6:50 PM [facility] ALT 26 14 - 59 U/L 09/25/2024 6:50 PM [facility] TOTAL PROTEIN S/P/B 7.0 6.4 - 8.2 G/DL 09/25/2024 6:50 PM [facility] ALBUMIN S/P/B 3.3(L) 3.4 - 5.0 G/DL 09/25/2024 6:50 PM [facility] ANION GAP 8.3 5.0 - 15.0 MMOL/L 09/25/2024 6:50 PM [facility] OSMOLALITY (CALC) 299 MOSM/KG 024 6:50 PM [facility] Comment:REFERENCE RANGE NOT ESTABLISHED GFR ESTIMATE 62(L) >89 ML/MIN/1. 73 M2 09/25/2024 6:50 PM [facility] GFR NOTES GFR REFERENCE S: 09/25/2024 6:50 PM [facility] Comment: THE ESTIMATED GFR IS [...] FAILURE: <15 ml/min/1.73 m2 09/25/2024 6:25 PM MISSILE TECHNICIAN us Hitesh Marshall Mossmaluisaiah LABORATORY Final Result [facility] [address] [place] [address], * (ABNORMAL) CBC W/DIFF AUTOMATED (09/25/2024 6:25 PM MISSILE TECHNICIAN) WBC 6.47 4.00 - 10.80 x10'3/uL 09/25/2024 6:34 PM MISSILE TECHNICIAN [facility] RBC 4.12 4.10 - 5.40 x10'6/uL 09/25/2024 6:34 PM MISSILE TECHNICIAN [facility] HGB 11.6(L) 12.0 - 16.0 G/DL 09/25/2024 6:34 PM MISSILE TECHNICIAN [facility] HCT 37.6 36.0 - 47.0 % 09/25/2024 6:34 PM MISSILE TECHNICIAN [facility] MCV 91.3 78.0 - 100.0 FL 09/25/2024 6:34 PM MISSILE TECHNICIAN [facility] MCH 28.2 27.0 - 31.0 PG 09/25/2024 6:34 PM MISSILE TECHNICIAN [facility] MCHC 30.9(L) 33.0 - 36.0 G/DL 09/25/2024 6:34 PM MISSILE TECHNICIAN [facility] RDW 13.8 11.5 - 14.5 % 09/25/2024 6:34 PM MISSILE TECHNICIAN [facility] PLT 185 150 - 350 x10'3/uL 09/25/2024 6:34 PM MISSILE TECHNICIAN [facility] MPV 10.6(H) 7.4 - 10.4 FL 09/25/2024 6:34 PM MISSILE TECHNICIAN [facility] CBC COMMENT NORMAL REFERENCE RANGE NOT ESTABLISHED FOR THE PROPORTIONAL LEUKOCYTE DIFFERENTIAL. 09/25/2024 6:34 PM MISSILE TECHNICIAN [facility] NEUTROPHILS % 61.9 % 09/25/2024 6:34 PM MISSILE TECHNICIAN [facility] LYMPHOCYTES % 28.1 % 09/25/2024 6:34 PM MISSILE TECHNICIAN [facility] MONOCYTES % 6.3 % 09/25/2024 6:34 PM MISSILE TECHNICIAN [facility] EOSINOPHILS % 2.9 % 09/25/2024 6:34 PM MISSILE TECHNICIAN [facility] BASOPHILS % 0.5 % 09/25/2024 6:34 PM MISSILE TECHNICIAN [facility] IMMATURE GRANS % 0.3 % 09/25/20 6:34 PM MISSILE TECHNICIAN [facility] NRBC % 0.0 % 09/25/2024 6:34 PM MISSILE TECHNICIAN [facility] ABS. NEUTROPHILS 4.00 1.60 - 8.30 x10'3/uL 09/25/2024 6:34 PM MISSILE TECHNICIAN [facility] ABS. LYMPHOCYTES 1.82 0.80 - 4.70 x10'3/uL 09/25/2024 6:34 PM MISSILE TECHNICIAN [facility] ABS. MONOCYTES 0.41 0.00 - 1.50 x10'3/uL 09/25/2024 6:34 PM MISSILE TECHNICIAN [facility] ABS. EOSINOPHILS 0.19 0.00 - 0.40 x10'3/uL 09/25/2024 6:34 PM MISSILE TECHNICIAN [facility] ABS. BASOPHILS 0.03 0.00 - 0.20 x10'3/uL 09/25/2024 6:34 PM MISSILE TECHNICIAN [facility] ABS. IMMATURE GRANULOCYTES 0.02 0.00 - 0.03 x10'3/uL 09/25/2024 6:34 PM MISSILE TECHNICIAN [facility] ABS. NUCLEATED RBC'S 0.00 0.00 - 0.01 x10'3/uL 09/25/2024 6:34 PM MISSILE TECHNICIAN [facility] 09/25/2024 6:25 PM MISSILE TECHNICIAN us Hitesh Horton DO LABORATORY Final Result [facility] [address] [place] [address], * ECG 12 lead (09/25/2024 5:49 PM MISSILE TECHNICIAN) 09/25/2024 5:49 PM MISSILE TECHNICIAN Narrative [facility] - 09/25/2024 5:59 PM MISSILE TECHNICIAN [address] [place] [address] Test Date: 2024-09-25 Pat Name: MARISELA Department: 3 Room: Gender: Female Drying Room Operator: : 1965 Requested By: HITESH HORTON Order Number: [id number] Reading MD: Keenan Cali Measurements Intervals [place] Rate: 50 P: 58 MO: 177 QRS: 40 QRSD: 88 T: -25 QT: 443 QTc: 407 Interpretive Statements SINUS BRADYCARDIA NONSPECIFIC T-WAVE ABNORMALITY ILE TECHNICIAN Procedure Note Keenan Cali MD - 09/25/[address] [place] [address] Test Date: 2024-09-25 Pat Name: MARISELA CHRIS Department: 3 Room: Gender: Female Drying Room Operator: : 1965 Requested By: HITESH HORTON Order Number: [id number] Reading ERICA Cali Measurements Intervals [place] Rate: 50 P: 58 MO: 177 QRS: 40 QRSD: 88 T: -25 QT: 443 QTc: 407 Interpretive Statements SINUS BRADYCARDIA NONSPECIFIC T-WAVE ABNORMALITY ILE TECHNICIAN us Hitesh Horton DO ECG ORDERABLES Final Result [facility] from Last 3 Months Insurance MEDICARE MEDICARE Advance Directives * Full Code (Latest Code Status on File) Date Activated Date Inactivated Comments 08/29/2024 1:21 PM 08/30/2024 3:52 PM Care Teams Geophysical Computer Relationship Specialty Start Date End Date Ramon Aviles DO [address] [place] [address] PCP - General FAMILY PRACTICE 09/25/24 Ramon Aviles DO [address] [place] [address] FAMILY PRACTICE 08/29/24 Amandeep Akhtar MD [address] [place] [address] CARDIOVASCULAR DISEASE 05/18/17
[2024-12-18] MEDS: KETOROLAC 30 MG/ML VIAL (*BKC) IM (11:38)
[2024-12-18 11:52] LABS: Influenza A QL RT-PCR Negative (Negative); Influenza B QL RT-PCR Negative (Negative); RSV RNA, RT-PCR Negative (Negative); SARS-CoV-2 RNA PCR Negative (Negative)
[2024-12-18 12:27] VITALS: BP 135/78; PULSE 64; RESP 18; TEMP 36.4; O2SAT 95
[2024-12-18 13:26] LABS: Strep Group A RT-PCR NOT DETECTED (Negative)
[2024-12-18 13:39] VITALS: BP 137/76; PULSE 68; RESP 18; TEMP 36.5; O2SAT 97
== END 2024-12-18 13:38 | disposition home or self-care (01) ==
PROVIDERS: Emergency Provider Family Medicine; PCP Family Medicine
DX: J04.0 Acute laryngitis (principal); E11.9 Type 2 diabetes mellitus without complications; I10 Essential (primary) hypertension; D64.9 Anemia, unspecified; E66.9 Obesity, unspecified; Z68.32 Body mass index [BMI] 32.0-32.9, adult; Z20.822 Contact with and (suspected) exposure to COVID-19
CPT/HCPCS: 87637; 87651; 96372; 99283; J1885

== ENCOUNTER 2025-02-13 14:51 | Emergency (ER) | payer MEDICARE, SELFPAY ==
[2025-02-13] VITALS (13 sets, daily range): BP systolic 120–141; BP diastolic 69–81; PULSE 87–101; RESP 16–18; TEMP 36.6–36.8; O2SAT 94–97
--- NOTE | ~2025-02-13 | XR_ITS ---
CHEST RADIOGRAPH CLINICAL HISTORY: chest pain, LT sided X today . COMPARISON: 09/12/2024 TECHNIQUE: Single portable view of the chest. FINDINGS The cardiomediastinal silhouette is unremarkable. Peribronchial thickening detected bilaterally, an interval change from prior. The remainder of the lungs are clear. IMPRESSION: Peribronchial thickening, without focal infiltrate or effusion. Reviewed, dictated and finalized at location A.
--- NOTE | 2025-02-13 15:00 | ECG_ITS ---
Test Date: 2025-02-13 15:07:09 Measurements Intervals [place] Rate: 89 P: 40 MD: 162 QRS: 28 QRSD: 86 T: 0 QT: 347 QTc: 422 Interpretive Statements SINUS RHYTHM DELAYED PRECORDIAL R/S TRANSITION BORDERLINE ST-T WAVE ABNORMALITY- INFERIOR LEADS BORDERLINE ECG Compared to ECG 08/29/2024 05:55:37 HEART RATE HAS INCREASED Electronically Signed On 02-13-2025 15:08:55 CDT by Jose Jha D.O.
--- NOTE | 2025-02-13 15:02 | ED.CHESTPAIN ---
HPI - Chest Pain General Chief Complaint: Chest Pain Stated Complaint: chest pain Time Seen by Provider: 02/13/25 15:02 Source: patient Mode of arrival: ambulatory Limitations: no limitations History of Present Illness HPI narrative: 5 years old white female came to the ED complaining of left chest sharp stabbing pain started prior to arrival to the emergency room. Patient is poor historian, no family member at the bedside, Patient is telling me that she have history of diabetes and hypertension and not on any medications. She denies smoking or drinking or using drugs. Patient reported that her sharp pain started getting better on arrival to the ED. Related Data Home Medications ?Medication ?Instructions ?Recorded ?Confirmed ?Last Taken ?Type sumatriptan succinate 100 mg tablet See Rx Instructions .Route .COMPLEX 08/20/24 11/17/24 Unknown History cyclobenzaprine 5 mg tablet 5 mg PO BID PRN Muscle Pain 09/02/24 11/17/24 Unknown History Allergies Allergy/AdvReac Type Severity Reaction Status Date / Time Sulfa (Sulfonamide Allergy Unknown RASH, Verified 02/13/25 15:00 Antibiotics) NAUSEA ibuprofen AdvReac Nausea and Verified 02/13/25 15:00 Vomiting iohexol (From contrast - CT, AdvReac Nausea and Verified 02/13/25 15:00 X-RAY) Vomiting Chocolate Allergy Unknown BAD Uncoded 02/13/25 15:00 MIGRAINES Review of Systems Review of Systems: All systems reviewed & are unremarkable except as noted in HPI and below PMFSH Past Medical History Medical History DMII (diabetes mellitus, type 2) Nausea Obesity, morbid, BMI 40.0-49.9 Surgical History Surgical History H/O: hysterectomy S/P cubital tunnel release Left History of carpal tunnel release of both wrists Social History Social History Social History: caffeine-tea Smoking status: Never smoker Alcohol intake: never Substance use: never Substance use type: does not use Lack of Transportation: No Lack of Food: Never True Current Housing: I Have Housing Concerned About Future Housing: No Difficulty Paying Gas/Electric Bills: No Difficulty Paying for Meds: No Currently Unemployed: No Education: High School Diploma/GED Difficulty w/ Childcare or Family Care: No Living arrangements: with family Spiritual care concerns: No Exam Narrative: General appearance: Well-developed, well-nourished Skin: Normal color Head: Normocephalic, nontraumatic Eyes: Clear conjunctiva ENT: Oropharynx normal, ears normal, nose normal Neck: Supple, nontender Chest and respiratory: Airway patent, no respiratory distress, no accessory muscle use, diffuse tenderness of the chest bilaterally mainly on the left side, no bruises, no swelling, no rash Heart: Regular rate/rhythm Abdomen: Soft, nontender, no organomegaly, quiet bowel sounds Vascular: Normal peripheral pulses, normal capillary refill. Musculoskeletal: Normal range of motion, nontender back Neurologic: Alert and oriented ?3, ENGINE LATHE SET UP OPERATOR is normal as tested, no gross motor deficit Course Vital Signs Vital signs: Vital Signs Temperature 36.8 C 02/13/25 14:57 Pulse Rate 93 02/13/25 14:57 Respiratory Rate 18 02/13/25 14:57 Blood Pressure 130/69 02/13/25 14:57 Pulse Oximetry 97 02/13/25 14:57 Oxygen Delivery Room Air 02/13/25 14:57 Temperature 36.8 C 02/13/25 14:57 Pulse Rate 88 02/13/25 15:45 Respiratory Rate 17 02/13/25 15:45 Blood Pressure 141/74 H 02/13/25 15:45 Pulse Oximetry 94 02/13/25 15:45 Oxygen Delivery Room Air 02/13/25 15:30 MDM - Chest Pain MDM Narrative Medical decision making narrative: patient came to the ED with left chest sharp stabbing pain started few minutes prior to arrival. Vital signs are stable Physical examination showing diffuse tenderness of the chest bilaterally mainly on the left side Differential diagnosis musculoskeletal chest pain, pneumonia, pleurisy, coronary artery disease Blood workup today includes CBC, CMP, troponin showed insignificant abnormalitie Chest x-ray showeds no acute abnormalities EKG on showed rhythm nonspecific T-wave, borderline EKG. Patient's symptoms resolved on arrival to the ED. Diagnosis chest wall pain , to take Tylenol, ibuprofen as needed the pt was discharged to home.the pt,s condition upon discharge was fair,education was provided to the pt in reference to the final impression,discharge study results,treatment,prognosis and need for follow up . Differential Diagnosis Differential diagnosis: Likely pneumothorax, unstable angina pectoris, atypical chest pain, costochondritis and chest pain Medical Records Data Attestation: I reviewed the patient's medical records. Lab Data Attestation: I reviewed the patient's lab results. 02/13/25 15:21 02/13/25 15:21 Labs: Lab Results 02/13/25 Range/Units 15:21 WBC 6.8 (4.8-10.8) K/mm3 RBC 4.48 (4.20-5.40) M/mm3 Hgb 12.3 (12.0-15.0) g/dL Hct 40.3 (35.0-49.0) % MCV 90.0 (78.0-102.0) fL MCH 27.5 (27.0-31.0) pg MCHC 30.5 L (32-36) g/dL RDW 14.1 (11.6-14.4) % Plt Count 200 (150-420) K/mm3 MPV 10.2 (9.2-11.8) fl Immature Gran % (Auto) 0.3 H (0.0-0.0) % Neut % (Auto) 73.3 H (50.0-70.0) % Lymph % (Auto) 21.0 (18.0-42.0) % Frederick % (Auto) 3.6 (2.0-11.0) % Eos % (Auto) 1.2 (1.0-6.0) % Baso % (Auto) 0.6 (0.0-1.0) % Lymph # (Auto) 1.42 (1.10-4.50) K/mm3 Frederick # (Auto) 0.24 (0.10-0.90) K/mm3 Eos # (Auto) 0.08 (0.02-0.50) K/mm3 Baso # (Auto) 0.04 (0.00-0.10) K/mm3 Abs Immat Gran (auto) 0.02 H (0.00-0.00) K/mm3 Absolute Neuts (auto) 4.95 (1.70-7.20) K/mm3 Absolute Nucleated RBC 0.00 (0.00-0.00) K/mm3 Nucleated RBC % 0.0 (0-0.0) % PT 10.9 (9.50-12.1) Seconds INR 1.0 APTT 29.5 (23.9-30.70) Sec Sodium 140 (136-145) mmol/L Potassium 3.5 (3.5-5.1) mmol/L Chloride 104 (98-108) mmol/L Carbon Dioxide 24 (21-32) mmol/L Anion Gap 12 (4-12) mmol/L BUN 39 H (7-18) mg/dL Creatinine 1.14 H (0.55-1.02) mg/dL Estim Creat Clear Calc 49 ml/min Estimated GFR 49 L (59 - ) Glucose 129 H (70-99) mg/dL Calculated Osmolality 301 H (285-295) mOsm/kg Calcium 9.2 (8.5-10.1) mg/dL Total Bilirubin 0.9 (0.00-1.00) mg/dL AST 12 L (15-37) U/L ALT 19 (14-59) U/L Alkaline Phosphatase 134 H (46-116) U/L Troponin I 5.2 (0.00-60.4) ng/L NT-Pro-B Natriuret Pep 174 H (0-125) pg/mL Total Protein 8.1 (6.4-8.2) g/dL Albumin 3.8 (3.4-5.0) g/dL Lipase 51 (16-77) U/L ECG Data EKG #1: Attestation: I personally reviewed and interpreted this ECG as follows: ECG completion date: 02/13/25 Interpretation: Normal sinus rhythm at 89 beats per nonspecific T-wave, borderline EKG Critical Care Time Critical Care Time Critical Care Time: No Discharge Plan Discharge Clinical Impression: Acute chest wall pain Patient Disposition: Home Condition: Improved Instructions: Chest Wall Pain (ED) Additional Instructions: Return if symptoms are worsening , call your family physician for appointment, take Tylenol, ibuprofen as as needed for aches and pain, continue home medications. Patient Language: Syriac Prescriptions: No Action sumatriptan succinate 100 mg tablet See Rx Instructions .ROUTE .COMPLEX Rx Instructions: TAKE 1 TABLET AT HEADACHE ONSET. MAY REPEAT 1 TABLET IN 2 HOURS. MAXIMUM 3 TABLETS IN 24 HOURS. ondansetron 4 mg tablet,disintegrating 4 mg PO Q6H PRN (Reason: nausea and vomiting) Qty: 14 0RF tramadol 50 mg tablet 50 mg PO Q6H PRN (Reason: pain) Qty: 14 0RF meclizine 25 mg tablet 25 mg PO TID PRN (Reason: dizziness) Qty: 30 0RF Trulicity 0.75 mg/0.5 mL pen injector 0.75 mg subcut WEEKLY Qty: 2 0RF oxybutynin chloride 15 mg tablet extended release 24hr 15 mg PO DAILY Qty: 90 0RF cyclobenzaprine 5 mg tablet 5 mg PO BID PRN (Reason: Muscle Pain) cholecalciferol (vitamin D3) 50 mcg (2,000 unit) capsule 50 mcg PO DAILY Qty: 30 2RF sertraline 100 mg tablet See Rx Instructions .ROUTE .COMPLEX Qty: 30 10RF Dose Instruction: TAKE 1 TABLET BY MOUTH DAILY *NEW PRESCRIPTION REQUEST* Rx Instructions: TAKE 1 TABLET BY MOUTH DAILY *NEW PRESCRIPTION REQUEST* aripiprazole 15 mg tablet See Rx Instructions .ROUTE .COMPLEX Qty: 30 10RF Dose Instruction: TAKE 1 TABLET(S) BY MOUTH 1 TIMES PER DAY *NEW PRESCRIPTION REQUEST* Rx Instructions: TAKE 1 TABLET(S) BY MOUTH 1 TIMES PER DAY *NEW PRESCRIPTION REQUEST* pantoprazole 40 mg tablet,delayed release (DR/EC) See Rx Instructions .ROUTE .COMPLEX Qty: 30 0RF Dose Instruction: TAKE ONE TABLET BY MOUTH EVERY MORNING Rx Instructions: TAKE ONE TABLET BY MOUTH EVERY MORNING Follow-up/Referrals: Ramon Aviles DO [Primary Care Provider] -
[2025-02-13 15:26] LABS: Basophils Absolute Auto 0.04 K/mm3 (0.00-0.10); Basophils Percent Auto 0.6 % (0.0-1.0); Eosinophils Absolute Auto 0.08 K/mm3 (0.02-0.50); Eosinophils Percent Auto 1.2 % (1.0-6.0); Hematocrit 40.3 % (35.0-49.0); Hemoglobin 12.3 g/dL (12.0-15.0); Immature Granulocyte Absolute 0.02 K/mm3 (0.00-0.00); Immature Granulocyte Percent A 0.3 % (0.0-0.0); Lymphocytes Absolute Auto 1.42 K/mm3 (1.10-4.50); Mean Corpuscular HGB Conc 30.5 g/dL (32-36); Mean Corpuscular Hemoglobin 27.5 pg (27.0-31.0); Mean Platelet Volume 10.2 fl (9.2-11.8); Monocytes Absolute Auto 0.24 K/mm3 (0.10-0.90); Monocytes Percent Auto 3.6 % (2.0-11.0); Neutrophils Absolute Auto 4.95 K/mm3 (1.70-7.20); Neutrophils Percent Auto 73.3 % (50.0-70.0); Platelet Count Result 200 K/mm3 (150-420); Red Blood Count 4.48 M/mm3 (4.20-5.40); Red Cell Distribution Width 14.1 % (11.6-14.4); White Blood Count 6.8 K/mm3 (4.8-10.8)
[2025-02-13 15:48] LABS: Partial Thromboplastin Time 29.5 Sec (23.9-30.70); Prothrombin Time 10.9 Seconds (9.50-12.1)
[2025-02-13 16:01] LABS: Alanine Aminotransferase 19 U/L (14-59); Albumin Level 3.8 g/dL (3.4-5.0); Alkaline Phosphatase 134 U/L (46-116); Anion Gap 12 mmol/L (4-12); Aspartate Amino Transferase 12 U/L (15-37); Bilirubin,Total 0.9 mg/dL (0.00-1.00); Blood Urea Nitrogen 39 mg/dL (7-18); Calcium 9.2 mg/dL (8.5-10.1); Carbon Dioxide 24 mmol/L (21-32); Chloride 104 mmol/L (98-108); Estimated CRCL calculation 49 ml/min; Estimated Glomerular Filt Rate 49; Glucose 129 mg/dL (70-99); Lipase 51 U/L (16-77); NT Pro B Type Natriuretic Pept 174 pg/mL (0-125); Osmolality Calculated 301 mOsm/kg (285-295); Potassium 3.5 mmol/L (3.5-5.1); Sodium 140 mmol/L (136-145); Total Protein 8.1 g/dL (6.4-8.2); Troponin I 5.2 ng/L (0.00-60.4)
--- NOTE | 2025-02-13 16:34 | PC.NURSE ---
Patient ambulatory to and from bathroom with steady gait. Patient denies any chest pain at this time. ERP is aware.
--- OUTSIDE RECORDS SUMMARY | 2025-02-13 17:03 | XMS_ITS | Referral Summary ---
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
--- OUTSIDE RECORDS SUMMARY | 2025-02-13 17:03 | XMS_ITS | Patient Health Record ---
Author Organization [facility] Address [address] [place], [place] [address] Care Team Providers Care Access Service Representative Name Role Phone Delmis Avilessh Unavailable Unavailable ROSANAJORYANDRES Unavailable [phone] Allergies Allergen (clinical drug ingredient) Drug/Non Drug Allergy documented on EMR Reaction Allergy Type Onset Date Status famotidine / ibuprofen Ibuprofen-Famotidine Unknown Drug A llergy Active Substance with sulfonamide structure and antibacterial mechanism of action (substance) Sulfa Antibiotics Unknown Drug Allergy Active Reason For Referral No Information Plan Of Treatment No Information Insurance Providers Payer Name Payer Address Payer Phone Subscriber Number Group Number Insured Name Patient Relationship to Insured Coverage Start Date Coverage End Date Medicare Part B [place] [address] [place] [address] [id number] JORDYN NOGUEIRA Self - patient is the insured [facility] ([facility]) ATTN CLAIMS [address] [place] [address] [id number] JORDYN NOGUEIRA Self - patient is the insured
--- OUTSIDE RECORDS SUMMARY | 2025-02-13 17:03 | XMS_ITS ---
Author Organization [facility] Address [address] [place], [place] [address] Care Team Providers Care Underground Mining Section Foreman Name Role Phone Ramon Aviles Unavailable Unavailable ANDRES JIANG Unavailable [phone] REASON FOR VISIT *General care Encounters Encounter Location Date Provider Diagnosis [address] [id number] 03/24/2024 ANDRES JIANG Plan Of Treatment No Information Progress Notes * NISHANT NOGUEIRAOB:1965 ([age] yo F)Acc No.[id number]:03/24/2024 Patient: JORDYN MILES Provider: Cass JIANG :1965 A ge:58 Y S ex:Female Date:03/24/2024 Address:[address] [place], [place] [id number] Subjective: * Chief Complaints: * 1 . *General care. * Medical History: Objective: * Vitals: Assessment: Plan: * Treatment: * Billing Information: * Visit Code: * Procedure Codes: * Electronic signature of ANIRUDH JIANG DPM on 02/13/2025 at 05:03 PM CDT Sign off status: Pending * Provider: Cass JIANG Date: 0 03/24/2024 Generated for Michael castillo/Na/Porfirio on: 0 02/13/2025 05:03 PM CDT
--- OUTSIDE RECORDS SUMMARY | 2025-02-13 17:03 | XMS_ITS | Data Portability ---
Author Organization [facility], [address] [place] [address] [place] ([place]) Address [address] [place] [phone] Assessment Encounter Date Assessment Date Assessment LastModified [...] mg capsule,2 4 hr,extend ed release 2023 [facility] [address], [address], 06/23/2024 09:41:46 sumatript an 100 mg tablet 2023 024 [facility] [employer] [facility], [address] [place] [address], [address], 06/23/2024 09:41:46 Patient TargetsNo targets recorded. Patient [...] Organization Details Recorded Time Migraine with aura 2633726 Active 024 Shari Perez MD [address] [place] [address], [phone] , [facility] 06/23/2024 09:33:31 Problem Notes None recorded. [...] Name and Address Organization Details Recorded Time 3940165 metformin hydrochlo ride medicatio n diarrhea Not available Not available 12/09/20232021 55837 3 RxNorm React ion: Diarr hea; Not Available Not Available Not Available 336580 Substance with sulfonami de structure and antibacte rial mechanism of action (substanc e) medicatio n Not available Not available Not available 12/07/20232012 87695 8003 SNOMED Not Available Not Available Not Available 152021 cocoa brito allergeni c extract food,medi cation Not available Not available Not available 12/07/20232008 26587 1 RxNorm Comme nt: Stephane late ; [...] 06/23/2024 63 /min 146 mm[Hg] 82 mm[Hg] [facility]niko [facility] 06/23/2024 09:17:07 Social History None recorded. Functional Status None recorded. Mental Status None recorded. Family History Nothing Reported. Medical History No medical history recorded. Gynecological HistoryNo gynecological history recorded. Obstetrics History GPAL:G 0 P 0 0 0 0 Past Encounters Encounter ID Performer Location Encounter Start Date Encounter Closed Date Diagnosis/Indication Diagnosis SNOMED-CT Code Diagnosis ICD10 Code Diagnosis Note [id number] Shari Perez MD [facility] [place] ([place]) [address] [place] [address] 06/23/2024 09:08:28 06/27/2024 11:59:02 Migraine with aura 1327383 G43.109 Health Concerns Section Related Observation LastModified [...] for the pain.HOLDEN Perez MD [address] [place] [address], [phone], [facility] 06/28/2024 17:42:10 OBGyn Episode No OBEpisode recorded.
--- OUTSIDE RECORDS SUMMARY | 2025-02-13 17:03 | XMS_ITS | Clinical Summary ---
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
--- OUTSIDE RECORDS SUMMARY | 2025-02-13 17:03 | XMS_ITS ---
Author Organization [facility] Address [address] [place], [place] [address] Care Team Providers Care Employee Benefits Director Name Role Phone LeeDelmis carrollsh Unavailable Unavailable DEIDRE ANDRES Unavailable [phone] Allergies Allergen (clinical drug ingredient) Drug/Non Drug Allergy documented on EMR Reaction Allergy Type Onset Date Status famotidine / ibuprofen Ibuprofen-Famotidine Unknown Drug A llergy Active Substance with sulfonamide structure and antibacterial mechanism of action (substance) Sulfa Antibiotics Unknown Drug Allergy Active REASON FOR VISIT Wants nails removed Encounters Encounter Location Date Provider Diagnosis [facility] [address] [place], [place] [phone] 01/21/2024 ANDRES JIANG Other hammer toe(s) (acquired), right foot M20.41 ; Tinea unguium B35.1 ; Other hammer toe(s) (acquired), left foot M20.42 ; Pain in right toe(s) M79.674 ; Pain in left toe(s) M79.675 ; Unspecified atherosclerosis of [place] arteries of extremities, bilateral legs I70.203 and [...] (ICD-10 - M79.675) 01/21/2024 Unspecified atherosclerosis of [place] arteries of extremities, bilateral legs (ICD-10 - [...] OTC and prescription treatments. Unspecified atherosclerosis of [place] arteries of extremities, bilateral legs Patient educated [...] * NISHANT NOGUEIRAOB:1965 ([age] yo F)Acc No.[id number]:01/21/2024 Progress Notes Patient: JORDYN MILES Provider: Cass JIANG :1965 A ge:58 Y S ex:Female Date:01/21/2024 Address:[address] [place] [address] Subjective: * Chief Complaints: * 1 . [...] Patient denies c hest pain, history of CA, irregular heartbeat. M usculoskeletal: Patient complains of [...] M79.675 6 . U nspecified atherosclerosis of [place] arteries of extremities, bilateral legs - I70.203 [...] were emphasized. 3. U nspecified atherosclerosis of [place] arteries of extremities, bilateral legs Notes: Patient [...] LESIONS, 2 TO 4, Modifiers: Q8 , 14777 DEBRIDE NAIL, 6 OR MORE, Modifiers: 59 , Q8 * Follow Up: 3 Months * Billing Information: * Visit Code: 24086 Office Visit, New Pt., Level 3. Modifiers: 25 * Procedure Codes: 50131 TRIM SKIN LESIONS, 2 TO 4. Modifiers: Q8 74056 DEBRIDE NAIL, 6 OR MORE. Modifiers: 59, Q8 * Sign off status: Completed true * Provider: Cass JIANG Date: 0 01/21/2024 Generated for Michael castillo/Na/Porfirio on: 0 02/13/2025 05:03 PM CDT
--- OUTSIDE RECORDS SUMMARY | 2025-02-13 17:20 | XMS_ITS | Clinical Summary ---
Author Organization [facility] Address [address] [place] [address] Care Team Providers Care Curtain Inspector Name Role Phone Ramon Aviles DO Unavailable [phone] Amandeep Akhtar MD Unavailable Ramon Aviles DO Primary Care Provider [phone] Allergies Active Allergy Reactions Criticality Noted Date [...] Problem Noted Date Diagnosed Date Cord compression ([facility]) 08/29/2024 Trochanteric bursitis of right [...] 06/09/2017 Pain in both lower extremities 06/09/2017 Immunizations Name Administration Dates Next Due Fluzone (IIV3, Trivalent, 0.5 ML Prefilled Syrin ge) 08/30/2024 Family History Medical History Relation Comments Diabetes Father Heart Attack Father MA Father Stroke Father Cancer Maternal Grandfather No [...] drink = 0.6 oz pur e alcohol) [facility] Utilities Answer Date Recorded In the past 12 months has e [employer], gas, oil, or water [employer] threatened to shut off services in your [...] any time in the past 12 m [facility], were you homeless or living in a jail (including now)? No 08/29/2024 Comments No Sex and Gender Information Value Date Recorded Sex Assigned at Female 02/19/2020 11:43 PM CDT Legal Sex Female 10:08 PM INSURANCE COLLECTOR Gender Identity Female 02/19/2020 11:43 PM CDT Sexual Orientation Not on file Occupation Industry Job Start Date Job End Date unemployed Not on file Not on file Not on file Last Filed Vital Signs Vital Sign Reading Time Taken Comments Blood Pressure 119/63 09/25/2024 10:00 PM INSURANCE COLLECTOR Pulse 51 09/25/2024 10:00 PM INSURANCE COLLECTOR Temperature 36.6 C (97.8 F) 09/25/2024 10:00 PM INSURANCE COLLECTOR Respiratory Rate 11 09/25/2024 10:00 PM INSURANCE COLLECTOR Oxygen Saturation 94% 09/25/2024 10:00 PM INSURANCE COLLECTOR Inhaled Oxygen Concentration - - Weight 92.3 kg (203 lb 6 oz) 09/25/2024 5:53 PM INSURANCE COLLECTOR Height 165.1 cm (5' 5 ) 09/25/2024 5:53 PM INSURANCE COLLECTOR Body Mass Index 33.84 09/25/2024 5:53 PM INSURANCE COLLECTOR Plan of Treatment Health Maintenance Due Date [...] patient's age to complete this topic Meningococcal B Vaccine Aged Out No l onger eligible based on patient's age to complete this topic Meningococcal Vaccine Aged Out No cedrick ernesto eligible based on patient's age to complete this topic RSV Immunizations Under 20 Months Aged Out No longer eligible b ased on patient's age to complete this topic Insurance MEDICARE MEDICARE Advance Directives * Full Code (Latest Code Status on File) Date Activated Date Inactivated Comments 08/29/2024 1:21 PM 08/30/2024 3:52 PM Care Teams Curtain Inspector Relationship Specialty Start Date End Date Ramon Aviles DO [address] [place] [address] PCP - General FAMILY PRACTICE 09/25/24 Ramon Aviles DO [address] [place] [address] FAMILY PRACTICE 08/29/24 Amadneep Akhtar MD [address] [place] [address] CARDIOVASCULAR DISEASE 05/18/17
--- OUTSIDE RECORDS SUMMARY | 2025-02-13 17:20 | XMS_ITS | Encounter Summary ---
Author Organization [facility] Address [facility] [place] [address] Care Team Providers Care Waste Machine Tender Name Role Phone Rosario Valentin MD Primary Care Provider [phone] Rosario Valentin MD Primary Care Provider [phone] None, Provider Primary Care Provider Onelia Coffey MD Primary Care Provider + [phone] Evens Meehan MD Primary Care Provider [phone] Ramon Aviles DO Primary Care Provider [phone] None, Provider Primary Care Provider Ramon Wilhelm DO Unavailable [phone] Amandeep Akhtar MD Unavailable Ramon Aviles DO Primary Care Provider [phone] Encounter Details Date Type Department Care Team (Late st Contact Info) Description 04/16/2019 Abstract SFL CONVERSION [address] [place] [address] , Generic Conversion, Social History Tobacco Use Types Packs/Day Years Used Date Smoking Tobacco: Never Smokeless Tobacco: Never Alcohol Use Standard Drinks/Week Comments No 0 (1 standard drink = 0.6 oz pur e alcohol) Comments Unknown Sex and Gender Information Value Date Recorded Sex Assigned at Female 02/19/2020 11:43 PM CDT 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 Gender Identity Female 02/19/2020 11:43 PM CDT [...] Rule Out 09/21/2021 09/21/2021 09/21/2021 12:32 PM GREENS LABORER COVID-19 Rule Out 08/25/2024 08/25/2024 08/25/2024 10:09 AM CDT documented as of this encounter Care Teams Waste Machine Tender Relationship Specialty Start Date End Date Rosario Valentin MD [address] [place] [phone] PCP - General FAMILY PRACTICE 10/05/17 02/19/20 Rosario Valentin MD [address] [place] [phone] PCP - General FAMILY PRACTICE 02/20/20 05/28/21 None, ProviderMD PCP - General 06/14/21 10/15/21 [place] [address] [place] [address] PCP - General INTERNAL MEDICINE 10/16/21 12/29/22 Evens Meehan MD [address] [place] [address] PCP - General FAMILY PRACTICE 12/30/22 01/18/24 Ramon Aviles DO [address] [place] [address] PCP - General FAMILY PRACTICE 01/19/24 08/28/24 None, ProviderMD PCP - General UNKNOWN PHYSICIAN SPECIALTY 08/29/24 1 11/24/23 Ramon Aviles DO [address] [place] [address] PCP - General FAMILY PRACTICE 09/25/24 Ramon Aviles DO [address] [place] [address] FAMILY PRACTICE 08/29/24 Amandeep Akhtar MD [address] [place] [address] CARDIOVASCULAR DISEASE 05/18/17 documented as of this encounter
== END 2025-02-13 16:58 | disposition home or self-care (01) ==
PROVIDERS: Emergency Provider Emergency Medicine; PCP Family Medicine
DX: R07.89 Other chest pain (principal); E11.9 Type 2 diabetes mellitus without complications; I10 Essential (primary) hypertension
CPT/HCPCS: 36415; 71045; 80053; 83690; 83880; 84484; 85025; 85610; 85730; 93005; 99284

== ENCOUNTER 2025-02-23 11:11 | Outpatient (CLI) | payer MEDICARE, SELFPAY ==
--- NOTE | 2025-02-23 11:37 | ECG_ITS ---
Test Date: 2025-02-23 12:01:15 Measurements Intervals [place] Rate: 72 P: 43 WV: 154 QRS: 43 QRSD: 75 T: 24 QT: 377 QTc: 415 Interpretive Statements SINUS RHYTHM DELAYED PRECORDIAL R/S TRANSITION BASELINE ARTIFACT- II, III, AVR, AVL, AVF, V2-V6 BORDERLINE ECG Compared to ECG 02/13/2025 15:07:09 No significant changes Electronically Signed On 02-23-2025 11:59:32 CDT by Jose Jha D.O.
[2025-02-23 11:55] LABS: Basophils Absolute Auto 0.03 K/mm3 (0.00-0.10); Basophils Percent Auto 0.6 % (0.0-1.0); Eosinophils Percent Auto 2.1 % (1.0-6.0); Hematocrit 37.7 % (35.0-49.0); Hemoglobin 11.3 g/dL (12.0-15.0); Immature Granulocyte Absolute 0.01 K/mm3 (0.00-0.00); Immature Granulocyte Percent A 0.2 % (0.0-0.0); Lymphocytes Percent Auto 26.7 % (18.0-42.0); Mean Corpuscular Hemoglobin 27.6 pg (27.0-31.0); Mean Corpuscular Volume 92.2 fL (78.0-102.0); Mean Platelet Volume 10.5 fl (9.2-11.8); Monocytes Percent Auto 4.1 % (2.0-11.0); Neutrophils Absolute Auto 3.23 K/mm3 (1.70-7.20); Neutrophils Percent Auto 66.3 % (50.0-70.0); Platelet Count Result 203 K/mm3 (150-420); Red Blood Count 4.09 M/mm3 (4.20-5.40); Red Cell Distribution Width 14.3 % (11.6-14.4); White Blood Count 4.9 K/mm3 (4.8-10.8)
--- OUTSIDE RECORDS SUMMARY | 2025-02-23 12:03 | XMS_ITS | Referral Summary ---
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
--- OUTSIDE RECORDS SUMMARY | 2025-02-23 12:03 | XMS_ITS | Clinical Summary ---
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
--- OUTSIDE RECORDS SUMMARY | 2025-02-23 12:04 | XMS_ITS | Clinical Summary ---
Author Organization [facility] Address [address] [place] [address] Care Team Providers Care Channel Opener Outsoles Name Role Phone Ramon Aviles DO Unavailable [phone] Amandeep Akhtar MD Unavailable Ramon Aviles DO Primary Care Provider [phone] Allergies Active Allergy Reactions Criticality Noted Date [...] Problem Noted Date Diagnosed Date Cord compression ([facility]) 08/29/2024 Trochanteric bursitis of right hip [...] Pain in both lower extremities 06/09/2017 Immunizations Immunization Administration Dates Next Due Fluzone (IIV3, Trivalent, 0.5 ML Prefilled Syrin ge) 08/30/2024 Family History Medical History Relation Comments Diabetes Father Heart Attack Father [place] Father Stroke Father Cancer Maternal Grandfather No [...] drink = 0.6 oz pur e alcohol) [facility] Utilities Answer Date Recorded In the past 12 months has e [employer], gas, oil, or water [employer] threatened to shut off services in your [...] any time in the past [address] [facility], were you homeless or living in a penitentiary (including now)? No 08/29/2024 Comments No Sex and Gender Information Value Date Recorded Sex Assigned at Female 02/19/2020 11:43 PM CDT Legal Sex Female 10:08 PM FITTER'S ASSISTANT Gender Identity Female 02/19/2020 11:43 PM CDT Sexual Orientation Not on file Occupation Industry Job Start Date Job End Date unemployed Not on file Not on file Not on file Last Filed Vital Signs Vital Sign Reading Time Taken Comments Blood Pressure 119/63 09/25/2024 10:00 PM FITTER'S ASSISTANT Pulse 51 09/25/2024 10:00 PM FITTER'S ASSISTANT Temperature 36.6 C (97.8 F) 09/25/2024 10:00 PM FITTER'S ASSISTANT Respiratory Rate 11 09/25/2024 10:00 PM FITTER'S ASSISTANT Oxygen Saturation 94% 09/25/2024 10:00 PM FITTER'S ASSISTANT Inhaled Oxygen Concentration - - Weight 92.3 kg (203 lb 6 oz) 09/25/2024 5:53 PM FITTER'S ASSISTANT Height 165.1 cm (5' 5 ) 09/25/2024 5:53 PM FITTER'S ASSISTANT Body Mass Index 33.84 09/25/2024 5:53 PM FITTER'S ASSISTANT Plan of Treatment Health Maintenance Due Date [...] 5 Years) and At-Risk Patients (6 to 49 Years) Aged Out 02/26/2024 No longer eligible [...] 1:21 PM 08/30/2024 3:52 PM Care Teams Channel Opener Outsoles Relationship Specialty Start Date End Date Ramon Aviles DO [address] [place] [address] PCP - General FAMILY PRACTICE 09/25/24 Ramon Aviles DO [address] [place] [address] FAMILY PRACTICE 08/29/24 Amandeep Akhtar MD [address] [place] [address] CARDIOVASCULAR DISEASE 05/18/17
--- OUTSIDE RECORDS SUMMARY | 2025-02-23 12:04 | XMS_ITS | Encounter Summary ---
Author Organization [facility] Address [facility] [place] [address] Care Team Providers Care Belly Dancer Name Role Phone Rosario Valentin MD Primary Care Provider [phone] Rosario Valentin MD Primary Care Provider [phone], Provider Primary Care Provider Onelia Coffey MD Primary Care Provider + [phone] Evens Meehan MD Primary Care Provider [phone] Ramon Aviles DO Primary Care Provider [phone] None, Provider Primary Care Provider Ramon Wilhelm DO Unavailable [phone] Amandeep Akhtar MD Unavailable Ramon Aviles DO Primary Care Provider [phone] Encounter Details Date Type Department Care Team (Late st Contact Info) Description 04/16/2019 Abstract SFL CONVERSION [address] [place] [address] , Generic Conversion, Social History Tobacco Use Types Packs/Day Years Used Date Smoking Tobacco: Never Smokeless Tobacco: Never Alcohol Use Standard Drinks/Week Comments No 0 (1 standard drink = 0.6 oz pur e alcohol) Comments Unknown Sex and Gender Information Value Date Recorded Sex Assigned at Female 02/19/2020 11:43 PM CDT Legal Sex Female 10:08 PM HEAD SAWYER Gender Identity Female 02/19/2020 11:43 PM CDT [...] Rule Out 09/21/2021 09/21/2021 09/21/2021 12:32 PM HEAD SAWYER COVID-19 Rule Out 08/25/2024 08/25/2024 08/25/2024 10:09 AM CDT documented as of this encounter Care Teams Belly Dancer Relationship Specialty Start Date End Date Rosario Valentin MD [address] [place] [address] PCP - General FAMILY PRACTICE 10/05/17 02/19/20 Rosario Valentin MD [address] [place] [address] PCP - General FAMILY PRACTICE 02/20/20 05/28/21 None, ProviderMD PCP - General 06/14/21 10/15/21 [place] [address] [place] [address] PCP - General INTERNAL MEDICINE 10/16/21 12/29/22 Evens Meehan MD [address] [place] [address] PCP - General FAMILY PRACTICE 12/30/22 01/18/24 Ramon Aviles DO [address] [place] [address] PCP - General FAMILY PRACTICE 01/19/24 08/28/24 None, ProviderMD PCP - General UNKNOWN PHYSICIAN SPECIALTY 08/29/24 1 11/24/23 Ramon Aviles DO [address] [place] [address] PCP - General FAMILY PRACTICE 09/25/24 Ramon Aviles DO [address] [place] [address] FAMILY PRACTICE 08/29/24 Amandeep Akhtar MD [address] [place] [address] CARDIOVASCULAR DISEASE 05/18/17 documented as of this encounter
[2025-02-23 12:11] LABS: Hemoglobin A1C 6.7 % (<5.7)
[2025-02-23 12:24] LABS: Alanine Aminotransferase 14 U/L (14-59); Albumin Level 3.7 g/dL (3.4-5.0); Alkaline Phosphatase 131 U/L (46-116); Anion Gap 9 mmol/L (4-12); Aspartate Amino Transferase 12 U/L (15-37); Bilirubin,Total 1.3 mg/dL (0.00-1.00); Blood Urea Nitrogen 23 mg/dL (7-18); Carbon Dioxide 27 mmol/L (21-32); Chloride 109 mmol/L (98-108); Estimated Glomerular Filt Rate > 60; Glucose 119 mg/dL (70-99); Osmolality Calculated 304 mOsm/kg (285-295); Sodium 145 mmol/L (136-145); Total Protein 7.3 g/dL (6.4-8.2)
[2025-02-23 12:26] LABS: Microalbumin Urine Random < 13.0 mg/L
== END 2025-02-23 11:12 | disposition home or self-care (01) ==
PROVIDERS: PCP Family Medicine; Visit Provider Family Medicine
DX: E11.9 Type 2 diabetes mellitus without complications (principal); E61.1 Iron deficiency; R55 Syncope and collapse
CPT/HCPCS: 36415; 80053; 82043; 83036; 85025; 93005

== ENCOUNTER 2025-02-28 15:50 | Emergency (ER) | payer MEDICARE, SELFPAY ==
[2025-02-28 16:17] LABS: Basophils Absolute Auto 0.03 K/mm3 (0.00-0.10); Basophils Percent Auto 0.6 % (0.0-1.0); Eosinophils Percent Auto 1.9 % (1.0-6.0); Hemoglobin 11.8 g/dL (12.0-15.0); Immature Granulocyte Absolute 0.02 K/mm3 (0.00-0.00); Immature Granulocyte Percent A 0.4 % (0.0-0.0); Lymphocytes Absolute Auto 1.33 K/mm3 (1.10-4.50); Lymphocytes Percent Auto 24.9 % (18.0-42.0); Mean Corpuscular HGB Conc 30.3 g/dL (32-36); Mean Corpuscular Hemoglobin 27.8 pg (27.0-31.0); Mean Corpuscular Volume 91.8 fL (78.0-102.0); Mean Platelet Volume 10.5 fl (9.2-11.8); Monocytes Absolute Auto 0.25 K/mm3 (0.10-0.90); Monocytes Percent Auto 4.7 % (2.0-11.0); Neutrophils Absolute Auto 3.62 K/mm3 (1.70-7.20); Neutrophils Percent Auto 67.5 % (50.0-70.0); Platelet Count Result 200 K/mm3 (150-420); Red Blood Count 4.25 M/mm3 (4.20-5.40); White Blood Count 5.4 K/mm3 (4.8-10.8)
--- NOTE | 2025-02-28 16:17 | ED_ITS ---
HPI - General Adult General Chief complaint: Nausea/Vomiting/Diarrhea Stated complaint: nausea vommiting Time Seen by Provider: 02/28/25 15:51 History of Present Illness HPI narrative: Marisela is a 59F with a PMH of DMII, HTN, obesity, JENNIFER, Migraines and GERD that presented to the ED via EMS for 2 episodes of vomiting. Her hampster and she was cleaning it up when she had 2 episodes of non bloody vomiting and now she has some nausea. No abdominal pain, diarrhea, CP, dyspnea or fevers. Related Data Home Medications ?Medication ?Instructions ?Recorded ?Confirmed ?Last Taken ?Type sumatriptan succinate 100 mg tablet See Rx Instructions .Route .COMPLEX 08/20/24 11/17/24 Unknown History cyclobenzaprine 5 mg tablet 5 mg PO BID PRN Muscle Pain 09/02/24 11/17/24 Unknown History Allergies Allergy/AdvReac Type Severity Reaction Status Date / Time Sulfa (Sulfonamide Allergy Unknown RASH, Verified 02/23/25 08:10 Antibiotics) NAUSEA ibuprofen AdvReac Nausea and Verified 02/23/25 08:10 Vomiting iohexol (From contrast - CT, AdvReac Nausea and Verified 02/23/25 08:10 X-RAY) Vomiting Chocolate Allergy Unknown BAD Uncoded 02/23/25 08:10 MIGRAINES Review of Systems 2 Review of Systems: All systems reviewed & are unremarkable except as noted in HPI and below PMFSH Past Medical History Medical History DMII (diabetes mellitus, type 2) Nausea Obesity, morbid, BMI 40.0-49.9 Surgical History Surgical History H/O: hysterectomy S/P cubital tunnel release Left History of carpal tunnel release of both wrists Social History Social History Social History: caffeine-tea Smoking status: Never smoker Alcohol intake: never Substance use: never Substance use type: does not use Lack of Transportation: No Lack of Food: Never True Current Housing: I Have Housing Concerned About Future Housing: No Difficulty Paying Gas/Electric Bills: No Difficulty Paying for Meds: No Currently Unemployed: No Education: High School Diploma/GED Difficulty w/ Childcare or Family Care: No Living arrangements: with family Spiritual care concerns: No Exam 2 Const: General: cooperative, healthy appearing, comfortable, no acute distress, well developed, alert, awake and Physically active O rientation/consciousness: oriented to person, oriented to place and oriented to time HENMT: Head: normal to inspection, normocephalic and atraumatic Ears: h earing grossly normal bilaterally and external ears normal Face/Nose/Sinus: N ormal external nose present Eyes: General: appearance normal, both eyes and all related structures P eriorbital: periorbital findings normal Sclera: sclerae normal Pupils: E qual, round and reactive pupils present Neck: Neck: normal visual inspection Chest: Chest palpation & inspection: normal inspection of the chest Resp: Effort & Inspection: normal respiratory effort, able to speak in complete sentences and no respiratory distress Auscultation: clear to auscultation bilaterally Cardio: Jugular venous distension: no JVD Rate: regular rate Rhythm: r egular rhythm GI: Inspection: normal to inspection GI Palp: Yes Soft to palpation A uscultation: normal bowel sounds Skin: General skin exam: normal color and no rashes or lesions noted Neuro: General: oriented to person, oriented to place and oriented to time Cranial nerves: Yes Equal, round and reactive pupils present Extrem: General: normal to inspection Course Course Emergency Course: Ordered labs. Given a dose of Zofran. Labs largely unremarkable. Given this it is most likely gastritis. Vital Signs Vital signs: Vital Signs Temperature 97.6 F 02/28/25 16:18 Pulse Rate 74 02/28/25 16:18 Blood Pressure 120/56 L 02/28/25 16:18 Pulse Oximetry 95 02/28/25 16:18 Oxygen Delivery Room Air 02/28/25 16:18 Temperature 97.6 F 02/28/25 16:18 Pulse Rate 74 02/28/25 16:18 Blood Pressure 120/56 L 02/28/25 16:18 Pulse Oximetry 95 02/28/25 16:18 Oxygen Delivery Room Air 02/28/25 16:18 Medical Decision Making Vital Signs Vital Signs: Vital Signs Temperature 97.6 F 02/28/25 16:18 Pulse Rate 74 02/28/25 16:18 Blood Pressure 120/56 L 02/28/25 16:18 Pulse Oximetry 95 02/28/25 16:18 Oxygen Delivery Room Air 02/28/25 16:18 Temperature 97.6 F 02/28/25 16:18 Pulse Rate 74 02/28/25 16:18 Blood Pressure 120/56 L 02/28/25 16:18 Pulse Oximetry 95 02/28/25 16:18 Oxygen Delivery Room Air 02/28/25 16:18 Lab Data 02/28/25 16:04 02/28/25 16:04 Labs: Lab Results 02/28/25 Range/Units 16:04 WBC 5.4 (4.8-10.8) K/mm3 RBC 4.25 (4.20-5.40) M/mm3 Hgb 11.8 L (12.0-15.0) g/dL Hct 39.0 (35.0-49.0) % MCV 91.8 (78.0-102.0) fL MCH 27.8 (27.0-31.0) pg MCHC 30.3 L (32-36) g/dL RDW 14.0 (11.6-14.4) % Plt Count 200 (150-420) K/mm3 MPV 10.5 (9.2-11.8) fl Immature Gran % (Auto) 0.4 H (0.0-0.0) % Neut % (Auto) 67.5 (50.0-70.0) % Lymph % (Auto) 24.9 (18.0-42.0) % [place] % (Auto) 4.7 (2.0-11.0) % Eos % (Auto) 1.9 (1.0-6.0) % Baso % (Auto) 0.6 (0.0-1.0) % Lymph # (Auto) 1.33 (1.10-4.50) K/mm3 [place] # (Auto) 0.25 (0.10-0.90) K/mm3 Eos # (Auto) 0.10 (0.02-0.50) K/mm3 Baso # (Auto) 0.03 (0.00-0.10) K/mm3 Abs Immat Gran (auto) 0.02 H (0.00-0.00) K/mm3 Absolute Neuts (auto) 3.62 (1.70-7.20) K/mm3 Absolute Nucleated RBC 0.00 (0.00-0.00) K/mm3 Nucleated RBC % 0.0 (0-0.0) % PT 10.5 (9.50-12.1) Seconds INR 0.9 Sodium 141 (136-145) mmol/L Potassium 3.5 (3.5-5.1) mmol/L Chloride 106 (98-108) mmol/L Carbon Dioxide 23 (21-32) mmol/L Anion Gap 12 (4-12) mmol/L BUN 20 H (7-18) mg/dL Creatinine 1.06 H (0.55-1.02) mg/dL Estim Creat Clear Calc Not Reportable Estimated GFR 53 L (59 - ) Glucose 121 H (70-99) mg/dL Calculated Osmolality 295 (285-295) mOsm/kg Lactic Acid 1.2 (0.4-2.0) mmol/L Calcium 8.8 (8.5-10.1) mg/dL Magnesium 1.8 (1.8-2.4) mg/dL Total Bilirubin 1.1 H (0.00-1.00) mg/dL AST 15 (15-37) U/L ALT 38 (14-59) U/L Alkaline Phosphatase 168 H (46-116) U/L C-Reactive Protein < 0.5 (0.0-0.9) mg/dL Total Protein 7.8 (6.4-8.2) g/dL Albumin 3.6 (3.4-5.0) g/dL Lipase 31 (16-77) U/L Discharge Plan Discharge Clinical Impression: Nausea & vomiting Patient Disposition: Home Condition: Stable Patient Language: Korean Prescriptions: New ondansetron 4 mg tablet,disintegrating 4 mg PO Q8H Qty: 10 0RF No Action sumatriptan succinate 100 mg tablet See Rx Instructions .ROUTE .COMPLEX Rx Instructions: TAKE 1 TABLET AT HEADACHE ONSET. MAY REPEAT 1 TABLET IN 2 HOURS. MAXIMUM 3 TABLETS IN 24 HOURS. ondansetron 4 mg tablet,disintegrating 4 mg PO Q6H PRN (Reason: nausea and vomiting) Qty: 14 0RF tramadol 50 mg tablet 50 mg PO Q6H PRN (Reason: pain) Qty: 14 0RF meclizine 25 mg tablet 25 mg PO TID PRN (Reason: dizziness) Qty: 30 0RF Trulicity 0.75 mg/0.5 mL pen injector 0.75 mg subcut WEEKLY Qty: 2 0RF oxybutynin chloride 15 mg tablet extended release 24hr 15 mg PO DAILY Qty: 90 0RF cyclobenzaprine 5 mg tablet 5 mg PO BID PRN (Reason: Muscle Pain) cholecalciferol (vitamin D3) 50 mcg (2,000 unit) capsule 50 mcg PO DAILY Qty: 30 2RF pantoprazole 40 mg tablet,delayed release (DR/EC) See Rx Instructions .ROUTE .COMPLEX Qty: 30 2RF Dose Instruction: TAKE ONE TABLET BY MOUTH EVERY MORNING Rx Instructions: TAKE ONE TABLET BY MOUTH EVERY MORNING sertraline 100 mg tablet See Rx Instructions .ROUTE .COMPLEX Qty: 30 10RF Dose Instruction: TAKE 1 TABLET BY MOUTH DAILY *NEW PRESCRIPTION REQUEST* Rx Instructions: TAKE 1 TABLET BY MOUTH DAILY *NEW PRESCRIPTION REQUEST* aripiprazole 15 mg tablet See Rx Instructions .ROUTE .COMPLEX Qty: 30 10RF Dose Instruction: TAKE 1 TABLET(S) BY MOUTH 1 TIMES PER DAY *NEW PRESCRIPTION REQUEST* Rx Instructions: TAKE 1 TABLET(S) BY MOUTH 1 TIMES PER DAY *NEW PRESCRIPTION REQUEST* Follow-up/Referrals: Ramon Aviles, [Primary Care Provider] -
[2025-02-28 16:18] VITALS: BP 120/56; PULSE 74; TEMP 36.4; O2SAT 95
[2025-02-28 16:30] VITALS: BP 125/61; PULSE 72; RESP 17; O2SAT 96
[2025-02-28] MEDS: ONDANSETRON HCL ODT 4 MG TABLET PO (16:35)
[2025-02-28 16:37] LABS: INR 0.9; Prothrombin Time 10.5 Seconds (9.50-12.1)
[2025-02-28 16:40] LABS: Alanine Aminotransferase 38 U/L (14-59); Albumin Level 3.6 g/dL (3.4-5.0); Alkaline Phosphatase 168 U/L (46-116); Anion Gap 12 mmol/L (4-12); Aspartate Amino Transferase 15 U/L (15-37); Bilirubin,Total 1.1 mg/dL (0.00-1.00); Blood Urea Nitrogen 20 mg/dL (7-18); Carbon Dioxide 23 mmol/L (21-32); Chloride 106 mmol/L (98-108); Estimated Glomerular Filt Rate 53; Glucose 121 mg/dL (70-99); Lipase 31 U/L (16-77); Magnesium 1.8 mg/dL (1.8-2.4); Osmolality Calculated 295 mOsm/kg (285-295); Potassium 3.5 mmol/L (3.5-5.1); Sodium 141 mmol/L (136-145); Total Protein 7.8 g/dL (6.4-8.2)
[2025-02-28 16:54] LABS: Calcium 8.8 mg/dL (8.5-10.1)
[2025-02-28 16:55] LABS: CRP < 0.5 mg/dL (0.0-0.9)
[2025-02-28 17:00] VITALS: BP 112/75; PULSE 76; RESP 17; O2SAT 95
[2025-02-28 17:30] VITALS: BP 114/69; PULSE 65; RESP 17; O2SAT 95
[2025-02-28 17:40] LABS: Lactic Acid Reflex 1.2 mmol/L (0.4-2.0)
--- OUTSIDE RECORDS SUMMARY | 2025-02-28 17:51 | XMS_ITS | Referral Summary ---
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
--- OUTSIDE RECORDS SUMMARY | 2025-02-28 17:51 | XMS_ITS | Clinical Summary ---
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
--- OUTSIDE RECORDS SUMMARY | 2025-02-28 17:51 | XMS_ITS | Clinical Summary ---
Author Organization [facility] Address [address] [place] [address] Care Team Providers Care Tipple Mechanic Name Role Phone Ramon Aviles DO Unavailable [phone] Amandeep Akhtar MD Unavailable Ramon Aviles DO Primary Care Provider [phone] Allergies Active Allergy Reactions Criticality Noted Date [...] Problem Noted Date Diagnosed Date Cord compression ([facility]CC [facility]) 08/29/2024 Trochanteric bursitis of right hip 09/03/2021 [...] Relation Comments Diabetes Father Heart Attack Father CT Father Stroke Father Cancer Maternal Grandfather No [...] drink = 0.6 oz pur e alcohol) [facility] Utilities Answer Date Recorded In the past 12 months has e [employer], gas, oil, or water [employer] threatened to shut off services in your [...] any time in the past 12 m [facility], were you homeless or living in a longterm (including now)? No 08/29/2024 Comments No Sex and Gender Information Value Date Recorded Sex Assigned at Female 02/19/2020 11:43 PM CDT Legal Sex Female 10:08 PM LINEMAN Gender Identity Female 02/19/2020 11:43 PM CDT Sexual Orientation Not on file Occupation Industry Job Start Date Job End Date unemployed Not on file Not on file Not on file Last Filed Vital Signs Vital Sign Reading Time Taken Comments Blood Pressure 119/63 09/25/2024 10:00 PM LINEMAN Pulse 51 09/25/2024 10:00 PM LINEMAN Temperature 36.6 C (97.8 F) 09/25/2024 10:00 PM LINEMAN Respiratory Rate 11 09/25/2024 10:00 PM LINEMAN Oxygen Saturation 94% 09/25/2024 10:00 PM LINEMAN Inhaled Oxygen Concentration - - Weight 92.3 kg (203 lb 6 oz) 09/25/2024 5:53 PM LINEMAN Height 165.1 cm (5' 5 ) 09/25/2024 5:53 PM LINEMAN Body Mass Index 33.84 09/25/2024 5:53 PM LINEMAN Plan of Treatment Health Maintenance Due Date [...] - 1-dose 75+ series) 2039 Pneumococcal Vaccine: 50+ Years Completed 02/26/2024 Meningococcal B Vaccine Aged Out No l [...] 1:21 PM 08/30/2024 3:52 PM Care Teams Tipple Mechanic Relationship Specialty Start Date End Date Ramon Aviles DO [address] [place] [address] PCP - General FAMILY PRACTICE 09/25/24 Ramon Aviles DO [address] [place] [address] FAMILY PRACTICE 08/29/24 Amandeep Akhtar MD [address] [place] [address] CARDIOVASCULAR DISEASE 05/18/17
--- OUTSIDE RECORDS SUMMARY | 2025-02-28 17:51 | XMS_ITS | Data Portability ---
Author Organization [facility], [address] [place] [address] Neurology ([place]) Address [address] [place] [address] Assessment Encounter Date Assessment Date Assessment LastModified [...] Patient 15.EST 2024 01:00P M Dr. Shari Preez Not available Not available Not available Lab None recorded. Referral None recorded. Procedures None recorded. Surgeries None recorded. Imaging None recorded. Medication Orders propranol ol ER 120 mg capsule,2 4 hr,extend ed release 2023 [facility] [address], [address], 06/23/2024 09:41:46 sumatript an 100 mg tablet 2023 024 [facility], [address] [place] [address], [address], 06/23/2024 09:41:46 Patient TargetsNo targets recorded. Patient [...] Organization Details Recorded Time Migraine with aura 1188952 Active 024 Shari Perez MD [address] [place] [address], [phone] , [facility] 06/23/2024 09:33:31 Problem Notes None recorded. Procedures [...] Name and Address Organization Details Recorded Time 2162428 metformin hydrochlo ride medicatio n diarrhea Not available Not available 12/09/20232021 53975 3 RxNorm React ion: Diarr hea; Not Available Not Available Not Available 746674 Substance with sulfonami de structure and antibacte rial mechanism of action (substanc e) medicatio n Not available Not available Not available 12/07/20232012 58600 8003 SNOMED Not Available Not Available Not Available 739220 cocoa brito allergeni c extract food,medi cation Not available Not available Not available 12/07/20232008 94801 1 RxNorm Comme nt: Stephane late ; [...] 06/23/2024 63 /min 146 mm[Hg] 82 mm[Hg] [facility] 06/23/2024 09:17:07 Social History None recorded. Functional Status None recorded. Mental Status None recorded. Family History Nothing Reported. Medical History No medical history recorded. Gynecological HistoryNo gynecological history recorded. Obstetrics History GPAL:G 0 P 0 0 0 0 Past Encounters Encounter ID Performer Location Encounter Start Date Encounter Closed Date Diagnosis/Indication Diagnosis SNOMED-CT Code Diagnosis ICD10 Code Diagnosis Note [id number] Shari Peerz MD [facility] Specialty [place]rology ([place]) [address] [place] [address] 06/23/2024 09:08:28 06/27/2024 11:59:02 Migraine with aura 0412649 G43.109 Health Concerns Section Related Observation LastModified [...] for the pain.HOLDEN Perez MD [address] [place] [address], [phone], [facility] 06/28/2024 17:42:10 OBGyn Episode No OBEpisode recorded.
--- OUTSIDE RECORDS SUMMARY | 2025-02-28 17:51 | XMS_ITS ---
Author Organization [facility] Address [address] [place], [place] [address] Care Team Providers Care Soundscriber Mechanic Name Role Phone LeeDelmis carrollsh Unavailable Unavailable DEIDRE ANDRES Unavailable [phone] Allergies Allergen (clinical drug ingredient) Drug/Non Drug Allergy documented on EMR Reaction Allergy Type Onset Date Status famotidine / ibuprofen Ibuprofen-Famotidine Unknown Drug A llergy Active Substance with sulfonamide structure and antibacterial mechanism of action (substance) Sulfa Antibiotics Unknown Drug Allergy Active REASON FOR VISIT Wants nails removed Encounters Encounter Location Date Provider Diagnosis [facility] [address] [place], [place] [id number] 01/21/2024 ANDRES JIANG Other hammer toe(s) (acquired), right foot M20.41 ; Tinea unguium B35.1 ; Other hammer toe(s) (acquired), left foot M20.42 ; Pain in right toe(s) M79.674 ; Pain in left toe(s) M79.675 ; Unspecified atherosclerosis of [place] arteries of extremities, bilateral legs I70.203 and [...] (ICD-10 - M79.675) 01/21/2024 Unspecified atherosclerosis of [place] arteries of extremities, bilateral legs (ICD-10 - [...] OTC and prescription treatments. Unspecified atherosclerosis of [place] arteries of extremities, bilateral legs Patient educated [...] * NISHANT NOGUEIRAOB:1965 ([age] yo F)Acc No.[id number]:01/21/2024 Progress Notes Patient: JORDYN MILES Provider: Cass JIANG :1965 A ge:58 Y S ex:Female Date:01/21/2024 Address:[address] [place] [address] Subjective: * Chief Complaints: * 1 . [...] Patient denies c hest pain, history of [place], irregular heartbeat. M usculoskeletal: Patient complains of [...] M79.675 6 . U nspecified atherosclerosis of [place] arteries of extremities, bilateral legs - I70.203 [...] were emphasized. 3. U nspecified atherosclerosis of [place] arteries of extremities, bilateral legs Notes: Patient [...] LESIONS, 2 TO 4, Modifiers: Q8 , 62645 DEBRIDE NAIL, 6 OR MORE, Modifiers: 59 , Q8 * Follow Up: 3 Months * Billing Information: * Visit Code: 37815 Office Visit, New Pt., Level 3. Modifiers: 25 * Procedure Codes: 22481 TRIM SKIN LESIONS, 2 TO 4. Modifiers: Q8 66579 DEBRIDE NAIL, 6 OR MORE. Modifiers: 59, Q8 * Sign off status: Completed true * Provider: Cass JIANG Date: 0 01/21/2024 Generated for Michael castillo/Na/Porfirio on: 0 02/28/2025 05:51 PM CDT
--- OUTSIDE RECORDS SUMMARY | 2025-02-28 17:52 | XMS_ITS | Patient Health Record ---
Author Organization [facility] Address [address] [place], [place] [id number] Care Team Providers Care Learning Coordinator Name Role Phone Delmis Avilessh Unavailable Unavailable ROSANAJORYANDRES Unavailable [phone] Allergies Allergen (clinical drug ingredient) Drug/Non Drug [...] Date Coverage End Date Medicare Part B [place] [address] [place] [address] [id number] JORDYN NOGUEIRA Self - patient is the insured [facility] ([facility]) ATTN CLAIMS [address] [place] [address] [id number] JORDYN NOGUEIRA Self - patient is the insured
--- OUTSIDE RECORDS SUMMARY | 2025-02-28 17:52 | XMS_ITS | Encounter Summary ---
Author Organization [facility] Address [facility] [place] [address] Care Team Providers Care Repair Service Clerk Name Role Phone Rosario Valentin MD Primary Care Provider [phone] Rosario Valentin MD Primary Care Provider [phone] None, Provider Primary Care Provider Onelia Coffey MD Primary Care Provider + [phone] Evens Meehan MD Primary Care Provider [phone] Ramon Aviles DO Primary Care Provider [phone] None, Provider Primary Care Provider Ramon Wilhelm DO Unavailable Amandeep Akhtar MD Unavailable Ramon Aviles DO Primary Care Provider [phone] Encounter Details Date Type Department Care Team (Late st Contact Info) Description 04/16/2019 Abstract SFL CONVERSION [address] [place] [address] , Generic Conversion, Social History Tobacco Use Types Packs/Day Years Used Date Smoking Tobacco: Never Smokeless Tobacco: Never Alcohol Use Standard Drinks/Week Comments No 0 (1 standard drink = 0.6 oz pur e alcohol) Comments Unknown Sex and Gender Information Value Date Recorded Sex Assigned at Female 02/19/2020 11:43 PM CDT 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 Gender Identity Female 02/19/2020 11:43 PM CDT [...] Rule Out 09/21/2021 09/21/2021 09/21/2021 12:32 PM GLASS SANDER BELT COVID-19 Rule Out 08/25/2024 08/25/2024 08/25/2024 10:09 AM CDT documented as of this encounter Care Teams Repair Service Clerk Relationship Specialty Start Date End Date Rosario Valentin MD [address] [place] [phone] PCP - General FAMILY PRACTICE 10/05/17 02/19/20 Rosario Valentin MD [address] [place] [address] PCP - General FAMILY PRACTICE 02/20/20 05/28/21 None, ProviderMD PCP - General 06/14/21 10/15/21 [place] [address] [place] [address] PCP - General INTERNAL MEDICINE 10/16/21 12/29/22 Evens Meehan MD [address] [place] [address] PCP - General FAMILY PRACTICE 12/30/22 01/18/24 Ramon Aviles DO [address] [place] [address] PCP - General FAMILY PRACTICE 01/19/24 08/28/24 None, ProviderMD PCP - General UNKNOWN PHYSICIAN SPECIALTY 08/29/24 1 11/24/23 Ramon Aviles DO [address] [place] [address] PCP - General FAMILY PRACTICE 09/25/24 Ramon Aviles DO [address] [place] [address] FAMILY PRACTICE 08/29/24 Amandeep Akhtar MD [address] [place] [address] CARDIOVASCULAR DISEASE 05/18/17 documented as of this encounter
--- OUTSIDE RECORDS SUMMARY | 2025-02-28 17:52 | XMS_ITS ---
Author Organization [facility] Address [address] [place], [place] [id number] Care Team Providers Care Technical Support 1 Software Engineer Name Role Phone Ramon Aviles Unavailable Unavailable ANDRES JIANG Unavailable [phone] REASON FOR VISIT *General care Encounters Encounter Location Date Provider Diagnosis [address] [id number] 03/24/2024 ANDRES JIANG Plan Of Treatment No Information Progress Notes * NISHANT NOGUEIRAOB:1965 ([age] yo F)Acc No.[id number]:03/24/2024 Patient: JORDYN MILES Provider: Cass JIANG :1965 A ge:58 Y S ex:Female Date:03/24/2024 Address:[address] [place], [place] [id number] Subjective: * Chief Complaints: * 1 . *General care. * Medical History: Objective: * Vitals: Assessment: Plan: * Treatment: * Billing Information: * Visit Code: * Procedure Codes: * Electronic signature of ANIRUDH JIANG DPM on 02/28/2025 at 05:52 PM CDT Sign off status: Pending * Provider: Cass JIANG Date: 0 03/24/2024 Generated for Michael castillo/Na/Porfirio on: 0 02/28/2025 05:52 PM CDT
[2025-02-28 17:53] VITALS: BP 118/58; PULSE 68; RESP 17; TEMP 36.8; O2SAT 96
== END 2025-02-28 17:53 | disposition home or self-care (01) ==
PROVIDERS: Emergency Provider Family Medicine; PCP Family Medicine
DX: R11.2 Nausea with vomiting, unspecified (principal); E11.9 Type 2 diabetes mellitus without complications; I10 Essential (primary) hypertension
CPT/HCPCS: 36415; 80053; 83605; 83690; 83735; 85025; 85610; 86140; 99283; A9270

== ENCOUNTER 2025-06-21 16:00 | Emergency (ER) | payer MEDICARE, SELFPAY ==
[2025-06-21] VITALS (24 sets, daily range): BP systolic 106–132; BP diastolic 51–70; PULSE 64–88; RESP 12–21; TEMP 37.1; O2SAT 91–95
--- NOTE | ~2025-06-21 | XR_ITS ---
EXAMINATION: XR chest 1V portable Exam Date/Time: 06/21/2025 16:02 CDT HISTORY: LT sided chest pain Comparison: 02/13/2025. RESULT: Lines, tubes, and devices: None. Lungs and pleura: Clear. Cardiomediastinal silhouette: Stable. Other: No acute osseous or upper abdominal finding. IMPRESSION: No acute cardiopulmonary process. Reviewed, dictated and finalized at location K.
--- NOTE | 2025-06-21 16:02 | ECG_ITS ---
Test Date: 2025-06-21 16:03:19 Measurements Intervals [place] Rate: 70 P: 35 VA: 171 QRS: -7 QRSD: 88 T: 115 QT: 358 QTc: 388 Interpretive Statements SINUS RHYTHM LEFT VENTRICULAR HYPERTROPHY WITH ST-T CHANGE BORDERLINE R WAVE PROGRESSION, ANTERIOR LEADS BASELINE ARTIFACT- I, II, III, AVR, AVL, AVF, V1 BORDERLINE ECG Compared to ECG 02/23/2025 12:01:15 LEFT VENTRICULAR HYPERTROPHY NOW PRESENT Electronically Signed On 06-21-2025 18:58:08 CDT by Jose Jha D.O.
--- OUTSIDE RECORDS SUMMARY | 2025-06-21 16:03 | XMS_ITS | Clinical Summary ---
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
--- OUTSIDE RECORDS SUMMARY | 2025-06-21 16:03 | XMS_ITS ---
Author Organization [facility] Address [address] [place], [place] [address] Care Team Providers Care Grade Tamper Name Role Phone Ramon Aviles Unavailable Unavailable ANDRES JIANG Unavailable [phone] REASON FOR VISIT *General care Encounters Encounter Location Date Provider Diagnosis [address] [id number] 03/24/2024 ANDRES JIANG Plan Of Treatment No Information Progress Notes * NISHANT NOGUEIRAOB:1965 (5 0 yo F)Acc No.[id number]:03/24/2024 Patient: JORDYN MILES Provider: Cass JIANG :1965 A ge:58 Y S ex:Female Date:03/24/2024 Address:[address] [place], [place] [id number] Subjective: * Chief Complaints: * 1 . *General care. * Medical History: Objective: * Vitals: Assessment: Plan: * Treatment: * Billing Information: * Visit Code: * Procedure Codes: * Electronic signature of ANIRUDH JIANG DPM on 06/21/2025 at 04:02 PM CDT Sign off status: Pending * Provider: Cass JIANG Date: 0 03/24/2024 Generated for Michael castillo/Na/Porfirio on: 06/21/2025 04:02 PM CDT
--- OUTSIDE RECORDS SUMMARY | 2025-06-21 16:03 | XMS_ITS | Patient Health Record ---
Author Organization [facility] Address [address] [place], [place] [address] Care Team Providers Care Grain Spouter Name Role Phone Ramon Aviles Unavailable Unavailable Allergies Allergen (clinical drug ingredient) Drug/Non Drug [...] Date Coverage End Date Medicare Part B [place] [address] [place] [address] [id number] JORDYN NOGUEIRA Self - patient is the insured [facility] ([facility]) ATTN CLAIMS [address] [place] [address] [id number] JORDYN NOGUEIRA Self - patient is the insured
[2025-06-21 16:13] LABS: Hematocrit 39.6 % (35.0-49.0); Hemoglobin 12.3 g/dL (12.0-15.0); Immature Granulocyte Percent A 0.2 % (0.0-0.0); Lymphocytes Absolute Auto 1.36 K/mm3 (1.10-4.50); Mean Corpuscular HGB Conc 31.1 g/dL (32-36); Mean Corpuscular Hemoglobin 27.8 pg (27.0-31.0); Mean Corpuscular Volume 89.6 fL (78.0-102.0); Nucleated Red Blood Cells Absolute Auto 0.00 K/mm3 (0.00-0.00); Nucleated Red Blood Cells Perc 0.0 % (0-0.0); Platelet Count Result 217 K/mm3 (150-420); Red Blood Count 4.42 M/mm3 (4.20-5.40); White Blood Count 6.1 K/mm3 (4.8-10.8)
--- NOTE | 2025-06-21 16:16 | ED.CHESTPAIN ---
HPI - Chest Pain General Chief Complaint: Chest Pain Stated Complaint: Chest Pain Time Seen by Provider: 06/21/25 16:01 Source: patient Mode of arrival: ambulatory Limitations: no limitations History of Present Illness HPI narrative: 59-year-old female with cognitive impairment, obesity, JENNIFER, migraine GERD, diabetes mellitus with recent UTI presents to the ED with a 15 minute history of -- left chest pain which radiates to the back. The pain is rated as 9/10. No nausea / vomiting. No diaphoresis. No shortness of breath or lightheadedness. The pain came on while she was watching TV. No prior history of chest pains. No prior history of a cardiac catheterization or a stress test. MD complaint: chest pain Onset (ago): minute(s) ( 15 minutes ago) Timing of current episode: constant Prior episodes: No Onset: during rest Pain location: left chest Pain radiation: back Severity: severe Pain scale (0-10): 9 Quality: aching Relieving factors: nothing Exacerbating factors: nothing Treatment prior to arrival: none Risk Factors Coronary artery disease risk factors: diabetes Related Data On Oral Contraceptives: No Home Medications ?Medication ?Instructions ?Recorded ?Confirmed ?Last Taken ?Type sumatriptan succinate 100 mg tablet See Rx Instructions .Route .COMPLEX 08/20/24 05/10/25 Unknown History cyclobenzaprine 5 mg tablet 5 mg PO BID PRN Muscle Pain 09/02/24 05/10/25 Unknown History Allergies Allergy/AdvReac Type Severity Reaction Status Date / Time Sulfa (Sulfonamide Allergy Unknown RASH, Verified 06/21/25 16:04 Antibiotics) NAUSEA ibuprofen AdvReac Nausea and Verified 06/21/25 16:04 Vomiting iohexol (From contrast - CT, AdvReac Nausea and Verified 06/21/25 16:04 X-RAY) Vomiting Chocolate Allergy Unknown BAD Uncoded 06/21/25 16:04 MIGRAINES Review of Systems Review of Systems: All systems reviewed & are unremarkable except as noted in HPI and below Constitutional: Constitutional: Reports as per HPI and Reports no additional constitutional complaints Eyes: Eyes: Reports as per HPI and Reports no additional eye complaints ENT: Reports system reviewed and no additional complaints, except as documented and Reports as per HPI Cardiovascular: Cardiovascular: Reports as per HPI, Reports no additional cardiovascular complaints and Reports chest pain Respiratory: Respiratory: Reports as per HPI and Reports no additional respiratory complaints Gastrointestinal: Gastrointestinal: Reports as per HPI and Reports no additional gastrointestinal complaints Genitourinary: Genitourinary: Reports no additional female genitourinary complaints and Reports as per HPI Musculoskeletal: Musculoskeletal: Reports no additional musculoskeletal complaints and Reports as per HPI Integumentary/Breasts: Skin/Breast: Reports system reviewed and no additional complaints, except as docu and Reports as per HPI Neurologic: Reports system reviewed and no additional complaints, except as documented and Reports as per HPI Psychiatric: Psychiatric: Reports no additional psychiatric complaints and Reports as per HPI Endocrine: Endocrine: Reports no additional endocrine complaints and Reports as per HPI Hematologic/Lymphatic: Hematologic/Lymphatic: Reports no additional hematologic/lymphatic complaints and Reports as per HPI [facility] Past Medical History Medical History DMII (diabetes mellitus, type 2) Nausea Obesity, morbid, BMI 40.0-49.9 Surgical History Surgical History H/O: hysterectomy S/P cubital tunnel release Left History of carpal tunnel release of both wrists Social History Social History Social History: caffeine-tea Smoking status: Never smoker Alcohol intake: never Substance use: never Substance use type: does not use Lack of Transportation: No Lack of Food: Never True Current Housing: I Have Housing Concerned About Future Housing: No Difficulty Paying Gas/Electric Bills: No Difficulty Paying for Meds: No Currently Unemployed: No Education: High School Diploma/GED Difficulty w/ Childcare or Family Care: No Living arrangements: with family Spiritual care concerns: No Exam Narrative: vitals are stable. Const: General: no acute distress Orientation/consciousness: patient oriented x3 Limitations: no limitations HENMT: Head: normal to inspection Ears: external ears normal Face/Nose/Sinus: Normal external nose present Face and sinus: normal facial exam Mouth: Yes Normal oral and palatal mucosa present Throat: posterior oropharynx normal Eyes: Conjunctivae: conjunctivae normal Pupils: Equal, round and reactive pupils present EOM: EOMs intact bilaterally Direct Ophthalmoscopy: no photophobia Neck: Neck: normal visual inspection, no lymphadenopathy and no meningeal signs Chest: Chest palpation & inspection: normal inspection of the chest Resp: Effort & Inspection: normal respiratory effort Auscultation: clear to auscultation bilaterally Cardio: Rate: regular rate Rhythm: regular rhythm GI: Auscultation: normal bowel sounds Other: No tenderness/rigidity / rebound. : General: Yes no CVA tenderness Back/Spine/Pelvis: Back: no CVA tenderness Skin: General skin exam: normal color Rashes: no rashes Neuro: General: patient oriented x3, moves all extremities, no meningeal signs, no focal motor deficits and CN's II-XI intact bilaterally Speech: normal speech Extrem: General: normal to inspection and no clubbing, cyanosis or edema Psych: Mental Status: mental status grossly normal Affect: normal affect Attitude: cooperative Course Course Emergency Course: Left chest pain EKG did not show any acute findings. The 1st set of troponin was negative. Patient complains of ongoing chest which is rated as 9/10. Will repeat cardiac enzymes in 2 hours. repeat cardiac enzymes and EKG are unchanged. Renal insufficiency with a creatinine of 1.34. Vital Signs Vital signs: Vital Signs Temperature 37.1 C 06/21/25 16:00 Pulse Rate 82 06/21/25 16:00 Respiratory Rate 16 06/21/25 16:00 Blood Pressure 132/67 06/21/25 16:00 Pulse Oximetry 95 06/21/25 16:00 Oxygen Delivery Room Air 06/21/25 16:00 Temperature 37.1 C 06/21/25 16:00 Pulse Rate 71 06/21/25 18:20 Respiratory Rate 19 06/21/25 17:46 Blood Pressure 121/56 L 06/21/25 17:45 Pulse Oximetry 95 06/21/25 17:46 Oxygen Delivery Room Air 06/21/25 16:00 MDM - Chest Pain MDM Narrative Medical decision making narrative: Chest pain renal insufficiency Medical Records Data Attestation: I reviewed the patient's medical records. Lab Data Attestation: I reviewed the patient's lab results. 06/21/25 16:09 06/21/25 16:09 Labs: Lab Results 06/21/25 06/21/25 Range/Units 16:09 18:11 WBC 6.1 (4.8-10.8) K/mm3 RBC 4.42 (4.20-5.40) M/mm3 Hgb 12.3 (12.0-15.0) g/dL Hct 39.6 (35.0-49.0) % MCV 89.6 (78.0-102.0) fL MCH 27.8 (27.0-31.0) pg MCHC 31.1 L (32-36) g/dL RDW 13.0 (11.6-14.4) % Plt Count 217 (150-420) K/mm3 MPV 10.5 (9.2-11.8) fl Immature Gran % (Auto) 0.2 H (0.0-0.0) % Neut % (Auto) 71.0 H (50.0-70.0) % Lymph % (Auto) 22.4 (18.0-42.0) % [place] % (Auto) 4.1 (2.0-11.0) % Eos % (Auto) 1.8 (1.0-6.0) % Baso % (Auto) 0.5 (0.0-1.0) % Lymph # (Auto) 1.36 (1.10-4.50) K/mm3 [place] # (Auto) 0.25 (0.10-0.90) K/mm3 Eos # (Auto) 0.11 (0.02-0.50) K/mm3 Baso # (Auto) 0.03 (0.00-0.10) K/mm3 Abs Immat Gran (auto) 0.01 H (0.00-0.00) K/mm3 Absolute Neuts (auto) 4.30 (1.70-7.20) K/mm3 Absolute Nucleated RBC 0.00 (0.00-0.00) K/mm3 Nucleated RBC % 0.0 (0-0.0) % PT 11.1 (9.50-12.1) Seconds INR 1.0 APTT 29.1 (23.9-30.70) Sec Sodium 142 (137-145) mmol/L Potassium 3.7 (3.4-5.0) mmol/L Chloride 110 H (98-107) mmol/L Carbon Dioxide 23 (22-30) mmol/L Anion Gap 9 (4-12) mmol/L BUN 16 (7-17) mg/dL Creatinine 1.34 H (0.7-1.0) mg/dL Estim Creat Clear Calc 42 ml/min Estimated GFR 40 L (59 - ) Glucose 129 H (65-110) mg/dL Calculated Osmolality 297 H (285-295) mOsm/kg Lactic Acid 1.2 (0.4-2.0) mmol/L Calcium 9.4 (8.4-10.2) mg/dL Magnesium 1.8 (1.6-2.3) mg/dL Total Bilirubin 1.4 H (0.2-1.3) mg/dL AST 39 H (14-36) U/L ALT 33 (6-35) U/L Alkaline Phosphatase 143 H (38-126) U/L Total Creatine Kinase 407 H (30-135) U/L Troponin I < 0.012 < 0.012 (0.000-0.034) ng/mL NT-Pro-B Natriuret Pep 92 (19.9-100) pg/mL Total Protein 8.0 (6.3-8.2) g/dL Albumin 4.7 (3.5-5.1) g/dL ECG Data EKG #1: ECG completion date: 06/21/25 ECG completion time: 16:03 Interpretation: normal sinus rhythm. Normal axis. No ST elevation. EKG #2: ECG completion date: 06/21/25 ECG completion time: 18:12 Interpretation: normal sinus rhythm. normal axis.LVH Nonspecific T-wave changes. This is similar to a previous EKG done 2 hours ago. Discharge Plan Discharge Clinical Impression: Renal insufficiency Chest pain Qualifiers: Chest pain type: unspecified Qualified Code(s): R07.9 - Chest pain, unspecified Patient Disposition: Home Condition: Stable Instructions: Antibiotic Form, Chest Pain (ED), Chronic Kidney Disease (ED) Patient Language: Panamanian Prescriptions: No Action sumatriptan succinate 100 mg tablet See Rx Instructions .ROUTE .COMPLEX Rx Instructions: TAKE 1 TABLET AT HEADACHE ONSET. MAY REPEAT 1 TABLET IN 2 HOURS. MAXIMUM 3 TABLETS IN 24 HOURS. ondansetron 4 mg tablet,disintegrating 4 mg PO Q6H PRN (Reason: nausea and vomiting) Qty: 14 0RF tramadol 50 mg tablet 50 mg PO Q6H PRN (Reason: pain) Qty: 14 0RF meclizine 25 mg tablet 25 mg PO TID PRN (Reason: dizziness) Qty: 30 0RF ondansetron 4 mg tablet,disintegrating 4 mg PO Q8H Qty: 10 0RF Trulicity 0.75 mg/0.5 mL pen injector 0.75 mg subcut WEEKLY Qty: 2 0RF cephalexin 500 mg capsule 500 mg PO Q8H Qty: 15 0RF cyclobenzaprine 5 mg tablet 5 mg PO BID PRN (Reason: Muscle Pain) cholecalciferol (vitamin D3) 50 mcg (2,000 unit) capsule 50 mcg PO DAILY Qty: 30 2RF sertraline 100 mg tablet See Rx Instructions .ROUTE .COMPLEX Qty: 30 10RF Dose Instruction: TAKE 1 TABLET BY MOUTH DAILY *NEW PRESCRIPTION REQUEST* Rx Instructions: TAKE 1 TABLET BY MOUTH DAILY *NEW PRESCRIPTION REQUEST* aripiprazole 15 mg tablet See Rx Instructions .ROUTE .COMPLEX Qty: 30 10RF Dose Instruction: TAKE 1 TABLET(S) BY MOUTH 1 TIMES PER DAY *NEW PRESCRIPTION REQUEST* Rx Instructions: TAKE 1 TABLET(S) BY MOUTH 1 TIMES PER DAY *NEW PRESCRIPTION REQUEST* oxybutynin chloride 15 mg tablet extended release 24hr See Rx Instructions .ROUTE .COMPLEX Qty: 90 0RF Dose Instruction: TAKE ONE TABLET BY MOUTH DAILY Rx Instructions: TAKE ONE TABLET BY MOUTH DAILY pantoprazole 40 mg tablet,delayed release (DR/EC) See Rx Instructions .ROUTE .COMPLEX Qty: 30 2RF Dose Instruction: TAKE ONE TABLET BY MOUTH EVERY MORNING Rx Instructions: TAKE ONE TABLET BY MOUTH EVERY MORNING Follow-up/Referrals: Ramon Aviles DO [Primary Care Provider] - Time of Disposition: 18:51
[2025-06-21 16:27] LABS: INR 1.0; Partial Thromboplastin Time 29.1 Sec (23.9-30.70); Prothrombin Time 11.1 Seconds (9.50-12.1)
[2025-06-21 16:28] LABS: Alanine Aminotransferase 33 U/L (6-35); Albumin Level 4.7 g/dL (3.5-5.1); Alkaline Phosphatase 143 U/L (38-126); Anion Gap 9 mmol/L (4-12); Aspartate Amino Transferase 39 U/L (14-36); Bilirubin,Total 1.4 mg/dL (0.2-1.3); Blood Urea Nitrogen 16 mg/dL (7-17); Calcium 9.4 mg/dL (8.4-10.2); Carbon Dioxide 23 mmol/L (22-30); Chloride 110 mmol/L (98-107); Estimated CRCL calculation 42 ml/min; Estimated Glomerular Filt Rate 40; Glucose 129 mg/dL (65-110); Osmolality Calculated 297 mOsm/kg (285-295); Potassium 3.7 mmol/L (3.4-5.0); Sodium 142 mmol/L (137-145); Total Protein 8.0 g/dL (6.3-8.2)
[2025-06-21 16:37] LABS: Creatine Kinase 407 U/L (30-135); NT Pro B Type Natriuretic Pept 92 pg/mL (19.9-100)
--- OUTSIDE RECORDS SUMMARY | 2025-06-21 16:39 | XMS_ITS | Clinical Summary ---
Author Organization [facility] Address [address] [place] [address] Care Team Providers Care Head Concierge Name Role Phone Ramon Aviles DO Unavailable [phone] Amandeep Akhtar MD Unavailable Ramon Aviles DO Primary Care Provider [phone] Allergies Active Allergy Reactions Criticality Noted Date [...] Problem Noted Date Diagnosed Date Cord compression ([facility]) 08/29/2024 Trochanteric bursitis of right [...] Relation Comments Diabetes Father Heart Attack Father MS Father Stroke Father Cancer Maternal Grandfather No [...] drink = 0.6 oz pur e alcohol) [facility] Utilities Answer Date Recorded In the past 12 months has e [employer], gas, oil, or water [employer] threatened to shut off services in your [...] any time in the past 12 m [facility], were you homeless or living in a [place] health care facility (including now)? 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 Gender Identity Female 02/19/2020 11:43 PM CDT Sexual Orientation Not on file Occupation Industry Job Start Date Job End Date unemployed Not on file Not on file Not on file Last Filed Vital Signs Vital Sign Reading Time Taken Comments Blood Pressure 119/63 09/25/2024 10:00 PM MATRIX REPAIRER Pulse 51 09/25/2024 10:00 PM MATRIX REPAIRER Temperature 36.6 C (97.8 F) 09/25/2024 10:00 PM MATRIX REPAIRER Respiratory Rate 11 09/25/2024 10:00 PM MATRIX REPAIRER Oxygen Saturation 94% 09/25/2024 10:00 PM MATRIX REPAIRER Inhaled Oxygen Concentration - - Weight 92.3 kg (203 lb 6 oz) 09/25/2024 5:53 PM MATRIX REPAIRER Height 165.1 cm (5' 5) 09/25/2024 5:53 PM MATRIX REPAIRER Body Mass Index 33.84 09/25/2024 5:53 PM MATRIX REPAIRER Plan of Treatment Health Maintenance Due Date [...] 1:21 PM 08/30/2024 3:52 PM Care Teams Head Concierge Relationship Specialty Start Date End Date Ramon Aviles DO [address] [place] [address] PCP - General FAMILY PRACTICE 09/25/24 Ramon Aviles DO [address] [place] [address] FAMILY PRACTICE 08/29/24 Amandeep Akhtar MD [address] [place] [address] CARDIOVASCULAR DISEASE 05/18/17
--- OUTSIDE RECORDS SUMMARY | 2025-06-21 16:39 | XMS_ITS | Encounter Summary ---
Author Organization [facility] Address [facility] [place] [address] Care Team Providers Care Home Extension Agent Name Role Phone Rosario Valentin MD Primary Care Provider [phone] Rosario Valentin MD Primary Care Provider [phone] None, Provider Primary Care Provider Onelia Coffey MD Primary Care Provider [phone] Evens Meehan MD Primary Care Provider [phone] Ramon Aviles DO Primary Care Provider [phone] None, Provider Primary Care Provider Ramon Wilhelm DO Unavailable Amandeep Akhtar MD Unavailable Ramon Aviles DO Primary Care Provider [phone] Encounter Details Date Type Department Care Team (Late st Contact Info) Description 04/16/2019 Abstract SFL CONVERSION [address] [place] [address] , Generic Conversion, Social History Tobacco Use Types Packs/Day Years Used Date Smoking Tobacco: Never Smokeless Tobacco: Never Alcohol Use Standard Drinks/Week Comments No 0 (1 standard drink = 0.6 oz pur e alcohol) Comments Unknown Sex and Gender Information Value Date Recorded Sex Assigned at Female 02/19/2020 11:43 PM CDT Legal Sex Female 10:08 PM RN NEONATAL Gender Identity Female 02/19/2020 11:43 PM CDT [...] Rule Out 09/21/2021 09/21/2021 09/21/2021 12:32 PM RN NEONATAL COVID-19 Rule Out 08/25/2024 08/25/2024 08/25/2024 10:09 AM CDT documented as of this encounter Care Teams Home Extension Agent Relationship Specialty Start Date End Date Rosario Valentin MD [address] [place] [phone] PCP - General FAMILY PRACTICE 10/05/17 02/19/20 Rosario Valentin MD [address] [place] [address] PCP - General FAMILY PRACTICE 02/20/20 05/28/21 None, ProviderMD PCP - General 06/14/21 10/15/21 [place] [address] [place] [address] PCP - General INTERNAL MEDICINE 10/16/21 12/29/22 Evens Meehan MD [address] [place] [address] PCP - General FAMILY PRACTICE 12/30/22 01/18/24 Ramon Aviles DO [address] [place] [address] PCP - General FAMILY PRACTICE 01/19/24 08/28/24 None, ProviderMD PCP - General UNKNOWN PHYSICIAN SPECIALTY 08/29/24 1 11/24/23 Ramon Aviles DO [address] [place] [address] PCP - General FAMILY PRACTICE 09/25/24 Ramon Aviles DO [address] [place] [address] FAMILY PRACTICE 08/29/24 Amandeep Akhtar MD [address] [place] [address] CARDIOVASCULAR DISEASE 05/18/17 documented as of this encounter
--- OUTSIDE RECORDS SUMMARY | 2025-06-21 16:39 | XMS_ITS | Clinical Summary ---
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
[2025-06-21 16:49] LABS: Troponin I < 0.012 ng/mL (0.000-0.034)
[2025-06-21 16:54] LABS: Magnesium 1.8 mg/dL (1.6-2.3)
--- NOTE | 2025-06-21 18:15 | ECG_ITS ---
Test Date: 2025-06-21 18:12:40 Measurements Intervals [place] Rate: 61 P: 24 [place]: 174 QRS: -9 QRSD: 89 T: 58 QT: 387 QTc: 392 Interpretive Statements SINUS RHYTHM DELAYED PRECORDIAL R/S TRANSITION LEFT VENTRICULAR HYPERTROPHY WITH ST-T CHANGE BASELINE ARTIFACT- I, II, III, AVR, AVL BORDERLINE ECG Compared to ECG 06/21/2025 16:03:19 NO SIGNIFICANT CHANGE Electronically Signed On 06-21-2025 19:01:12 CDT by Jose Jha D.O.
--- NOTE | 2025-06-21 18:20 | PC.NURSE ---
Pt is back in room from CT scan. Requests food, but informed of need to wait until all results are back before having anything to eat. Pt understandable and agreeable.
[2025-06-21 18:38] LABS: Troponin I < 0.012 ng/mL (0.000-0.034)
== END 2025-06-21 19:04 | disposition home or self-care (01) ==
PROVIDERS: Emergency Provider Internal Medicine Critical Care Medicine; PCP Family Medicine
DX: N28.9 Disorder of kidney and ureter, unspecified (principal); R07.9 Chest pain, unspecified; E11.9 Type 2 diabetes mellitus without complications
CPT/HCPCS: 36415; 71045; 80053; 82550; 83605; 83735; 83880; 84484; 85025; 85610; 85730; 93005; 99284

== ENCOUNTER 2025-06-26 15:27 | Emergency (ER) | payer MEDICARE, SELFPAY ==
[2025-06-26 15:29] VITALS: BP 140/70; PULSE 85; RESP 18; TEMP 36.7; O2SAT 95
--- NOTE | 2025-06-26 15:50 | ED.NAVMDI ---
HPI - Nausea/Vomiting/Diarrhea General Chief complaint: Nausea/Vomiting/Diarrhea Stated complaint: balance off Time Seen by Provider: 06/26/25 15:50 Source: patient Mode of arrival: ambulatory Limitations: no limitations History of Present Illness HPI Narrative: Patient is a 59-year-old female with frequent ER visits for similar complaints. She is here with some diarrhea x2 today. No other complaints. No abdominal pain. No nausea vomiting. Patient specifically wanted to get some lab work done. MD elicited complaint: nausea and diarrhea Pertinent past history: other Onset (ago): day(s) ( One) Description of vomiting: food contents and none Description of diarrhea: watery Associated nausea: Yes Associated abdominal pain: No Location of pain: L flank Radiation: does not radiate Pain consistency: intermittent and colicky Severity: mild Pain scale (0-10): 3 Quality: cramping, crushing and sharp Exacerbating factors: none Relieving factors: none Context: other ( patient having left back to left flank to left groin pain today and has gotten worse throughout the day) Associated symptoms: myalgias, malaise and change in vision Treatment prior to arrival: none Related Data Home Medications ?Medication ?Instructions ?Recorded ?Confirmed ?Last Taken ?Type sumatriptan succinate 100 mg tablet See Rx Instructions .Route .COMPLEX 08/20/24 06/26/25 Unknown History Allergies Allergy/AdvReac Type Severity Reaction Status Date / Time chocolate Allergy Mild Headache Verified 06/26/25 15:54 Sulfa (Sulfonamide Allergy Unknown RASH, Verified 06/26/25 15:54 Antibiotics) NAUSEA ibuprofen AdvReac Nausea and Verified 06/26/25 15:54 Vomiting iohexol (From contrast - CT, AdvReac Nausea and Verified 06/26/25 15:54 X-RAY) Vomiting Review of Systems Review of Systems: All systems reviewed & are unremarkable except as noted in HPI and below Constitutional: Constitutional: Reports no additional constitutional complaints Eyes: Eyes: Reports no additional eye complaints ENT: Reports system reviewed and no additional complaints, except as documented Cardiovascular: Cardiovascular: Reports no additional cardiovascular complaints Respiratory: Respiratory: Reports no additional respiratory complaints Gastrointestinal: Gastrointestinal: Reports no additional gastrointestinal complaints Genitourinary: Genitourinary: Reports no additional female genitourinary complaints Musculoskeletal: Musculoskeletal: Reports no additional musculoskeletal complaints Integumentary/Breasts: Skin/Breast: Reports system reviewed and no additional complaints, except as docu Neurologic: Reports system reviewed and no additional complaints, except as documented Psychiatric: Psychiatric: Reports no additional psychiatric complaints Endocrine: Endocrine: Reports no additional endocrine complaints Hematologic/Lymphatic: Hematologic/Lymphatic: Reports no additional hematologic/lymphatic complaints Allergic/Immunologic: Allergic/Immunologic: Reports no additional allergic/immunologic complaints PMFSH Past Medical History Medical History DMII (diabetes mellitus, type 2) Nausea Obesity, morbid, BMI 40.0-49.9 Surgical History Surgical History H/O: hysterectomy S/P cubital tunnel release Left History of carpal tunnel release of both wrists Social History Social History Social History: caffeine-tea Smoking status: Never smoker Alcohol intake: never Substance use: never Substance use type: does not use Lack of Transportation: No Lack of Food: Never True Current Housing: I Have Housing Concerned About Future Housing: No Difficulty Paying Gas/Electric Bills: No Difficulty Paying for Meds: No Currently Unemployed: No Education: High School Diploma/GED Difficulty w/ Childcare or Family Care: No Living arrangements: with family Spiritual care concerns: No Exam Const: General: healthy appearing Nutritional Appearance: well nourished Orientation/consciousness: patient oriented x3 Limitations: no limitations HENMT: Head: normal to inspection Ears: external ears normal Face/Nose/Sinus: Normal external nose present Eyes: Conjunctivae: conjunctivae normal Cornea: corneas normal Pupils: Equal, round and reactive pupils present Neck: Neck: normal visual inspection Chest: Chest palpation & inspection: normal inspection of the chest Resp: Effort & Inspection: normal respiratory effort and not labored Auscultation: clear to auscultation bilaterally and no crackles Cardio: Rate: regular rate Rhythm: regular rhythm Heart sounds: no murmurs GI: Inspection: non-distended GI Palp: Yes Soft to palpation, Yes Tenderness to palpation present (GI) ( Diffuse abdomen), No Guarding due to palpation present (GI), No Rigid due to palpation, No Hernia present, No Palpable mass present and No Rebound tenderness present Auscultation: normal bowel sounds : General: Yes bladder normal to palpation Back/Spine/Pelvis: Back: no CVA tenderness Skin: General skin exam: normal color, no jaundice and no pallor Rashes: no rashes Wounds: no wounds Neuro: General: patient oriented x3, moves all extremities, no meningeal signs, no focal motor deficits and CN's II-XI intact bilaterally Extrem: General: normal to inspection and no clubbing, cyanosis or edema Psych: Mental Status: mental status grossly normal Affect: normal affect Attitude: cooperative Course Vital Signs Vital signs: Vital Signs Temperature 36.7 C 06/26/25 15:29 Pulse Rate 85 06/26/25 15:29 Respiratory Rate 18 06/26/25 15:29 Blood Pressure 140/70 06/26/25 15:29 Pulse Oximetry 95 06/26/25 15:29 Oxygen Delivery Room Air 06/26/25 15:29 Temperature 36.7 C 06/26/25 15:29 Pulse Rate 81 06/26/25 18:10 Respiratory Rate 18 06/26/25 18:10 Blood Pressure 137/70 06/26/25 18:10 Pulse Oximetry 96 06/26/25 18:10 Oxygen Delivery Room Air 06/26/25 18:10 MDM - Nausea/Vomiting/Diarrhea MDM Narrative Medical decision making narrative: Patient is a 59-year-old female with some diarrhea x2 today. We will do some labs for reassurance. CT scan not warranted at this time. Lab Data Attestation: I reviewed the patient's lab results. 06/26/25 17:07 06/26/25 17:07 Labs: Lab Results 06/26/25 Range/Units 17:07 WBC 6.9 (4.8-10.8) K/mm3 RBC 4.32 (4.20-5.40) M/mm3 Hgb 11.8 L (12.0-15.0) g/dL Hct 39.2 (35.0-49.0) % MCV 90.7 (78.0-102.0) fL MCH 27.3 (27.0-31.0) pg MCHC 30.1 L (32-36) g/dL RDW 12.9 (11.6-14.4) % Plt Count 191 (150-420) K/mm3 MPV 10.5 (9.2-11.8) fl Immature Gran % (Auto) 0.6 H (0.0-0.0) % Neut % (Auto) 74.9 H (50.0-70.0) % Lymph % (Auto) 18.4 (18.0-42.0) % [place] % (Auto) 4.8 (2.0-11.0) % Eos % (Auto) 0.7 L (1.0-6.0) % Baso % (Auto) 0.6 (0.0-1.0) % Lymph # (Auto) 1.27 (1.10-4.50) K/mm3 [place] # (Auto) 0.33 (0.10-0.90) K/mm3 Eos # (Auto) 0.05 (0.02-0.50) K/mm3 Baso # (Auto) 0.04 (0.00-0.10) K/mm3 Abs Immat Gran (auto) 0.04 H (0.00-0.00) K/mm3 Absolute Neuts (auto) 5.16 (1.70-7.20) K/mm3 Absolute Nucleated RBC 0.00 (0.00-0.00) K/mm3 Nucleated RBC % 0.0 (0-0.0) % Sodium 140 (137-145) mmol/L Potassium 3.6 (3.4-5.0) mmol/L Chloride 105 (98-107) mmol/L Carbon Dioxide 27 (22-30) mmol/L Anion Gap 8 (4-12) mmol/L BUN 29 H D (7-17) mg/dL Creatinine 1.17 H (0.7-1.0) mg/dL Estim Creat Clear Calc 48 ml/min Estimated GFR 47 L (59 - ) Glucose 130 H (65-110) mg/dL Calculated Osmolality 297 H (285-295) mOsm/kg Calcium 10.0 (8.4-10.2) mg/dL Magnesium 2.1 (1.6-2.3) mg/dL Total Bilirubin 1.5 H (0.2-1.3) mg/dL AST 30 (14-36) U/L ALT 26 (6-35) U/L Alkaline Phosphatase 116 (38-126) U/L Total Protein 7.9 (6.3-8.2) g/dL Albumin 4.7 (3.5-5.1) g/dL Discharge Plan Discharge Clinical Impression: Viral gastroenteritis, Dehydration Patient Disposition: Home Condition: Stable Instructions: Dehydration (DC), Gastroenteritis (DC) Patient Language: Jordanian Prescriptions: No Action sumatriptan succinate 100 mg tablet See Rx Instructions .ROUTE .COMPLEX Rx Instructions: TAKE 1 TABLET AT HEADACHE ONSET. MAY REPEAT 1 TABLET IN 2 HOURS. MAXIMUM 3 TABLETS IN 24 HOURS. cholecalciferol (vitamin D3) 50 mcg (2,000 unit) capsule 50 mcg PO DAILY Qty: 30 2RF sertraline 100 mg tablet See Rx Instructions .ROUTE .COMPLEX Qty: 30 10RF Dose Instruction: TAKE 1 TABLET BY MOUTH DAILY *NEW PRESCRIPTION REQUEST* Rx Instructions: TAKE 1 TABLET BY MOUTH DAILY *NEW PRESCRIPTION REQUEST* aripiprazole 15 mg tablet See Rx Instructions .ROUTE .COMPLEX Qty: 30 10RF Dose Instruction: TAKE 1 TABLET(S) BY MOUTH 1 TIMES PER DAY *NEW PRESCRIPTION REQUEST* Rx Instructions: TAKE 1 TABLET(S) BY MOUTH 1 TIMES PER DAY *NEW PRESCRIPTION REQUEST* oxybutynin chloride 15 mg tablet extended release 24hr See Rx Instructions .ROUTE .COMPLEX Qty: 90 0RF Dose Instruction: TAKE ONE TABLET BY MOUTH DAILY Rx Instructions: TAKE ONE TABLET BY MOUTH DAILY pantoprazole 40 mg tablet,delayed release (DR/EC) See Rx Instructions .ROUTE .COMPLEX Qty: 30 2RF Dose Instruction: TAKE ONE TABLET BY MOUTH EVERY MORNING Rx Instructions: TAKE ONE TABLET BY MOUTH EVERY MORNING Follow-up/Referrals: Ramon Aviles DO [Primary Care Provider] - Time of Disposition: 18:04
--- OUTSIDE RECORDS SUMMARY | 2025-06-26 16:02 | XMS_ITS | Clinical Summary ---
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
--- OUTSIDE RECORDS SUMMARY | 2025-06-26 16:02 | XMS_ITS ---
Author Organization [facility] Address [address] [place], [place] [id number] Care Team Providers Care Assistant Sales Center Manager Name Role Phone Ramon Aviles Unavailable Unavailable ANDRES JIANG Unavailable [phone] REASON FOR VISIT *General care Encounters Encounter Location Date Provider Diagnosis [address] [id number] 03/24/2024 ANDRES JIANG Plan Of Treatment No Information Progress Notes * NISHANT NOGUEIRAOB:1965 ([age] yo F)Acc No.[id number]:03/24/2024 Patient: JORDYN MILES Provider: Cass JIANG :1965 A ge:58 Y S ex:Female Date:03/24/2024 Address:[address] [place], [place] [id number] Subjective: * Chief Complaints: * 1 . *General care. * Medical History: Objective: * Vitals: Assessment: Plan: * Treatment: * Billing Information: * Visit Code: * Procedure Codes: * Electronic signature of ANIRUDH JIANG DPM on 06/26/2025 at 04:02 PM CDT Sign off status: Pending * Provider: Cass JIANG Date: 03/24/2024 Generated for Michael castillo/Na/Porfirio on: 06/26/2025 04:02 PM CDT
--- OUTSIDE RECORDS SUMMARY | 2025-06-26 16:02 | XMS_ITS | Patient Health Record ---
Author Organization [facility] Address [address] [place], [place] [id number] Care Team Providers Care Graduate Civil Engineer Name Role Phone Ramon Aviles Unavailable [...] Medicare Part B [place] [address] [place] [address] [id number] JORDYN NOGUEIRA Self - patient is the insured [facility] ([facility]) ATTN CLAIMS [address] [place] [address] [id number] JORDYN NOGUEIRA Self - patient is the insured
--- OUTSIDE RECORDS SUMMARY | 2025-06-26 16:14 | XMS_ITS | Clinical Summary ---
Author Organization [facility] Address [address] [place] [address] Care Team Providers Care Machine Operator Assistant Name Role Phone Ramon Aviles DO Unavailable [phone] Amandeep Akhtar MD Unavailable Ramon Aviles DO Primary Care Provider [phone] Allergies Active Allergy Reactions Criticality Noted Date [...] Problem Noted Date Diagnosed Date Cord compression ([facility]) 08/29/2024 Trochanteric bursitis of right hip 09/03/2021 [...] Relation Comments Diabetes Father Heart Attack Father [place] Father Stroke Father Cancer Maternal Grandfather No [...] drink = 0.6 oz pur e alcohol) [facility] Utilities Answer Date Recorded In the past 12 months has e [place], gas, oil, or water [employer] threatened to shut off services in your [...] any time in the past 12 m [facility], were you homeless or living in a chcf (including now)? No 08/29/2024 Comments No Sex and Gender Information Value Date Recorded Sex Assigned at Female 02/19/2020 11:43 PM CDT Legal Sex Female 10:08 PM BI TESTER Gender Identity Female 02/19/2020 11:43 PM CDT Sexual Orientation Not on file Occupation Industry Job Start Date Job End Date unemployed Not on file Not on file Not on file Last Filed Vital Signs Vital Sign Reading Time Taken Comments Blood Pressure 119/63 09/25/2024 10:00 PM BI TESTER Pulse 51 09/25/2024 10:00 PM BI TESTER Temperature 36.6 C (97.8 F) 09/25/2024 10:00 PM BI TESTER Respiratory Rate 11 09/25/2024 10:00 PM BI TESTER Oxygen Saturation 94% 09/25/2024 10:00 PM BI TESTER Inhaled Oxygen Concentration - - Weight 92.3 kg (203 lb 6 oz) 09/25/2024 5:53 PM BI TESTER Height 165.1 cm (5' 5) 09/25/2024 5:53 PM BI TESTER Body Mass Index 33.84 09/25/2024 5:53 PM BI TESTER Plan of Treatment Health Maintenance Due Date [...] 1:21 PM 08/30/2024 3:52 PM Care Teams Machine Operator Assistant Relationship Specialty Start Date End Date Ramon Aviles DO [address] [place] [address] PCP - General FAMILY PRACTICE 09/25/24 Ramon Aviles DO [address] [place] [address] FAMILY PRACTICE 08/29/24 Amandeep Akhtar MD [address] [place] [address] CARDIOVASCULAR DISEASE 05/18/17
--- OUTSIDE RECORDS SUMMARY | 2025-06-26 16:14 | XMS_ITS | Encounter Summary ---
Author Organization [facility] Address [facility] [place] [address] Care Team Providers Care Industrial Boilermaker Name Role Phone Rosario Valentin MD Primary Care Provider [phone] Rosario Valentin MD Primary Care Provider [phone] None, Provider Primary Care Provider Onelia Coffey MD Primary Care Provider + [phone] Evens Meehan MD Primary Care Provider [phone] Ramon Aviles DO Primary Care Provider [phone] None, Provider Primary Care Provider Ramon Wilhelm DO Unavailable Amandeep Akhtar MD Unavailable Ramon Aviles DO Primary Care Provider [phone] Encounter Details Date Type Department Care Team (Late st Contact Info) Description 04/16/2019 Abstract SFL CONVERSION [address] [place] [address] , Generic Conversion, Social History Tobacco Use Types Packs/Day Years Used Date Smoking Tobacco: Never Smokeless Tobacco: Never Alcohol Use Standard Drinks/Week Comments No 0 (1 standard drink = 0.6 oz pur e alcohol) Comments Unknown Sex and Gender Information Value Date Recorded Sex Assigned at Female 02/19/2020 11:43 PM CDT Legal 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 Female 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 Gender Identity Female 02/19/2020 11:43 PM CDT [...] Rule Out 09/21/2021 09/21/2021 09/21/2021 12:32 PM IRONER OR PRESSER COVID-19 Rule Out 08/25/2024 08/25/2024 08/25/2024 10:09 AM CDT documented as of this encounter Care Teams Industrial Boilermaker Relationship Specialty Start Date End Date Rosario Valentin MD [address] [place] [phone] PCP - General FAMILY PRACTICE 10/05/17 02/19/20 Rosario Valentin MD [address] [place] [address] PCP - General FAMILY PRACTICE 02/20/20 05/28/21 None, ProviderMD PCP - General 06/14/21 10/15/21 [place] [address] [place] [address] PCP - General INTERNAL MEDICINE 10/16/21 12/29/22 Evens Meehan MD [address] [place] [address] PCP - General FAMILY PRACTICE 12/30/22 01/18/24 aRmon Aviles DO [address] [place] [address] PCP - General FAMILY PRACTICE 01/19/24 08/28/24 None, ProviderMD PCP - General UNKNOWN PHYSICIAN SPECIALTY 08/29/24 1 11/24/23 Ramon Aviles DO [address] [place] [address] PCP - General FAMILY PRACTICE 09/25/24 Ramon Aviles DO [address] [place] [address] FAMILY PRACTICE 08/29/24 Amandeep Akhtar MD [address] [place] [address] CARDIOVASCULAR DISEASE 05/18/17 documented as of this encounter
[2025-06-26 17:11] LABS: Hematocrit 39.2 % (35.0-49.0); Hemoglobin 11.8 g/dL (12.0-15.0); Immature Granulocyte Percent A 0.6 % (0.0-0.0); Lymphocytes Absolute Auto 1.27 K/mm3 (1.10-4.50); Mean Corpuscular HGB Conc 30.1 g/dL (32-36); Mean Corpuscular Hemoglobin 27.3 pg (27.0-31.0); Mean Corpuscular Volume 90.7 fL (78.0-102.0); Nucleated Red Blood Cells Absolute Auto 0.00 K/mm3 (0.00-0.00); Nucleated Red Blood Cells Perc 0.0 % (0-0.0); Platelet Count Result 191 K/mm3 (150-420); Red Blood Count 4.32 M/mm3 (4.20-5.40); White Blood Count 6.9 K/mm3 (4.8-10.8)
[2025-06-26 17:21] LABS: Alanine Aminotransferase 26 U/L (6-35); Albumin Level 4.7 g/dL (3.5-5.1); Alkaline Phosphatase 116 U/L (38-126); Anion Gap 8 mmol/L (4-12); Aspartate Amino Transferase 30 U/L (14-36); Bilirubin,Total 1.5 mg/dL (0.2-1.3); Blood Urea Nitrogen 29 mg/dL (7-17); Calcium 10.0 mg/dL (8.4-10.2); Carbon Dioxide 27 mmol/L (22-30); Chloride 105 mmol/L (98-107); Estimated CRCL calculation 48 ml/min; Estimated Glomerular Filt Rate 47; Glucose 130 mg/dL (65-110); Magnesium 2.1 mg/dL (1.6-2.3); Osmolality Calculated 297 mOsm/kg (285-295); Potassium 3.6 mmol/L (3.4-5.0); Sodium 140 mmol/L (137-145); Total Protein 7.9 g/dL (6.3-8.2)
[2025-06-26 18:10] VITALS: BP 137/70; PULSE 81; RESP 18; O2SAT 96
== END 2025-06-26 18:22 | disposition home or self-care (01) ==
PROVIDERS: Emergency Provider Emergency Medicine; PCP Family Medicine
DX: A08.4 Viral intestinal infection, unspecified (principal); E86.0 Dehydration; E11.9 Type 2 diabetes mellitus without complications
CPT/HCPCS: 36415; 80053; 83735; 85025; 99283

== ENCOUNTER 2025-07-31 10:55 | Outpatient (CLI) | payer MEDICARE, SELFPAY ==
--- NOTE | ~2025-07-31 | XR_ITS ---
EXAMINATION: XR shoulder LT min 2V, 07/31/2025 11:02 CDT HISTORY: M25.512 - Pain in left shoulder COMPARISON: No comparisons available. Findings: No acute fracture or malalignment. No significant degenerative changes. Soft tissues unremarkable. Impression: No acute fracture or malalignment. Reviewed, dictated and finalized at location A. Impression: No acute fracture or malalignment.
--- OUTSIDE RECORDS SUMMARY | 2025-07-31 12:10 | XMS_ITS | Encounter Summary ---
Author Organization [facility] Address [facility] [place] [address] Care Team Providers Care Plating Engineer Name Role Phone Rosario Valentin MD Primary Care Provider [phone] Rosario Valentin MD Primary Care Provider [phone] None, Provider Primary Care Provider Onelia Coffey MD Primary Care Provider + [phone] Evens Meehan MD Primary Care Provider [phone] Ramon Aviles DO Primary Care Provider [phone] None, Provider Primary Care Provider Ramon Wilhelm DO Unavailable [phone] Amandeep Akhtar MD Unavailable Ramon Aviles DO Primary Care Provider [phone] Encounter Details Date Type Department Care Team (Late st Contact Info) Description 04/16/2019 Abstract SFL CONVERSION [address] [place] [address] , Generic Conversion, Social History Tobacco Use Types Packs/Day Years Used Date Smoking Tobacco: Never Smokeless Tobacco: Never Alcohol Use Standard Drinks/Week Comments No 0 (1 standard drink = 0.6 oz pur e alcohol) Comments Unknown Sex and Gender Information Value Date Recorded Sex Assigned at Female 02/19/2020 11:43 PM CDT Legal Sex Female 10:08 PM PRODUCT 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 TECHNICIAN Gender Identity Female 02/19/2020 11:43 PM [...] Rule Out 09/21/2021 09/21/2021 09/21/2021 12:32 PM PRODUCT SAFETY TECHNICIAN COVID-19 Rule Out 08/25/2024 08/25/2024 08/25/2024 10:09 AM CDT documented as of this encounter Care Teams Plating Engineer Relationship Specialty Start Date End Date Rosario Valentin MD [address] [place] [phone] PCP - General FAMILY PRACTICE 10/05/17 02/19/20 Rosario Valentin MD [address] [place] [address] PCP - General FAMILY PRACTICE 02/20/20 05/28/21 None, ProviderMD PCP - General 06/14/21 10/15/21 [place] [address] [place] [address] PCP - General INTERNAL MEDICINE 10/16/21 12/29/22 Evens Meehan MD [address] [place] [address] PCP - General FAMILY PRACTICE 12/30/22 01/18/24 Ramon Aviles DO [address] [place] [address] PCP - General FAMILY PRACTICE 01/19/24 08/28/24 None, ProviderMD PCP - General UNKNOWN PHYSICIAN SPECIALTY 08/29/24 1 11/24/23 Ramon Aviles DO [address] [place] [address] PCP - General FAMILY PRACTICE 09/25/24 Ramon Aviles DO [address] [place] [address] FAMILY PRACTICE 08/29/24 Amanedep Akhtar MD [address] [place] [address] CARDIOVASCULAR DISEASE 05/18/17 documented as of this encounter
--- OUTSIDE RECORDS SUMMARY | 2025-07-31 12:10 | XMS_ITS | Patient Health Record ---
Author Organization [facility] Address [address] [place], [place] [phone] Care Team Providers Care Care Connector Name Role Phone Ramon Aviles Unavailable Unavailable [...] Part B [place] [address] [place] [address] [id number] JORDYN NOGUEIRA Self - patient is the insured [facility] ([facility]) ATTN CLAIMS [address] [place] [address] [id number] JORDYN NOGUEIRA Self - patient is the insured
== END 2025-07-31 10:56 | disposition home or self-care (01) ==
LOC: CHSIMG 10:58
PROVIDERS: PCP Family Medicine; Visit Provider Nurse Practitioner Family
DX: M25.512 Pain in left shoulder (principal)
CPT/HCPCS: 73030

== ENCOUNTER 2025-08-14 10:25 | Outpatient (RCR) | payer MEDICARE, SELFPAY ==
--- NOTE | 2025-08-14 11:57 | OPREHPOC ---
Outpatient Therapy Plan of Care This is a Multidisciplinary Plan of Care that may contain components documented by all disciplines (PT, OT, and ST.) PT Problem 1 PT Problem #1 Knowledge Deficit PT Goal 1 Goal / Goal Update independent and compliant with HEP Target Visit 6 PT Problem 2 PT Problem #2 Pain PT Goal 1 Goal / Goal Update decrease pain at worst to 4/10 or less in the L shoulder Target Visit 12 PT Problem 3 PT Problem #3 Impaired Range of Motion PT Goal 1 Goal / Goal Update 145 degrees active L shoulder rom Target Visit 12 PT Problem 4 PT Problem #4 Impaired Strength PT Goal 1 Goal / Goal Update 4+/5 or better overall bilat shoulder and elbow strength Target Visit 12 PT Problem 5 PT Problem #5 Impaired Functional Mobility PT Goal 1 Goal / Goal Update quick dash to display 10% or less functional deficits Target Visit 12
--- NOTE | 2025-08-14 11:58 | PTOPEVAL1 ---
Assessment and note entered by JT File, PT Evaluation Information Assessment Status Evaluation ICD-10 Condition Codes (PT) Pain in left shoulder M25.512 Onset 08/01/2025 Subjective Information patient reports she is coming to therapy for pain in the L shoulder. she reports it has been bad for a while, but is getting worse. she reports it hurts more when she is laying on the shoulder. she reports she does not have to do much at home as her takes care of most of the home care. Reported Pain Level Pain Score 9: Self Report Assessment PT Clinical Summary mrs. escobar is a 60 yo woman who presents to skilled PT services for evaluation and treatment of L shoulder pain. she presents today with signs and symptoms consistent with L shoulder RTC tendonitis. she displays deficits in L shoulder active rom, bilat shoulder strength, inability to comfortably sleep, and other functional deficits impacting her day. continued skilled PT is indicated to achieve her objective/functional deficits and return to her prior level functional activity performance/quality of life. Plan of Care Interventions Electrical Stimulation,Hot Pack/Cold Pack,Manual Therapy,Neuro Re-education,Patient/Caregiver Education,Therapeutic Activities,Therapeutic Exercise PT Services Indicated Yes Treatment Frequency and 3x weekly for 12 visits Duration These treatments will address the objective and functional deficits as defined above. The patient will be advanced safely and appropriately in order for the patient to progress towards his/her prior level of function. Additional exercises will be introduced and as well as a comprehensive home exercise program upon discharge, if needed, ?to ensure carryover of functional gains achieved in the clinic. This treatment plan has been reviewed and agreement upon by the patient.
--- NOTE | 2025-09-06 09:02 | PTOPPROGNS ---
Assessment and note entered by JT File, PT Evaluation Information Assessment Status Progress ICD-10 Condition Codes (PT) Pain in left shoulder M25.512 Onset 08/01/2025 Subjective Information mrs escobar reports she has no pain in the L shoulder today. she reports the shoulder is doing much better, and she is completing all activities using the L shoulder with pain. she reports she is doing her HEP sometimes at home. Assessment PT Clinical Summary mrs. escobar presents to skilled PT services for her 10th skilled PT visit today. she is feeling much better overall. she displays improved shoulder rom and strength, as well as, improved functional use of the shoulder per the quick dash. she would benefit from continued skilled PT to finish out her current POC to achieve all of her goals, and develop a more extensive HEP for home. Plan of Care Interventions Electrical Stimulation,Hot Pack/Cold Pack,Manual Therapy,Neuro Re-education,Patient/Caregiver Education,Therapeutic Activities,Therapeutic Exercise PT Services Indicated Yes Treatment Frequency and continue per initial POC Duration These treatments will address the objective and functional deficits as defined above. The patient will be advanced safely and appropriately in order for the patient to progress towards his/her prior level of function. Additional exercises will be introduced and as well as a comprehensive home exercise program upon discharge, if needed, ?to ensure carryover of functional gains achieved in the clinic. This treatment plan has been reviewed and agreement upon by the patient.
--- NOTE | 2025-09-13 08:51 | OPREHPOC ---
Outpatient Therapy Plan of Care This is a Multidisciplinary Plan of Care that may contain components documented by all disciplines (PT, OT, and ST.) PT Problem 1 PT Problem #1 Knowledge Deficit PT Goal 1 Goal / Goal Update independent and compliant with HEP Target Visit 6 Progress Met PT Problem 2 PT Problem #2 Pain PT Goal 1 Goal / Goal Update decrease pain at worst to 4/10 or less in the L shoulder Target Visit 12 Progress Met PT Problem 3 PT Problem #3 Impaired Range of Motion PT Goal 1 Goal / Goal Update 145 degrees active L shoulder rom Target Visit 12 Progress Met PT Problem 4 PT Problem #4 Impaired Strength PT Goal 1 Goal / Goal Update 4+/5 or better overall bilat shoulder and elbow strength Target Visit 12 Progress Met PT Problem 5 PT Problem #5 Impaired Functional Mobility PT Goal 1 Goal / Goal Update quick dash to display 10% or less functional deficits Target Visit 12 Progress Met PT Goal 2 Goal / Goal Update develop extensive HEP for home maintenance and progression Target Visit 12 Progress Met
--- NOTE | 2025-09-13 08:51 | PTOPDC ---
Assessment and note entered by JT File, PT Evaluation Information Assessment Status Discharge ICD-10 Condition Codes (PT) Pain in left shoulder M25.512 Onset 08/01/2025 Subjective Information patient reports she feels Good today. she reports she has no pain in the L shoulder. she is compliant with her HEP at home. Reported Pain Level Pain Score 0: Self Report Assessment PT Clinical Summary mrs. escobar presents to skilled PT services for her 12th skilled PT visit for the L shoulder. she reports she no longer has pain in the L shoulder. she reports she is compliant with her HEP at home. as of this date, she has met all goals for skilled PT. she will DC to an independent HEP at this time. Plan of Care PT Services Indicated Yes
== END 2025-09-13 20:00 | disposition home or self-care (01) ==
LOC: CHSPT 10:25
PROVIDERS: PCP Nurse Practitioner Family; Visit Provider Nurse Practitioner Family
DX: M25.512 Pain in left shoulder (principal)
CPT/HCPCS: 97014; 97110; 97150; 97161; 97530; G0283

== ENCOUNTER 2025-09-13 13:08 | Emergency (ER) | payer MEDICARE, SELFPAY ==
--- OUTSIDE RECORDS SUMMARY | 2024-03-24 08:40 | XMS_ITS ---
Author Organization [facility] Address [address] [place], [place] [id number] Care Team Providers Care Certified Forklift Operator Name Role Phone Ramon Aviles Unavailable Unavailable ANDRES JIANG Unavailable [phone] REASON FOR VISIT *General care Encounters Encounter Location Date Provider Diagnosis [address] [id number] 03/24/2024 ANDRES JIANG Plan Of Treatment No Information Progress Notes * MIRLANDE BIENVENIDOTIFFANIOB:1965 ([age] yo F)Acc No.[id number]:03/24/2024 Patient: JORDYN MILES Provider: Cass JIANG :1965 A ge:58 Y S ex:Female Date:03/24/2024 Address:[address] [place], [place] [id number] Subjective: * Chief Complaints: * * General care Billing Information: * Procedure Codes: * Electronic signature of ANIRUDH JINAG DPM on 09/14/2025 at 11:44 AM TESTER OPERATOR Sign off status: Pending * Provider: Cass JIANG Date: 0 03/24/2024 Generated for Michael castillo/Na/Porfirio on: 1 11/14/2024 11:44 AM TESTER OPERATOR
[2025-09-13 13:09] VITALS: BP 130/77; PULSE 92; RESP 16; TEMP 36.8; O2SAT 96
--- NOTE | 2025-09-13 13:13 | ED.NAVMDI ---
HPI - Nausea/Vomiting/Diarrhea General Chief complaint: Nausea/Vomiting/Diarrhea Stated complaint: vomiting 2 times today Time Seen by Provider: 09/13/25 13:13 Source: patient History of Present Illness HPI Narrative: 60 years old white female drop off by her because of of vomiting twice a 1 hour prior to arrival. Patient denies any fever, chills, headache abdominal pain, chest pain, shortness of breath, back pain or urinary symptoms. Patient is telling me having a lot of stress lately. Some family member accusing her of stealing DVD. History of hypertension and diabetes. Related Data Home Medications ?Medication ?Instructions ?Recorded ?Confirmed ?Last Taken ?Type sumatriptan succinate 100 mg tablet See Rx Instructions .Route .COMPLEX 08/20/24 07/31/25 Unknown History Allergies Allergy/AdvReac Type Severity Reaction Status Date / Time chocolate Allergy Mild Headache Verified 09/13/25 13:10 Sulfa (Sulfonamide Allergy Unknown RASH, Verified 09/13/25 13:10 Antibiotics) NAUSEA ibuprofen AdvReac Nausea and Verified 09/13/25 13:10 Vomiting iohexol (From contrast - CT, AdvReac Nausea and Verified 09/13/25 13:10 X-RAY) Vomiting Review of Systems Review of Systems: All systems reviewed & are unremarkable except as noted in HPI and below PMFSH Past Medical History Medical History DMII (diabetes mellitus, type 2) Nausea Obesity, morbid, BMI 40.0-49.9 Surgical History Surgical History H/O: hysterectomy S/P cubital tunnel release Left History of carpal tunnel release of both wrists Social History Social History Social History: caffeine-tea Alcohol intake: never Substance use: never Substance use type: does not use Lack of Transportation: No Lack of Food: Never True Current Housing: I Have Housing Concerned About Future Housing: No Difficulty Paying Gas/Electric Bills: No Difficulty Paying for Meds: No Currently Unemployed: No Education: High School Diploma/GED Difficulty w/ Childcare or Family Care: No Living arrangements: with family Spiritual care concerns: No Exam Narrative: General appearance: Well-developed, well-nourished anxious, right upper extremity tremors Skin: Normal color Head: Normocephalic, nontraumatic Eyes: Clear conjunctiva ENT: Oropharynx normal, ears normal, nose normal Neck: Supple, nontender Chest and respiratory: Airway patent, no respiratory distress, no accessory muscle use Heart: Regular rate/rhythm Abdomen: Soft, nontender, no organomegaly, quiet bowel sounds Vascular: Normal peripheral pulses, normal capillary refill. Musculoskeletal: Normal range of motion, nontender back Neurologic: Alert and oriented ?3, ADOPTION MANAGER is normal as tested, no gross motor deficit Course Vital Signs Vital signs: Vital Signs Temperature 36.8 C 09/13/25 13:09 Pulse Rate 92 09/13/25 13:09 Respiratory Rate 16 09/13/25 13:09 Blood Pressure 130/77 09/13/25 13:09 Pulse Oximetry 96 09/13/25 13:09 Oxygen Delivery Room Air 09/13/25 13:09 Temperature 36.8 C 09/13/25 13:09 Pulse Rate 92 09/13/25 13:09 Respiratory Rate 16 09/13/25 13:09 Blood Pressure 130/77 09/13/25 13:09 Pulse Oximetry 96 09/13/25 13:09 Oxygen Delivery Room Air 09/13/25 13:09 MDM - Nausea/Vomiting/Diarrhea MDM Narrative Medical decision making narrative: Patient presents with nausea and vomiting twice prior to arrival, in the ED is asymptomatic. Patient report a lot of stress lately and usually stress can trigger her vomiting. Vital signs are stable Differential diagnosis include anxiety and stress like symptoms Patient received 1 mg of Ativan p.o. prior to discharge with remarkable improvement, at the time of discharge patient is asymptomatic. The pt was discharged to home.the pt,s condition upon discharge was fair,education was provided to the pt in reference to the final impression,discharge study results,treatment,prognosis and need for follow up . Differential Diagnosis Differential diagnosis: Likely other (As above) Critical Care Time Critical Care Time Critical Care Time: No Discharge Plan Discharge Clinical Impression: Anxiety Patient Disposition: Home Condition: Improved Instructions: Anxiety (ED) Additional Instructions: Return if symptoms are worsening , call your family physician for appointment, take Tylenol as as needed for aches and pain, continue home medications. Patient Language: Pashto Prescriptions: New hydroxyzine HCl 50 mg tablet 50 mg PO QID PRN (Reason: nausea and vomiting) Qty: 20 0RF No Action sumatriptan succinate 100 mg tablet See Rx Instructions .ROUTE .COMPLEX Rx Instructions: TAKE 1 TABLET AT HEADACHE ONSET. MAY REPEAT 1 TABLET IN 2 HOURS. MAXIMUM 3 TABLETS IN 24 HOURS. aripiprazole 10 mg tablet See Rx Instructions .ROUTE .COMPLEX Qty: 30 10RF Dose Instruction: TAKE 1 TABLET(S) BY MOUTH 1 TIMES PER DAY *NEW PRESCRIPTION REQUEST* Rx Instructions: TAKE 1 TABLET(S) BY MOUTH 1 TIMES PER DAY *NEW PRESCRIPTION REQUEST* cholecalciferol (vitamin D3) 50 mcg (2,000 unit) capsule 50 mcg PO DAILY Qty: 30 2RF sertraline 100 mg tablet See Rx Instructions .ROUTE .COMPLEX Qty: 30 10RF Dose Instruction: TAKE 1 TABLET BY MOUTH DAILY *NEW PRESCRIPTION REQUEST* Rx Instructions: TAKE 1 TABLET BY MOUTH DAILY *NEW PRESCRIPTION REQUEST* oxybutynin chloride 15 mg tablet extended release 24hr See Rx Instructions .ROUTE .COMPLEX Qty: 90 1RF Dose Instruction: TAKE ONE TABLET BY MOUTH DAILY Rx Instructions: TAKE ONE TABLET BY MOUTH DAILY pantoprazole 40 mg tablet,delayed release (DR/EC) See Rx Instructions .ROUTE .COMPLEX Qty: 30 2RF Dose Instruction: TAKE ONE TABLET BY MOUTH EVERY MORNING Rx Instructions: TAKE ONE TABLET BY MOUTH EVERY MORNING Follow-up/Referrals: Ramon Aviles DO [Primary Care Provider, Family Practice]
[2025-09-13] MEDS: LORazepam (*CRX) 1 MG TABLET PO (13:31)
--- NOTE | 2025-09-13 13:45 | PC.NURSE ---
Pt states she is now feeling better after taking the medication and would like to go home. MD Tuan made aware.
--- OUTSIDE RECORDS SUMMARY | 2025-09-14 11:44 | XMS_ITS | Patient Health Record ---
Author Organization [facility] Address [address] [place], [place] [id number] Care Team Providers Care Certified Indoor Environmentalist Name Role Phone Ramon Aviles Unavailable Unavailable [...] Date Medicare Part B [place] [address] [place] [address] [id number] JORDYN NOGUEIRA Self - patient is the insured [facility] ([facility]) ATTN CLAIMS [address] [place] [address] [id number] JORDYN NOGUEIRA Self - patient is the insured
== END 2025-09-13 14:05 | disposition home or self-care (01) ==
LOC: CHSED 13:43
PROVIDERS: Emergency Provider Emergency Medicine; PCP Family Medicine
DX: F41.9 Anxiety disorder, unspecified (principal); I10 Essential (primary) hypertension; E11.9 Type 2 diabetes mellitus without complications
CPT/HCPCS: 99283; A9270

== ENCOUNTER 2025-09-16 17:57 | Emergency (ER) | payer MEDICARE, SELFPAY ==
--- OUTSIDE RECORDS SUMMARY | 2024-03-24 08:40 | XMS_ITS ---
Author Organization [facility] Address [address] [place], [place] [id number] Care Team Providers Care Marine Design Engineer Name Role Phone Ramon Aviles Unavailable Unavailable ANDRES JIANG Unavailable [phone] REASON FOR VISIT *General care Encounters Encounter Location Date Provider Diagnosis [address] [id number] 03/24/2024 ANDRES JIANG Plan Of Treatment No Information Progress Notes * MIRLANDE BIENVENIDOTIFFANIOB:1965 ([age] yo F)Acc No.[id number]:03/24/2024 Patient: JORDYN MILES Provider: Cass JIANG :1965 A ge:58 Y S ex:Female Date:03/24/2024 Address:[address] [place], [place] [id number] Subjective: * Chief Complaints: * * General care Billing Information: * Procedure Codes: * Electronic signature of ANIRUDH JIANG DPM on 09/16/2025 at 06:00 PM LABORER CAR BARN Sign off status: Pending * Provider: Cass JIANG Date: 0 03/24/2024 Generated for Michael castillo/Na/Porfirio on: 1 11/16/2024 06:00 PM LABORER CAR [employer]ARN
[2025-09-16 17:57] VITALS: BP 108/68; PULSE 84; RESP 17; TEMP 36.9; O2SAT 95
--- NOTE | 2025-09-16 17:58 | ECG_ITS ---
Test Date: 2025-09-16 18:03:09 Measurements Intervals Dumont Rate: 71 P: 46 ID: 171 QRS: 16 QRSD: 79 T: 66 QT: 384 QTc: 417 Interpretive Statements SINUS RHYTHM NONSPECIFIC T-WAVE ABNORMALITY ABNORMAL ECG Electronically Signed On 09-17-2025 08:47:13 [employer] by Niko Greene M.D.
--- OUTSIDE RECORDS SUMMARY | 2025-09-16 18:00 | XMS_ITS | Encounter Summary ---
Author Organization [facility] Address [facility] [place] [address] Care Team Providers Care Drawbench Operator Name Role Phone Rosario Valentin MD Primary Care Provider [phone] Rosario Valentin MD Primary Care Provider [phone], Provider Primary Care Provider Onelia Coffey MD Primary Care Provider + [phone] Evens Meehan MD Primary Care Provider [phone] Ramon Aviles DO Primary Care Provider [phone] None, Provider Primary Care Provider Ramon Wilhelm DO Unavailable [phone] Amandeep Akhtar MD Unavailable Ramon Aviles DO Primary Care Provider [phone] Encounter Details Date Type Department Care Team (Late st Contact Info) Description 04/16/2019 Abstract SFL CONVERSION [address] [place] [address] , Generic Conversion, Social History Tobacco Use Types Packs/Day Years Used Date Smoking Tobacco: Never Smokeless Tobacco: Never Alcohol Use Standard Drinks/Week Comments No 0 (1 standard drink = 0.6 oz pur e alcohol) Comments Unknown Sex and Gender Information Value Date Recorded Sex Assigned at Female 02/19/2020 11:43 PM CDT Legal Sex Female 10:08 PM LANDCARE OFFICER Gender Identity Female 02/19/2020 11:43 PM CDT [...] Rule Out 09/21/2021 09/21/2021 09/21/2021 12:32 PM LANDCARE OFFICER COVID-19 Rule Out 08/25/2024 08/25/2024 08/25/2024 10:09 AM CDT documented as of this encounter Care Teams Drawbench Operator Relationship Specialty Start Date End Date Rosario Valentin MD [address] [place] [place] [address] PCP - General FAMILY PRACTICE 10/05/17 02/19/20 Rosario Valentin MD [address] [place] [address] PCP - General FAMILY PRACTICE 02/20/20 05/28/21 None, ProviderMD PCP - General 06/14/21 10/15/21 [place] [address] [place] [address] PCP - General INTERNAL MEDICINE 10/16/21 12/29/22 Evens Meehan MD [address] [place] [address] PCP - General FAMILY PRACTICE 12/30/22 01/18/24 Ramon Aviles DO [address] [place] [address] PCP - General FAMILY PRACTICE 01/19/24 08/28/24 None, ProviderMD PCP - General UNKNOWN PHYSICIAN SPECIALTY 08/29/24 1 11/24/23 Ramon Aviles DO [address] [place] [address] PCP - General FAMILY PRACTICE 09/25/24 Ramon Aviles DO [address] [place] [address] FAMILY PRACTICE 08/29/24 Amandeep Akhtar MD [address] [place] [address] CARDIOVASCULAR DISEASE 05/18/17 documented as of this encounter
--- OUTSIDE RECORDS SUMMARY | 2025-09-16 18:00 | XMS_ITS | Patient Health Record ---
Author Organization [facility] Address [address] [place], [place] [id number] Care Team Providers Care It Instructor Name Role Phone Ramon Aviles Unavailable Unavailable [...] Medicare Part B [place] [address] [place] [address] [id number] JORDYN NOGUEIRA Self - patient is the insured [facility] ([facility]) ATTN CLAIMS [address] [place] [address] [id number] JORDYN NOGUEIRA Self - patient is the insured
--- NOTE | 2025-09-16 18:12 | ED_ITS ---
HPI - Chest Pain General Chief Complaint: Chest Pain Stated Complaint: chest pain Time Seen by Provider: 09/16/25 18:00 Source: patient Mode of arrival: ambulatory Limitations: no limitations History of Present Illness HPI narrative: 60-year-old female with no significant past medical history is for his heart disease presents with some chest discomfort reproducible with palpation started 5minutes prior to arrival to the ED with no radiation of her pain rates her pain about 4/10 with some nausea with no shortness of breath no fever chills no abdominal pain no flank pain no dysuria or hematuria. complaint: chest discomfort Onset (ago): minute(s) Timing of current episode: episodic Onset: during rest Severity: mild Pain scale (0-10): 4 Quality: aching Related Data Home Medications ?Medication ?Instructions ?Recorded ?Confirmed ?Last Taken ?Type sumatriptan succinate 100 mg tablet See Rx Instruction s .Route .COMPLEX 08/20/24 07/31/25 Unknown History Allergies Allergy/AdvReac Type Severity Reaction Status Date / Time chocolate Allergy Mild Headache Verified 09/13/25 13:10 Sulfa (Sulfonamide Allergy Unknown RASH, Verified 09/13/25 13:10 Antibiotics) NAUSEA ibuprofen AdvReac Nausea and Verified 09/13/25 13:10 Vomiting iohexol (From contrast - CT, AdvReac Nausea and Verified 09/13/25 13:10 X-RAY) Vomiting Review of Systems Review of Systems: All systems reviewed & are unremarkable except as noted in HPI and below PMFSH Past Medical History Medical History DMII (diabetes mellitus, type 2) Nausea Obesity, morbid, BMI 40.0-49.9 Surgical History Surgical History H/O: hysterectomy S/P cubital tunnel release Left History of carpal tunnel release of both wrists Social History Social History Social History: caffeine-tea Alcohol intake: never Substance use: never Substance use type: does not use Lack of Transportation: No Lack of Food: Never True Current Housing: I Have Housing Concerned About Future Housing: No Difficulty Paying Gas/Electric Bills: No Difficulty Paying for Meds: No Currently Unemployed: No Education: High School Diploma/GED Difficulty w/ Childcare or Family Care: No Living arrangements: with family Spiritual care concerns: No Exam Const: General: healthy appearing and no acute distress Nutritional Appearance: well nourished and obese Orientation/consciousness: patient oriented x3 Limitations: no limitations Neck: Neck: normal visual inspection Chest: Chest palpation & inspection: normal inspection of the chest Other: Reproducible chest pain with palpation Resp: Effort & Inspection: normal respiratory effort Auscultation: clear to auscultation bilaterally Cardio: Rate: regular rate Rhythm: regular rhythm GI: GI Palp: Yes Soft to palpation Auscultation: normal bowel sounds Extrem: General: normal to inspection, no clubbing, cyanosis or edema and no pedal edema Psych: Affect: Anxious affect present Course Course Emergency Course: Medical decision making narrative: The patient was evaluated by myself in the emergency department. History obtained from the pen patient who is in [place] historian physical exam performed witnessed by nurse. Patient had reproducible chest pain p.o. Tylenol and Zofran were administered EKG shows no ST or T changes, sinus rhythm with a rate of 71 with some blood pressure and vital stable. Repeat assessment: Patient doing well on repeat exam no acute distress Symptoms have improved since arrival to the ED Vitals are stable Patient agrees with discussion after shared medical decision-making and agrees with discharge. All questions answered to the patient's satisfaction Advised follow-up with primary next 3 to 5 days. Vital Signs Vital signs: Vital Signs Temperature 36.9 C 09/16/25 17:57 Pulse Rate 84 09/16/25 17:57 Respiratory Rate 17 09/16/25 17:57 Blood Pressure 108/68 09/16/25 17:57 Pulse Oximetry 95 09/16/25 17:57 Oxygen Delivery Room Air 09/16/25 17:57 Temperature 36.9 C 09/16/25 17:57 Pulse Rate 84 09/16/25 17:57 Respiratory Rate 17 09/16/25 17:57 Blood Pressure 108/68 09/16/25 17:57 Pulse Oximetry 95 09/16/25 17:57 Oxygen Delivery Room Air 09/16/25 17:57 Critical Care Time Critical Care Time Critical Care Time: No Discharge Plan Discharge Clinical Impression: Costochondritis, acute Patient Disposition: Home Condition: Stable Instructions: Antibiotic Form, Costochondritis (ED) Additional Instructions: Advised patient to take Tylenol as needed and follow-up with primary care physician within the next 2 to 5 days further evaluation and treatment. Patient Language: Malagasy Prescriptions: No Action sumatriptan succinate 100 mg tablet See Rx Instructions .ROUTE .COMPLEX Rx Instructions: TAKE 1 TABLET AT HEADACHE ONSET. MAY REPEAT 1 TABLET IN 2 HOURS. MAXIMUM 3 TABLETS IN 24 HOURS. hydroxyzine HCl 50 mg tablet 50 mg PO QID PRN (Reason: nausea and vomiting) Qty: 20 0RF aripiprazole 10 mg tablet See Rx Instructions .ROUTE .COMPLEX Qty: 30 10RF Dose Instruction: TAKE 1 TABLET(S) BY MOUTH 1 TIMES PER DAY *NEW PRESCRIPTION REQUEST* Rx Instructions: TAKE 1 TABLET(S) BY MOUTH 1 TIMES PER DAY *NEW PRESCRIPTION REQUEST* cholecalciferol (vitamin D3) 50 mcg (2,000 unit) capsule 50 mcg PO DAILY Qty: 30 2RF sertraline 100 mg tablet See Rx Instructions .ROUTE .COMPLEX Qty: 30 10RF Dose Instruction: TAKE 1 TABLET BY MOUTH DAILY *NEW PRESCRIPTION REQUEST* Rx Instructions: TAKE 1 TABLET BY MOUTH DAILY *NEW PRESCRIPTION REQUEST* oxybutynin chloride 15 mg tablet extended release 24hr See Rx Instructions .ROUTE .COMPLEX Qty: 90 1RF Dose Instruction: TAKE ONE TABLET BY MOUTH DAILY Rx Instructions: TAKE ONE TABLET BY MOUTH DAILY pantoprazole 40 mg tablet,delayed release (DR/EC) See Rx Instructions .ROUTE .COMPLEX Qty: 30 2RF Dose Instruction: TAKE ONE TABLET BY MOUTH EVERY MORNING Rx Instructions: TAKE ONE TABLET BY MOUTH EVERY MORNING Follow-up/Referrals: Ramon Aviles DO [Primary Care Provider, [facility]] Time of Disposition: 18:16
[2025-09-16] MEDS: ACETAMINOPHEN 325 MG TABLET 650 MG PO (18:23)
[2025-09-16] MEDS: ONDANSETRON HCL ODT 4 MG TABLET PO (18:23)
--- OUTSIDE RECORDS SUMMARY | 2025-09-16 18:35 | XMS_ITS | Encounter Summary ---
Author Organization [facility] Address [facility] [place] [address] Care Team Providers Care Gas Station Cashier Name Role Phone Rosario Valentin MD Primary Care Provider [phone] Rosario Valentin MD Primary Care Provider [phone] None, Provider Primary Care Provider Onelia Coffey MD Primary Care Provider + [phone] Evens Meehan MD Primary Care Provider [phone] Ramon Aviles DO Primary Care Provider [phone] None, Provider Primary Care Provider Ramon Wilhelm DO Unavailable [phone] Amandeep Akhtar MD Unavailable Ramon Aviles DO Primary Care Provider [phone] Encounter Details Date Type Department Care Team (Late st Contact Info) Description 04/16/2019 Abstract SFL CONVERSION [address] [place] [address] , Generic Conversion, Social History Tobacco Use Types Packs/Day Years Used Date Smoking Tobacco: Never Smokeless Tobacco: Never Alcohol Use Standard Drinks/Week Comments No 0 (1 standard drink = 0.6 oz pur e alcohol) Comments Unknown Sex and Gender Information Value Date Recorded Sex Assigned at Female 02/19/2020 11:43 PM CDT Legal Sex Female 10:08 PM MVA OPERATOR Gender Identity Female 02/19/2020 11:43 PM [...] Rule Out 09/21/2021 09/21/2021 09/21/2021 12:32 PM MVA OPERATOR COVID-19 Rule Out 08/25/2024 08/25/2024 08/25/2024 10:09 AM CDT documented as of this encounter Care Teams Gas Station Cashier Relationship Specialty Start Date End Date Rosario Valentin MD [address] [place] [phone] PCP - General FAMILY PRACTICE 10/05/17 02/19/20 Rosario Valentin MD [address] [place] [address] PCP - General FAMILY PRACTICE 02/20/20 05/28/21 None, ProviderMD PCP - General 06/14/21 10/15/21 [place] [address] [place] [address] PCP - General INTERNAL MEDICINE 10/16/21 12/29/22 Evens Meehan MD [address] [place] [address] PCP - General FAMILY PRACTICE 12/30/22 01/18/24 Ramon Aviles DO [address] [place] [address] PCP - General FAMILY PRACTICE 01/19/24 08/28/24 None, ProviderMD PCP - General UNKNOWN PHYSICIAN SPECIALTY 08/29/24 1 11/24/23 Ramon Aviles DO [address] [place] [address] PCP - General FAMILY PRACTICE 09/25/24 Ramon Aviles DO [address] [place] [address] FAMILY PRACTICE 08/29/24 Amandeep Akhtar MD [address] [place] [address] CARDIOVASCULAR DISEASE 05/18/17 documented as of this encounter
[2025-09-16 18:49] VITALS: BP 117/71; PULSE 78; RESP 18; TEMP 36.9; O2SAT 95
== END 2025-09-16 18:49 | disposition home or self-care (01) ==
PROVIDERS: Emergency Provider Emergency Medicine; PCP Family Medicine
DX: M94.0 Chondrocostal junction syndrome [Tietze] (principal); E11.9 Type 2 diabetes mellitus without complications
CPT/HCPCS: 93005; 99283; A9270

== ENCOUNTER 2025-09-26 17:38 | Emergency (ER) | payer MEDICARE, SELFPAY ==
[2025-09-26 17:38] VITALS: BP 130/84; PULSE 82; RESP 16; TEMP 36.3; O2SAT 96
--- NOTE | 2025-09-26 17:57 | ED_ITS ---
HPI - General Adult General Chief complaint: Nausea/Vomiting/Diarrhea Stated complaint: Upset stomach Time Seen by Provider: 09/26/25 17:40 History of Present Illness HPI narrative: 60-year-old white female with history of GERD, severe anxiety, unspecified psychotic disorder, developmental disorder, lives at home with her , and has relatively frequent episodes where she will get upset, and cooperative, then developed nausea, occasionally with emesis, and then will come to the emergency department. Today there was an argument between a neighbor and her family and she reports a neighbor was aggressive, and mean and she got anxious, and then subsequently developed nausea. She has not had any vomiting today. She denies any recent fever, sinus drainage, cough, shortness of breath, chest pain. Denies diarrhea or constipation, denies dysuria urgency or frequency Related Data Home Medications ?Medication ?Instructions ?Recorded ?Confirmed ?Last Taken ?Type sumatriptan succinate 100 mg tablet See Rx Instruction s .Route .COMPLEX 08/20/24 07/31/25 Unknown History Allergies Allergy/AdvReac Type Severity Reaction Status Date / Time chocolate Allergy Mild Headache Verified 09/26/25 17:44 Sulfa (Sulfonamide Allergy Unknown RASH, Verified 09/26/25 17:44 Antibiotics) NAUSEA ibuprofen AdvReac Nausea and Verified 09/26/25 17:44 Vomiting iohexol (From contrast - CT, AdvReac Nausea and Verified 09/26/25 17:44 X-RAY) Vomiting Review of Systems Review of Systems: ROS is negative except as in HPI PMFSH Past Medical History Medical History DMII (diabetes mellitus, type 2) Nausea Obesity, morbid, BMI 40.0-49.9 Surgical History Surgical History H/O: hysterectomy S/P cubital tunnel release Left History of carpal tunnel release of both wrists Social History Social History Social History: caffeine-tea Smoking status: Never smoker Alcohol intake: never Substance use: never Substance use type: does not use Lack of Transportation: No Lack of Food: Never True Current Housing: I Have Housing Concerned About Future Housing: No Difficulty Paying Gas/Electric Bills: No Difficulty Paying for Meds: No Currently Unemployed: No Education: High School Diploma/GED Difficulty w/ Childcare or Family Care: No Living arrangements: with family Spiritual care concerns: No Exam Narrative: pleasant, well-appearing, but anxious, has a tremor that apparently is chronic when she is anxious, but in no acute distress . Her physical appearance is consistent with some type of developmental abnormality, her speech and behavior pattern is very child-like. She does have some hirsutism, she is obese Const: General: cooperative, healthy appearing, comfortable, no acute distress, well developed, alert, awake and Physically active Orienta tion/consciousness: patient oriented x3 HENMT: Head: normal to inspection, normocephalic and atraumatic Ears: hearing grossly normal bilaterally and external ears normal Face/Nose/Sinus: Normal external nose present, Normal nares present, Normal nasal mucous membranes and turbinates present and normal facial exam Face and sinus: normal facial exam Mouth: Yes Normal oral and palatal mucosa present, Yes lip normal, Yes tongue normal, Yes oropharynx normal and Yes moist mucous membranes Teeth and gingiva: dentition normal Throat: posterior oropharynx normal and tonsils normal ( erythematous) Eyes: General: appearance normal, both eyes and all related structures Alignment and Position: alignment normal and position normal Periorbital: periorbital findings normal Eyelids: eyelids normal Conjunctivae: con junctivae normal Sclera: sclerae normal Cornea: corneas normal Pupils: Equal, round and reactive pupils present EOM: EOMs intact bilaterally Neck: Neck: normal visual inspection, full ROM and no lymphadenopathy Chest: Chest palpation & inspection: normal inspection of the chest Resp: Effort & Inspection: normal respiratory effort, able to speak in complete sentences, no audible wheezes, no respiratory distress and no use of accessory muscles Auscultation: clear to auscultation bilaterally Cardio: Jugular venous distension: no JVD Rate: regular rate Rhythm: regular rhythm GI: Inspection: normal to inspection GI Palp: No abdominal tenderness, No Tenderness to palpation present (GI), No Guarding due to palpation present (GI), No No hepatosplenomegaly present, No Palpable mass present and No Rebound tenderness present Skin: General skin exam: normal color, no rashes or lesions noted, elasticity normal and turgor normal Neuro: General: patient oriented x3, gait normal, tone normal and moves all e xtremities Cranial nerves: Yes CN's II-XII intact bilaterally, Yes Equal, round and reactive pupils present and Yes Bilaterally intact EOM present Speech: normal speech Motor exam (neuro): 5/5 motor strength present throughout and Normal motor muscle tone present throughout Sensory Exam: nor mal sensation Extrem: General: normal to inspection, normal exam except as noted and no pedal edema Psych: Appearance: grossly normal and well kempt Mental Status: mental status grossly normal Speech and movement: Normal speech and movement present Affect: normal affect Attitude: cooperative Thought process: Normal thought process present Course Course Emergency Course: Patient is well-known to the emergency department staff, and in general responds well to reassurance, ODT Zofran, and in general does not require any significant workup unless her presentation is different than usual. Today she has had no emesis, no fever or chills, her exam is unremarkable except for developmental abnormal appearance, anxiousness, tremors, differential is focused primarily on anxiety, limited coping skills, chronic nausea typically is a reflection of stress. Will treat with Zofran, lab work and imaging is not indicated Medical decision making complexity and risk is low Vital Signs Vital signs: Vital Signs Temperature 36.3 C L 09/26/25 17:38 Pulse Rate 82 09/26/25 17:38 Respiratory Rate 16 09/26/25 17:38 Blood Pressure 130/84 09/26/25 17:38 Pulse Oximetry 96 09/26/25 17:38 Oxygen Delivery Room Air 09/26/25 17:38 Temperature 36.3 C L 09/26/25 17:38 Pulse Rate 82 09/26/25 17:38 Respiratory Rate 16 09/26/25 17:38 Blood Pressure 130/84 09/26/25 17:38 Pulse Oximetry 96 09/26/25 17:38 Oxygen Delivery Room Air 09/26/25 17:38 Medical Decision Making Vital Signs Vital Signs: Vital Signs Temperature 36.3 C L 09/26/25 17:38 Pulse Rate 82 09/26/25 17:38 Respiratory Rate 16 09/26/25 17:38 Blood Pressure 130/84 09/26/25 17:38 Pulse Oximetry 96 09/26/25 17:38 Oxygen Delivery Room Air 09/26/25 17:38 Temperature 36.3 C L 09/26/25 17:38 Pulse Rate 82 09/26/25 17:38 Respiratory Rate 16 09/26/25 17:38 Blood Pressure 130/84 09/26/25 17:38 Pulse Oximetry 96 09/26/25 17:38 Oxygen Delivery Room Air 09/26/25 17:38 Discharge Plan Discharge Clinical Impression: MINA (generalized anxiety disorder), Nausea Patient Disposition: Home Condition: Stable Instructions: Generalized Anxiety Disorder (ED), Acute Nausea and Vomiting (ED) Additional Instructions: Resume your home medications Follow-up with the doctor as needed Patient Language: Uruguayan Prescriptions: No Action sumatriptan succinate 100 mg tablet See Rx Instructions .ROUTE .COMPLEX Rx Instructions: TAKE 1 TABLET AT HEADACHE ONSET. MAY REPEAT 1 TABLET IN 2 HOURS. MAXIMUM 3 TABLETS IN 24 HOURS. hydroxyzine HCl 50 mg tablet 50 mg PO QID PRN (Reason: nausea and vomiting) Qty: 20 0RF aripiprazole 10 mg tablet See Rx Instructions .ROUTE .COMPLEX Qty: 30 10RF Dose Instruction: TAKE 1 TABLET(S) BY MOUTH 1 TIMES PER DAY *NEW PRESCRIPTION REQUEST* Rx Instructions: TAKE 1 TABLET(S) BY MOUTH 1 TIMES PER DAY *NEW PRESCRIPTION REQUEST* cholecalciferol (vitamin D3) 50 mcg (2,000 unit) capsule 50 mcg PO DAILY Qty: 30 2RF sertraline 100 mg tablet See Rx Instructions .ROUTE .COMPLEX Qty: 30 10RF Dose Instruction: TAKE 1 TABLET BY MOUTH DAILY *NEW PRESCRIPTION REQUEST* Rx Instructions: TAKE 1 TABLET BY MOUTH DAILY *NEW PRESCRIPTION REQUEST* oxybutynin chloride 15 mg tablet extended release 24hr See Rx Instructions .ROUTE .COMPLEX Qty: 90 1RF Dose Instruction: TAKE ONE TABLET BY MOUTH DAILY Rx Instructions: TAKE ONE TABLET BY MOUTH DAILY pantoprazole 40 mg tablet,delayed release (DR/EC) See Rx Instructions .ROUTE .COMPLEX Qty: 30 2RF Dose Instruction: TAKE ONE TABLET BY MOUTH EVERY MORNING Rx Instructions: TAKE ONE TABLET BY MOUTH EVERY MORNING Follow-up/Referrals: Ramon Aviles DO [Primary Care Provider, [facility]] Time of Disposition: 17:56
[2025-09-26] MEDS: ONDANSETRON HCL ODT 4 MG TABLET PO (18:05)
== END 2025-09-26 18:35 | disposition home or self-care (01) ==
LOC: CHSED 18:09
PROVIDERS: Emergency Provider Emergency Medicine; PCP Family Medicine
DX: F41.1 Generalized anxiety disorder (principal); R11.0 Nausea; E11.9 Type 2 diabetes mellitus without complications
CPT/HCPCS: 99283; A9270

== ENCOUNTER 2025-09-30 13:34 | Emergency (ER) | payer MEDICARE, SELFPAY ==
[2025-09-30 13:35] VITALS: BP 145/64; PULSE 71; RESP 17; TEMP 37.6; O2SAT 99
[2025-09-30] MEDS: ALPRAZolam (*CRX) 0.5 MG TABLET PO (13:44)
--- NOTE | 2025-09-30 13:55 | ED_ITS ---
HPI - Anxiety General Chief Complaint: Anxiety Stated Complaint: dizzy Time Seen by Provider: 09/30/25 13:36 Source: patient Mode of arrival: ambulatory Limitations: no limitations History of Present Illness HPI narrative: This is a 60 female with history of diabetes history of anxiety presents with some feeling increased anxiousness with no chest pain no shortness of breath no fever chills no abdominal pain no nausea vomiting no diarrhea constipation. complaint: anxiety Onset (ago): hour(s) Severity: mild Quality: improving Place: home History of similar episodes: Yes Related Data Home Medications ?Medication ?Instructions ?Recorded ?Confirmed ?Last Taken ?Type sumatriptan succinate 100 mg tablet See Rx Instruction s .Route .COMPLEX 08/20/24 09/29/25 Unknown History Allergies Allergy/AdvReac Type Severity Reaction Status Date / Time chocolate Allergy Mild Headache Verified 09/30/25 13:38 Sulfa (Sulfonamide Allergy Unknown RASH, Verified 09/30/25 13:38 Antibiotics) NAUSEA ibuprofen AdvReac Nausea and Verified 09/30/25 13:38 Vomiting iohexol (From contrast - CT, AdvReac Nausea and Verified 09/30/25 13:38 X-RAY) Vomiting Review of Systems Review of Systems: All systems reviewed & are unremarkable except as noted in HPI and below PMFSH Past Medical History Medical History DMII (diabetes mellitus, type 2) Nausea Obesity, morbid, BMI 40.0-49.9 Surgical History Surgical History H/O: hysterectomy S/P cubital tunnel release Left History of carpal tunnel release of both wrists Social History Social History Social History: caffeine-tea Smoking status: Never smoker Alcohol intake: never Substance use: never Substance use type: does not use Lack of Transportation: No Lack of Food: Never True Current Housing: I Have Housing Concerned About Future Housing: No Difficulty Paying Gas/Electric Bills: No Difficulty Paying for Meds: No Currently Unemployed: No Education: High School Diploma/GED Difficulty w/ Childcare or Family Care: No Living arrangements: with family Spiritual care concerns: No Exam Const: General: healthy appearing and no acute distress Nutritional Appearance: well nourished and obese Orientation/consciousness: patient oriented x3 Limitations: no limitations Chest: Chest palpation & inspection: normal inspection of the chest Resp: Effort & Inspection: normal respiratory effort Auscultation: clear to auscultation bilaterally Cardio: Rate: regular rate Rhythm: regular rhythm GI: GI Palp: Yes Soft to palpation Auscultation: normal bowel sounds Neuro: General: patient oriented x3 and moves all extremities Psych: Affect: Anxious affect present Course Course Emergency Course: Medical decision making narrative: The patient was evaluated by myself in the emergency department. History obtained from the patient who is independent historian physical exam performed and witnessed by a nurse. External medical records were reviewed. The patient had a blood glucose of 134. Patient received a 0.5mg PO Xanax. Repeat assessment Patient doing well on repeat exam with no acute distress Symptoms have improved since arrival to the emergency department Repeat vitals are stable Patient agrees with discussion and after shared medical decision making and agrees with discharge All questions answered to the patient's satisfaction Follow-up within 3 to 5 days with primary care physician. Vital Signs Vital signs: Vital Signs Temperature 37.6 C H 09/30/25 13:35 Pulse Rate 71 09/30/25 13:35 Respiratory Rate 17 09/30/25 13:35 Blood Pressure 145/64 H 09/30/25 13:35 Pulse Oximetry 99 09/30/25 13:35 Oxygen Delivery Room Air 09/30/25 13:35 Temperature 37.6 C H 09/30/25 13:35 Pulse Rate 71 09/30/25 13:35 Respiratory Rate 17 09/30/25 13:35 Blood Pressure 145/64 H 09/30/25 13:35 Pulse Oximetry 99 09/30/25 13:35 Oxygen Delivery Room Air 09/30/25 13:35 Critical Care Time Critical Care Time Critical Care Time: No Discharge Plan Discharge Clinical Impression: Acute anxiety Patient Disposition: Home Condition: Stable Instructions: Antibiotic Form, Anxiety (ED) Additional Instructions: Advised patient to take medication as prescribed and follow-up with primary care physician within next 3 to 5 days for further evaluation and treatment. Patient Language: Romanian Prescriptions: No Action sumatriptan succinate 100 mg tablet See Rx Instructions .ROUTE .COMPLEX Rx Instructions: TAKE 1 TABLET AT HEADACHE ONSET. MAY REPEAT 1 TABLET IN 2 HOURS. MAXIMUM 3 TABLETS IN 24 HOURS. hydroxyzine HCl 50 mg tablet 50 mg PO QID PRN (Reason: nausea and vomiting) Qty: 20 0RF aripiprazole 10 mg tablet See Rx Instructions .ROUTE .COMPLEX Qty: 30 10RF Dose Instruction: TAKE 1 TABLET(S) BY MOUTH 1 TIMES PER DAY *NEW PRESCRIPTION REQUEST* Rx Instructions: TAKE 1 TABLET(S) BY MOUTH 1 TIMES PER DAY *NEW PRESCRIPTION REQUEST* cholecalciferol (vitamin D3) 50 mcg (2,000 unit) capsule 50 mcg PO DAILY Qty: 30 2RF sertraline 100 mg tablet See Rx Instructions .ROUTE .COMPLEX Qty: 30 10RF Dose Instruction: TAKE 1 TABLET BY MOUTH DAILY *NEW PRESCRIPTION REQUEST* Rx Instructions: TAKE 1 TABLET BY MOUTH DAILY *NEW PRESCRIPTION REQUEST* oxybutynin chloride 15 mg tablet extended release 24hr See Rx Instructions .ROUTE .COMPLEX Qty: 90 1RF Dose Instruction: TAKE ONE TABLET BY MOUTH DAILY Rx Instructions: TAKE ONE TABLET BY MOUTH DAILY pantoprazole 40 mg tablet,delayed release (DR/EC) See Rx Instructions .ROUTE .COMPLEX Qty: 30 2RF Dose Instruction: TAKE ONE TABLET BY MOUTH EVERY MORNING Rx Instructions: TAKE ONE TABLET BY MOUTH EVERY MORNING Follow-up/Referrals: Ramon Aviles DO [Primary Care Provider, [facility]] Time of Disposition: 13:59
== END 2025-09-30 14:05 | disposition home or self-care (01) ==
PROVIDERS: Emergency Provider Emergency Medicine; PCP Family Medicine
DX: F41.9 Anxiety disorder, unspecified (principal); E11.9 Type 2 diabetes mellitus without complications
CPT/HCPCS: 82948; 99283; A9270

== ENCOUNTER 2025-10-02 07:32 | Outpatient (CLI) | payer MEDICARE, SELFPAY ==
--- OUTSIDE RECORDS SUMMARY | 2025-10-02 07:36 | XMS_ITS | Patient Health Record ---
Author Organization [facility] Address [address] [place], [place] [id number] Care Team Providers Care Aerotriangulation Specialist Name Role Phone Ramon Aviles Unavailable Unavailable [...] Date Coverage End Date Medicare Part B [place] [address] [place] [address] [id number] JORDYN NOGUEIRA Self - patient is the insured [facility] ATTN CLAIMS [address] [place] [address] [id number] JORDYN NOGUEIRA Self - patient is the insured
[2025-10-02 07:55] LABS: Hematocrit 38.8 % (35.0-49.0); Hemoglobin 11.8 g/dL (12.0-15.0); Immature Granulocyte Percent A 0.3 % (0.0-0.0); Lymphocytes Absolute Auto 1.64 K/mm3 (1.10-4.50); Mean Corpuscular HGB Conc 30.4 g/dL (32-36); Mean Corpuscular Hemoglobin 27.5 pg (27.0-31.0); Mean Corpuscular Volume 90.4 fL (78.0-102.0); Nucleated Red Blood Cells Absolute Auto 0.00 K/mm3 (0.00-0.00); Nucleated Red Blood Cells Perc 0.0 % (0-0.0); Platelet Count Result 197 K/mm3 (150-420); Red Blood Count 4.29 M/mm3 (4.20-5.40); White Blood Count 6.3 K/mm3 (4.8-10.8)
[2025-10-02 08:55] LABS: Alanine Aminotransferase 20 U/L (6-35); Albumin Level 4.6 g/dL (3.5-5.1); Alkaline Phosphatase 117 U/L (38-126); Anion Gap 12 mmol/L (4-12); Aspartate Amino Transferase 22 U/L (14-36); Bilirubin,Total 1.3 mg/dL (0.2-1.3); Blood Urea Nitrogen 19 mg/dL (7-17); Calcium 9.5 mg/dL (8.4-10.2); Carbon Dioxide 23 mmol/L (22-30); Chloride 107 mmol/L (98-107); Cholesterol 202 mg/dL (0-200); Estimated Glomerular Filt Rate 56; Glucose 148 mg/dL (65-110); HDL Direct 70 mg/dL; Osmolality Calculated 299 mOsm/kg (285-295); Potassium 4.3 mmol/L (3.4-5.0); Sodium 142 mmol/L (137-145); Total Protein 7.3 g/dL (6.3-8.2); Triglycerides 137 mg/dL (<150)
[2025-10-02 09:00] LABS: Hemoglobin A1C 6.3 % (<5.7)
[2025-10-02 09:24] LABS: MALB Creatinine Ratio 8.0 mg/g (0-30)
[2025-10-02 09:26] LABS: Thyroid Stimulating Hormone Reflex 7.230 uIU/mL (0.465-4.68)
[2025-10-02 09:55] LABS: Free T4 Free Thyroxine Reflex 1.04 ng/dL (0.78-2.19)
== END 2025-10-02 07:33 | disposition home or self-care (01) ==
PROVIDERS: PCP Nurse Practitioner Family; Visit Provider Nurse Practitioner Family
DX: R53.83 Other fatigue (principal); E11.9 Type 2 diabetes mellitus without complications; E66.01 Morbid (severe) obesity due to excess calories; I10 Essential (primary) hypertension; M25.522 Pain in left elbow; E61.1 Iron deficiency; E78.5 Hyperlipidemia, unspecified; R32 Unspecified urinary incontinence; R92.8 Other abnormal and inconclusive findings on diagnostic imaging of breast; G56.03 Carpal tunnel syndrome, bilateral upper limbs
CPT/HCPCS: 36415; 80053; 80061; 82043; 82306; 83036; 84439; 84443; 85025

== ENCOUNTER 2025-10-04 17:24 | Emergency (ER) | payer MEDICARE, SELFPAY ==
--- NOTE | ~2025-10-04 | XR_ITS ---
EXAMINATION: XR chest 1V portable DATE: 10/04/2025 17:47 INDICATION: Chest pain. TECHNIQUE: A single frontal view of the chest was obtained. COMPARISON: Chest x-ray dated 06/21/2025. FINDINGS: Normal size heart. Lungs do not show acute findings. IMPRESSION: 1. No acute findings in the limited portable AP chest. Reviewed, dictated and finalized at location T. [facility]
[2025-10-04 17:24] VITALS: BP 132/76; PULSE 73; RESP 16; TEMP 36.7; O2SAT 98
--- OUTSIDE RECORDS SUMMARY | 2025-10-04 17:26 | XMS_ITS ---
Author Organization Unknown Address [address] [place] [phone] Phone Care Team Providers Care Practice Specialist Name Role Phone KVNG SHEN Attending Unavailable RED Chavez Primary Unavailable Immunization Immunization Date Status Additional Notes Code Code System Influenza, split virus, trivalent, PF 08/30/2024 Completed 140 CVX Influenza, recombinant, quadrivalent, PF 11/08/2020 Completed 185 CVX COVID-19, mRNA, LNP-S, PF, 1 00 mcg/0.5mL dose or 50 mcg/0.25mL dose 02/12/2021 Completed 207 CVX COVID-19, mRNA, LNP-S, PF, 1 00 mcg/0.5mL dose or 50 mcg/0.25mL dose 03/21/2021 Completed 207 CVX Pneumococcal conjugate PCV20 , polysaccharide [id number] conjugate, adjuvant, PF 02/26/2024 Completed 216 CVX Results SHOULDER MIN 2V RIGHT - Comp leted: 08/14/2024 22:58 LOINC: EXAM DESCRIPTION: SHOULDER MIN 2V RIGHT REASON FOR STUDY: Pt heard pop Right Shoulder Rt Medial lateral anterior and posterior superior Pain No Comparison Duration: 1 hour TECHNIQUE: 3 view(s) of the right shoulder COMPARISON: None FINDINGS: Three views of the right shoulder demonstrate no fracture. There is degenerative narrowing of the right glenohumeral joint and there is osteophytic spurring about the right acromioclavicular joint. Soft tissue abnormality. IMPRESSION: Degenerative changes right shoulder. No acute abnormality. THIS IS AN ELECTRONICALLY VERIFIED FINAL REPORT 08/14/2024 11:37 PM - Electronically signed by Doni Velasquez M.D. KT: CANDICE Report ID: [id number] Reading Location: [id number] Social History Type Status Start Date End Date Code Code Syst em Smoking History Never smoker (Never Smoked) 485020413 SNOMED CT Sex Female Hospital Discharge Instructions Should you have any questions prior to discharge, please contact a member of your healthcare team. If you have left the hospital and have any questions, please contact your primary care physician. Reason For Referral No Data Found Plan of Treatment NM Spect Perf Rest Stress Multi (09244) 07/07/2019 Stress Test Cardiolyte 07/07/2019 NM Spect Perf Rest Stress Multi (39358) 07/07/2019 Stress Test Cardiolyte 07/07/2019 Encounters Encounter Diagnosis Start Date Code Code Sys tem Unspecified sprain of right shoulder joint, initial encounter 08/14/2024 SNOMED-CT Personal Care Team Section Imaging Narrative Notes
--- OUTSIDE RECORDS SUMMARY | 2025-10-04 17:26 | XMS_ITS ---
Author Organization Unknown Address [address] [place] [phone] Phone Care Team Providers Care Burring Machine Operator Name Role Phone LORA DANTE Attending Unavailable RDE Chavez Primary Unavailable Immunization Immunization Date Status [...] 207 CVX Pneumococcal conjugate PCV20 , polysaccharide [id number] conjugate, adjuvant, PF 02/26/2024 Completed 216 CVX Results URINALYSIS w/Microscopy/C&S if indicated - Collect Date/Time: 09/16/2024 23:35 [facility] ID: [id number] [place] [address], [id number] LOINC: 48321-7 Test Value Unit Reference Range Code Code System Flag UR SOURCE VOIDED 70286-5 LOINC COLOR LT YELLOW YELLOW 5778-6 LOINC CLARITY TURBID CLEAR 04845-7 LOINC A SPEC GRAVITY 1.010 1.000-1.030 5811-5 LOINC PH 6.0 5.0 - 6.5 5803-2 LOINC LEUK EST 1+ NEGATIVE 5799-2 LOINC A NITRATE POSITIVE NEGATIVE A PROTEIN NEGATIVE NEGATIVE 5804-0 LOINC GLUCOSE NEGATIVE NEGATIVE 48900-6 LOINC KETONES NEGATIVE NEGATIVE 43521-5 LOINC UROBILINOGEN 0.2 NEGATIVE 5818-0 LOINC BILIRUBIN NEGATIVE NEGATIVE 10200-0 LOINC BLOOD NEGATIVE NEGATIVE 82765-3 LOINC WBC 10-20 0 - 2 57117-3 LOINC A RBC 0-2 0 - 2 82065-9 LOINC EPITHELIAL FEW RARE-FEW 01495-1 LOINC BACTERIA 4+ NONE SEEN 79722-7 LOINC A MUCUS FEW NONE SEEN 8247-9 LOINC YEAST NOT PRESENT NOT PRESENT 68056-2 LOINC CASTS SEE BELOW 58624-0 LOINC CRYSTALS NONE SEEN 79998-2 LOINC CULTURE? YES 8251-1 LOINC DIAGNOSIS ABN LAB RESU LUMBAR SPINE - Completed: 23:53 LOINC: EXAM DESCRIPTION: LUMBAR SPINE REASON FOR STUDY: Back Pain Associated Numbness No Injury Surg HX Cholecystectomy Hysterectomy No Comparison Duration: 1 hour TECHNIQUE: 3 radiographic view(s) of the lumbar spine. COMPARISON: None FINDINGS: Severe degenerative changes are seen diffusely. Prominent facet arthropathy is seen of the lower lumbar spine. Diffuse intervertebral disc narrowing is noted. Slight loss of height of the anterior body of T11 is noted of the upper aspect of the study. No evidence of the compression fracture of the lumbar spine is seen.. The bones are somewhat osteopenic. IMPRESSION: Diffuse severe degenerative changes along with osteopenia. Slight loss of height at T11 may represent a subtle compression fracture of undetermined age. THIS IS AN ELECTRONICALLY VERIFIED FINAL REPORT 09/17/2024 12:13 AM - Electronically signed by Doni Oseguera M.D. KH: KELSI Report ID: [id number] Reading Location: [id number] Social History Type Status Start Date End Date Code Code Syst em Smoking History Never smoker (Never Smoked) 302540338 SNOMED CT Sex Female Hospital Discharge Instructions Should you have any questions prior to discharge, please contact a member of your healthcare team. If you have left the hospital and have any questions, please contact your primary care physician. Reason For Referral No Data Found Plan of Treatment NM Spect Perf Rest Stress Multi (86574) 07/07/2019 Stress Test Cardiolyte 07/07/2019 NM Spect Perf Rest Stress Multi (46166) 07/07/2019 Stress Test Cardiolyte 07/07/2019 Encounters Encounter Diagnosis Start Date Code Code Sys tem Urinary tract infection, site not specified 09/16/2024 SNOMED-CT Personal Care Team Section Imaging Narrative Notes
--- OUTSIDE RECORDS SUMMARY | 2025-10-04 17:26 | XMS_ITS | Patient Health Record ---
Author Organization [facility] Address [address] [place], [place] [id number] Care Team Providers Care Reverse Engineer Name Role Phone Ramon Aviles Unavailable [...] Date Coverage End Date Medicare Part B [place] [address] [place] [address] [id number] JORDYN NOGUEIRA Self - patient is the insured [facility] ([facility]) ATTN CLAIMS [address] [place] [address] [id number] JORDYN NOGUEIRA Self - patient is the insured
--- OUTSIDE RECORDS SUMMARY | 2025-10-04 17:26 | XMS_ITS | Clinical Summary ---
Author Organization [facility] Address [address] [place] [address] Care Team Providers Care Folder Taper Operator Name Role Phone Ramon Aviles DO Unavailable [phone] Amandeep Akhtar MD Unavailable Ramon Aviles DO Primary Care Provider [phone] Allergies Active Allergy Reactions Criticality Noted Date [...] Problem Noted Date Diagnosed Date Cord compression 08/29/2024 Trochanteric bursitis of right hip 09/03/2021 [...] Encounters Date Type Department Care Team Description 10/01/2025 8:14 PM STEAMER BLOCKER - 10/01/2025 10:57 PM STEAMER BLOCKER Emergency [facility] [address] [place] [address] Hitesh Horton DO Chest Pain Discharge Disposition: Home or Self Care (Routine Discharge) 10/01/2025 Travel 09/22/2025 10:34 PM STEAMER BLOCKER - 09/23/2025 1:41 AM [facility] Emergency [facility] [address] [place] [address] Micah Galvan MD Chest Pain Discharge Disposition: Home or Self Care (Routine Discharge) 09/22/2025 Travel from Last 3 Months Immunizations Immunization Administration Dates Next Due Fluzone (IIV3, Trivalent, 0.5 ML Prefilled Syrin ge) 08/30/2024 Family History Medical History Relation Comments Diabetes Father Heart Attack Father HI Father Stroke Father Cancer Maternal Grandfather No [...] drink = 0.6 oz pur e alcohol) [facility] Utilities Answer Date Recorded In the past 12 months has e Protonet, Parkzzz, oil, or water [employer] threatened to shut off services in your [...] any time in the past 12 m [facility], were you homeless or living in a care home (including now)? No 08/29/2024 Comments No Sex and Gender Information Value Date Recorded Sex Assigned at Female 02/19/2020 11:43 PM CDT Legal Sex Female 10:08 PM STEAMER BLOCKER Gender Identity Female 02/19/2020 11:43 PM CDT Sexual Orientation Not on file Occupation Industry Job Start Date Job End Date unemployed Not on file Not on file Not on file Last Filed Vital Signs Vital Sign Reading Time Taken Comments Blood Pressure 123/67 10/01/2025 10:45 PM STEAMER BLOCKER Pulse 74 10/01/2025 10:45 PM STEAMER BLOCKER Temperature 35.9 C (96.6 F) 10/01/2025 8:15 PM STEAMER BLOCKER Respiratory Rate 15 10/01/2025 10:45 PM STEAMER BLOCKER Oxygen Saturation 99% 10/01/2025 10:45 PM STEAMER BLOCKER Inhaled Oxygen Concentration - - Weight 86.7 kg (191 lb 3.2 oz) 10/01/2025 8:15 P M STEAMER BLOCKER Height 162.6 cm (5' 4) 10/01/2025 8:15 PM STEAMER BLOCKER Body Mass Index 32.82 10/01/2025 8:15 PM STEAMER BLOCKER Plan of Treatment Health Maintenance Due Date Last Done Comments Colorectal Cancer Screening Colonoscopy (10 Years) 1965 Annual Physical 1967 Hepatitis C 1982 DTaP, Tdap and Td Vaccines ( 1 - Tdap) 1983 Mammogram Screening 2004 Zoster Vaccines (1 of 2) 2014 COVID-19 Vaccine (3 - 2024-2 6 season) 2025 03/21/2021, 02/12/2021 RSV Immunization or 60+ Years (1 - 1-dose 75+ series) 2039 Pneumococcal Vaccine: 50+ Years Completed 02/26/2024 Influenza Adult Completed 09/05/2025, 08/30/2024, 11/08/2020 Hepatitis A Vaccines Aged Out No long er eligible based on patient's age to complete [...] Date/Time Associated Diagnosis Comments TROPONIN, QUANT STAT 10/01/2025 10:26 PM STEAMER BLOCKER XR CHEST PA+LAT STAT 10/01/2025 9:01 PM STEAMER BLOCKER TROPONIN, QUANT STAT 10/01/2025 8:09 PM STEAMER BLOCKER PRO-BRAIN NATRIURETIC PEPTIDE STAT 10/01/2025 8:09 PM STEAMER BLOCKER COMPREHENSIVE METABOLIC PANEL STAT 10/01/2025 8:09 PM STEAMER BLOCKER HC CBC AUTO W/AUTO DIFF STAT 10/01/20 8:09 PM STEAMER BLOCKER ECG 12-LEAD Routine 10/01/2025 8:08 PM STEAMER BLOCKER TROPONIN, QUANT STAT 09/23/2025 12:50 AM STEAMER BLOCKER XR CHEST PORTABLE STAT 09/22/2025 10: 57 PM STEAMER BLOCKER TROPONIN, QUANT STAT 09/22/2025 10:48 PM STEAMER BLOCKER MAGNESIUM STAT 09/22/2025 10:48 PM STEAMER BLOCKER PROTHROMBIN TIME, VENOUS STAT 09/22/2025 10:48 PM STEAMER BLOCKER PARTIAL THROMBOPLASTIN TIME,PTT STAT 09/22/2025 10:48 PM STEAMER BLOCKER COMPREHENSIVE METABOLIC PANEL STAT 09/22/2025 10:48 PM STEAMER BLOCKER HC CBC AUTO W/AUTO DIFF STAT 09/22/20 10:48 PM STEAMER BLOCKER ECG 12-LEAD Routine 09/22/2025 10:36 PM STEAMER BLOCKER from Last 3 Months Results * TROPONIN, QUANT (10/01/2025 10:26 PM STEAMER BLOCKER) Only the most recent of4 resultswithin the time period is included. TROPONIN I HIGH SENSITIVITY 4 0 - 51 ng/L 10/01/2025 10:50 PM STEAMER BLOCKER [facility] BLOOD VENOUS BLOOD SPECIMEN / Unknown 10/01/2025 10:26 PM STEAMER BLOCKER us Hitesh Horton DO LABORATORY Final Result [facility] [address] [place] [address], * XR CHEST PA+LAT (10/01/2025 9:01 PM STEAMER BLOCKER) Anatomical Region Laterality Modality Chest Radiographic Ela ging 10/01/2025 9:04 PM STEAMER BLOCKER Impressions 10/01/2025 9:08 PM STEAMER BLOCKER IMPRESSION: No acute cardiopulmonary finding. Dictated By: Jenn Barajas DO on 10/01/2025 9:04 PM The attending radiologist has reviewed the image(s) and agrees with the content of this report. Ordered By: HITESH HORTON Interpreted By: Jenn Barajas DO, 10/01/2025 9:04 PM Narrative 10/01/2025 9:08 PM STEAMER BLOCKER [address] [place] [address] Examination: Chest x-ray 2 view Exam time: 10/01/2025 8:55 PM Clinical history: Chest pain Comparison: Chest x-ray 09/22/2025 Technique: PA and lateral views were obtained. Findings: The cardiomediastinal silhouette is within normal parameters. There is normal distribution of the pulmonary vasculature. No pulmonary consolidation. No pleural effusion. There is no pneumothorax. No acute osseous abnormality is identified. Procedure Note Delfin Angeles MD - 10/01/[address] [place] [address] Examination: Chest x-ray 2 view Exam time: 10/01/2025 8:55 PM Clinical history: Chest pain Comparison: Chest x-ray 09/22/2025 Technique: PA and lateral views were obtained. Findings: The cardiomediastinal silhouette is within normal parameters. There isnormal distribution of the pulmonary vasculature. No pulmonaryconsolidation. No pleural effusion. There is no pneumothorax. No acuteosseous abnormality is identified. IMPRESSION: No acute cardiopulmonary finding. Dictated By: Jenn Barajas DO on 10/01/2025 9:04 PM The attending radiologist has reviewed the image(s) and agrees with thecontent of this report. Ordered By: HITESH HORTON Interpreted By: Jenn Barajas DO, 10/01/2025 9:04 PM us Hitesh Horton DO GENERAL IMAGING Final Result * (ABNORMAL) COMPREHENSIVE METABOLIC PANEL (10/01/2025 8:09 PM STEAMER BLOCKER) Only the most recent of2 resultswithin the time period is included. SODIUM S/P/B 139 136 - 145 MMOL/L 10/01/2025 8:49 PM [facility] POTASSIUM S/P/B 3.7 3.5 - 5.1 MMOL/L 10/01/2025 8:49 PM [facility] CHLORIDE S/P/B 102 98 - 107 MMOL/L 10/01/2025 8:49 PM [facility] CO2 28.0 21.0 - 32.0 MMOL/L 10/01/2025 8:49 PM [facility] GLUCOSE 134(H) 70 - 99 MG/DL 10/01/2025 8:49 PM [facility] Comment: FASTING GLUCOSE 100 TO 125 MG/DL IS CONSISTENT WITH IMPAIRED FASTING GLUCOSE. FASTING GLUCOSE >125 MG/DL IS CONSISTENT WITH DIABETES. RANDOM GLUCOSE >200 MG/DL WITH HYPERGLYCEMIC SYMPTOMS IS CONSISTENT WITH DIABETES. PER ADA GUIDELINES BUN 21 6 - 24 MG/DL 10/01/2025 8:49 PM [facility] CREATININE S/P/B 1.05(H) 0.55 - 1.02 MG/DL 10/01/2025 8:49 PM [facility] CALCIUM S/P/B 9.6 8.4 - 10.5 MG/DL 10/01/2025 8:49 PM [facility] BILIRUBIN TOTAL S/P/B 0.8 0.2 - 1.0 MG/DL 10/01/2025 8:49 PM [facility] Comment: THIS ASSAY IS NOT RECOMMENDED FOR PATIENTS UNDERGOING TREATMENT WITH ELTROMBOPAG DUE TO THE POTENTIAL FOR FALSELY ELEVATED RESULTS. ALKALINE PHOSPHATASE S/P/B 133(H) 50 - 130 U/L 10/01/2025 8:49 PM [facility] AST 11(L) 15 - 37 U/L 10/01/2025 8:49 PM [facility] ALT 16 14 - 59 U/L 10/01/2025 8:49 PM STEAMER BLOCKER [facility] TOTAL PROTEIN S/P/B 7.8 6.4 - 8.2 G/DL 10/01/2025 8:49 PM STEAMER BLOCKER [facility] ALBUMIN S/P/B 3.9 3.4 - 5.0 G/DL 10/01/2025 8:49 PM STEAMER BLOCKER [facility] ANION GAP 9.0 5.0 - 15.0 MMOL/L 10/01/2025 8:49 PM STEAMER BLOCKER [facility] OSMOLALITY (CALC) 293 MOSM/KG 025 8:49 PM [facility] Comment:REFERENCE RANGE NOT ESTABLISHED GFR ESTIMATE 60(L) >89 ML/MIN/1. 73 M2 10/01/2025 8:49 PM [facility] GFR NOTES GFR REFERENCE S: 10/01/2025 8:49 PM [facility] Comment: THE ESTIMATED GFR IS [...] ml/min/1.73 m2 G5,KIDNEY FAILURE: <15 ml/min/1.73 m2 BLOOD VENOUS BLOOD SPECIMEN / Unknown 10/01/2025 8:09 PM STEAMER BLOCKER us Hitesh Horton DO LABORATORY Final Result [facility] [address] [place] [address], * (ABNORMAL) CBC W/DIFF (10/01/2025 8:09 PM STEAMER BLOCKER) Only the most recent of2 resultswithin the time period is included. WBC 8.09 4.00 - 10.80 x10'3/uL 10/01/2025 8:33 PM STEAMER BLOCKER [facility] RBC 4.17 4.10 - 5.40 x10'6/uL 10/01/2025 8:33 PM [facility] HGB 11.7(L) 12.0 - 16.0 G/DL 10/01/2025 8:33 PM [facility] HCT 37.6 36.0 - 47.0 % 10/01/2025 8:33 PM [facility] MCV 90.2 78.0 - 100.0 FL 10/01/2025 8:33 PM [facility] MCH 28.1 27.0 - 31.0 PG 10/01/2025 8:33 PM [facility] MCHC 31.1(L) 33.0 - 36.0 G/DL 10/01/2025 8:33 PM [facility] RDW 14.3 11.5 - 14.5 % 10/01/2025 8:33 PM [facility] PLT 200 150 - 350 x10'3/uL 10/01/2025 8:33 PM [facility] MPV 11.0(H) 7.4 - 10.4 FL 10/01/2025 8:33 PM [facility] CBC COMMENT NORMAL REFERENCE RANGE NOT ESTABLISHED FOR THE PROPORTIONAL LEUKOCYTE DIFFERENTIAL. 10/01/2025 8:33 PM [facility] NEUTROPHILS % 68.6 % 10/01/2025 8:33 PM [facility] LYMPHOCYTES % 24.8 % 10/01/2025 8:33 PM [facility] MONOCYTES % 4.0 % 10/01/2025 8:33 PM [facility] EOSINOPHILS % 1.7 % 10/01/2025 8:33 PM [facility] BASOPHILS % 0.5 % 10/01/2025 8:33 PM STEAMER BLOCKER [facility] IMMATURE GRANS % 0.4 % 10/01/20 8:33 PM [facility] NRBC % 0.0 % 10/01/2025 8:33 PM STEAMER BLOCKER [facility] ABS. NEUTROPHILS 5.55 1.60 - 8.30 x10'3/uL 10/01/2025 8:33 PM STEAMER BLOCKER [facility] ABS. LYMPHOCYTES 2.01 0.80 - 4.70 x10'3/uL 10/01/2025 8:33 PM STEAMER BLOCKER [facility] ABS. MONOCYTES 0.32 0.00 - 1.50 x10'3/uL 10/01/2025 8:33 PM STEAMER BLOCKER [facility] ABS. EOSINOPHILS 0.14 0.00 - 0.40 x10'3/uL 10/01/2025 8:33 PM STEAMER BLOCKER [facility] ABS. BASOPHILS 0.04 0.00 - 0.20 x10'3/uL 10/01/2025 8:33 PM STEAMER BLOCKER [facility] ABS. IMMATURE GRANULOCYTES 0.03 0.00 - 0.03 x10'3/uL 10/01/2025 8:33 PM STEAMER BLOCKER [facility] ABS. NUCLEATED RBC'S 0.00 0.00 - 0.01 x10'3/uL 10/01/2025 8:33 PM [facility] BLOOD VENOUS BLOOD SPECIMEN / Unknown 10/01/2025 8:09 PM STEAMER BLOCKER Hitesh Horton DO LABORATORY Final Result [facility], [id number] [place] [address], * PRO-BRAIN NATRIURETIC PEPTIDE (10/01/2025 8:09 PM STEAMER BLOCKER) Pathologist [facility] PRO-B TYPE NATRIURETIC PEPTIDE 49 <125 PG/ML 10/01/2025 8:49 PM STEAMER BLOCKER [facility] Comment: CUT POINTS ESTABLISHED BY [employer] ON NT PROBNP (ICON) STUDY (2006). AGE INDEPENDENT: <300 PG/ML HAS A 99% NEGATIVE PREDICTIVE VALUE FOR EXCLUDING ACUTE CHF <50 YEARS: >450 PG/ML IS CONSISTENT WITH ACUTE CHF 50-75 YEARS: >900 PG/ML IS CONSISTENT WITH ACUTE CHF >75 YEARS: >1800 PG/ML IS CONSISTENT WITH ACUTE CHF IN PATIENTS WITH RENAL INSUFFICIENCY (GFR <60), >1200 PG/ML YIELDS A DIAGNOSTIC SENSITIVITY AND SPECIFICITY OF 89% AND 72% FOR ACUTE CHF. BLOOD VENOUS BLOOD SPECIMEN / Unknown 10/01/2025 8:09 PM STEAMER BLOCKER us Hitesh Horton DO LABORATORY Final Result [facility] [place] [address], * ECG 12 lead (10/01/2025 8:08 PM STEAMER BLOCKER) Only the most recent of2 resultswithin the time period is included. ECG QT 364 [facility] ECG QTC 394 [facility] 10/01/2025 8:08 PM STEAMER BLOCKER Narrative [facility] - 10/01/2025 9:50 PM STEAMER BLOCKER [address] [place] [address] Test Date: 2025-10-01 Pat Name: JORDYN CHRIS Department: 3 Room: Gender: Female Stockroom Coordinator: : 1965 Requested By: HITESH HORTON Order Number: [id number] Reading MD: Bubba Pizarro Measurements Intervals Big [place] Rate: 70 P: 33 NH: 169 QRS: 7 QRSD: 73 T: 58 QT: 364 QTc: 394 Interpretive Statements SINUS RHYTHM LOW QRS VOLTAGE IN PRECORDIAL LEADS PATTERN CONSISTENT WITH PULMONARY DISEASE NONSPECIFIC T-WAVE ABNORMALITY MER BLOCKER Procedure Note Bubba Pizarro MD - 10/01/[address] [place] [address] Test Date: 2025-10-01 Pat Name: JORDYN CHRIS Department: 3 Room: Gender: Female Stockroom Coordinator: : 1965 Requested By: HITESH HORTON Order Number: [id number] Reading MD: Bubba Pizarro Measurements Intervals [place] Rate: 70 P: 33 NH: 169 QRS: 7 QRSD: 73 T: 58 QT: 364 QTc: 394 Interpretive Statements SINUS RHYTHM LOW QRS VOLTAGE IN PRECORDIAL LEADS PATTERN CONSISTENT WITH PULMONARY DISEASE NONSPECIFIC T-WAVE ABNORMALITY MER BLOCKER us Hitesh Horton DO ECG ORDERABLES Final Result [facility] * XR CHEST PORTABLE (09/22/2025 10:57 PM STEAMER BLOCKER) Anatomical Region Laterality Modality Chest Radiographic Ela ging 09/22/2025 11:1 1 PM STEAMER BLOCKER Impressions 09/22/2025 11:11 PM STEAMER BLOCKER IMPRESSION: No acute cardiopulmonary process. Referred By: Interpreted By: Nithin Junior MD, 09/22/2025 11:11 PM Narrative 09/22/2025 11:11 PM STEAMER BLOCKER [address] [place] [address] EXAM: XR CHEST PORTABLE INDICATION: Chest pain COMPARISON: Chest radiograph, 25 Sep 2024 TECHNIQUE: Single frontal radiographic image of the chest FINDINGS: No pneumothorax, pleural effusion, or focal airspace consolidation. Pulmonary vasculature and cardiomediastinal silhouette within normal limits. No acute osseous abnormality. Procedure Note Nithin Junior MD - 09/22/[address] [place] [address] EXAM: XR CHEST PORTABLE INDICATION: Chest pain COMPARISON: Chest radiograph, 25 Sep 2024 TECHNIQUE: Single frontal radiographic image of the chest FINDINGS: No pneumothorax, pleural effusion, or focal airspace consolidation.Pulmonary vasculature and cardiomediastinal silhouette within normallimits. No acute osseous abnormality. IMPRESSION: No acute cardiopulmonary process. Referred By: Interpreted By: Nithin Junior MD, 09/22/2025 11:11 PM us Micah Galvan MD GENERAL IMAGING Final Result * PROTIME/INR, VENOUS (09/22/2025 10:48 PM STEAMER BLOCKER) PROTIME 12.2 9.4 - 12.5 SEC 09/22/2025 11:03 PM STEAMER BLOCKER [facility] INR 1.0 0.8 - 1.0 09/22/2025 11:03 PM STEAMER BLOCKER [facility] BLOOD VENOUS BLOOD SPECIMEN / Unknown 09/22/2025 10:48 PM STEAMER BLOCKER us Micah Galvan MD LABORATORY Final Result Performing Organization Address City/[facility]/[place] [address], * PARTIAL THROMBOPLASTIN TIME,PTT (09/22/2025 10:48 PM STEAMER BLOCKER) PTT 31.5 25.1 - 36.5 SEC 09/22/2025 11:03 PM STEAMER BLOCKER [facility] BLOOD VENOUS BLOOD SPECIMEN / Unknown 09/22/2025 10:48 PM STEAMER BLOCKER us Micah Galvan MD LABORATORY Final Result [facility] [address] [place] [address], * MAGNESIUM (09/22/2025 10:48 PM STEAMER BLOCKER) MAGNESIUM 2.0 1.8 - 2.4 MG/DL 09/22/2025 11:12 PM STEAMER BLOCKER [facility] BLOOD VENOUS BLOOD SPECIMEN / Unknown 09/22/2025 10:48 PM STEAMER BLOCKER us Micah Galvan MD LABORATORY Final Result [facility] [address] [place] [address], from Last 3 Months Insurance MEDICARE MEDICARE [facility] Advance Directives * Full Code (Latest Code Status on File) Date Activated Date Inactivated Comments 08/29/2024 1:21 PM 08/30/2024 3:52 PM Care Teams Folder Taper Operator Relationship Specialty Start Date End Date Ramon Aviles DO [address] [place] [address] PCP - General FAMILY PRACTICE 09/25/24 Ramon Aviles DO [address] [place] [address] FAMILY PRACTICE 08/29/24 Amandeep Akhtar MD [address] [place] [id number] CARDIOVASCULAR DISEASE 05/18/17
--- OUTSIDE RECORDS SUMMARY | 2025-10-04 17:27 | XMS_ITS | Encounter Summary ---
Author Organization [facility] Address [facility] [place] [address] Care Team Providers Care Credit Historian Name Role Phone Rosario Valentin MD Primary Care Provider [phone] Rosario Valentin MD Primary Care Provider [phone] None, Provider Primary Care Provider Onelia Coffey MD Primary Care Provider [phone] Evens Meehan MD Primary Care Provider [phone] Ramon Aviles DO Primary Care Provider [phone] None, Provider Primary Care Provider Ramon Wilhelm DO Unavailable [phone] Amandeep Akhtar MD Unavailable Ramon Aviles DO Primary Care Provider [phone] Encounter Details Date Type Department Care Team (Late st Contact Info) Description 04/16/2019 Abstract [facility] CONVERSION [address] [place] [address] , Generic Conversion, Social History Tobacco Use Types Packs/Day Years Used Date Smoking Tobacco: Never Smokeless Tobacco: Never Alcohol Use Standard Drinks/Week Comments No 0 (1 standard drink = 0.6 oz pur e alcohol) Comments Unknown Sex and Gender Information Value Date Recorded Sex Assigned at Female 02/19/2020 11:43 PM CDT Legal Sex Female 10:08 PM SHOE TREER Gender Identity Female 02/19/2020 11:43 PM CDT [...] Rule Out 09/21/2021 09/21/2021 09/21/2021 12:32 PM SHOE TREER COVID-19 Rule Out 08/25/2024 08/25/2024 08/25/2024 10:09 AM CDT documented as of this encounter Care Teams Credit Historian Relationship Specialty Start Date End Date Rosario Valentin MD [address] [place] [phone] PCP - General FAMILY PRACTICE 10/05/17 02/19/20 Rosario Valentin MD [address] [place] [phone] PCP - General FAMILY PRACTICE 02/20/20 05/28/21 None, ProviderMD PCP - General 06/14/21 10/15/21 [place] [address] [place] [address] PCP - General INTERNAL MEDICINE 10/16/21 12/29/22 Evens Meehan MD [address] [place] [address] PCP - General FAMILY PRACTICE 12/30/22 01/18/24 Ramon Aviles DO [address] [place] [address] PCP - General FAMILY PRACTICE 01/19/24 08/28/24 None, ProviderMD PCP - General UNKNOWN PHYSICIAN SPECIALTY 08/29/24 1 11/24/23 Ramon Aviles DO [address] [place] [address] PCP - General FAMILY PRACTICE 09/25/24 Ramon Aviles DO [address] [place] [address] FAMILY PRACTICE 08/29/24 Amandeep Akhtar MD [address] [place] [address] CARDIOVASCULAR DISEASE 05/18/17 documented as of this encounter
--- OUTSIDE RECORDS SUMMARY | 2025-10-04 17:27 | XMS_ITS ---
Author Organization Unknown Address [address] [place] [phone] Phone Care Team Providers Care Riveter Helper Name Role Phone EDGARDO Ramirez Attending Unavailable NO PCP Primary Unavailable Immunization Immunization Date Status Additional [...] 207 CVX Pneumococcal conjugate PCV20 , polysaccharide BTY071 conjugate, adjuvant, PF 02/26/2024 Completed 216 CVX Social History Type Status Start Date End Date Code Code Syst em Smoking History Never smoker (Never Smoked) [id number] SNOMED CT Sex Female Hospital Discharge Instructions Should you have any questions prior to discharge, please contact a member of your healthcare team. If you have left the hospital and have any questions, please contact your primary care physician. Reason For Referral No Data Found Plan of Treatment NM Spect Perf Rest Stress Multi (21789) 07/07/2019 Stress Test Cardiolyte 07/07/2019 NM Spect Perf Rest Stress Multi (11005) 07/07/2019 Stress Test Cardiolyte 07/07/2019 Encounters Encounter Diagnosis Start Date Code Code Sys tem Ganglion, right wrist 07/26/2024 SNOMED -CT Personal Care Team Section
--- NOTE | 2025-10-04 17:35 | ED.ANXIETY ---
HPI - Anxiety General Chief Complaint: Anxiety Stated Complaint: anxiety Time Seen by Provider: 10/04/25 17:35 Source: patient Mode of arrival: ambulatory Limitations: no limitations History of Present Illness HPI narrative: 60 YEARS OLD WHITE FEMALE CAME TO THE ED BY PRIVATE CAR COMPLAINING OF CHEST PAIN, STRESS AND ANXIETY. PATIENT IS KNOWN TO US WITH NUMEROUS ED VISITS FOR THE SAME SYMPTOMS, WAS SEEN AT [facility] ON THE FOR THE SAME COMPLAIN. PATIENT DENIES SHORTNESS OF BREATH, NAUSEA, VOMITING, DIARRHEA, CONSTIPATION OR FEVER OR CHILLS. Related Data Home Medications ?Medication ?Instructions ?Recorded ?Confirmed ?Last Taken ?Type sumatriptan succinate 100 mg tablet See Rx Instructions .Route .COMPLEX 08/20/24 09/29/25 Unknown History Allergies Allergy/AdvReac Type Severity Reaction Status Date / Time chocolate Allergy Mild Headache Verified 10/04/25 17:33 Sulfa (Sulfonamide Allergy Unknown RASH, Verified 10/04/25 17:33 Antibiotics) NAUSEA ibuprofen AdvReac Nausea and Verified 10/04/25 17:33 Vomiting iohexol (From contrast - CT, AdvReac Nausea and Verified 10/04/25 17:33 X-RAY) Vomiting Review of Systems Review of Systems: All systems reviewed & are unremarkable except as noted in HPI and below PMFSH Past Medical History Medical History DMII (diabetes mellitus, type 2) Nausea Obesity, morbid, BMI 40.0-49.9 Surgical History Surgical History H/O: hysterectomy S/P cubital tunnel release Left History of carpal tunnel release of both wrists Social History Social History Social History: caffeine-tea Smoking status: Never smoker Alcohol intake: never Substance use: never Substance use type: does not use Lack of Transportation: No Lack of Food: Never True Current Housing: I Have Housing Concerned About Future Housing: No Difficulty Paying Gas/Electric Bills: No Difficulty Paying for Meds: No Currently Unemployed: No Education: High School Diploma/GED Difficulty w/ Childcare or Family Care: No Living arrangements: with family Spiritual care concerns: No Exam Narrative: GENERAL APPEARANCE: WELL-DEVELOPED, WELL-NOURISHED, ANXIOUS, STRESSED, KEEP SHAKING RIGHT HAND AND GRINDING HER TEETH SKIN: NORMAL COLOR HEAD: NORMOCEPHALIC, NONTRAUMATIC EYES: CLEAR CONJUNCTIVA ENT: OROPHARYNX NORMAL, EARS NORMAL, NOSE NORMAL NECK: SUPPLE, NONTENDER CHEST AND RESPIRATORY: AIRWAY PATENT, NO RESPIRATORY DISTRESS, NO ACCESSORY MUSCLE USE, MILD DIFFUSE TENDERNESS, NO BRUISES OR SWELLING OR RASH HEART: REGULAR RATE/RHYTHM ABDOMEN: SOFT, NONTENDER, NO ORGANOMEGALY, QUIET BOWEL SOUNDS MUSCULOSKELETAL: NORMAL RANGE OF MOTION, NONTENDER BACK NEUROLOGIC: ALERT AND ORIENTED ?3, Course Vital Signs Vital signs: Vital Signs Temperature 36.7 C 10/04/25 17:24 Pulse Rate 73 10/04/25 17:24 Respiratory Rate 16 10/04/25 17:24 Blood Pressure 132/76 10/04/25 17:24 Pulse Oximetry 98 10/04/25 17:24 Temperature 36.7 C 10/04/25 17:24 Pulse Rate 73 10/04/25 17:24 Respiratory Rate 16 10/04/25 17:24 Blood Pressure 132/76 10/04/25 17:24 Pulse Oximetry 98 10/04/25 17:24 MDM - Anxiety MDM Narrative Medical decision making narrative: DIFFERENTIAL DIAGNOSIS ANXIETY LIKE SYMPTOMS, CHEST WALL PAIN Differential Diagnosis Differential diagnosis: Likely acute anxiety Medical Records Attestation: I reviewed the patient's medical records. Lab Data Attestation: I reviewed the patient's lab results. Imaging Data Radiologist's impression: Impressions Chest X-Ray 10/04/25 17:50 IMPRESSION: 1. No acute findings in the limited portable AP chest. Critical Care Time Critical Care Time Critical Care Time: No Discharge Plan Discharge Clinical Impression: Chest wall pain, Anxiety-like symptoms Patient Disposition: Home Condition: Improved Instructions: Depression (ED), Chest Wall Pain (ED) Additional Instructions: RETURN IF SYMPTOMS ARE WORSENING , CALL YOUR FAMILY PHYSICIAN FOR APPOINTMENT, TAKE TYLENOL NEEDED FOR ACHES AND PAIN, CONTINUE HOME MEDICATIONS. Patient Language: Greenlandic Prescriptions: No Action sumatriptan succinate 100 mg tablet See Rx Instructions .ROUTE .COMPLEX Rx Instructions: TAKE 1 TABLET AT HEADACHE ONSET. MAY REPEAT 1 TABLET IN 2 HOURS. MAXIMUM 3 TABLETS IN 24 HOURS. hydroxyzine HCl 50 mg tablet 50 mg PO QID PRN (Reason: nausea and vomiting) Qty: 20 0RF aripiprazole 10 mg tablet See Rx Instructions .ROUTE .COMPLEX Qty: 30 10RF Dose Instruction: TAKE 1 TABLET(S) BY MOUTH 1 TIMES PER DAY *NEW PRESCRIPTION REQUEST* Rx Instructions: TAKE 1 TABLET(S) BY MOUTH 1 TIMES PER DAY *NEW PRESCRIPTION REQUEST* cholecalciferol (vitamin D3) 50 mcg (2,000 unit) capsule 50 mcg PO DAILY Qty: 30 2RF sertraline 100 mg tablet See Rx Instructions .ROUTE .COMPLEX Qty: 30 10RF Dose Instruction: TAKE 1 TABLET BY MOUTH DAILY *NEW PRESCRIPTION REQUEST* Rx Instructions: TAKE 1 TABLET BY MOUTH DAILY *NEW PRESCRIPTION REQUEST* oxybutynin chloride 15 mg tablet extended release 24hr See Rx Instructions .ROUTE .COMPLEX Qty: 90 1RF Dose Instruction: TAKE ONE TABLET BY MOUTH DAILY Rx Instructions: TAKE ONE TABLET BY MOUTH DAILY pantoprazole 40 mg tablet,delayed release (DR/EC) See Rx Instructions .ROUTE .COMPLEX Qty: 30 2RF Dose Instruction: TAKE ONE TABLET BY MOUTH EVERY MORNING Rx Instructions: TAKE ONE TABLET BY MOUTH EVERY MORNING Follow-up/Referrals: Damian Sullivan APRN [Primary Care Provider, Family Practice]
[2025-10-04] MEDS: ACETAMINOPHEN 500 MG TABLET 1000 MG PO (17:52)
[2025-10-04] MEDS: LORazepam (*CRX) 1 MG TABLET PO (17:53)
[2025-10-04 18:00] VITALS: BP 118/78; PULSE 76; RESP 17; O2SAT 97
--- OUTSIDE RECORDS SUMMARY | 2025-10-04 18:11 | XMS_ITS ---
Author Organization Unknown Address [address] [place] [phone] Phone Care Team Providers Care Lacquer Mixer Name Role Phone LORA DANTE Attending Unavailable RED Chavez Primary Unavailable Immunization [...] 207 CVX Pneumococcal conjugate PCV20 , polysaccharide [id number] conjugate, adjuvant, PF 02/26/2024 Completed 216 CVX Results URINALYSIS w/Microscopy/C&S if indicated - Collect Date/Time: 09/16/2024 23:35 [facility] ID: [id number] [place] [address], [id number] LOINC: 37212-3 Test Value Unit Reference Range Code Code System Flag UR SOURCE VOIDED 27632-6 LOINC COLOR LT YELLOW YELLOW 5778-6 LOINC CLARITY TURBID CLEAR 83136-6 LOINC A SPEC GRAVITY 1.010 1.000-1.030 5811-5 LOINC PH 6.0 5.0 - 6.5 5803-2 LOINC LEUK EST 1+ NEGATIVE 5799-2 LOINC A NITRATE POSITIVE NEGATIVE A PROTEIN NEGATIVE NEGATIVE 5804-0 LOINC GLUCOSE NEGATIVE NEGATIVE 30112-0 LOINC KETONES NEGATIVE NEGATIVE 67459-9 LOINC UROBILINOGEN 0.2 NEGATIVE 5818-0 LOINC BILIRUBIN NEGATIVE NEGATIVE 53866-1 LOINC BLOOD NEGATIVE NEGATIVE 72242-1 LOINC WBC 10-20 0 - 2 04766-7 LOINC A RBC 0-2 0 - 2 75679-7 LOINC EPITHELIAL FEW RARE-FEW 25932-4 LOINC BACTERIA 4+ NONE SEEN 05343-0 LOINC A MUCUS FEW NONE SEEN 8247-9 LOINC YEAST NOT PRESENT NOT PRESENT 98492-1 LOINC CASTS SEE BELOW 04346-1 LOINC CRYSTALS NONE SEEN 56536-9 LOINC CULTURE? YES 8251-1 LOINC DIAGNOSIS ABN [...] Doni Oseguera M.D. KH: KELSI Report ID: [id number] Reading Location: [id number] Social History Type Status Start Date End Date Code Code Syst em Smoking History Never smoker (Never Smoked) 860658997 SNOMED CT Sex Female Hospital Discharge Instructions Should you have any questions prior to discharge, please contact a member of your healthcare team. If you have left the hospital and have any questions, please contact your primary care physician. Reason For Referral No Data Found Plan of Treatment NM Spect Perf Rest Stress Multi (89977) 07/07/2019 Stress Test Cardiolyte 07/07/2019 NM Spect Perf Rest Stress Multi (90540) 07/07/2019 Stress Test Cardiolyte 07/07/2019 Encounters Encounter Diagnosis Start Date Code Code Sys tem Urinary tract infection, site not specified 09/16/2024 SNOMED-CT Personal Care Team Section Imaging Narrative Notes
--- OUTSIDE RECORDS SUMMARY | 2025-10-04 18:12 | XMS_ITS | Encounter Summary ---
Author Organization [facility] Address [facility] [place] [address] Care Team Providers Care Risk Management Intern Name Role Phone Rosario Valentin MD Primary Care Provider [phone] Rosario Valentin MD Primary Care Provider [phone] None, Provider Primary Care Provider Onelia Coffey MD Primary Care Provider [phone] Evens Meehan MD Primary Care Provider [phone] Ramon Aviles DO Primary Care Provider [phone] None, Provider Primary Care Provider Ramon Wilhelm DO Unavailable [phone] Amandeep Akhtar MD Unavailable Ramon Aviles DO Primary Care Provider [phone] Encounter Details Date Type Department Care Team (Late st Contact Info) Description 04/16/2019 Abstract SFL CONVERSION [address] [place] [address] , Generic Conversion, Social History Tobacco Use Types Packs/Day Years Used Date Smoking Tobacco: Never Smokeless Tobacco: Never Alcohol Use Standard Drinks/Week Comments No 0 (1 standard drink = 0.6 oz pur e alcohol) Comments Unknown Sex and Gender Information Value Date Recorded Sex Assigned at Female 02/19/2020 11:43 PM CDT Legal Sex Female 10:08 PM CASH APPLICATIONS COORDINATOR Gender Identity Female 02/19/2020 11:43 PM CDT [...] Rule Out 09/21/2021 09/21/2021 09/21/2021 12:32 PM CASH APPLICATIONS COORDINATOR COVID-19 Rule Out 08/25/2024 08/25/2024 08/25/2024 10:09 AM CDT documented as of this encounter Care Teams Risk Management Intern Relationship Specialty Start Date End Date Rosario Valentin MD [address] [place] [phone] PCP - General FAMILY PRACTICE 10/05/17 02/19/20 Rosario Valentin MD [address] [place] [phone] PCP - General FAMILY PRACTICE 02/20/20 05/28/21 None, ProviderMD PCP - General 06/14/21 10/15/21 [place] [address] [place] [address] PCP - General INTERNAL MEDICINE 10/16/21 12/29/22 Evens Meehan MD [address] [place] [phone] PCP - General FAMILY PRACTICE 12/30/22 01/18/24 Ramon Aviles DO [address] [place] [address] PCP - General FAMILY PRACTICE 01/19/24 08/28/24 None, ProviderMD PCP - General UNKNOWN PHYSICIAN SPECIALTY 08/29/24 1 11/24/23 Ramon Aviles DO [address] [place] [address] PCP - General FAMILY PRACTICE 09/25/24 Ramon Aviles DO [address] [place] [address] FAMILY PRACTICE 08/29/24 Amandeep Akhtar MD [address] [place] [address] CARDIOVASCULAR DISEASE 05/18/17 documented as of this encounter
--- OUTSIDE RECORDS SUMMARY | 2025-10-04 18:12 | XMS_ITS ---
Author Organization Unknown Address [address] [place] [address] [phone] Phone Care Team Providers Care Comfort Station Attendant Name Role Phone EDGARDO Ramirez Attending Unavailable [...] 207 CVX Pneumococcal conjugate PCV20 , polysaccharide [id number] conjugate, adjuvant, PF 02/26/2024 Completed 216 CVX Social History Type Status Start Date End Date Code Code Syst em Smoking History Never smoker (Never Smoked) 706274740 SNOMED CT Sex Female Hospital Discharge Instructions Should you have any questions prior to discharge, please contact a member of your healthcare team. If you have left the hospital and have any questions, please contact your primary care physician. Reason For Referral No Data Found Plan of Treatment NM Spect Perf Rest Stress Multi (51847) 07/07/2019 Stress Test Cardiolyte 07/07/2019 NM Spect Perf Rest Stress Multi (99506) 07/07/2019 Stress Test Cardiolyte 07/07/2019 Encounters Encounter Diagnosis Start Date Code Code Sys tem Ganglion, right wrist 07/26/2024 SNOMED -CT Personal Care Team Section
--- OUTSIDE RECORDS SUMMARY | 2025-10-04 18:12 | XMS_ITS ---
Author Organization Unknown Address [address] [place] [address] [phone] Phone Care Team Providers Care Roof Truss Detailer Name Role Phone KVNG SHEN Attending Unavailable [...] 207 CVX Pneumococcal conjugate PCV20 , polysaccharide [id number] conjugate, adjuvant, PF 02/26/2024 Completed 216 CVX [...] Doni Velasquez M.D. KT: CANDICE Report ID: [id number] Reading Location: [id number] Social History Type Status Start Date End Date Code Code Syst em Smoking History Never smoker (Never Smoked) [id number] SNOMED CT Sex Female Hospital Discharge Instructions Should you have any questions prior to discharge, please contact a member of your healthcare team. If you have left the hospital and have any questions, please contact your primary care physician. Reason For Referral No Data Found Plan of Treatment NM Spect Perf Rest Stress Multi (15827) 07/07/2019 Stress Test Cardiolyte 07/07/2019 NM Spect Perf Rest Stress Multi (11129) 07/07/2019 Stress Test Cardiolyte 07/07/2019 Encounters Encounter Diagnosis Start Date Code Code Sys tem Unspecified sprain of right shoulder joint, initial encounter 08/14/2024 SNOMED-CT Personal Care Team Section Imaging Narrative Notes
--- OUTSIDE RECORDS SUMMARY | 2025-10-04 18:12 | XMS_ITS | Clinical Summary ---
Author Organization [facility] Address [address] [place] [address] Care Team Providers Care Non Food Receiving Clerk Name Role Phone Ramon Aviles DO Unavailable [phone] Amandeep Akhtar MD Unavailable Ramon Aviles DO Primary Care Provider [phone] Allergies Active Allergy Reactions Criticality Noted Date [...] Department Care Team Description 10/01/2025 8:14 PM [employer] - 10/01/2025 10:57 PM [employer] [facility] [address] [place] [address] Hitesh Horton DO Chest Pain Discharge Disposition: Home or Self Care (Routine Discharge) 10/01/2025 Travel 09/22/2025 10:34 PM [employer] - 09/23/2025 1:41 AM [facility] [address] [place] [address] Micah Galvan MD Chest Pain Discharge Disposition: Home or Self Care (Routine Discharge) 09/22/2025 Travel from Last 3 Months Immunizations Immunization Administration Dates Next Due Fluzone (IIV3, Trivalent, 0.5 ML Prefilled Syrin ge) 08/30/2024 Family History Medical History Relation Comments Diabetes Father Heart Attack Father [place] Father Stroke Father Cancer Maternal Grandfather No [...] 0.6 oz pur e alcohol) [facility] Utilities Answer Date Recorded In the past 12 months has e [email or web address], [employer], oil, or water Recorded Future threatened to shut off services in your [...] any time in the past 12 m [facility], were you homeless or living in a chcf (including now)? No 08/29/2024 Comments No Sex and Gender Information Value Date Recorded Sex Assigned at Female 02/19/2020 11:43 PM CDT Legal Sex Female 10:08 PM [employer] Gender Identity Female 02/19/2020 11:43 PM CDT Sexual Orientation Not on file Occupation Industry Job Start Date Job End Date unemployed Not on file Not on file Not on file Last Filed Vital Signs Vital Sign Reading Time Taken Comments Blood Pressure 123/67 10/01/2025 10:45 PM [employer] Pulse 74 10/01/2025 10:45 PM [employer] TE[employer] Temperature 35.9 C (96.6 F) 10/01/2025 8:15 PM [employer] Respiratory Rate 15 10/01/2025 10:45 PM [employer] Oxygen Saturation 99% 10/01/2025 10:45 PM [employer] Inhaled Oxygen Concentration - - Weight 86.7 kg (191 lb 3.2 oz) 10/01/2025 8:15 P M [employer] Height 162.6 cm (5' 4) 10/01/2025 8:15 PM [employer] Body Mass Index 32.82 10/01/2025 8:15 PM [employer] TE[employer]ER Plan of Treatment Health Maintenance Due Date [...] Comments TROPONIN, QUANT STAT 10/01/2025 10:26 PM [employer] XR CHEST PA+LAT STAT 10/01/2025 9:01 PM [employer] TROPONIN, QUANT STAT 10/01/2025 8:09 PM [employer] PRO-BRAIN NATRIURETIC PEPTIDE STAT 10/01/2025 8:09 PM [employer] COMPREHENSIVE METABOLIC PANEL STAT 10/01/2025 8:09 PM [employer] HC CBC AUTO W/AUTO DIFF STAT 10/01/20 8:09 PM [employer] ECG 12-LEAD Routine 10/01/2025 8:08 PM [employer]ER TROPONIN, QUANT STAT 09/23/2025 12:50 AM [employer] XR CHEST PORTABLE STAT 09/22/2025 10: 57 PM [employer]ER TROPONIN, QUANT STAT 09/22/2025 10:48 PM [employer]ER MAGNESIUM STAT 09/22/2025 10:48 PM [employer]ER PROTHROMBIN TIME, VENOUS STAT 09/22/2025 10:48 PM [employer] TE[employer]ER PARTIAL THROMBOPLASTIN TIME,PTT STAT 09/22/2025 10:48 PM [employer]ER COMPREHENSIVE METABOLIC PANEL STAT 09/22/2025 10:48 PM [employer] TE[employer] HC CBC AUTO W/AUTO DIFF STAT 09/22/20 10:48 PM [employer] TE[employer]ER ECG 12-LEAD Routine 09/22/2025 10:36 PM [employer] TE[employer]ER from Last 3 Months Results * TROPONIN, QUANT (10/01/2025 10:26 PM [employer] TE[employer]ER) Only the most recent of4 resultswithin the time period is included. TROPONIN I HIGH SENSITIVITY 4 0 - 51 ng/L 10/01/2025 10:50 PM [employer] TE[employer]ER [facility] BLOOD VENOUS BLOOD SPECIMEN / Unknown 10/01/2025 10:26 PM [employer] TE[employer]ER us Hitesh Horton DO LABORATORY Final Result [facility] [address] [place] [address], * XR CHEST PA+LAT (10/01/2025 9:01 PM [employer] TE[employer]ER) Anatomical Region Laterality Modality Chest Radiographic Ela ging 10/01/2025 9:04 PM [employer] TE[employer]ER Impressions 10/01/2025 9:08 PM [employer] TE[employer]ER IMPRESSION: No acute cardiopulmonary finding. Dictated By: Jenn Barajas DO on 10/01/2025 9:04 PM The attending radiologist has reviewed the image(s) and agrees with the content of this report. Ordered By: HITESH HORTON Interpreted By: Jenn Barajas DO, 10/01/2025 9:04 PM Narrative 10/01/2025 9:08 PM [employer]ER [address] [place] [address] Examination: Chest x-ray 2 view Exam time: [...] Procedure Note Delfin Angeles MD - 10/01/[address] [place] [address] Examination: Chest x-ray 2 view Exam time: [...] (ABNORMAL) COMPREHENSIVE METABOLIC PANEL (10/01/2025 8:09 PM [employer]ER) Only the most recent of2 resultswithin the time period is included. SODIUM S/P/B 139 136 - 145 MMOL/L 10/01/2025 8:[address] [facility] POTASSIUM S/P/B 3.7 3.5 - 5.1 MMOL/L 10/01/2025 8:[address] [facility] CHLORIDE S/P/B 102 98 - 107 MMOL/L 10/01/2025 8:[address] [facility] CO2 28.0 21.0 - 32.0 MMOL/L 10/01/2025 8:[address] [facility] GLUCOSE 134(H) 70 - 99 MG/DL 10/01/2025 8:[address] [facility] Comment: FASTING GLUCOSE 100 TO 125 MG/DL IS CONSISTENT WITH IMPAIRED FASTING GLUCOSE. FASTING GLUCOSE >125 MG/DL IS CONSISTENT WITH DIABETES. RANDOM GLUCOSE >200 MG/DL WITH HYPERGLYCEMIC SYMPTOMS IS CONSISTENT WITH DIABETES. PER ADA GUIDELINES BUN 21 6 - 24 MG/DL 10/01/2025 8:[address] [facility] CREATININE S/P/B 1.05(H) 0.55 - 1.02 MG/DL 10/01/2025 8:[address] [facility] CALCIUM S/P/B 9.6 8.4 - 10.5 MG/DL 10/01/2025 8:[address] [facility] BILIRUBIN TOTAL S/P/B 0.8 0.2 - 1.0 MG/DL 10/01/2025 8:[address] [facility] Comment: THIS ASSAY IS NOT RECOMMENDED FOR PATIENTS UNDERGOING TREATMENT WITH ELTROMBOPAG DUE TO THE POTENTIAL FOR FALSELY ELEVATED RESULTS. ALKALINE PHOSPHATASE S/P/B 133(H) 50 - 130 U/L 10/01/2025 8:[address] [facility] AST 11(L) 15 - 37 U/L 10/01/2025 8:[address] [facility] ALT 16 14 - 59 U/L 10/01/2025 8:49 PM [employer] [facility] TOTAL PROTEIN S/P/B 7.8 6.4 - 8.2 G/DL 10/01/2025 8:49 PM [employer] TE[employer] [facility] ALBUMIN S/P/B 3.9 3.4 - 5.0 G/DL 10/01/2025 8:49 PM [employer] TE[employer]ER [facility] ANION GAP 9.0 5.0 - 15.0 MMOL/L 10/01/2025 8:49 PM [employer] TE[employer]ER [facility] OSMOLALITY (CALC) 293 MOSM/KG 025 8:[address] [facility] Comment:REFERENCE RANGE NOT ESTABLISHED GFR ESTIMATE 60(L) >89 ML/MIN/1. 73 M2 10/01/2025 8:[address] [facility] GFR NOTES GFR REFERENCE S: 10/01/2025 8:[address] [facility] Comment: THE ESTIMATED GFR IS [...] BLOOD SPECIMEN / Unknown 10/01/2025 8:09 PM [employer]ER us Hitesh Horton DO LABORATORY Final Result [facility] [address] [place] [address], * (ABNORMAL) CBC W/DIFF (10/01/2025 8:09 PM [employer] TEACHER) Only the most recent of2 resultswithin the time period is included. WBC 8.09 4.00 - 10.80 x10'3/uL 10/01/2025 8:33 PM [employer] TE[employer]ER [facility] RBC 4.17 4.10 - 5.40 x10'6/uL 10/01/2025 8:[address] [facility] HGB 11.7(L) 12.0 - 16.0 G/DL 10/01/2025 8:[address] [facility] HCT 37.6 36.0 - 47.0 % 10/01/2025 8:[address] [facility] MCV 90.2 78.0 - 100.0 FL 10/01/2025 8:[address] [facility] MCH 28.1 27.0 - 31.0 PG 10/01/2025 8:[address] [facility] MCHC 31.1(L) 33.0 - 36.0 G/DL 10/01/2025 8:[address] [facility] RDW 14.3 11.5 - 14.5 % 10/01/2025 8:[address] [facility] PLT 200 150 - 350 x10'3/uL 10/01/2025 8:[address] [facility] MPV 11.0(H) 7.4 - 10.4 FL 10/01/2025 8:[address] [facility] CBC COMMENT NORMAL REFERENCE RANGE NOT ESTABLISHED FOR THE PROPORTIONAL LEUKOCYTE DIFFERENTIAL. 10/01/2025 8:[address] [facility] NEUTROPHILS % 68.6 % 10/01/2025 8:[address] [facility] LYMPHOCYTES % 24.8 % 10/01/2025 8:[address] [facility] MONOCYTES % 4.0 % 10/01/2025 8:[address] [facility] EOSINOPHILS % 1.7 % 10/01/2025 8:[address] [facility] BASOPHILS % 0.5 % 10/01/2025 8:33 PM [employer]ER [facility] IMMATURE GRANS % 0.4 % 10/01/20 8:[address] [facility] NRBC % 0.0 % 10/01/2025 8:33 PM [employer] TE[employer]ER [facility] ABS. NEUTROPHILS 5.55 1.60 - 8.30 x10'3/uL 10/01/2025 8:33 PM [employer] TE[employer]ER [facility] ABS. LYMPHOCYTES 2.01 0.80 - 4.70 x10'3/uL 10/01/2025 8:33 PM [employer]UC[employer] TE[employer]ER [facility] ABS. MONOCYTES 0.32 0.00 - 1.50 x10'3/uL 10/01/2025 8:33 PM [employer] TE[employer]ER [facility] ABS. EOSINOPHILS 0.14 0.00 - 0.40 x10'3/uL 10/01/2025 8:33 PM [employer] TE[employer]ER [facility] ABS. BASOPHILS 0.04 0.00 - 0.20 x10'3/uL 10/01/2025 8:33 PM [employer] TE[employer]ER [facility] ABS. IMMATURE GRANULOCYTES 0.03 0.00 - 0.03 x10'3/uL 10/01/2025 8:33 PM [employer] TE[employer]ER [facility] ABS. NUCLEATED RBC'S 0.00 0.00 - 0.01 x10'3/uL 10/01/2025 8:[address] [facility] BLOOD VENOUS BLOOD SPECIMEN / Unknown 10/01/2025 8:09 PM [employer] TE[employer]ER Hitesh Horton DO LABORATORY Final Result [facility] [place] [address], * PRO-BRAIN NATRIURETIC PEPTIDE (10/01/2025 8:09 PM [employer]UC[employer] TEACHER) Pathologist [facility] PRO-B TYPE NATRIURETIC PEPTIDE 49 <125 PG/ML 10/01/2025 8:49 PM [employer]UC[employer] TEACHER [facility] Comment: CUT POINTS ESTABLISHED BY INTERNATIONAL [...] BLOOD SPECIMEN / Unknown 10/01/2025 8:09 PM [employer] TE[employer]ER us Hitesh Horton DO LABORATORY Final Result [facility] [place] [address], * ECG 12 lead (10/01/2025 8:08 PM [employer] TEACHER) Only the most recent of2 resultswithin the time period is included. ECG QT 364 [facility] ECG QTC 394 [facility] 10/01/2025 8:08 PM [employer] TEACHER Narrative [facility] - 10/01/2025 9:50 PM [employer] TEACHER [address] [place] [address] Test Date: 2025-10-01 Pat Name: JORDYN CHRIS Department: 3 Room: Gender: Female Electrical Systems Drafter: : 1965 Requested By: HITESH HORTON Order Number: [id number] Reading MD: Bubba Pizarro Measurements Intervals [place] Rate: 70 P: 33 VA: 169 QRS: 7 QRSD: 73 T: 58 QT: 364 QTc: 394 Interpretive Statements SINUS RHYTHM LOW QRS VOLTAGE IN PRECORDIAL LEADS PATTERN CONSISTENT WITH PULMONARY DISEASE NONSPECIFIC T-WAVE [employer] TEACHER Procedure Note Bubba Pizarro MD - 10/01/[address] [place] [address] Test Date: 2025-10-01 Pat Name: JORDYN CHRIS Department: 3 Room: Gender: Female Electrical Systems Drafter: : 1965 Requested By: HITESH HORTON Order Number: [id number] Reading MD: Bubba Pizarro Measurements Intervals [place] Rate: 70 P: 33 VA: 169 QRS: 7 QRSD: 73 T: 58 QT: 364 QTc: 394 Interpretive Statements SINUS RHYTHM LOW QRS VOLTAGE IN PRECORDIAL LEADS PATTERN CONSISTENT WITH PULMONARY DISEASE NONSPECIFIC [employer] TEACHER us Hitesh Horton DO ECG ORDERABLES Final Result [facility] * XR CHEST PORTABLE (09/22/2025 10:57 PM [employer] TEACHER) Anatomical Region Laterality Modality Chest Radiographic Ela ging 09/22/2025 11:1 1 PM [employer] TE[employer]ER Impressions 09/22/2025 11:11 PM [employer] TE[employer]ER IMPRESSION: No acute cardiopulmonary process. Referred By: Interpreted By: Nithin Junior MD, 09/22/2025 11:11 PM Narrative 09/22/2025 11:11 PM [employer] TE[employer]ER [address] [place] [address] EXAM: XR CHEST PORTABLE INDICATION: Chest pain COMPARISON: Chest radiograph, 25 Sep 2024 TECHNIQUE: Single frontal radiographic image of the chest FINDINGS: No pneumothorax, pleural effusion, or focal airspace consolidation. Pulmonary vasculature and cardiomediastinal silhouette within normal limits. No acute osseous abnormality. Procedure Note Nithin Junior MD - 09/22/[address] [place] [address] EXAM: XR CHEST PORTABLE INDICATION: Chest pain [...] Result * PROTIME/INR, VENOUS (09/22/2025 10:48 PM [employer] TEACHER) PROTIME 12.2 9.4 - 12.5 SEC 09/22/2025 11:03 PM [employer]UC[employer] TEACHER [facility] INR 1.0 0.8 - 1.0 09/22/2025 11:03 PM [employer]UC[employer] TEACHER [facility] BLOOD VENOUS BLOOD SPECIMEN / Unknown 09/22/2025 10:48 PM [employer] TE[employer]ER us Micah Galvan MD LABORATORY Final Result Performing Organization Address City/[facility]/[place]IP [place] [address], * PARTIAL THROMBOPLASTIN TIME,PTT (09/22/2025 10:48 PM H[employer]UCATION TEACHER) PTT 31.5 25.1 - 36.5 SEC 09/22/2025 11:03 PM [employer] EDUCATION TEACHER [facility] BLOOD VENOUS BLOOD SPECIMEN / Unknown 09/22/2025 10:48 PM [employer]UC[employer] TE[employer]ER us Micah Galvan MD LABORATORY Final Result [facility] [address] [place] [address], * MAGNESIUM (09/22/2025 10:48 PM [employer]UC[employer] TEACHER) MAGNESIUM 2.0 1.8 - 2.4 MG/DL 09/22/2025 11:12 PM [employer] EDUCATION TEACHER [facility] BLOOD VENOUS BLOOD SPECIMEN / Unknown 09/22/2025 10:48 PM [employer]UC[employer] TEACHER us Micah Galvan MD LABORATORY Final Result [facility] [address] [place] [address], from Last 3 Months Insurance MEDICARE MEDICARE [facility] Advance Directives * Full Code (Latest Code Status on File) Date Activated Date Inactivated Comments 08/29/2024 1:21 PM 08/30/2024 3:52 PM Care Teams Non Food Receiving Clerk Relationship Specialty Start Date End Date Ramon Aviles DO [address] [place] [address] PCP - General FAMILY PRACTICE 09/25/24 Ramon Aviles DO [address] [place] [address] FAMILY PRACTICE 08/29/24 Amandeep Akhtar MD [address] [place] [id number] CARDIOVASCULAR DISEASE 05/18/17
[2025-10-04 18:31] VITALS: BP 114/68; PULSE 78; RESP 17; O2SAT 96
== END 2025-10-04 18:31 | disposition home or self-care (01) ==
LOC: CHSED 18:09
PROVIDERS: Emergency Provider Emergency Medicine; PCP Nurse Practitioner Family
DX: R07.89 Other chest pain (principal); E11.9 Type 2 diabetes mellitus without complications
CPT/HCPCS: 71045; 99283; A9270